=== PATIENT | female | born 1950 | race Caucasian/White ===

== ENCOUNTER → 2016-08-18 | Outpatient (CLI) | payer MEDICARE, OTHER ==
--- NOTE | 2016-08-19 15:26 | PE ---
EXAMINATION TYPE: PET CT fusion skull to thigh DATE OF EXAM: 08/18/2016 12:53 PM COMPARISON: CT chest 05/19/2015 Prior PET/CT: 05/19/2016 HISTORY: Lung mass TECHNIQUE: Following the intravenous administration of 11.49 mCi of F-18 FDG, whole body images are performed from the skull base to the midthigh. Images are reviewed on the computer in the coronal, a xial, and sagittal planes. Reconstructed rotating images are created on independent workstation and reviewed on the computer. A localization and attenuation correction CT is performed in conjunction with the PET scan. DLP: 458.9 cm mGycm SCAN: Subsequent Scan Blood glucose: 110 mg/dL Average Mediastinum SUV: 2.3 Average Liver SUV: 2.7 FINDINGS: NECK: No abnormal uptake THORAX: There is increased uptake within the pleural thickening along the posterior left upper lung f ield and within the left lung. This has an SUV value of 2.0-2.5. There is some increase uptake within the subscapularis muscle external to the rib in the range 2.8. This could be some neoplastic involve ment or related to motion. ABDOMEN: No abnormal uptake PELVIS: No abnormal uptake within the pelvis. Within the subcutaneous tissues lateral to the inferior hip joint level is a focal radiotracer accumulation measuring 3.5. A soft tissue metastatic lesion c ould be considered. Image 25 OSSEOUS STRUCTURES: There is some scattered areas of increased uptake within the spine is somewhat in termediate range. This however could be related to the degenerative disc changes and endplate changes through the spine. Metastatic lesions are not excluded. Example; inferior endplate L3, image 155. LOCALIZATION CT: Diverticulosis is noted within the sigmoid colon. The ascending thoracic aorta: Main pulmonary artery is 3.3 cm. The main pulmonary artery bifurcation is slightly prominent at 3.5 cm. C onsider pulmonary hypertension. Soft tissue density along the posterior lateral pleural margin extend ing into the left lung is evident is likely series 3 image 71. Note is made of coronary artery calcif ication. COMPARISON: Uptake within the left lung and pleural margin has increased. The thickening of pleural m argin appears increased. Uptake within the subscapularis region appears similar. Previous SUV value w ithin the lung measures 2. Current corresponding location has an SUV value 2.5. The soft tissue upta ke lateral to the right is a new finding. Mild uptake within the spine appears to be a development. IMPRESSION: 1. Increasing SUV in uptake within the posterior lateral left upper lung field density suspicious for recurrent neoplasm. 2. New soft tissue metastatic lesion suspected within the right subcutaneous hip. 3. Mild uptake within scattered lumbar cervical levels. Early metastatic lesion should be considered and is a change from prior. 4. Correlate for pulmonary hypertension.
== END | disposition home or self-care (01) ==
LOC: RADPETMAIN 09:27
PROVIDERS: ATTEND Radiology Radiation Oncology
DX: C34.92 Malignant neoplasm of unspecified part of left bronchus or lung (principal)
CPT/HCPCS: 78815; A9552

== ENCOUNTER → 2016-11-02 | Outpatient (CLI) | payer MEDICARE, OTHER ==
--- NOTE | 2016-11-03 14:23 | US ---
EXAMINATION TYPE: US extremity nonvasc mass RT DATE OF EXAM: 11/02/2016 6:14 PM COMPARISON: Previous PET CT dated 08/18/2016. CLINICAL HISTORY: R Hip Lesion M53.3. Scanned right lateral hip ,there is a 0.7 x 0.8 x 0.9 hypoechoic area with somewhat spiculated chaitanya ns. No vascularity detected. This corresponds to the abnormal finding on PET/CT. IMPRESSION: SMALL, 9 MM SOFT TISSUE NODULE IN THE AREA OF CONCERN ON THE PET/CT SCAN, SUSPICIOUS FOR METASTATIC D ISEASE.
== END | disposition home or self-care (01) ==
LOC: RADUSMAIN 17:48
PROVIDERS: ATTEND Family Medicine
DX: M53.3 Sacrococcygeal disorders, not elsewhere classified (principal)

== ENCOUNTER → 2016-12-08 | Outpatient (CLI) | payer MEDICARE, OTHER ==
--- NOTE | 2016-12-10 11:14 | PE ---
Nuclear medicine PET/CT HISTORY: Lung cancer, C 34.12 Patient received 14.3 mCi F-18 FDG intravenously. Delayed scanning performed from the skull base to t he mid thighs. Localization and attenuation correction CT was performed. Exam correlated to prior nuc lear medicine PET/CT 08/18/2016 Neck and chest: No significant adenopathy in the neck. Abnormal soft tissue in the left paratracheal location shows a similar appearance to prior exam, no associated hypermetabolic uptake. Parenchymal d ensity within the left lung is noted, pneumonitis type changes in the left upper lobe centrally, ciara pherally abnormal increased attenuation in the left upper lobe shows a similar appearance compatible with posttreatment change. SUV is 2.6 and there is likely inflammatory or post radiation change to ch est wall. There is no pleural or pericardial effusion. Cavitary appearance of the right lower lobe is stable. Emphysematous changes are present bilaterally. Heart is enlarged. Coronary artery calcificat ions are present. Pulmonary artery is dilated. Abdomen pelvis: No retroperitoneal adenopathy. No adrenal mass. Liver shows low attenuation and is en larged compatible with fatty aeration. No suspicious hypermetabolic uptake. No free fluid. Extensive diverticular change seen in the sigmoid colon. Hypermetabolic focus present within the subcutaneous fat at the level of the right hip may represent a small skin lesion. This is not well localized due to patient body habitus but may represent an inje ction granuloma. SUV is 10. Osseous structures: Multiple vertebral bodies within the spine show hypermetabolic uptake ranging to approximately 3-4 SUV. Degenerative changes present within the acromioclavicular joints. Uptake in sa croiliac joints may be inflammatory or stress related. IMPRESSION: Hypermetabolic uptake again noted in multiple vertebral bodies as on previous exam. Findi ngs could possibly represent reactive marrow changes, MRI with and without contrast of the cervical, lumbar spine or bone scan could be performed for additional evaluation. Coronary artery disease, card iomegaly, consider pulmonary artery hypertension. Probable skin lesion as described. Posttreatment ch anges left upper lobe.
== END | disposition home or self-care (01) ==
LOC: RADPETMAIN 08:27
PROVIDERS: ATTEND Radiology Radiation Oncology
DX: C34.12 Malignant neoplasm of upper lobe, left bronchus or lung (principal); R94.8 Abnormal results of function studies of other organs and systems; I25.10 Atherosclerotic heart disease of native coronary artery without angina pectoris; I51.7 Cardiomegaly; I27.2 Other secondary pulmonary hypertension; Z98.890 Other specified postprocedural states
CPT/HCPCS: 78815; A9552

== ENCOUNTER → 2017-01-21 | Outpatient (CLI) | payer MEDICARE, OTHER | END | disposition home or self-care (01) | LOC: LABWHC1 08:59 | PROVIDERS: ATTEND Family Medicine | DX: R53.83 Other fatigue (principal); R60.1 Generalized edema | CPT/HCPCS: 36415; 84439; 84443; 85613; 85730 ==

== ENCOUNTER → 2017-02-04 | Outpatient (CLI) | payer MEDICARE, OTHER ==
--- NOTE | 2017-02-04 12:22 | US ---
EXAMINATION TYPE: US extremity nonvasc complt RT DATE OF EXAM: 02/04/2017 COMPARISON: US 10/[address] 12/01 CLINICAL HISTORY: M53.3 SOFT TISSUE NODULE. Patient states spider veins on her right hip can feel bru ised and bleed, otherwise no other lump felt by patient or tech Soft tissue scan appears negative for pathology, superficial vessels seen at area of complaint under prominent spider veins. Area seen previously by ultrasound by technologist could not recreate today. No suspicious cystic or solid areas are identified. Normal vascular structures are evident within the [id number]. Previous hypoechoic area within the right hip region is not identified currently. IMPRESSION: 1. Negative right hip ultrasound soft tissues. 2. Abnormality of October 2016 is not appreciated on the current exam.
== END | disposition home or self-care (01) ==
LOC: RADUSWWP 08:58
PROVIDERS: ATTEND Internal Medicine Hematology & Oncology
DX: Z03.89 Encounter for observation for other suspected diseases and conditions ruled out (principal); C34.12 Malignant neoplasm of upper lobe, left bronchus or lung

== ENCOUNTER → 2017-02-23 | Outpatient (CLI) | payer MEDICARE, OTHER ==
[2017-02-23 09:45] LABS: Non-African American GFR(MDRD) >60 (>60 ml/min/1.73 sqM)
== END | disposition home or self-care (01) ==
LOC: RADMRIMAIN 09:23
PROVIDERS: ATTEND Radiology Radiation Oncology
DX: C34.12 Malignant neoplasm of upper lobe, left bronchus or lung (principal)
CPT/HCPCS: 82565

== ENCOUNTER → 2017-03-16 | Outpatient (CLI) | payer MEDICARE, OTHER ==
--- NOTE | 2017-03-17 15:01 | PE ---
EXAMINATION TYPE: PET CT fusion whole body DATE OF EXAM: 03/16/2017 COMPARISON: 05/19/2015 Prior PET/CT: 12/08/2016 HISTORY: Lung cancer left lung TECHNIQUE: Following the intravenous administration of 14.4 mCi of F-18 FDG, whole body images are p erformed from the skull base to the midthigh. Images are reviewed on the computer in the coronal, ax ial, and sagittal planes. Reconstructed rotating images are created on independent workstation and r eviewed on the computer. A localization and attenuation correction CT is performed in conjunction w ith the PET scan. DLP: 467.04 mGycm SCAN: Subsequent follow-up Blood glucose: 166 mg/dL Average Mediastinum SUV: 1.47 Average Liver SUV: 2.17 FINDINGS: NECK: No abnormal uptake THORAX: There is vague diffuse uptake within the posterior lateral pneumonitis change. This has an PRINCE V value of 2.4 general which can be postinflammatory treatment changes. Underlying neoplasm is not ex cluded. This was present previously. This has maximum uptake on the previous examination within the r albert of 2.6. This maximum obtained on current examination is 2.8. ABDOMEN: No abnormal uptake PELVIS: No abnormal uptake within the pelvis. Note is made of a area of marked increased uptake withi n the subcutaneous tissues in the right lateral subcutaneous tissues with an SUV value of 7.95 compat ible with a soft tissue metastatic lesion. OSSEOUS STRUCTURES: Uptake within the vertebral bodies is diminished from comparison. Suspicious foca l uptake is not identified. LOCALIZATION CT: Pneumonitis changes in the left apex. The ascending thoracic aorta at the level of t he main pulmonary artery is 3.3 cm. The main pulmonary artery the bifurcation is 3.7 cm. Clinical con sideration for pulmonary hypertension is recommended. Coronary artery calcification is noted. COMPARISON: This is larger and more extensive than the recent comparison of 12/08/[address] from the PET scan. The nodularity however from the 05/19/[address] examination is diminished . SUV values of increased slightly over the interval. Recurrent neoplasm cannot be excluded. IMPRESSION: 1. Increasing consolidation or infiltrative process in the left upper lobe. There is slight increase in the SUV value an increase in size from the recent PET/CT. Recurrent neoplasm is not excluded. 2. Soft tissue metastatic lesion suspected lateral to the right hip in superficial subcutaneous tissu es. 3. Consideration for pulmonary hypertension is recommended.
== END | disposition home or self-care (01) ==
LOC: RADPETMAIN 10:35
PROVIDERS: ATTEND Radiology Radiation Oncology
DX: C34.12 Malignant neoplasm of upper lobe, left bronchus or lung (principal); R94.2 Abnormal results of pulmonary function studies
CPT/HCPCS: 78816; A9552

== ENCOUNTER → 2017-07-26 | Outpatient (CLI) | payer MEDICARE, OTHER ==
--- NOTE | 2017-07-26 09:52 | US ---
EXAMINATION TYPE: US extremity nonvasc mass RT DATE OF EXAM: 07/26/2017 COMPARISON: Multiple PET scans and US's CLINICAL HISTORY: M25.859 Right hip mass. scanned lateral right thigh/hip area, there is a 4.3 x 4.2 x 3.9 cm complex mass with vascularity. This area is hypoechoic with some vascular flow within the inferior echogenic portion. This was prese nt on the PET scan of 03/16/2017. IMPRESSION: 1. Hypoechoic lesion with some peripheral vascularity deep to the palpable lesion. Findings can be co mpatible metastasis proper clinical setting.
== END | disposition home or self-care (01) ==
LOC: RADUSWWP 08:56
PROVIDERS: ATTEND Surgery Plastic and Reconstructive Surgery
DX: M25.851 Other specified joint disorders, right hip (principal); I73.89 Other specified peripheral vascular diseases

== ENCOUNTER → 2017-07-27 | Outpatient (CLI) | payer MEDICARE, OTHER ==
--- NOTE | 2017-07-29 10:31 | PE ---
EXAMINATION TYPE: PET CT fusion skull to thigh DATE OF EXAM: 07/27/2017 COMPARISON: No recent CT examinations. Prior PET/CT: Most recent comparison of 03/16/2017. HISTORY: Lung cancer TECHNIQUE: Following the intravenous administration of 12.4 mCi of F-18 FDG, whole body images are p erformed from the skull base to the midthigh. Images are reviewed on the computer in the coronal, ax ial, and sagittal planes. Reconstructed rotating images are created on independent workstation and r eviewed on the computer. A localization and attenuation correction CT is performed in conjunction w ith the PET scan. DLP: 4656 mGycm SCAN: Subsequent Blood glucose: 132 mg/dL Average Mediastinum SUV: 1.75 Average Liver SUV: 2.51 FINDINGS: NECK: No abnormal uptake THORAX: There is mild increased radiotracer within the consolidation posterior lateral left upper lob e. This has an SUV value of 2.6 compatible with patient's reported lung cancer. ABDOMEN: No abnormal uptake PELVIS: No abnormal uptake within the pelvis. Lateral to the right hip within the subcutaneous tissue s is marked increased radiotracer accumulation within SUV value 7.7 compatible with prostatic. OSSEOUS STRUCTURES: No abnormal uptake LOCALIZATION CT: The ascending thoracic aorta at the level the main pulmonary artery is 3.4 cm patent main pulmonary artery the bifurcation is 4.1 cm. Consider pulmonary hypertension. Coronary artery ca lcification is present. The triangular density in the left upper lobe has a similar appearance to the recent comparison of . No obvious interval increase in size is evident. Current measurements are estimated at 6.2 x 4.5 cm compared to the 6.3 x 4.2 cm previous. COMPARISON: Findings appear stable over the interval. IMPRESSION: 1. Stable appearance of the left upper lobe mass. 2. Subcutaneous metastatic lesion right hip region was present previously. 3. Clinical consideration for pulmonary hypertension is recommended.
== END | disposition home or self-care (01) ==
LOC: RADPETMAIN 07:49
PROVIDERS: ATTEND Radiology Radiation Oncology
DX: C34.12 Malignant neoplasm of upper lobe, left bronchus or lung (principal)
CPT/HCPCS: 78815; A9552

== ENCOUNTER → 2017-08-05 | Outpatient (CLI) | payer MEDICARE, OTHER ==
--- NOTE | 2017-08-05 11:31 | XR ---
EXAMINATION TYPE: XR wrist complete LT DATE OF EXAM: 08/05/2017 COMPARISON: NONE HISTORY: 66 year-old female left wrist pain and swelling, additional technologist history reports fra cture diagnosed 05/27/2018. TECHNIQUE: 4 views FINDINGS: There is an impacted and comminuted Colles' fracture of the distal radius and impacted fracture of th e distal ulna as well. Osteopenia. Healing is incomplete with some consolidation along the fracture m argin and periosteal callus. Degenerative changes at the base of the thumb and diffuse osteopenia. An ossicle adjacent to the ulnar styloid process. IMPRESSION: 1. Incompletely healed, impacted Colles' fracture with mild dorsal angulation. Additional technologis t history reports fracture diagnosed 05/27/2018. 2. Healing distal ulnar fracture.
== END | disposition home or self-care (01) ==
LOC: RADXRMAIN 09:02
PROVIDERS: ATTEND Family Medicine
DX: S52.602D Unspecified fracture of lower end of left ulna, subsequent encounter for closed fracture with routine healing (principal); S52.532D Colles' fracture of left radius, subsequent encounter for closed fracture with routine healing; M21.832 Other specified acquired deformities of left forearm

== ENCOUNTER 2017-08-14 08:54 | Day surgery (SDC) | payer MEDICARE, OTHER ==
[2017-08-14 09:25] VITALS: RESP 18; TEMP 97.6
[2017-08-14 11:15] VITALS: BP 110/70; PULSE 89
--- NOTE | 2017-08-14 11:16 | US ---
EXAMINATION TYPE: US biopsy soft tissue/muscle, US fine needle aspiration DATE OF EXAM: 08/14/2017 HISTORY: Right hip mass. Correlation to PET\CT 07/27/2017 FINDINGS: Maximal barrier technique was utilized. The skin overlying a suitable path to the patient' s mass was localized with ultrasound and the overlying skin prepped and draped. Ultrasound was utili zed with sterile technique. Lidocaine was used for local anesthesia. A skin blade was made with a sc alpel. 23-gauge needle was advanced into the center of the mixed solid cystic lesion and approximate ly 20 cc of brown fluid were aspirated and submitted to cytology. An 18-gauge needle was advanced und er direct ultrasound guidance and core specimen obtained of the mass. Specimen submitted in formalin to Pathology. Following the procedure, hemostasis achieved and the patient is discharged in stable condition without complication. IMPRESSION:STATUS POST ULTRASOUND GUIDED CORE BIOPSY and fine-needle aspiration OF right hip MASS, PA THOLOGY IS PENDING. THIS PROCEDURE IS PERFORMED BY THE UNDERSIGNED.
== END 2017-08-14 10:45 | disposition home or self-care (01) ==
LOC: RADPROMAIN 08:54
PROVIDERS: ATTEND Radiology Radiation Oncology
DX: C79.89 Secondary malignant neoplasm of other specified sites (principal); C34.12 Malignant neoplasm of upper lobe, left bronchus or lung
CPT/HCPCS: 10022; 20206; 76942; 87070; 87075; 87205; 88305; 88341; 88342

== ENCOUNTER → 2017-10-26 | Outpatient (CLI) | payer MEDICARE, OTHER ==
--- NOTE | 2017-10-29 16:26 | PE ---
EXAMINATION TYPE: PET CT fusion skull to thigh DATE OF EXAM: 10/26/2017 COMPARISON: PET/CT dated 07/27/2017 as well as 12/08/2016 and ultrasound guided biopsy of a right hip m ass dated 08/14/2017. HISTORY: Left lung carcinoma treated with surgery and radiation therapy. Subsequent treatment surgery . TECHNIQUE: Following the intravenous administration of 10.35 mCi of F-18 FDG, whole body images are performed from the skull base to the midthigh. Images are reviewed on the computer in the coronal, a xial, and sagittal planes. Reconstructed rotating images are created on independent workstation and reviewed on the computer. A localization and attenuation correction CT is performed in conjunction with the PET scan. SCAN: Subsequent. Multiple priors. FINDINGS: THORACIC BACKGROUND UPTAKE: 2.86 ABDOMINAL BACKGROUND UPTAKE: 3.32 SKULL BASE AND NECK: No suspicious hypermetabolic uptake. CHEST, MEDIASTINUM, AND HILAR REGION: There is a masslike consolidative area measuring 2.5 x 1.8 cm o n series 3 image 169 with peripheral pleural thickening measuring up to 1.4 cm on series 3 image 70 w ith a maximum SUV of 3.65 (prior SUV of 2.6). When measured in a similar fashion to the prior exam th is measures approximately 6.2 x 4.5 cm, unchanged on series 3 image 71. Deep to this there is activit y within the subscapularis measuring 2.8 maximum SUV. Additionally there is a left basilar pulmonary nodule measuring 8 mm on series 3 image 113 with a max imum SUV of 2.0. This retrospectively demonstrated slight interval growth in comparison to the prior exam but is much more conspicuous on today's examination. A cavitary thin walled lesion within the right lower lobe along the pleural surface has a nodular com ponent measuring 7 mm in thickness on series 3 image 105. The internal cavitary lesion measures 2.2 x 1.2 cm. A nodular component has grown in the interim. This has a maximum SUV of 2.3 Findings are superimposed upon mild centrilobular background emphysematous change. Lingular atelectas is is again noted. There is a left paratracheal lymph node measuring 1.1 cm in short axis on series 3 image 77 with a ma ximum SUV of 2.72. ABDOMEN AND PELVIS: There is a new abnormal right superficial inguinal lymph node measuring 1.7 cm in short axis on series 3 image 210 with substantial hypermetabolic activity in a maximum SUV of 12.12. Additional nonenlarged superficial inguinal lymph nodes, which are nonhypermetabolic, are seen adjac ent to this. The previously seen right thigh mass is much less conspicuous and has a marked decrease in SUV in comparison to the prior. This previously measured up to 7.95 maximum SUV and now measures 1 .3 but is on the edge of the [id number]. OSSEOUS STRUCTURES: There is some increased activity within the L2-L4 vertebral bodies with a maximum SUV of 2.92 as well as at T10 measuring 2.85 with the remainder the spine ranging between 2.1-2.3. OTHER CT: The paranasal sinuses are well aerated. Atherosclerosis is seen in the intracranial vascula ture. Moderate three-vessel coronary calcifications are noted. Heart is not enlarged. No pericardial effusion. No axillary adenopathy. There is diffuse hypoattenuation of the hepatic parenchyma, most co mmonly related to hepatic steatosis. This limits evaluation for hepatic masses as does the lack of in travenous contrast. Liver also appears enlarged. Small splenule seen adjacent to the [place] spleen. U nenhanced pancreas and kidneys are grossly unremarkable. Moderate calcific atheromatous changes are s een of the abdominal aorta and its branches. Adrenal glands are normal morphology. Bowel is nondilate d. There is diastases recti and a very small fat filled umbilical hernia. Numerous colonic diverticul a are present without pericolonic fat stranding. IMPRESSION: 1. Highly metabolic, new, morphologically abnormal right superficial inguinal adenopathy level to the recently biopsied right hip soft tissue mass that should be considered metastatic adenopathy until p roven otherwise. 2. Although there is overall unchanged size of the left upper lobe consolidation in the area of postt reatment change there is increase in radiotracer uptake concerning for recurrence. There is adjacent myositis of the subscapularis in reactive pleural thickening. 3. Interval growth of a nodular component of the right basilar cavitary lesion and interval growth of the left basilar pulmonary nodule both demonstrating low radiotracer activity, however interval grow th remains of concern for metastasis. 4. Minimal radiotracer increased avidity within L2-4 and T10 slightly above remainder the osseous str uctures, however not above abdominal background. Findings could be degenerative although correlation with radiograph could be performed.
== END | disposition home or self-care (01) ==
LOC: RADPETMAIN 09:56
PROVIDERS: ATTEND Radiology Radiation Oncology
DX: C34.12 Malignant neoplasm of upper lobe, left bronchus or lung (principal); R59.0 Localized enlarged lymph nodes; R91.1 Solitary pulmonary nodule; J98.4 Other disorders of lung
CPT/HCPCS: 78815; A9552

== ENCOUNTER → 2017-12-12 | Outpatient (CLI) | payer MEDICARE, OTHER ==
--- NOTE | 2017-12-12 10:04 | MR ---
EXAMINATION TYPE: MR brain wo/w con DATE OF EXAM: 12/12/2017 COMPARISON: NONE HISTORY: Lung ca mets TECHNIQUE: Multiplanar, multisequence images of the brain and brainstem is performed without and with IV contras t, utilizing 10 mL intravenous Gadavist . FINDINGS: Diffusion weighted images show no evidence of a recent infarct or other diffusion abnormality. There is no worrisome extra-axial fluid collection. The ventricular system and cisternal spaces are normal in size and appearance. The brain volume is age appropriate. There are some scattered foci of T2 hy perintensity seen throughout the white matter bilaterally. Approximately 10-20 scattered small lesion s are present. Lesions are nonspecific in appearance and distribution but most likely on basis of pro duct of chronic small vessel ischemic change in patient of this age. Midline structures demonstrate normal morphology. The craniocervical junction appears within normal limits. Post contrast images demonstrate some artifact degradation but there is no convincing eviden ce for suspicious foci of intraparenchymal enhancement suggest metastatic disease to the brain. Mild fluid signal left mastoid air cells is present. The dural venous sinuses appear patent. The visualize d sinuses are clear and the globes are intact. IMPRESSION: No suspicious enhancing intraparenchymal lesions are seen to suggest metastatic disease t o the brain.
== END | disposition home or self-care (01) ==
LOC: RADMRIMAIN 07:31
PROVIDERS: ATTEND Radiology Radiation Oncology
DX: C34.12 Malignant neoplasm of upper lobe, left bronchus or lung (principal)
CPT/HCPCS: 70553; A9581

== ENCOUNTER → 2018-01-06 | Outpatient (CLI) | payer MEDICARE, OTHER ==
[2018-01-06 11:25] LABS: Blood Urea Nitrogen 9 mg/dL (7-17)
--- NOTE | 2018-01-06 15:36 | CT ---
EXAMINATION TYPE: CT ChestAbdPelvis wo/w con DATE OF EXAM: 01/06/2018 INDICATION: Follow up lung cancer COMPARISON: 04/04/2015 CT chest, PET CT 10/26/2017 CT DLP: 3382.1 mGycm CONTRAST: Performed with Oral Contrast and without and with IV Contrast, patient injected with 100 mL of Isovue 300. TECHNIQUE: Axial images at 5 mm thick sections. Reconstructed images in the coronal plane. Delayed images through the kidneys. FINDINGS: CT CHEST: Portion of the thyroid visualized is normal. There is a mass extending to the periphery in the left apex measuring 4.9 x 4.6 cm on previous could be recurrence of the mass in the left apex. There is an enlarged mediastinal lymph node in the right peribronchial region measuring 2.1 cm. Right hilar adenopathy measuring 2.2 cm is present. A smaller 1.2 cm lymph node is at the aortopulmonic window level and is enlarged by CT criteria. Small nodules are at the lung bases measuring 0.6 cm at the posterior lateral peripheral right lung b ase, series 7 image 37. In measuring 1.1 cm of the left diaphragm. Series 7 image 37. The ascending aorta diameter at the level of the main pulmonary artery is 3.0 cm. The main pulmonary artery diameter at the bifurcation is 3.6 cm. Clinical consideration for pulmonary hypertension is r ecommended. Coronary artery calcification is noted. CT ABDOMEN: Liver: There appears to be fatty infiltration liver. No discrete masses or cysts are evident. Spleen: Normal Pancreas: Normal Adrenal glands: The adrenal glands are normal. Gallbladder: Not identified. Kidneys: No masses are evident. No hydronephrosis is present. No cysts are present. Delayed images were obtained through the kidneys, which remain unremarkable. Aorta: Vascular calcification is within the aorta. Inferior vena cava: Normal. CT PELVIS: Multiple diverticuli are within the sigmoid colon region. No acute diverticulitis is evident. Oral co ntrast extends to the colon. No obstruction is evident. There are loops of bowel which are incomplete ly distended or lack oral contrast limiting their evaluation. Right inguinal adenopathy is present. Appendix: Not visualized. Urinary bladder: Normal. Genitourinary structures: Uterus and ovaries are not identified. Osseous structures: No suspicious lytic or sclerotic lesions. IMPRESSIONS: 1. Recurrent mass left upper lobe with ill-defined margins extending to the periphery suspicious for recurrent lung cancer. 2. Scattered small nodules at the lung bases discussed above. Metastatic disease should be considered . 3. Enlarged right hilar isn't mediastinal adenopathy suspicious for metastasis. 4. Moderate fatty infiltration liver. 5. Diverticulosis sigmoid colon.
== END | disposition home or self-care (01) ==
LOC: RADCTMAIN 10:31
PROVIDERS: ATTEND Radiology Radiation Oncology
DX: C34.12 Malignant neoplasm of upper lobe, left bronchus or lung (principal); K57.30 Diverticulosis of large intestine without perforation or abscess without bleeding; K76.0 Fatty (change of) liver, not elsewhere classified
CPT/HCPCS: 82565; 84520; 71270; 74178; 36415; Q9967

== ENCOUNTER → 2018-02-22 | Outpatient (CLI) | payer MEDICARE, OTHER ==
--- NOTE | 2018-02-23 15:12 | PE ---
EXAMINATION TYPE: PET CT fusion skull to thigh DATE OF EXAM: 02/22/2018 COMPARISON: CT chest abdomen pelvis 01/06/2018 Prior PET/CT: 10/26/2017 HISTORY: Lung cancer TECHNIQUE: Following the intravenous administration of 10.88 mCi of F-18 FDG, whole body images are performed from the skull base to the midthigh. Images are reviewed on the computer in the coronal, a xial, and sagittal planes. Reconstructed rotating images are created on independent workstation and reviewed on the computer. A localization and attenuation correction CT is performed in conjunction with the PET scan. DLP: 588.02 mGycm SCAN: Subsequent Blood glucose: 128 mg/dL Average Mediastinum SUV: 2.18 Average Liver SUV: 2.89 FINDINGS: NECK: No abnormal uptake THORAX: There is a punctate area of increased uptake within the superior mediastinum which may be a s mall lymph node with metastatic disease. This has an SUV value of 3.3. Image 61. There is an abnormal lymph node with uptake measuring SUV 7.02. PET image 71. There is a right peribronchial lymph node w ith an SUV value of 8.05. PET image 77. An adjacent hilar lymph node measuring 4.8 SUV value is prese nt, PET image 76. Subcarinal lymph node has abnormal uptake with an SUV value of 10.04. A right infra hilar lymph node or mass has an SUV value of 14.46. This is directly adjacent to the right atrium. A left infrahilar lymph node has an SUV value of 6.17. PET image 79. There is vague increased uptake within the triangular consolidation in the periphery of the posterior lateral left upper lobe. SUV values approximately 3.5. There is abnormal uptake within a mass within the left upper lobe. PET image 70, SUV value 5.8. Small posterior density within the left apex has a n SUV value of 2.23. PET Image 56. Focus of radiotracer accumulation is in the periphery of the righ t lower lobe. PET image 105, SUV 2.65. Abnormal radiotracer accumulation is at the left diaphragm po steriorly, PET image 110, SUV 12.24. ABDOMEN: No abnormal uptake PELVIS: Abnormal radiotracer accumulation is within the iliac chain region on the right. PET image 21 0. This has an SUV value of 7.08. There is a markedly enlarged area of radiotracer accumulation withi n the right inguinal region with an SUV value of 11.71. OSSEOUS STRUCTURES: No abnormal uptake LOCALIZATION CT: Ascending thoracic aorta at the level of main pulmonary artery is 3.3 cm. Remaining pulmonary artery location is 3.3 cm. Moderate coronary artery calcifications present. The adrenal gla nds as visualized appear unremarkable. Diverticular changes are present without acute diverticulitis. The abnormal lymphadenopathy identified by PET CT is also evident on the localization CT. COMPARISON: 1 masses such as at the left diaphragm is enlarged prior study currently measuring 1.7 cm compared to 0.8 cm. Additional nodule likewise has enlarged over the interval. IMPRESSION: 1. Enlarging size of pulmonary nodules with increasing SUV values suspicious for recurrence. 2. Mediastinal uptake likewise appears increasing. 3. The right inguinal mass has increased as well.
== END | disposition home or self-care (01) ==
LOC: RADPETMAIN 11:22
PROVIDERS: ATTEND Radiology Radiation Oncology
DX: C34.12 Malignant neoplasm of upper lobe, left bronchus or lung (principal); F17.210 Nicotine dependence, cigarettes, uncomplicated; C79.89 Secondary malignant neoplasm of other specified sites; C49.21 Malignant neoplasm of connective and soft tissue of right lower limb, including hip
CPT/HCPCS: 78815; A9552

== ENCOUNTER → 2018-04-04 | Outpatient (CLI) | payer MEDICARE, OTHER ==
--- NOTE | 2018-04-04 20:47 | MR ---
EXAMINATION TYPE: MR brain wo/w con DATE OF EXAM: 04/04/2018 COMPARISON: Prior brain MR 12/12/2017 HISTORY: Headaches, Lung ca 2015 TECHNIQUE: Multiplanar, multisequence images of the brain and brainstem is performed without and with IV contras t, utilizing 10 mL intravenous Gadavist . FINDINGS: Diffusion weighted images demonstrate no evidence of a recent infarct or other diffusion ab normality. There is no extra-axial fluid collection or significant interval change in white matter s ignal abnormality. There are approximately 2 new hyperintensities suspected in the frontal lobes in t he subcortical white matter, axial image 15 on the left lesion measures 6 mm not seen on prior, axial image 15 left frontal white matter 4.4 mm also not seen on prior exam which both enhance following c ontrast administration. The ventricular system and cisternal spaces are normal in size and appearance . The brain volume is age appropriate. Midline structures demonstrate normal morphology. The dural enhancement is similar to prior. The cran iocervical junction appears within normal limits. The dural venous sinuses appear patent. The visual ized sinuses are clear and the globes are intact. IMPRESSION: 2 new left frontal lesions as described which show enhancement suggestive of metastasis.
== END | disposition home or self-care (01) ==
LOC: RADMRIMAIN 19:03
PROVIDERS: ATTEND Internal Medicine Hematology & Oncology
DX: C34.12 Malignant neoplasm of upper lobe, left bronchus or lung (principal); G93.9 Disorder of brain, unspecified; R51 Headache
CPT/HCPCS: 70553; A9585

== ENCOUNTER → 2018-05-24 | Outpatient (CLI) | payer MEDICARE, OTHER ==
--- NOTE | 2018-05-27 16:21 | PE ---
Nuclear medicine PET/CT HISTORY: Neoplasm of brain, lung carcinoma, subsequent Patient received 11.9 mCi F-18 FDG intravenously in delayed scanning was performed from the skull bas e to the mid thighs. Localization and attenuation correction CT scan was performed. Correlation to prior nuclear medicine PET/CT 02/22/2018 Neck and chest: There is no evident cervical or axillary adenopathy. There is uptake associated with the pleural-based mass in the left upper lobe which shows a similar configuration, SUV is 3.5. The pr eviously identified hilar and mediastinal uptake seen on prior exam has improved in the interval, SUV 4 right hilum. Left upper lobe lung nodule on axial image 79 measures 1 cm and decreased radio pharm aceutical uptake as compared to prior, lesion along the left hemidiaphragm measures approximately 2.1 cm in greatest transverse dimension although likely less volume, there is decreased hypermetabolic u ptake. Subpleural nodule in the right lower lobe has developed in the interval and measures approxima tely 11 mm, an interval finding, only mild hypermetabolic uptake with SUV 1.8, smaller nodule may be immediately adjacent in the right lower lobe but subcentimeter in size. Abdomen pelvis: There is no retroperitoneal adenopathy. Aorta shows normal caliber. No evident liver mass. In the right inguinal region there are lymph nodes present, the largest measures approximately 17 mm in short axis, there is associated hypermetabolic uptake, SUV is 3.5 which is improved. Extensi ve diverticular change noted in the sigmoid colon. Osseous structures: No significant interval change. No suspicious hypermetabolic uptake IMPRESSION: There has been some marked interval improvement in previous hyper metabolic uptake identi fied, although new lesions, new mild hypermetabolic uptake is present suggesting possible mixed respo nse.
== END | disposition home or self-care (01) ==
LOC: RADPETMAIN 12:13
PROVIDERS: ATTEND Radiology Radiation Oncology
DX: C79.31 Secondary malignant neoplasm of brain (principal); C77.4 Secondary and unspecified malignant neoplasm of inguinal and lower limb lymph nodes; C79.89 Secondary malignant neoplasm of other specified sites; C49.21 Malignant neoplasm of connective and soft tissue of right lower limb, including hip; C34.12 Malignant neoplasm of upper lobe, left bronchus or lung; F17.210 Nicotine dependence, cigarettes, uncomplicated
CPT/HCPCS: 78815; A9552

== ENCOUNTER 2018-07-17 17:36 | Inpatient (IN) | payer MEDICARE, OTHER ==
[2018-07-17] MEDS ORDERED: HYDROmorphone 0.5 MG/0.5 ML SYRINGE IVP STA (18:49)
[2018-07-17] MEDS ORDERED: SODIUM CHLORIDE 0.9% 1,000 ML IV STA (18:49)
[2018-07-17] MEDS ORDERED: ONDANSETRON 4 MG/2 ML VIAL IVP STA (18:49)
--- NOTE | 2018-07-17 19:03 | ED ---
General Adult HPI - General Chief complaint: Nausea/Vomiting/Diarrhea Stated complaint: weakness/nausea Time Seen by Provider: 07/17/18 18:42 Source: patient, RN notes reviewed, old records reviewed Mode of arrival: wheelchair Limitations: no limitations - History of Present Illness Initial comments: 67-year-old female history of metastatic lung cancer presenting for evaluation of nausea and vomiting. Patient's symptoms have been ongoing for several weeks. She has missed 2 sessions of chemotherapy secondary to her symptoms. She has been tolerating small amounts of oral liquids but has not had any substantial food. Denies fever or chills. Denies chest pain. She's passing gas and having normal bowel movements. No abdominal pain. Denies cough or dyspnea. Denies chest pain. - Related Data Home Medications Medication Instructions Recorded Confirmed ALPRAZolam [Xanax] 2 mg PO TID PRN 05/03/15 07/17/18 Albuterol Nebulized [Ventolin 2.5 mg INHALATION RT-QID PRN 05/03/15 07/17/18 Nebulized] Citalopram Hydrobromide [CeleXA] 40 mg PO QAM 05/03/15 07/17/18 HYDROcodone/APAP 10-325MG [Russell 1 tab PO Q4H PRN 05/03/15 07/17/18 10-325] Umeclidinium Brm/Vilanterol Tr 1 puff INHALATION RT-DAILY 05/03/15 07/17/18 [Anoro Ellipta 62.5-25 Mcg INH] Allergies Allergy/AdvReac Type Severity Reaction Status Date / Time cephalexin monohydrate Allergy Severe Anaphylaxis Verified 07/17/18 18:59 [From Keflex] adhesive Allergy Rash/Hives Verified 07/17/18 18:59 silicone Allergy Rash/Hives Verified 07/17/18 18:59 Review of Systems ROS Statement: Those systems with pertinent positive or pertinent negative responses have been documented in the HPI. ROS Other: All systems not noted in ROS Statement are negative. Past Medical History Past Medical History: COPD Additional Past Medical History / Comment(s): URINARY INCONTINENCE, WEARS DEPENDS DAILY, lung CA, post radiation. Fracture left wrist. History of Any Multi-Drug Resistant Organisms: None Reported Past Surgical History: Cholecystectomy, Hysterectomy, Orthopedic Surgery Additional Past Surgical History / Comment(s): KARSON KNEE CAP REPLACEMENT, bronchoscopy Past Anesthesia/Blood Transfusion Reactions: No Reported Reaction Past Psychological History: Anxiety Past Alcohol Use History: Occasional - Past Family History Mother Family Medical History: Unable to Obtain Additional Family Medical History / Comment(s): adopted General Exam Limitations: no limitations General appearance: alert, in no apparent distress Head exam: Present: atraumatic, normocephalic Eye exam: Present: normal appearance, PERRL ENT exam: Present: mucous membranes dry Neck exam: Present: normal inspection. Absent: tenderness, meningismus Respiratory exam: Present: normal lung sounds bilaterally. Absent: respiratory distress, wheezes Cardiovascular Exam: Present: regular rate, normal rhythm GI/Abdominal exam: Present: soft. Absent: distended, tenderness, guarding Extremities exam: Present: normal inspection, normal capillary refill Neurological exam: Present: alert, oriented X3 Psychiatric exam: Present: normal affect, normal mood Skin exam: Present: warm, dry, intact. Absent: cyanosis, diaphoretic Course Vital Signs 07/17/18 07/17/18 07/17/18 17:54 19:00 19:10 Temperature 97.7 F Pulse Rate 72 80 82 Respiratory 16 18 18 Rate Blood Pressure 141/115 104/90 84/57 O2 Sat by Pulse 100 96 95 Oximetry 07/17/18 07/17/18 07/17/18 19:20 19:40 19:50 Temperature Pulse Rate 88 73 Respiratory 18 19 Rate Blood Pressure 95/27 88/41 74/32 O2 Sat by Pulse 100 97 Oximetry 07/17/18 07/17/18 07/17/18 20:00 20:10 20:20 Temperature Pulse Rate 92 79 Respiratory 18 18 Rate Blood Pressure 74/32 91/33 82/66 O2 Sat by Pulse 85 L 99 Oximetry Medical Decision Making - Medical Decision Making 67-year-old female history of metastatic lung cancer presenting with nausea vomiting, dehydration. Patient is significantly dehydrated on exam, she is hypotensive. Workup in the emergency department reveals normal CBC, no leukocytosis, she has a left foot antibiotics including hyponatremia with sodium 130, potassium 2.9 this is replaced. Creatinine is 1.3 which is significantly elevated from baseline of 0.5. Patient is lactic acid 2.9. Chest x-ray shows worsening of left upper lobe mass, abdominal x-ray negative for obstruction or intraperitoneal free air. Urinalysis pending. Patient given 2 L of IV hydration emergency department, continued on maintenance. Will be admitted for elective replacement, symptom control, and IV hydration. - Lab Data Result diagrams: 07/17/18 18:50 07/17/18 18:50 Lab Results 07/17/18 07/17/18 07/17/18 Range/Units 18:50 18:50 19:34 WBC 9.1 (3.8-10.6) k/uL RBC 4.19 (3.80-5.40) m/uL Hgb 13.4 (11.4-16.0) gm/dL Hct 40.4 (34.0-46.0) % MCV 96.4 (80.0-100.0) fL MCH 31.8 (25.0-35.0) pg MCHC 33.0 (31.0-37.0) g/dL RDW 13.8 (11.5-15.5) % Plt Count 271 (150-450) k/uL Neutrophils % 59 % Lymphocytes % 19 % Monocytes % 12 % Eosinophils % 5 % Basophils % 1 % Neutrophils # 5.4 (1.3-7.7) k/uL Lymphocytes # 1.8 (1.0-4.8) k/uL Monocytes # 1.1 H (0-1.0) k/uL Eosinophils # 0.5 (0-0.7) k/uL Basophils # 0.1 (0-0.2) k/uL Sodium 130 L (137-145) mmol/L Potassium 2.9 L (3.5-5.1) mmol/L Chloride 93 L (98-107) mmol/L Carbon Dioxide 27 (22-30) mmol/L Anion Gap 10 mmol/L BUN 23 H (7-17) mg/dL Creatinine 1.31 H (0.52-1.04) mg/dL Est GFR (CKD-EPI)AfAm 48 (>60 ml/min/1.73 sqM) Est GFR (CKD-EPI)NonAf 42 (>60 ml/min/1.73 sqM) Glucose 176 H (74-99) mg/dL Plasma Lactic Acid Dave 2.9 H* (0.7-2.0) mmol/L Calcium 8.7 (8.4-10.2) mg/dL Total Bilirubin 2.0 H (0.2-1.3) mg/dL AST 52 H (14-36) U/L ALT 32 (9-52) U/L Alkaline Phosphatase 131 H (38-126) U/L Total Protein 6.2 L (6.3-8.2) g/dL Albumin 2.7 L (3.5-5.0) g/dL Lipase 123 (23-300) U/L Disposition Clinical Impression: Acute kidney injury, Lung cancer, Dehydration Disposition: ADMITTED IP TO THIS [facility] Condition: Stable Is patient prescribed a controlled substance at d/c from ED?: No Referrals: Demetris Garcia DO [Primary Care Provider] - 1-2 days Decision to Admit Reason: Admit from EC Decision Date: 07/17/18 Decision Time: 21:17
[2018-07-17 19:28] LABS: Basophils # (A) 0.1 k/uL (0-0.2); Basophils % (A) 1 %; Eosinophils # (A) 0.5 k/uL (0-0.7); Eosinophils % (A) 5 %; HCT 40.4 % (34.0-46.0); HGB 13.4 gm/dL (11.4-16.0); Lymphocytes # (A) 1.8 k/uL (1.0-4.8); Lymphocytes % (A) 19 %; MCH 31.8 pg (25.0-35.0); MCV 96.4 fL (80.0-100.0); Mean Platelet Volume 8.2; Monocytes # (A) 1.1 k/uL (0-1.0); Monocytes % (A) 12 %; Neutrophils # (A) 5.4 k/uL (1.3-7.7); Neutrophils % (A) 59 %; Platelet Count 271 k/uL (150-450); RBC 4.19 m/uL (3.80-5.40); RDW 13.8 % (11.5-15.5); WBC 9.1 k/uL (3.8-10.6)
[2018-07-17 19:32] LABS: Albumin 2.7 g/dL (3.5-5.0); Calcium 8.7 mg/dL (8.4-10.2); Potassium 2.9 mmol/L (3.5-5.1); Total Protein 6.2 g/dL (6.3-8.2)
--- NOTE | 2018-07-17 20:30 | XR ---
EXAMINATION TYPE: XR chest 2V DATE OF EXAM: 07/17/2018 COMPARISON: 05/27/2015 HISTORY: Nausea and vomiting TECHNIQUE: Frontal and lateral views of the chest are obtained. FINDINGS: There is a 6.5 cm masslike infiltrate in the posterior left upper lobe. This appears incre ased in size and density compared to old chest x-ray. There is no heart failure. There is no pleural effusion. Thoracic aorta is atheromatous. There is no pneumothorax. IMPRESSION: Left upper lobe mass increased. No heart failure.
--- NOTE | 2018-07-17 20:31 | XR ---
EXAMINATION TYPE: XR KUB DATE OF EXAM: 07/17/2018 COMPARISON: NONE HISTORY: Nausea and vomiting TECHNIQUE: 2 views supine and upright FINDINGS: There is no sign of intestinal obstruction or pneumoperitoneum. Fecal pattern is normal. Th ere is gas down to the rectum. Lung bases are clear of consolidation. There is no evidence of pleural effusion. There are no pathologic calcifications over the kidneys. IMPRESSION: Nonacute abdomen.
[2018-07-17] MEDS ORDERED: POTASSIUM CHLORIDE ER 20 MEQ TAB.ER PO STA (20:40)
[2018-07-17] MEDS ORDERED: SODIUM CHLORIDE 0.9% 1,000 ML IV ONE (20:43)
[2018-07-17] MEDS ORDERED: HYDROmorphone 0.5 MG/0.5 ML SYRINGE IVP PRN (21:12)
[2018-07-17] MEDS ORDERED: ACETAMINOPHEN TAB 325 MG TAB PO PRN (21:12)
[2018-07-17] MEDS ORDERED: NALOXONE 0.4 MG/ML 1 ML VIAL IV PRN (21:12)
[2018-07-17] MEDS ORDERED: ONDANSETRON 4 MG/2 ML VIAL IVP PRN (21:12)
[2018-07-17 21:50] LABS: Appearance,Urine Turbid (Clear); Bilirubin,Urine 1+ (Negative); Blood,Urine Large (Negative); Color,Urine Dark Brown; Glucose,Urine (UA) Trace (Negative); Ketones,Urine Negative (Negative); Leukocyte Esterase,Urine Large (Negative); Mucus,Urine Many /hpf; Nitrite,Urine Negative (Negative); PH, Urine 5.5 (5.0-8.0); Protein,Urine 2+ (Negative); RBC,Urine 83 /hpf (0-5); Specific Gravity,Urine 1.019 (1.001-1.035); Squamous Epithelial Cell,Urine 3 /hpf (0-4); WBC,Urine >182 /hpf (0-5)
[2018-07-17] MEDS: SODIUM CHLORIDE 0.9% 1,000 ML IV SCH (22:00)
[2018-07-17] MEDS: POTASSIUM CHLORIDE 20 MEQ in WATER FOR INJECTION 1 100ML.BAG IVPB SCH (22:20)
[2018-07-17 22:50] LABS: Glucose,Whole Blood 131 mg/dL (75-99)
[2018-07-18] MEDS: POTASSIUM CHLORIDE 20 MEQ in WATER FOR INJECTION 1 100ML.BAG IVPB SCH (02:06)
[2018-07-18] MEDS ORDERED: SODIUM CHLORIDE 0.9% 1,000 ML IV ONE (02:29)
[2018-07-18 06:33] LABS: Calcium 7.4 mg/dL (8.4-10.2); Magnesium 1.8 mg/dL (1.6-2.3); Potassium 3.7 mmol/L (3.5-5.1)
[2018-07-18 06:47] LABS: HCT 34.7 % (34.0-46.0); HGB 11.1 gm/dL (11.4-16.0); MCH 31.7 pg (25.0-35.0); MCHC 31.9 g/dL (31.0-37.0); MCV 99.4 fL (80.0-100.0); Mean Platelet Volume 7.8; Platelet Count 232 k/uL (150-450); RBC 3.49 m/uL (3.80-5.40); RDW 13.9 % (11.5-15.5); WBC 8.3 k/uL (3.8-10.6)
[2018-07-18 08:42] LABS: Band Neutrophils % 1 %; Eosinophils # (M) 0.75 k/uL (0-0.7); Lymphocytes # (M) 1.33 k/uL (1.0-4.8); Myelocytes # (M) 0.08 k/uL (0); Myelocytes % 1 %; Neutrophils % (M) 63 %; Nucleated Red Blood Cells 0 /100 WBC (0-0); Total Cells Counted 200
[2018-07-18] MEDS ORDERED: VANCOMYCIN 1,000 MG in SODIUM CHLORIDE 0.9% 250 ML IVPB STA (10:42)
[2018-07-18] MEDS ORDERED: VANCOMYCIN IV PER PHARMACY 1 EACH MISC MISCELLANE PRN (10:48)
[2018-07-18] MEDS: LEVOFLOXACIN 500MG-D5W PMX 500 MG in DEXTROSE/WATER 1 100ML.BAG IVPB SCH (11:58)
[2018-07-18] MEDS: HEPARIN SODIUM,PORCINE 5,000 UNIT/ML 1 ML VIAL SQ SCH ×2 (11:58→20:53)
[2018-07-18] MEDS: VANCOMYCIN 1,750 MG in SODIUM CHLORIDE 0.9% 500 ML 500 ML IVPB SCH (11:58)
[2018-07-18] MEDS: SODIUM CHLORIDE 0.9% 1,000 ML IV SCH ×2 (11:59→20:55)
--- NOTE | 2018-07-18 13:09 | P.HPIM ---
History of Present Illness H&P Date: 07/18/18 Chief Complaint: Sepsis, dehydration, nausea vomiting, lactic acidosis, urinary tract infect 67-year-old female one of Dr. 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 another other area who been treated with oncology and town with chemotherapy regular basis she had the last one over 3 weeks ago developed to become sick with lack of appetite weakness generalized fatigue and lately in the last 48 hours had intractable nausea vomiting severe dehydration lightheadedness and dizziness not been able to ambulate and walk not been able to keep any food or fluid down symptom becomes slightly red worse also had increased swelling redness and warmness of the lower extremity along with mild burning in urination along with discomfort frequency urgency and worsening hesitancy. Patient ended up coming to the emergency department at [facility] where was seen and evaluated was quite bit dehydrated with hypotension blood pressure running 70/40 patient was started on IV hydration antiemesis medication 1 dose of IV antibiotics was giving the patient lactic acid was elevated was treated as sepsis ended up being admitted to intensive care unit afterward to the [facility] problem. Apparently her oncologist was notify and agree with the current plan for now. Review of Systems CONSTITUTIONAL: Mildly overweight, in not in any respiratory distress but more drowsy and to sleepy. EYES: No icterus sclerae, no conjunctivitis. EARS, NOSE, MOUTH, THROAT, and FACE: No sore throat, lymphadenopathy, carotid bruits or deformity. RESPIRATORY: Mild shortness of breath no cough wheezes CARDIOVASCULAR: No CP, Palpitation, PND, Orthopnea, or angina. GASTROINTESTINAL: No Abd pain, Nausea or vomiting, no Diarrhea or constipation, No GI Bleed, no distention or masses. GENITOURINARY: Positive burning urination no hematuria but positive irritation discomfort frequency and urgency. INTEGUMENT/BREAST: Negative for any muscular injury with mild osteoarthritis.. HEMATOLOGIC/LYMPHATIC: History of lung cancer with brain metastasis and breast metastasis as well chronic anemia MUSCULOSKELTAL: Edema of the lower extremity with worsening cellulitis worse in the right than the left side. NEURLOGICAL: No LOC, Sz or syncope, blurred vision dizziness or abnormality.. BEHAVIORAL/PSYCH: Negative. ENDOCRINE: Negative. Past Medical History Past Medical History: COPD Additional Past Medical History / Comment(s): URINARY INCONTINENCE, WEARS DEPENDS DAILY, lung CA, post radiation. Fracture left wrist. History of Any Multi-Drug Resistant Organisms: None Reported Past Surgical History: Cholecystectomy, Hysterectomy, Orthopedic Surgery Additional Past Surgical History / Comment(s): KARSON KNEE CAP REPLACEMENT, bronchoscopy Past Anesthesia/Blood Transfusion Reactions: No Reported Reaction Past Psychological History: Anxiety Smoking Status: Former smoker Past Alcohol Use History: Occasional Past Drug Use History: None Reported - Past Family History Mother Family Medical History: Unable to Obtain Additional Family Medical History / Comment(s): . Medications and Allergies Home Medications Medication Instructions Recorded Confirmed Type ALPRAZolam [Xanax] 2 mg PO TID PRN 05/03/15 07/17/18 History Albuterol Nebulized [Ventolin 2.5 mg INHALATION RT-QID PRN 05/03/15 07/17/18 History Nebulized] Citalopram Hydrobromide [CeleXA] 40 mg PO QAM 05/03/15 07/17/18 History HYDROcodone/APAP 10-325MG [[place] 1 tab PO Q4H PRN 05/03/15 07/17/18 History 10-325] Umeclidinium Brm/Vilanterol Tr 1 puff INHALATION RT-DAILY 05/03/15 07/17/18 History [Anoro Ellipta 62.5-25 Mcg INH] Cyclobenzaprine HCl 10 mg PO HS 07/17/18 07/17/18 History Levothyroxine Sodium [Synthroid] 50 mcg PO DAILY 07/17/18 07/17/18 History Allergies Allergy/AdvReac Type Severity Reaction Status Date / Time cephalexin monohydrate Allergy Severe Anaphylaxis Verified 07/17/18 18:59 [From Keflex] adhesive Allergy Rash/Hives Verified 07/17/18 18:59 silicone Allergy Rash/Hives Verified 07/17/18 18:59 Physical Exam Vitals: Vital Signs Temp Pulse Pulse Resp BP BP Pulse Ox 07/18/18 12:00 97.5 F L 113 H 19 109/51 07/18/18 11:00 120 H 22 115/52 07/18/18 10:00 121 H 26 H 107/55 07/18/18 09:00 123 H 28 H 74/39 07/18/18 08:40 98.2 F 123 H 31 H 74/39 07/18/18 08:00 123 H 26 H 94/41 95 07/18/18 07:30 125 H 22 94/41 07/18/18 07:00 126 H 23 94/50 07/18/18 06:30 125 H 26 H 94/50 07/18/18 06:00 125 H 26 H 84/52 07/18/18 05:30 126 H 29 H 84/52 07/18/18 05:00 128 H 25 H 88/48 92 L 07/18/18 04:30 126 H 26 H 88/48 07/18/18 04:00 126 H 125 H 22 88/49 07/18/18 03:30 100.0 F H 123 H 18 88/49 93 L 07/18/18 03:00 125 H 17 07/18/18 02:30 125 H 24 101/51 07/18/18 02:00 124 H 23 85/66 07/18/18 01:30 123 H 25 H 85/66 07/18/18 01:00 122 H 23 90/46 07/18/18 00:30 120 H 17 90/46 07/18/18 00:00 97.9 F 116 H 120 H 15 84/50 97 07/17/18 23:30 97.4 F L 118 H 10 L 84/50 74 L 07/17/18 23:00 118 H 18 101/49 95 07/17/18 22:30 98.7 F 92 16 90/39 97 07/17/18 22:27 97.4 F L 118 H 13 101/49 07/17/18 22:10 92 16 97/57 96 07/17/18 22:00 95/47 95 07/17/18 21:50 78/58 96 07/17/18 21:40 151/137 97 07/17/18 21:30 86/54 91 L 07/17/18 21:10 64 18 95/45 95 07/17/18 21:00 70 18 103/40 99 07/17/18 20:50 70 18 101/48 95 07/17/18 20:40 64 18 100/63 95 07/17/18 20:30 69 18 94/43 95 07/17/18 20:20 79 18 82/66 99 07/17/18 20:10 92 18 91/33 85 L 07/17/18 20:00 74/32 07/17/18 19:50 74/32 07/17/18 19:40 73 19 88/41 97 07/17/18 19:20 88 18 95/27 100 07/17/18 19:10 82 18 84/57 95 07/17/18 19:00 80 18 104/90 96 07/17/18 17:54 97.7 F 72 16 141/115 100 Intake and Output 07/17/18 07/18/18 07/18/18 22:59 06:59 14:59 Intake Total 1700 1200 Output Total 0 100 Balance 1700 1100 Intake: IV 1700 600 Sodium Chloride 0.9% 1, 700 600 000 ml @ 100 mls/hr IV . Q10H [facility] Rx#:[id number] Sodium Chloride 0.9% 1, 1000 000 ml @ 999 mls/hr IV . Q1H1M [facility] Rx#:[id number] Intake, IV Titration 600 Amount Levofloxacin 500Mg-D5w 100 Pmx 500 mg In Dextrose/ Water 1 100ml.bag @ 100 mls/hr IVPB Q24H [facility] Rx#: [id number] Vancomycin 1,750 mg In 500 Sodium Chloride 0.9% 500 ml 500 ml @ 167 mls/hr IVPB Q24HR [facility] Rx#: [id number] Output: Urine 0 100 Other: Voiding Method Incontinent Incontinent # Voids 1 Weight 99.79 kg 101 kg General Appearance: Alert, cooperative, no distress appearing much older than her age mildly overweight falling asleep in the midleft for interview. Neck HEENT: Supple, no lymphadenopathy, no thyroid enlargement, no carotid bruits. Lungs: Clear to auscultation without crackles or wheezes no rhonchi, no deformity. Chest Wall: Chest wall normal expansion with deep inspiration no tenderness and no deformity was found on exam, no costochondral pain or discomfort. Heart: Mild tachycardia regular rhythm and rate positive systolic murmur. Back: Symmetric, no curvature, ROM normal, no CVA tenderness. Abdomen: Soft positive bowel sounds slight discomfort to lower abdominal region area no rebound or rigidity not been able to feel any mass mild skin irritation lower part of the abdomen area. Extremities: 1+ edema with severe cellulitis below the knee worse in the right than the left side with mild folliculitis of the left side as well. Pulses: 2+ and symmetric. Skin: Skin color, texture, tugor normal, no rashes or lesions. Neurologic: Alert oriented x3 cranial nerves II through XII intact, no motor deficit, no abnormal balance or gait. Results CBC & Chem 7: 07/18/18 05:56 07/18/18 05:56 Labs: Abnormal Lab Results - Last 24 Hours (Table) 07/17/18 07/17/18 07/17/18 Range/Units 18:50 18:50 19:34 RBC (3.80-5.40) m/uL Hgb (11.4-16.0) gm/dL Monocytes # 1.1 H (0-1.0) k/uL Eosinophils # (Manual) (0-0.7) k/uL Myelocytes # (Manual) (0) k/uL Sodium 130 L (137-145) mmol/L Potassium 2.9 L (3.5-5.1) mmol/L Chloride 93 L (98-107) mmol/L BUN 23 H (7-17) mg/dL Creatinine 1.31 H (0.52-1.04) mg/dL Glucose 176 H (74-99) mg/dL POC Glucose (mg/dL) (75-99) mg/dL Plasma Lactic Acid Dave 2.9 H* (0.7-2.0) mmol/L Calcium (8.4-10.2) mg/dL Total Bilirubin 2.0 H (0.2-1.3) mg/dL AST 52 H (14-36) U/L Alkaline Phosphatase 131 H (38-126) U/L Total Protein 6.2 L (6.3-8.2) g/dL Albumin 2.7 L (3.5-5.0) g/dL Urine Appearance (Clear) Urine Protein (Negative) Urine Glucose (UA) (Negative) Urine Blood (Negative) Urine Bilirubin (Negative) Ur Leukocyte Esterase (Negative) Urine RBC (0-5) /hpf Urine WBC (0-5) /hpf Urine WBC Clumps (None) /hpf Urine Mucus (None) /hpf 07/17/18 07/17/18 07/18/18 Range/Units 21:13 22:48 05:56 RBC (3.80-5.40) m/uL Hgb (11.4-16.0) gm/dL Monocytes # (0-1.0) k/uL Eosinophils # (Manual) (0-0.7) k/uL Myelocytes # (Manual) (0) k/uL Sodium 134 L (137-145) mmol/L Potassium (3.5-5.1) mmol/L Chloride (98-107) mmol/L BUN 22 H (7-17) mg/dL Creatinine (0.52-1.04) mg/dL Glucose 127 H (74-99) mg/dL POC Glucose (mg/dL) 131 H (75-99) mg/dL Plasma Lactic Acid Dave (0.7-2.0) mmol/L Calcium 7.4 L (8.4-10.2) mg/dL Total Bilirubin (0.2-1.3) mg/dL AST (14-36) U/L Alkaline Phosphatase (38-126) U/L Total Protein (6.3-8.2) g/dL Albumin (3.5-5.0) g/dL Urine Appearance Turbid H (Clear) Urine Protein 2+ H (Negative) Urine Glucose (UA) Trace H (Negative) Urine Blood Large H (Negative) Urine Bilirubin 1+ H (Negative) Ur Leukocyte Esterase Large H (Negative) Urine RBC 83 H (0-5) /hpf Urine WBC >182 H (0-5) /hpf Urine WBC Clumps Many H (None) /hpf Urine Mucus Many H (None) /hpf 07/18/18 Range/Units 05:56 RBC 3.49 L (3.80-5.40) m/uL Hgb 11.1 L (11.4-16.0) gm/dL Monocytes # (0-1.0) k/uL Eosinophils # (Manual) 0.75 H (0-0.7) k/uL Myelocytes # (Manual) 0.08 H (0) k/uL Sodium (137-145) mmol/L Potassium (3.5-5.1) mmol/L Chloride (98-107) mmol/L BUN (7-17) mg/dL Creatinine (0.52-1.04) mg/dL Glucose (74-99) mg/dL POC Glucose (mg/dL) (75-99) mg/dL Plasma Lactic Acid Dave (0.7-2.0) mmol/L Calcium (8.4-10.2) mg/dL Total Bilirubin (0.2-1.3) mg/dL AST (14-36) U/L Alkaline Phosphatase (38-126) U/L Total Protein (6.3-8.2) g/dL Albumin (3.5-5.0) g/dL Urine Appearance (Clear) Urine Protein (Negative) Urine Glucose (UA) (Negative) Urine Blood (Negative) Urine Bilirubin (Negative) Ur Leukocyte Esterase (Negative) Urine RBC (0-5) /hpf Urine WBC (0-5) /hpf Urine WBC Clumps (None) /hpf Urine Mucus (None) /hpf Thrombosis Risk Factor Assmnt - DVT/VTE Prophylaxis DVT/VTE Prophylaxis: Pharmacologic Prophylaxis ordered, Mechanical Prophylaxis ordered - Choose All That Apply Any of the Below Risk Factors Present?: No Other Risk Factors: No Other congenital or acquired thrombophilia - If yes, enter type in comment: No Thrombosis Risk Factor Assessment Level: Very Low Risk Assessment and Plan Plan: 1 sepsis: Most likely combination of urinary tract infection and cellulitis blood culture was requested, awaiting for urine culture continue patient on IV antibiotics we'll consult infectious disease repeat lactic acid continue fluid resuscitation for now. 2 Alter mental status: Most likely combination of sepsis along with rain metastasis from originally lung cancer, after she seen oncology if that felt the need for another CT of the brain. 3 intractable nausea vomiting with severe dehydration: Continue IV hydration continue supportive care. 4 advance lung cancer: Has been on chemotherapy we'll consult oncology for now or chemotherapy will be held until she is more stable. 5 severe UTI/sepsis: Awaiting for the final urine culture the meanwhile empiric antibiotic with vancomycin and Levaquin. 6 severe COPD: Patient can be on bronchodilator and the Pulmicort as well. 7 hypothyroidism: Continue patient on levothyroxine 50 g daily. 8 chronic depression: Patient be continue on site citalopram and alprazolam. 9 chronic pain syndrome: Has been on hydrocodone as needed. 10 GI prophylaxis: Patient be on Pepcid 20 mg daily. 11 DVT prophylaxis: Heparin subcutaneous will be giving. With status: Full code. Admit patient to inpatient status for more than 2 nights.
[2018-07-18] MEDS: IPRATROPIUM 0.5 MG/2.5 ML NEBU INHALATION SCH ×3 (13:40→20:30)
--- NOTE | 2018-07-18 19:07 | P.CONS ---
History of Present Illness - Reason for Consult Consult date: 07/18/18 Metastatic Lung Cancer, Dehydration Requesting physician: Abebe Sanchez - Chief Complaint Weakness and Fatigue - History of Present Illness Ms. crystal is a patient well known to primary oncologist Dr. Fuentes for treatment of her Metastatic Non-small Cell Lung Cancer, most recently on treatment with immune therapy Opdivo. Last on 06/26/18. Over the past few weeks she states her appetite had been worse, and increased weakness and fatigue. The past three days she has developed intractable nausea and vomiting, inability to ambulate, and unable to keep food or liquids down. She presented to [facility] for further evaluation. On presentation she was hypotensive, IV Hydration, Symptom control, septic work-up with rausch cultures, and admission to ICU. She did recently start synthroid, likely related to immune reaction, a cortisol level was completed on 07/04 and was 0.7. I have ordered a baseline Cortisol, ACTH, TSH level now and will give bolus dose of hydrocortisone and continue every 8 hours until endocrinology sees patient. Review of Systems A 14 point review of systems assessed and completed and all negative except HPI Past Medical History Past Medical History: COPD Additional Past Medical History / Comment(s): URINARY INCONTINENCE, WEARS DEPENDS DAILY, lung CA, post radiation. Fracture left wrist. History of Any Multi-Drug Resistant Organisms: None Reported Past Surgical History: Cholecystectomy, Hysterectomy, Orthopedic Surgery Additional Past Surgical History / Comment(s): KARSON KNEE CAP REPLACEMENT, bronchoscopy Past Anesthesia/Blood Transfusion Reactions: No Reported Reaction Past Psychological History: Anxiety Smoking Status: Former smoker Past Alcohol Use History: Occasional Past Drug Use History: None Reported - Past Family History Mother Family Medical History: Unable to Obtain Additional Family Medical History / Comment(s): . Medications and Allergies Home Medications Medication Instructions Recorded Confirmed Type ALPRAZolam [Xanax] 2 mg PO TID PRN 05/03/15 07/17/18 History Albuterol Nebulized [Ventolin 2.5 mg INHALATION RT-QID PRN 05/03/15 07/17/18 History Nebulized] Citalopram Hydrobromide [CeleXA] 40 mg PO QAM 05/03/15 07/17/18 History HYDROcodone/APAP 10-325MG [[place] 1 tab PO Q4H PRN 05/03/15 07/17/18 History 10-325] Umeclidinium Brm/Vilanterol Tr 1 puff INHALATION RT-DAILY 05/03/15 07/17/18 History [Anoro Ellipta 62.5-25 Mcg INH] Cyclobenzaprine HCl 10 mg PO HS 07/17/18 07/17/18 History Levothyroxine Sodium [Synthroid] 50 mcg PO DAILY 07/17/18 07/17/18 History Allergies Allergy/AdvReac Type Severity Reaction Status Date / Time cephalexin monohydrate Allergy Severe Anaphylaxis Verified 07/17/18 18:59 [From Keflex] adhesive Allergy Rash/Hives Verified 07/17/18 18:59 silicone Allergy Rash/Hives Verified 07/17/18 18:59 Physical Exam Vitals: Vital Signs Temp Pulse Pulse Resp BP BP Pulse Ox 07/18/18 18:00 25 H 98/43 07/18/18 17:00 115 H 25 H 98/43 07/18/18 16:00 97.8 F 112 H 12 103/43 94 L 07/18/18 15:54 112 H 07/18/18 15:00 112 H 20 94/42 07/18/18 14:00 113 H 17 80/65 07/18/18 13:00 115 H 24 100/50 07/18/18 12:00 97.5 F L 113 H 25 H 109/51 07/18/18 11:00 120 H 22 115/52 07/18/18 10:00 121 H 26 H 107/55 07/18/18 09:00 123 H 28 H 74/39 07/18/18 08:40 98.2 F 123 H 31 H 74/39 07/18/18 08:00 123 H 26 H 94/41 95 07/18/18 07:30 125 H 22 94/41 07/18/18 07:00 126 H 23 94/50 07/18/18 06:30 125 H 26 H 94/50 07/18/18 06:00 125 H 26 H 84/52 07/18/18 05:30 126 H 29 H 84/52 07/18/18 05:00 128 H 25 H 88/48 92 L 07/18/18 04:30 126 H 26 H 88/48 07/18/18 04:00 126 H 125 H 22 88/49 07/18/18 03:30 100.0 F H 123 H 18 88/49 93 L 07/18/18 03:00 125 H 17 07/18/18 02:30 125 H 24 101/51 07/18/18 02:00 124 H 23 85/66 07/18/18 01:30 123 H 25 H 85/66 07/18/18 01:00 122 H 23 90/46 07/18/18 00:30 120 H 17 90/46 07/18/18 00:00 97.9 F 116 H 120 H 15 84/50 97 07/17/18 23:30 97.4 F L 118 H 10 L 84/50 74 L 07/17/18 23:00 118 H 18 101/49 95 07/17/18 22:30 98.7 F 92 16 90/39 97 07/17/18 22:27 97.4 F L 118 H 13 101/49 07/17/18 22:10 92 16 97/57 96 07/17/18 22:00 95/47 95 07/17/18 21:50 78/58 96 07/17/18 21:40 151/137 97 07/17/18 21:30 86/54 91 L 07/17/18 21:10 64 18 95/45 95 07/17/18 21:00 70 18 103/40 99 07/17/18 20:50 70 18 101/48 95 07/17/18 20:40 64 18 100/63 95 07/17/18 20:30 69 18 94/43 95 07/17/18 20:20 79 18 82/66 99 07/17/18 20:10 92 18 91/33 85 L 07/17/18 20:00 74/32 07/17/18 19:50 74/32 07/17/18 19:40 73 19 88/41 97 07/17/18 19:20 88 18 95/27 100 07/17/18 19:10 82 18 84/57 95 07/17/18 19:00 80 18 104/90 96 Intake and Output 07/18/18 07/18/18 07/18/18 06:59 14:59 22:59 Intake Total 1700 1400 400 Output Total 0 100 Balance 1700 1300 400 Intake: IV 1700 800 400 Sodium Chloride 0.9% 1, 700 800 400 000 ml @ 100 mls/hr IV . Q10H [facility] Rx#:[id number] Sodium Chloride 0.9% 1, 1000 000 ml @ 999 mls/hr IV . Q1H1M [facility] Rx#:[id number] Intake, IV Titration 600 Amount Levofloxacin 500Mg-D5w 100 Pmx 500 mg In Dextrose/ Water 1 100ml.bag @ 100 mls/hr IVPB Q24H [facility] Rx#: [id number] Vancomycin 1,750 mg In 500 Sodium Chloride 0.9% 500 ml 500 ml @ 167 mls/hr IVPB Q24HR [facility] Rx#: [id number] Output: Urine 0 100 Other: Voiding Method Incontinent Incontinent # Voids 1 1 # Bowel Movements 1 Weight 101 kg Gen: NAD, ALert and oriented Mouth: Dry, Raw and cracking tongue Head NC. NT Neck supple, no lymphadenopathy Lungs CTA Bila, lower diminished bilateral Heart Tachy Abdomen s/nd extremitiy no edema Results CBC & Chem 7: 07/18/18 05:56 07/18/18 05:56 Labs: Abnormal Lab Results - Last 24 Hours (Table) 07/17/18 07/17/18 07/17/18 Range/Units 18:50 18:50 19:34 RBC (3.80-5.40) m/uL Hgb (11.4-16.0) gm/dL Monocytes # 1.1 H (0-1.0) k/uL Eosinophils # (Manual) (0-0.7) k/uL Myelocytes # (Manual) (0) k/uL Sodium 130 L (137-145) mmol/L Potassium 2.9 L (3.5-5.1) mmol/L Chloride 93 L (98-107) mmol/L BUN 23 H (7-17) mg/dL Creatinine 1.31 H (0.52-1.04) mg/dL Glucose 176 H (74-99) mg/dL POC Glucose (mg/dL) (75-99) mg/dL Plasma Lactic Acid Dave 2.9 H* (0.7-2.0) mmol/L Calcium (8.4-10.2) mg/dL Total Bilirubin 2.0 H (0.2-1.3) mg/dL AST 52 H (14-36) U/L Alkaline Phosphatase 131 H (38-126) U/L Total Protein 6.2 L (6.3-8.2) g/dL Albumin 2.7 L (3.5-5.0) g/dL Urine Appearance (Clear) Urine Protein (Negative) Urine Glucose (UA) (Negative) Urine Blood (Negative) Urine Bilirubin (Negative) Ur Leukocyte Esterase (Negative) Urine RBC (0-5) /hpf Urine WBC (0-5) /hpf Urine WBC Clumps (None) /hpf Urine Mucus (None) /hpf 07/17/18 07/17/18 07/18/18 Range/Units 21:13 22:48 05:56 RBC (3.80-5.40) m/uL Hgb (11.4-16.0) gm/dL Monocytes # (0-1.0) k/uL Eosinophils # (Manual) (0-0.7) k/uL Myelocytes # (Manual) (0) k/uL Sodium 134 L (137-145) mmol/L Potassium (3.5-5.1) mmol/L Chloride (98-107) mmol/L BUN 22 H (7-17) mg/dL Creatinine (0.52-1.04) mg/dL Glucose 127 H (74-99) mg/dL POC Glucose (mg/dL) 131 H (75-99) mg/dL Plasma Lactic Acid Dave (0.7-2.0) mmol/L Calcium 7.4 L (8.4-10.2) mg/dL Total Bilirubin (0.2-1.3) mg/dL AST (14-36) U/L Alkaline Phosphatase (38-126) U/L Total Protein (6.3-8.2) g/dL Albumin (3.5-5.0) g/dL Urine Appearance Turbid H (Clear) Urine Protein 2+ H (Negative) Urine Glucose (UA) Trace H (Negative) Urine Blood Large H (Negative) Urine Bilirubin 1+ H (Negative) Ur Leukocyte Esterase Large H (Negative) Urine RBC 83 H (0-5) /hpf Urine WBC >182 H (0-5) /hpf Urine WBC Clumps Many H (None) /hpf Urine Mucus Many H (None) /hpf 07/18/18 Range/Units 05:56 RBC 3.49 L (3.80-5.40) m/uL Hgb 11.1 L (11.4-16.0) gm/dL Monocytes # (0-1.0) k/uL Eosinophils # (Manual) 0.75 H (0-0.7) k/uL Myelocytes # (Manual) 0.08 H (0) k/uL Sodium (137-145) mmol/L Potassium (3.5-5.1) mmol/L Chloride (98-107) mmol/L BUN (7-17) mg/dL Creatinine (0.52-1.04) mg/dL Glucose (74-99) mg/dL POC Glucose (mg/dL) (75-99) mg/dL Plasma Lactic Acid Dave (0.7-2.0) mmol/L Calcium (8.4-10.2) mg/dL Total Bilirubin (0.2-1.3) mg/dL AST (14-36) U/L Alkaline Phosphatase (38-126) U/L Total Protein (6.3-8.2) g/dL Albumin (3.5-5.0) g/dL Urine Appearance (Clear) Urine Protein (Negative) Urine Glucose (UA) (Negative) Urine Blood (Negative) Urine Bilirubin (Negative) Ur Leukocyte Esterase (Negative) Urine RBC (0-5) /hpf Urine WBC (0-5) /hpf Urine WBC Clumps (None) /hpf Urine Mucus (None) /hpf Microbiology - Last 24 Hours (Table) 07/18/18 12:05 Urine Culture - Preliminary Urine,Catheterized Abdominal x-ray: report reviewed Assessment and Plan Plan: Assessment and recommendations: 1. Metastatic Lung Cancer: On Treatment with immune therapy - Hold Opdivo at this time and until re-evaluation in office with Dr. Fuentes - Hx: of Mets to brain, follows with Dr. Rea - Repeat MRI Brain was scheduled as outpatient, family concerned with increased shakeyness and weakness. Will repeat while inpatient 2. Adrenal Insufficiency Likely due to Immune therapy - Draw ACTH, COrtisol level, and TSH now - Consult placed for Endocrinology - Hydrocortisone 100mg IV x1 now then 50mg IV q8 hours 3. Xerostoma - Grade 3/4 - Kools solution 4. Hypotension: - Adrenal insufficiency and component of Dehydration Thank you for allowing us to participate in the care of this patient, we will follow along Physician attestation: I have completed the full history and physicial of this patient and agree with above dictation by Abi Conklin NP. Dictated as a scribe.
[2018-07-18] MEDS ORDERED: HYDROCORTISONE SUCCINATE 100 MG/2 ML VIAL IV STA (19:35)
[2018-07-18] MEDS ORDERED: LORazepam 2 MG/ML INJ IV STA (20:18)
[2018-07-18] MEDS: FORMOTEROL FUMARATE 20 MCG/2 ML NEBU INHALATION SCH (20:30)
[2018-07-18] MEDS: HYDROcodone/APAP 10-325MG 1 EACH TAB PO PRN (20:40)
[2018-07-18] MEDS: CYCLOBENZAPRINE 10 MG TAB PO SCH (20:54)
[2018-07-18] MEDS: PANTOPRAZOLE 40 MG/10 ML VIAL IVP SCH (20:54)
[2018-07-18 21:43] LABS: T4, Free (Free Thyroxine) 4.08 ng/dL (0.78-2.19)
--- NOTE | 2018-07-18 22:00 | XR ---
EXAMINATION TYPE: XR ankle complete bilateral DATE OF EXAM: 07/18/2018 COMPARISON: NONE HISTORY: Pain TECHNIQUE: 3 views each ankle FINDINGS: I see no fracture nor dislocation. Left and right ankle mortise is intact. The joint spaces are fairly normal. IMPRESSION: Negative bilateral ankle exam. No fracture seen.
[2018-07-19] MEDS ORDERED: HYDROCORTISONE SUCCINATE 100 MG/2 ML VIAL IV SCH
[2018-07-19] MEDS: methylPREDNISolone SOD SUCCI 125 MG/2 ML VIAL IV SCH ×2 (01:02→06:52)
[2018-07-19] MEDS: SODIUM CHLORIDE 0.9% 1,000 ML IV SCH ×3 (01:30→21:14)
[2018-07-19 05:22] LABS: Basophils % (A) 0 %; Eosinophils # (A) 0.1 k/uL (0-0.7); Eosinophils % (A) 1 %; HGB 11.7 gm/dL (11.4-16.0); Hypochromasia Moderate; Lymphocytes # (A) 0.5 k/uL (1.0-4.8); Lymphocytes % (A) 7 %; MCH 32.3 pg (25.0-35.0); MCHC 31.7 g/dL (31.0-37.0); MCV 101.7 fL (80.0-100.0); Macrocytosis Slight; Mean Platelet Volume 7.4; Monocytes # (A) 0.1 k/uL (0-1.0); Monocytes % (A) 2 %; Neutrophils # (A) 5.7 k/uL (1.3-7.7); Neutrophils % (A) 89 %; Platelet Count 196 k/uL (150-450); RBC 3.64 m/uL (3.80-5.40); RDW 14.1 % (11.5-15.5); WBC 6.4 k/uL (3.8-10.6)
[2018-07-19 05:33] LABS: ALT 27 U/L (9-52); AST 39 U/L (14-36); Alkaline Phosphatase 101 U/L (38-126); Anion Gap 5 mmol/L; Blood Urea Nitrogen 18 mg/dL (7-17); Calcium 7.7 mg/dL (8.4-10.2); Carbon Dioxide 22 mmol/L (22-30); Chloride 109 mmol/L (98-107); Glucose 192 mg/dL (74-99); Magnesium 1.9 mg/dL (1.6-2.3); Phosphorus 3.6 mg/dL (2.5-4.5); Potassium 3.5 mmol/L (3.5-5.1); Sodium 136 mmol/L (137-145); Total Bilirubin 1.3 mg/dL (0.2-1.3); Total Protein 5.1 g/dL (6.3-8.2)
[2018-07-19] MEDS ORDERED: LEVOTHYROXINE 50 MCG TAB PO SCH (06:30)
[2018-07-19] MEDS: FORMOTEROL FUMARATE 20 MCG/2 ML NEBU INHALATION SCH ×2 (07:55→20:14)
[2018-07-19] MEDS: IPRATROPIUM 0.5 MG/2.5 ML NEBU INHALATION SCH ×4 (07:55→20:14)
--- NOTE | 2018-07-19 08:31 | CONS ---
CONSULTATION DATE OF SERVICE: 07/18/2018. REASON FOR CONSULTATION: 1. UTI. 2. Lower extremity cellulitis. HISTORY OF PRESENT ILLNESS: The patient is a 67-year-old female with past medical history significant for metastatic lung cancer with the patient has been on immunotherapy. The patient presenting to the [facility] ER yesterday with the chief complaint of generalized weakness, no energy, feeling weak and tired, vomiting, unable to keep anything down, but no significant abdominal pain. The patient has been complaining of some burning of urine but no significant frequency, or flank pain. The patient denies having any chest pain. No shortness of breath. Very minimal cough, not bringing up any sputum. She also noticed to have more swelling in her lower extremities. Some redness. With these symptoms, the patient was evaluated by the ER physician. On arrival to the ER, the patient has been afebrile. Her white count was normal. However, the patient did have a positive UA. Because of her multiple antibiotic allergies, she was started on the Levaquin and vancomycin. Infectious Disease was consulted for further recommendations regarding antibiotic therapy. REVIEW OF SYSTEMS: Constitutional: Positive for weakness. No fever. Eyes: No complaint. ENT no complaint. Respiratory as per HPI. CARDIOVASCULAR: No complaint. GENITOURINARY: As per HPI. GASTROINTESTINAL: As per HPI. MUSCULOSKELETAL: No complaint. INTEGUMENTARY: No complaint. PSYCHIATRIC: No complaint. ENDOCRINE no complaint. NEUROLOGIC no complaint. PAST MEDICAL HISTORY: COPD, metastatic lung cancer, left wrist fracture. PAST SURGICAL HISTORY: Cholecystectomy, hysterectomy, placement, bronchoscopy. SOCIAL HISTORY: Remote history of smoking. Occasionally drinks. No drug use. FAMILY HISTORY: No pertinent findings noticed. ALLERGIES: TO CEPHALEXIN. The patient burning in the legs, subsequently told the RN it was a rash. MEDICATIONS: The patient is currently on Tylenol, [place], Ventolin, Xanax, Celexa, Flexeril, Pepcid, heparin, Dilaudid, Levaquin 500 daily, Synthroid, Solu-Medrol, Narcan Zofran, Protonix, and vancomycin 1750 q24 hours. EXAMINATION: Blood pressure is 103/43 with a pulse of 112, temperature of 97.8. She is 94% on 4 L nasal cannula. General description is an elderly female lying in bed in no distress. No tachypnea or accessory muscles of respiration use. HEENT: Shows slight pallor. No scleral icterus. Oral mucosal membranes are dry. No pharyngeal erythema or thrush. Neck trachea is central. No thyromegaly. Lungs unlabored breathing. Decreased breath sounds in the base, with no wheeze or crackles. Heart S1, S2. Regular rate and rhythm. ABDOMEN: Soft, no tenderness. Extremities are 2+ edema of the feet, did have bilateral swelling and redness which is slightly warm to touch. No skin breakdown. No drainage. Neurological: The patient is awake, alert, oriented times three. Mood and affect normal. LABS: Hemoglobin is 11.1, white count 8.2, BUN of 22, creatinine 0.9. UA was positive with large leukocyte esterase with more than 1-2 WBC with many bacteria. Cultures are currently pending. Chest x-ray report with increasing left upper lobe mass. No evidence of any consolidation. DIAGNOSTIC IMPRESSION AND PLAN: 1. Patient presented to the hospital with generalized weakness, no energy in this patient who did have history of metastatic lung cancer left upper lobe. The patient also had a significantly positive UA with urinary symptoms likely component of urinary tract infection likely from enteric gram-negative pathogen. However, the patient also has evidence of left lower extremity swelling with evidence of cellulitis likely from a gram-positive skin chris. 2. The patient with which was kind of questionable as the patient mentioned to me was mostly burning in the legs, which is not a true allergy. PLAN: 1. Vancomycin pharmacy to dose. Target of 15 while watching kidney function closely, in addition to the marking the area of redness on the leg and Gerard wrap to keep the swelling down. 2. Levaquin 500 for UTI while waiting for the urine culture to finalize. 3. We will follow up on the clinical condition and culture to further adjust medication if needed. Thank you for this consultation. We will follow the patient along with you. MMODL / IJN: [id number] /
[2018-07-19] MEDS: PANTOPRAZOLE 40 MG/10 ML VIAL IVP SCH (08:37)
[2018-07-19] MEDS: HEPARIN SODIUM,PORCINE 5,000 UNIT/ML 1 ML VIAL SQ SCH ×2 (08:38→21:08)
[2018-07-19] MEDS: VANCOMYCIN 1,750 MG in SODIUM CHLORIDE 0.9% 500 ML 500 ML IVPB SCH ×2 (08:47→21:08)
--- NOTE | 2018-07-19 10:25 | MR ---
EXAMINATION TYPE: MR brain wo/w con DATE OF EXAM: 07/19/2018 COMPARISON: MRI brain April 04, 2018 HISTORY: history brain met from lung cancer, increased neurological defects TECHNIQUE: Multiplanar, multisequence images of the brain and brainstem is performed without and with IV contras t, utilizing 11 mL intravenous Gadavist . FINDINGS: Exam noted suboptimal as there is motion artifact degradation present. Fast protocol had to be utilized instead of dedicated metastatic disease protocol Diffusion weighted images demonstrate n o evidence of a recent infarct or other diffusion abnormality. There is no worrisome extra-axial flu id collection. The ventricular system and cisternal spaces are normal in size and appearance. The b rain volume is age appropriate. Small scattered foci of T2 hyperintensities seen throughout the white matter best on prior study flair sequence are less well seen on current study due to protocol and ar tifact degradation but likely stable Midline structures demonstrate normal morphology. The craniocervical junction appears within normal limits. Tiny enhancing foci seen on prior study 1 mm axial images are less well seen on current study due to technique. No new large enhancing lesions are present. The dural venous sinuses appear patent . The visualized sinuses are clear and the globes are intact. IMPRESSION: Suboptimal study, tiny metastatic foci on prior study are less well seen on current study . No new large enhancing metastatic lesions are present. Mild white matter changes on prior study are also less well-seen on current study due to motion artifact degradation and alteration of technique to account for patient's symptoms. Consider repeat MRI with sedation.
--- NOTE | 2018-07-19 10:48 | P.PN ---
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 another other area who been treated with oncology and town with chemotherapy regular basis she had the last one over 3 weeks ago developed to become sick with lack of appetite weakness generalized fatigue and lately in the last 48 hours had intractable nausea vomiting severe dehydration lightheadedness and dizziness not been able to ambulate and walk not been able to keep any food or fluid down symptom becomes slightly red worse also had increased swelling redness and warmness of the lower extremity along with mild burning in urination along with discomfort frequency urgency and worsening hesitancy. Patient ended up coming to the emergency department at [facility] where was seen and evaluated was quite bit dehydrated with hypotension blood pressure running 70/40 patient was started on IV hydration antiemesis medication 1 dose of IV antibiotics was giving the patient lactic acid was elevated was treated as sepsis ended up being admitted to intensive care unit afterward with the above problem. Apparently her oncologist was notify and agree with the current plan for now. 2: Patient evaluated noted to be sitting up in bed, she is very drowsy, but does awaken easily and follows commands. MRI of the brain is pending, plans to be done this morning for increased drowsiness and new tremor. Labs today reveal a TSH < 0.015, free T4 4 0.08, cortisol 1, ACTH 6.04, sodium 136 BUN 18, creatinine 0.69, WBC 6.4, hemoglobin 11.7, hematocrit 37.0, repeat lactic acid 1.1. Patient's Synthroid was discontinued, new tremor be due to hyperthyroidism secondary to the synthroid. Urine and blood cultures remain in process. Infectious disease on consult continue vancomycin and Levaquin for the cellulitis and urinary tract infection Objective - Vital Signs Vital signs: Vital Signs Temp 97.4 F L 07/19/18 08:01 Pulse 114 H 07/19/18 08:06 Resp 18 07/19/18 08:01 BP 111/50 07/19/18 08:01 Pulse Ox 96 07/19/18 04:00 Intake & Output 07/18/18 07/19/18 07/19/18 18:59 06:59 18:59 Intake Total 1800 1000 400 Output Total 100 690 80 Balance 1700 310 320 Weight 109 kg Intake: IV 1200 1000 400 Sodium Chloride 0.9% 1, 1200 1000 400 000 ml @ 100 mls/hr IV . Q10H [facility] Rx#:[id number] Intake, IV Titration 600 Amount Levofloxacin 500Mg-D5w 100 Pmx 500 mg In Dextrose/ Water 1 100ml.bag @ 100 mls/hr IVPB Q24H [facility] Rx#: [id number] Vancomycin 1,750 mg In 500 Sodium Chloride 0.9% 500 ml 500 ml @ 167 mls/hr IVPB Q24HR [facility] Rx#: [id number] Output: Urine 100 690 80 Other: Voiding Method Incontinent Indwelling Catheter Indwelling Catheter # Voids 1 # Bowel Movements 1 - Constitutional General appearance: Present: cooperative, no acute distress - EENT Eyes: Present: EOMI, PERRLA ENT: Present: normal oropharynx. Absent: pharyngeal erythema - Neck Neck: Present: normal ROM. Absent: lymphadenopathy, rigidity, stridor, thyromegaly Thyroid: bilateral: normal size, negative: enlarged, nodule - Respiratory Respiratory: bilateral: CTA, negative: diminished, dullness, rales, rhonchi, wheezing - Cardiovascular Heart rate: 114 Rhythm: regular Heart sounds: normal: S1, S2 - Gastrointestinal General gastrointestinal: Present: normal bowel sounds, soft. Absent: distended , hepatomegaly, organomegaly, tenderness - Integumentary Integumentary Comment(s): +1 edema, cellulitis bilateral lower extremities worse on the right as compared to the left Integumentary: Present: cellulitis - Musculoskeletal Musculoskeletal: Present: generalized weakness, strength equal bilaterally. Absent: right sided weakness, left sided weakness - Psychiatric Psychiatric Comment(s): Patient drowsy but does follow commands and answers questions appropriately Psychiatric: Present: A&O x's 3 - Labs CBC & Chem 7: 07/19/18 05:05 07/19/18 05:05 Labs: Abnormal Lab Results - Last 24 Hours (Table) 07/18/18 07/19/18 07/19/18 Range/Units 19:08 05:05 05:05 RBC 3.64 L (3.80-5.40) m/uL MCV 101.7 H (80.0-100.0) fL Lymphocytes # 0.5 L (1.0-4.8) k/uL Sodium 136 L (137-145) mmol/L Chloride 109 H (98-107) mmol/L BUN 18 H (7-17) mg/dL Glucose 192 H (74-99) mg/dL Calcium 7.7 L (8.4-10.2) mg/dL AST 39 H (14-36) U/L Total Protein 5.1 L (6.3-8.2) g/dL Albumin 2.0 L (3.5-5.0) g/dL TSH <0.015 L (0.465-4.680) mIU/L Free T4 4.08 H (0.78-2.19) ng/dL Microbiology - Last 24 Hours (Table) 07/18/18 12:05 Urine Culture - Preliminary Urine,Catheterized Assessment and Plan Plan: 1 sepsis: Most likely combination of urinary tract infection and cellulitis blood culture and urine cultures are pending, infectious disease on consult, will continue with vancomycin and Levaquin. 2 Alter mental status: Most likely combination of sepsis along with hugh metastasis from originally lung cancer, MRI of the brain was completed this morning and results are pending 3 intractable nausea vomiting with severe dehydration: Much better, tolerating clear liquid will advance as tolerated, continue with IV hydration 4 advance lung cancer: Has been on chemotherapy we'll consult oncology for now or chemotherapy will be held until she is more stable. 5 severe UTI/sepsis: Awaiting for the final urine culture the meanwhile empiric antibiotic with vancomycin and Levaquin. 6 severe COPD: Patient can be on bronchodilator and the Pulmicort as well. 7 hypothyroidism: Levothyroxine held, TSH<0.015, free T4 4 0.08 8 chronic depression: Patient be continue on site citalopram and alprazolam. 9 chronic pain syndrome: Has been on hydrocodone as needed. 10 GI prophylaxis: Patient be on Pepcid 20 mg daily. 11 DVT prophylaxis: Heparin subcutaneous will be giving. With status: Full code. The above impression and plan of care have been discussed and directed by signing physician. Shannan Mcadams nurse practitioner acting as scribe for signing physician.
[2018-07-19] MEDS: CITALOPRAM HYDROBROMIDE 20 MG TAB PO SCH (10:49)
[2018-07-19] MEDS: FAMOTIDINE 20 MG TAB PO SCH (10:50)
[2018-07-19] MEDS: HYDROCORTISONE SUCCINATE 100 MG/2 ML VIAL IV SCH ×2 (11:37→16:58)
[2018-07-19] MEDS: LEVOFLOXACIN 500MG-D5W PMX 500 MG in DEXTROSE/WATER 1 100ML.BAG IVPB SCH (11:38)
[2018-07-19] MEDS: CYCLOBENZAPRINE 10 MG TAB PO SCH (21:08)
[2018-07-19] MEDS: PANTOPRAZOLE 40 MG TABLET PO SCH (21:08)
--- NOTE | 2018-07-19 21:20 | P.PN ---
Subjective Progress Note Date: 07/19/18 The pt feesl mildly better. Shakiness has improved. No f/c/n/v/LAD/BAILEY. No obvious bleeding noted Objective - Vital Signs Vital signs: Vital Signs Temp 98.0 F 07/19/18 20:00 Pulse 88 07/19/18 20:25 Resp 16 07/19/18 20:00 BP 101/64 07/19/18 20:00 Pulse Ox 92 L 07/19/18 20:00 Intake & Output 07/19/18 07/19/18 07/20/18 06:59 18:59 06:59 Intake Total 1000 1000 200 Output Total 690 230 Balance 310 770 200 Weight 109 kg Intake: IV 1000 1000 200 Sodium Chloride 0.9% 1, 1000 800 000 ml @ 100 mls/hr IV . Q10H [facility] Rx#:[id number] Sodium Chloride 0.9% 1, 200 200 000 ml @ 50 mls/hr IV . Q20H [facility] Rx#:[id number] Output: Urine 690 230 Other: Voiding Method Indwelling Catheter Bedpan Bedpan - Constitutional General appearance: Present: no acute distress - EENT Eyes: Present: EOMI ENT: Present: hearing grossly normal, normal oropharynx - Respiratory Respiratory: bilateral: CTA - Cardiovascular Rhythm: regular Heart sounds: normal: S1, S2 - Gastrointestinal General gastrointestinal: Present: normal bowel sounds, soft - Integumentary Integumentary: Present: normal - Neurologic Neurologic: Present: CNII-XII intact - Musculoskeletal Musculoskeletal: Present: generalized weakness, strength equal bilaterally - Psychiatric Psychiatric: Present: A&O x's 3, appropriate affect - Labs CBC & Chem 7: 07/19/18 05:05 07/19/18 05:05 Labs: Abnormal Lab Results - Last 24 Hours (Table) 07/18/18 07/19/18 07/19/18 Range/Units 19:08 05:05 05:05 RBC 3.64 L (3.80-5.40) m/uL MCV 101.7 H (80.0-100.0) fL Lymphocytes # 0.5 L (1.0-4.8) k/uL Sodium 136 L (137-145) mmol/L Chloride 109 H (98-107) mmol/L BUN 18 H (7-17) mg/dL Glucose 192 H (74-99) mg/dL Calcium 7.7 L (8.4-10.2) mg/dL AST 39 H (14-36) U/L Total Protein 5.1 L (6.3-8.2) g/dL Albumin 2.0 L (3.5-5.0) g/dL Free T4 4.08 H (0.78-2.19) ng/dL Microbiology - Last 24 Hours (Table) 07/18/18 10:55 Blood Culture - Preliminary Blood No Growth after 24 hours 07/18/18 12:05 Urine Culture - Final Urine,Catheterized Assessment and Plan (1) Impaired endocrine function Narrative/Plan: At this time 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 She appears to have adrenal insufficiency currently. Endocrinology has been consulted, and pt started on stress dose hydrocortisone per their recommendations. BP is more stable. Prior to this admission, she was also diagnosed with thyroid insufficiency, and started on thyroid supplementation. [place] presentation , with weakness ad hypotension, is thus, at least in part, felt to be due to adrenal insufficiency Continue hydrocortisone. Await formal endo consult Current Visit: Yes Status: Acute Code(s): E34.9 - ENDOCRINE DISORDER, UNSPECIFIED SNOMED Code(s): 176801454 (2) Acute kidney injury Narrative/Plan: Due to dehydration and hypotension. Follow with IV hydration and steroids Current Visit: Yes Status: Acute Code(s): N17.9 - ACUTE KIDNEY FAILURE, UNSPECIFIED SNOMED Code(s): 74335252 (3) Weakness Narrative/Plan: [place] to be due to UTI and endocrine imbalance. Pt was recently started on thyroid supplementation. Labs this admission show hyperthyroidism. Thyroid supplementation has been held. Pt is on steroid supplementation as noted. On antibiotics for UTI Current Visit: Yes Status: Acute Code(s): R53.1 - WEAKNESS SNOMED Code(s) : 44944452 (4) Shakiness Narrative/Plan: Pt was having shking movements of both UE yesterday. Clinically a seizure was felt to be unlikely. She is improved significantly overnight. MRI brain did not show any progression of brain mets. This was likely due to local fasciculations from weakness, and dehydration Current Visit: Yes Status: Acute Code(s): R25.1 - TREMOR, UNSPECIFIED SNOMED Code(s): 60408676
[2018-07-20] MEDS: HYDROcodone/APAP 10-325MG 1 EACH TAB PO PRN ×2 (00:39→20:54)
[2018-07-20] MEDS: HYDROCORTISONE SUCCINATE 100 MG/2 ML VIAL IV SCH ×2 (00:42→15:20)
[2018-07-20] MEDS: ALPRAZolam 0.5 MG TAB PO PRN (00:42)
--- NOTE | 2018-07-20 01:34 | PN ---
PROGRESS NOTE DATE OF SERVICE: 07/19/2018. REASON FOR FOLLOWUP: UTI and lower extremity cellulitis. INTERVAL HISTORY: The patient is currently afebrile. She is breathing comfortably. Denies having any chest pain. Occasional cough. Not bringing up any sputum. No abdominal pain, no diarrhea. PHYSICAL EXAMINATION: Blood pressure is 101/64 with a pulse of 109, temperature 98, she is 92% on 4 L nasal cannula. GENERAL DESCRIPTION: An elderly female lying in bed in no distress. RESPIRATORY SYSTEM: Unlabored breathing. Clear to auscultation anteriorly. HEART: S1, S2. Regular rate and rhythm. ABDOMEN: Soft. EXTREMITIES: Leg swelling persists, though redness has improved. LABS: Hemoglobin 11.2, white count 6.4 with a BUN of 18, creatinine 065. Urine culture has been negative so far. DIAGNOSTIC IMPRESSION AND PLAN: Patient with generalized weakness with lower extremity cellulitis and concern for UTI. Patient is currently on Levaquin and vancomycin per culture report. Antibiotic will be continued for now while watching the clinical course. Close current supportive care. MMODL / IJN: [id number] /
[2018-07-20 06:21] LABS: ALT 31 U/L (9-52); AST 27 U/L (14-36); Alkaline Phosphatase 89 U/L (38-126); Anion Gap 1 mmol/L; Blood Urea Nitrogen 23 mg/dL (7-17); Carbon Dioxide 25 mmol/L (22-30); Chloride 110 mmol/L (98-107); Glucose 222 mg/dL (74-99); Magnesium 2.2 mg/dL (1.6-2.3); Potassium 3.6 mmol/L (3.5-5.1); Sodium 136 mmol/L (137-145); Total Bilirubin 0.7 mg/dL (0.2-1.3); Total Protein 4.9 g/dL (6.3-8.2)
[2018-07-20 06:29] LABS: Basophils % (A) 0 %; Eosinophils % (A) 1 %; HCT 33.7 % (34.0-46.0); HGB 10.5 gm/dL (11.4-16.0); Hypochromasia Slight; Lymphocytes # (A) 0.5 k/uL (1.0-4.8); Lymphocytes % (A) 5 %; MCH 31.1 pg (25.0-35.0); MCHC 31.1 g/dL (31.0-37.0); MCV 99.9 fL (80.0-100.0); Macrocytosis Slight; Mean Platelet Volume 7.9; Monocytes # (A) 0.4 k/uL (0-1.0); Monocytes % (A) 5 %; Neutrophils # (A) 8.6 k/uL (1.3-7.7); Neutrophils % (A) 89 %; Platelet Count 202 k/uL (150-450); RBC 3.38 m/uL (3.80-5.40); RDW 14.2 % (11.5-15.5); WBC 9.6 k/uL (3.8-10.6)
[2018-07-20] MEDS: FORMOTEROL FUMARATE 20 MCG/2 ML NEBU INHALATION SCH ×2 (07:21→19:48)
[2018-07-20] MEDS: IPRATROPIUM 0.5 MG/2.5 ML NEBU INHALATION SCH ×4 (07:21→19:48)
[2018-07-20] MEDS ORDERED: FUROSEMIDE 10 MG/ML 2 ML VIAL IV ONE (09:04)
[2018-07-20] MEDS: VANCOMYCIN 1,750 MG in SODIUM CHLORIDE 0.9% 500 ML 500 ML IVPB SCH ×2 (09:52→20:13)
[2018-07-20] MEDS: CITALOPRAM HYDROBROMIDE 20 MG TAB PO SCH (09:52)
[2018-07-20] MEDS: PANTOPRAZOLE 40 MG TABLET PO SCH ×2 (09:52→20:13)
[2018-07-20] MEDS: FAMOTIDINE 20 MG TAB PO SCH (09:52)
[2018-07-20] MEDS: HEPARIN SODIUM,PORCINE 5,000 UNIT/ML 1 ML VIAL SQ SCH ×2 (09:56→20:13)
--- NOTE | 2018-07-20 10:27 | P.PN ---
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 another other area who been treated with oncology and town with chemotherapy regular basis she had the last one over 3 weeks ago developed to become sick with lack of appetite weakness generalized fatigue and lately in the last 48 hours had intractable nausea vomiting severe dehydration lightheadedness and dizziness not been able to ambulate and walk not been able to keep any food or fluid down symptom becomes slightly red worse also had increased swelling redness and warmness of the lower extremity along with mild burning in urination along with discomfort frequency urgency and worsening hesitancy. Patient ended up coming to the emergency department at [facility] where was seen and evaluated was quite bit dehydrated with hypotension blood pressure running 70/40 patient was started on IV hydration antiemesis medication 1 dose of IV antibiotics was giving the patient lactic acid was elevated was treated as sepsis ended up being admitted to intensive care unit afterward with the above problem. Apparently her oncologist was notify and agree with the current plan for now. 2/2: Patient evaluated noted to be sitting up in bed, she is very drowsy, but does awaken easily and follows commands. MRI of the brain is pending, plans to be done this morning for increased drowsiness and new tremor. Labs today reveal a TSH < 0.015, free T4 4 0.08, cortisol 1, ACTH 6.04, sodium 136 BUN 18, creatinine 0.69, WBC 6.4, hemoglobin 11.7, hematocrit 37.0, repeat lactic acid 1.1. Patient's Synthroid was discontinued, new tremor be due to hyperthyroidism secondary to the synthroid. Urine and blood cultures remain in process. Infectious disease on consult continue vancomycin and Levaquin for the cellulitis and urinary tract infection 2/3: Patient remains in the ICU, resting comfortably in bed. She remains afebrile, vital signs are stable. She continues on Levaquin and vancomycin for her lower extremity cellulitis and UTI. Culture report still pending, infectious disease is on consult. Patient was started on hydrocortisone yesterday for adrenal insufficiency endocrinology has been consulted. Levothyroxine continues to be on hold. MRI completed yesterday, showed there were no new large enhancing metastasis lesions, suboptimal study due to motion artifact. No to have mild wheeze and crackles on today's exam, 1 dose of Lasix 20 mg IV push ordered Objective - Vital Signs Vital signs: Vital Signs Temp 98.0 F 07/20/18 08:00 Pulse 109 H 07/20/18 08:00 Resp 20 07/20/18 08:00 BP 138/64 07/20/18 08:00 Pulse Ox 95 07/20/18 08:00 Intake & Output 07/19/18 07/20/18 07/20/18 18:59 06:59 18:59 Intake Total 1000 1100 200 Output Total 230 50 Balance 770 1100 150 Weight 106.3 kg Intake: IV 1000 1100 200 Sodium Chloride 0.9% 1, 800 000 ml @ 100 mls/hr IV . Q10H [facility] Rx#:[id number] Sodium Chloride 0.9% 1, 200 600 200 000 ml @ 50 mls/hr IV . Q20H [facility] Rx#:[id number] Vancomycin 1,750 mg In 500 Sodium Chloride 0.9% 500 ml 500 ml @ 167 mls/hr IVPB Q12HR [facility] Rx#: [id number] Output: Urine 230 50 Other: Voiding Method Bedpan Incontinent # Voids 1 1 - Exam - Constitutional General appearance: Present: cooperative, no acute distress - EENT Eyes: Present: EOMI, PERRLA ENT: Present: normal oropharynx. Absent: pharyngeal erythema - Neck Neck: Present: normal ROM. Absent: lymphadenopathy, rigidity, stridor, thyromegaly Thyroid: bilateral: normal size, negative: enlarged, nodule - Respiratory Respiratory: bilateral: Mild wheezing and crackles negative: diminished, dullness, rhonchi - Cardiovascular Heart rate: 114 Rhythm: regular Heart sounds: normal: S1, S2 - Gastrointestinal General gastrointestinal: Present: normal bowel sounds, soft. Absent: distended , hepatomegaly, organomegaly, tenderness - Integumentary Integumentary Comment(s): +1 edema, cellulitis bilateral lower extremities worse on the right as compared to the left Integumentary: Present: cellulitis - Musculoskeletal Musculoskeletal: Present: generalized weakness, strength equal bilaterally. Absent: right sided weakness, left sided weakness - Psychiatric Psychiatric Comment(s): Patient drowsy but does follow commands and answers questions appropriately Psychiatric: Present: A&O x's 3 - Labs CBC & Chem 7: 07/20/18 05:48 07/20/18 05:48 Labs: Abnormal Lab Results - Last 24 Hours (Table) 07/20/18 07/20/18 Range/Units 05:48 05:48 RBC 3.38 L (3.80-5.40) m/uL Hgb 10.5 L (11.4-16.0) gm/dL Hct 33.7 L (34.0-46.0) % Neutrophils # 8.6 H (1.3-7.7) k/uL Lymphocytes # 0.5 L (1.0-4.8) k/uL Sodium 136 L (137-145) mmol/L Chloride 110 H (98-107) mmol/L BUN 23 H (7-17) mg/dL Glucose 222 H (74-99) mg/dL Calcium 8.0 L (8.4-10.2) mg/dL Total Protein 4.9 L (6.3-8.2) g/dL Albumin 2.0 L (3.5-5.0) g/dL Microbiology - Last 24 Hours (Table) 07/18/18 10:55 Blood Culture - Preliminary Blood No Growth after 24 hours 07/18/18 12:05 Urine Culture - Final Urine,Catheterized Assessment and Plan Plan: 1 sepsis: Most likely combination of urinary tract infection and cellulitis blood culture and urine cultures are pending, infectious disease on consult, will continue with vancomycin and Levaquin. 2 Alter mental status: Most likely combination of sepsis along with brain metastasis from originally lung cancer, MRI of the brain was completed yesterday , no new brain metastasis noted 3 intractable nausea vomiting with severe dehydration: Much better, tolerating clear liquid will advance as tolerated, continue with IV hydration 4 advance lung cancer: Has been on chemotherapy we'll consult oncology for now or chemotherapy will be held until she is more stable. 5 severe UTI/sepsis: Awaiting for the final urine culture the meanwhile empiric antibiotic with vancomycin and Levaquin. 6 severe COPD: Patient can be on bronchodilator and the Pulmicort as well. 7 hypothyroidism: Levothyroxine held, TSH<0.015, free T4 4 0.08 8 chronic depression: Patient be continue on site citalopram and alprazolam. 9 chronic pain syndrome: Has been on hydrocodone as needed. 10 adrenal insufficiency: Hydrocortisone 50 mg IV every 8 hours, endocrinology consulted 10 GI prophylaxis: Patient be on Pepcid 20 mg daily. 11 DVT prophylaxis: Heparin subcutaneous will be giving. With status: Full code. The above impression and plan of care have been discussed and directed by signing physician. Shannan Mcadams nurse practitioner acting as scribe for signing physician.
[2018-07-20] MEDS: LEVOFLOXACIN 500 MG TAB PO SCH (11:22)
[2018-07-20] MEDS: CYCLOBENZAPRINE 10 MG TAB PO SCH (20:13)
--- NOTE | 2018-07-20 23:35 | PN ---
PROGRESS NOTE DATE OF SERVICE: 07/20/2018. REASON FOR FOLLOW UP: UTI and bilateral lower extremity cellulitis. INTERVAL HISTORY: The patient is currently afebrile. She is breathing comfortably. She was slightly lethargic. The patient mentioned to nursing last about . No headache or chest pain. Occasional cough. No abdominal pain. No diarrhea. PHYSICAL EXAMINATION: Blood pressure 122/52 with a pulse of 80, temperature 97.4. He is 94% on 2 L nasal cannula. GENERAL DESCRIPTION: An elderly female lying in bed in no distress. RESPIRATORY SYSTEM: Unlabored breathing. Decreased breath sounds in the bases. HEART: S1, S2. Regular rate and rhythm. ABDOMEN: Soft, no tenderness. LABS: White count 9.6, BUN of 23, creatinine 0.78. Urine culture negative. Blood culture so far negative. DIAGNOSTIC IMPRESSION AND PLAN: Patient with bilateral lower extremity cellulitis, possible component of possible urinary tract infection. The patient is currently maintained on Levaquin and vancomycin to continue while waiting for condition to stabilize and cultures to finalize. Continue supportive care. MMODL / IJN: [id number] /
[2018-07-21] MEDS: HYDROCORTISONE SUCCINATE 100 MG/2 ML VIAL IV SCH ×3 (00:12→16:09)
[2018-07-21] MEDS: SODIUM CHLORIDE 0.9% 1,000 ML IV SCH (05:03)
[2018-07-21 05:18] LABS: Basophils % (A) 0 %; Eosinophils # (A) 0.1 k/uL (0-0.7); Eosinophils % (A) 1 %; HCT 33.3 % (34.0-46.0); HGB 10.3 gm/dL (11.4-16.0); Hypochromasia Moderate; Lymphocytes # (A) 0.5 k/uL (1.0-4.8); Lymphocytes % (A) 7 %; MCH 31.2 pg (25.0-35.0); MCV 100.6 fL (80.0-100.0); Macrocytosis Slight; Mean Platelet Volume 7.7; Monocytes # (A) 0.5 k/uL (0-1.0); Monocytes % (A) 7 %; Neutrophils # (A) 5.9 k/uL (1.3-7.7); Neutrophils % (A) 84 %; Platelet Count 186 k/uL (150-450); RBC 3.31 m/uL (3.80-5.40); RDW 14.1 % (11.5-15.5)
[2018-07-21 05:46] LABS: Albumin 2.1 g/dL (3.5-5.0); Calcium 8.2 mg/dL (8.4-10.2); Magnesium 2.2 mg/dL (1.6-2.3); Potassium 3.6 mmol/L (3.5-5.1); Total Bilirubin 0.6 mg/dL (0.2-1.3); Total Protein 4.9 g/dL (6.3-8.2)
[2018-07-21] MEDS ORDERED: VANCOMYCIN TROUGH DUE 1 EACH MISC MISCELLANE ONE (08:00)
[2018-07-21] MEDS: FORMOTEROL FUMARATE 20 MCG/2 ML NEBU INHALATION SCH ×2 (08:36→21:03)
[2018-07-21] MEDS: IPRATROPIUM 0.5 MG/2.5 ML NEBU INHALATION SCH ×4 (08:36→21:03)
[2018-07-21] MEDS: CITALOPRAM HYDROBROMIDE 20 MG TAB PO SCH (08:51)
[2018-07-21] MEDS: PANTOPRAZOLE 40 MG TABLET PO SCH ×2 (08:51→22:30)
[2018-07-21] MEDS: FAMOTIDINE 20 MG TAB PO SCH (08:51)
[2018-07-21] MEDS: VANCOMYCIN 1,750 MG in SODIUM CHLORIDE 0.9% 500 ML 500 ML IVPB SCH (08:52)
[2018-07-21] MEDS: HEPARIN SODIUM,PORCINE 5,000 UNIT/ML 1 ML VIAL SQ SCH ×2 (08:54→22:29)
[2018-07-21] MEDS: LEVOFLOXACIN 500 MG TAB PO SCH (11:23)
[2018-07-21] MEDS: HYDROcodone/APAP 10-325MG 1 EACH TAB PO PRN ×2 (11:27→16:10)
--- NOTE | 2018-07-21 13:35 | P.PN ---
Subjective Progress Note Date: 07/21/18 67-year-old female one of Dr. 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 another other area who been treated with oncology and town with chemotherapy regular basis she had the last one over 3 weeks ago developed to become sick with lack of appetite weakness generalized fatigue and lately in the last 48 hours had intractable nausea vomiting severe dehydration lightheadedness and dizziness not been able to ambulate and walk not been able to keep any food or fluid down symptom becomes slightly red worse also had increased swelling redness and warmness of the lower extremity along with mild burning in urination along with discomfort frequency urgency and worsening hesitancy. Patient ended up coming to the emergency department at [facility] where was seen and evaluated was quite bit dehydrated with hypotension blood pressure running 70/40 patient was started on IV hydration antiemesis medication 1 dose of IV antibiotics was giving the patient lactic acid was elevated was treated as sepsis ended up being admitted to intensive care unit afterward with the above problem. Apparently her oncologist was notify and agree with the current plan for now. 2/2: Patient evaluated noted to be sitting up in bed, she is very drowsy, but does awaken easily and follows commands. MRI of the brain is pending, plans to be done this morning for increased drowsiness and new tremor. Labs today reveal a TSH < 0.015, free T4 4 0.08, cortisol 1, ACTH 6.04, sodium 136 BUN 18, creatinine 0.69, WBC 6.4, hemoglobin 11.7, hematocrit 37.0, repeat lactic acid 1.1. Patient's Synthroid was discontinued, new tremor be due to hyperthyroidism secondary to the synthroid. Urine and blood cultures remain in process. Infectious disease on consult continue vancomycin and Levaquin for the cellulitis and urinary tract infection 2/3: Patient remains in the ICU, resting comfortably in bed. She remains afebrile, vital signs are stable. She continues on Levaquin and vancomycin for her lower extremity cellulitis and UTI. Culture report still pending, infectious disease is on consult. Patient was started on hydrocortisone yesterday for adrenal insufficiency endocrinology has been consulted. Levothyroxine continues to be on hold. MRI completed yesterday, showed there were no new large enhancing metastasis lesions, suboptimal study due to motion artifact. No to have mild wheeze and crackles on today's exam, 1 dose of Lasix 20 mg IV push ordered 07/21: Endocrinology is not available at this hospital. Patient is followed by multiple consultants including infectious disease, oncology. Urine cultures and finalized with no growth. Blood culture showing no growth after 48 hours. She has been afebrile, heart rate ran between 84 and 109, blood pressure 115/85 , pulse ox 93-95% on 2 L nasal cannula. Patient was given a dose of IV Lasix yesterday and has had good output with 250 ML's every 4 hours. She is tolerating full liquid diet well and this will be advanced. Patient states she does not have much appetite and things do not taste good. She denies any soreness to her lower extremities. She does state she is low better from yesterday. Review Of Systems: Constitutional: No fever, no chills, no night sweats. No weight change. Reports weakness, fatigue or lethargy. Reports daytime sleepiness. EENT: No headache. No blurred vision or double vision, no loss of vision. No loss of Hearing, no ringing in the ears, no dizziness. No nasal drainage or congestion. No epistaxis. No sore throat. Lungs: No shortness of breath, cough, no sputum production. No wheezing. Cardiovascular: No chest pain, reports lower extremity edema. No palpitations. No paroxysmal nocturnal dyspnea. No orthopnea. No lightheadedness or dizziness. No syncopal episodes. Abdominal: No abdominal pain. No nausea, vomiting. No diarrhea. No constipation. No bloody or tarry stools. reports loss of appetite. Genitourinary: No dysuria, increased frequency, urgency. No urinary retention. Musculoskeletal: No myalgias. Reports muscle weakness, reports gait dysfunction , no frequent falls. No back pain. No neck pain. Integumentary: Lower extremity wounds, no lesions. No rash or pruritus. No unusual bruising. No change in hair or nails. Neurologic: No aphasia. No facial droop. Reports change in mentation. No head injury. No headache. No paralysis. No paresthesia. Psychiatric: No depression. No anxiety. No mood swings. Endocrine: Reports abnormal blood sugars. No weight change. No excessive sweating or thirst. No cold intolerance. No weight change. Objective - Vital Signs Vital signs: Vital Signs Temp 98.3 F 07/21/18 04:00 Pulse 82 07/21/18 08:40 Resp 14 07/21/18 04:00 BP 127/76 07/21/18 04:00 Pulse Ox 93 L 07/21/18 04:00 Intake & Output 07/20/18 07/21/18 07/21/18 18:59 06:59 18:59 Intake Total 600 1100 Output Total 200 350 Balance 400 750 Weight 103 kg Intake: IV 600 1100 Sodium Chloride 0.9% 1, 600 600 000 ml @ 50 mls/hr IV . Q20H TAL Rx#:[id number] Vancomycin 1,750 mg In 500 Sodium Chloride 0.9% 500 ml 500 ml @ 167 mls/hr IVPB Q12HR TAL Rx#: [id number] Output: Urine 200 350 Other: Voiding Method Incontinent Incontinent # Voids 1 1 - Exam General appearance: Present: cooperative, no acute distress, patient is in ICU bed - EENT Eyes: Present: EOMI, PERRLA ENT: Present: normal oropharynx. Absent: pharyngeal erythema - Neck Neck: Present: normal ROM. Absent: lymphadenopathy, rigidity, stridor, thyromegaly Thyroid: bilateral: normal size, negative: enlarged, nodule - Respiratory Respiratory: bilateral: Mild wheezing and crackles negative: diminished, dullness, rhonchi - Cardiovascular Heart rate: 114 Rhythm: regular Heart sounds: normal: S1, S2 - Gastrointestinal General gastrointestinal: Present: normal bowel sounds, soft. Absent: distended , hepatomegaly, organomegaly, tenderness - Integumentary Integumentary Comment(s): +1 edema, cellulitis bilateral lower extremities worse on the right as compared to the left Integumentary: Present: cellulitis - Musculoskeletal Musculoskeletal: Present: generalized weakness, strength equal bilaterally. Absent: right sided weakness, left sided weakness - Psychiatric Psychiatric Comment(s): Patient drowsy but does follow commands and answers questions appropriately Psychiatric: Present: A&O x's 3 - Labs CBC & Chem 7: 07/21/18 04:31 07/21/18 04:31 Labs: Abnormal Lab Results - Last 24 Hours (Table) 07/21/18 07/21/18 Range/Units 04:31 04:31 RBC 3.31 L (3.80-5.40) m/uL Hgb 10.3 L (11.4-16.0) gm/dL Hct 33.3 L (34.0-46.0) % MCV 100.6 H (80.0-100.0) fL Lymphocytes # 0.5 L (1.0-4.8) k/uL Chloride 113 H (98-107) mmol/L BUN 33 H (7-17) mg/dL Glucose 184 H (74-99) mg/dL Calcium 8.2 L (8.4-10.2) mg/dL Total Protein 4.9 L (6.3-8.2) g/dL Albumin 2.1 L (3.5-5.0) g/dL Microbiology - Last 24 Hours (Table) 07/18/18 10:55 Blood Culture - Preliminary Blood No Growth after 48 hours Assessment and Plan Plan: 1 sepsis: Most likely combination of urinary tract infection and cellulitis. Dr. Arroyo is following, continue with vancomycin and Levaquin. 2 metabolic encephalopathy secondary to sepsis along with brain metastasis from originally lung cancer and adrenal insufficiency. MRI of the brain revealed no new brain metastasis noted 3 intractable nausea vomiting with acute kidney injury: Much better, tolerating full liquid diet and will advance as tolerated, continue with IV hydration 4 advance lung cancer: Has been on chemotherapy we'll consult oncology for now or chemotherapy will be held until she is more stable. 5 severe UTI/sepsis: Awaiting for the final urine culture the meanwhile empiric antibiotic with vancomycin and Levaquin. 6 severe COPD: Patient can be on bronchodilator and the Pulmicort as well. 7 hypothyroidism: Levothyroxine held, TSH<0.015, free T4 4 0.08 8 recurrent depression: Patient be continue on site citalopram and alprazolam. 9 chronic pain syndrome: Has been on hydrocodone as needed. 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 Oncology consult appreciated. Continue hydrocortisone: Hydrocortisone 50 mg IV every 8 hours, endocrinology is not available. 10 GI prophylaxis: Patient be on Pepcid 20 mg daily. 11 DVT prophylaxis: Heparin subcutaneous will be giving. Code status: Full code. Discharge plan: subacute rehab at [facility] in the next 24-48 hours The above impression and plan of care have been discussed and directed by signing physician. Dianelys Barrios nurse practitioner acting as scribe for signing physician.
--- NOTE | 2018-07-21 17:01 | P.PN ---
Subjective Progress Note Date: 07/21/18 Principal diagnosis: Metastatic NSCLC Today in f/u, she thinks she may feel a little stronger, no fever, nausea, breathing is stable, swelling in the legs, no pain. Objective - Vital Signs Vital signs: Vital Signs Temp 98.4 F 07/21/18 12:00 Pulse 108 H 07/21/18 13:29 Resp 15 07/21/18 12:00 BP 118/84 07/21/18 12:00 Pulse Ox 97 07/21/18 12:00 Intake & Output 07/20/18 07/21/18 07/21/18 18:59 06:59 18:59 Intake Total 600 1100 1150 Output Total 200 350 300 Balance 400 750 850 Weight 103 kg Intake: IV 600 1100 900 Sodium Chloride 0.9% 1, 600 600 400 000 ml @ 50 mls/hr IV . Q20H TAL Rx#:[id number] Vancomycin 1,750 mg In 500 500 Sodium Chloride 0.9% 500 ml 500 ml @ 167 mls/hr IVPB Q12HR TAL Rx#: [id number] Oral 250 Output: Urine 200 350 300 Other: Voiding Method Incontinent Incontinent Incontinent # Voids 1 1 - Constitutional General appearance: Present: cooperative, no acute distress, obese - EENT Eyes: Present: anicteric sclerae, EOMI - Respiratory Respiratory: bilateral: diminished - Cardiovascular Heart sounds: normal: S1, S2 - Peripheral edema leg Peripheral Edema: bilateral: 1+ - Gastrointestinal General gastrointestinal: Present: normal bowel sounds, soft - Integumentary Integumentary: Present: pale - Neurologic Neurologic Comment(s): mild, generalized tremor Neurologic: Present: CNII-XII intact - Musculoskeletal Musculoskeletal: Present: generalized weakness - Psychiatric Psychiatric: Present: A&O x's 3, appropriate affect, intact judgment & insight - Labs CBC & Chem 7: 07/21/18 04:31 07/21/18 04:31 Labs: Abnormal Lab Results - Last 24 Hours (Table) 07/21/18 07/21/18 Range/Units 04:31 04:31 RBC 3.31 L (3.80-5.40) m/uL Hgb 10.3 L (11.4-16.0) gm/dL Hct 33.3 L (34.0-46.0) % MCV 100.6 H (80.0-100.0) fL Lymphocytes # 0.5 L (1.0-4.8) k/uL Chloride 113 H (98-107) mmol/L BUN 33 H (7-17) mg/dL Glucose 184 H (74-99) mg/dL Calcium 8.2 L (8.4-10.2) mg/dL Total Protein 4.9 L (6.3-8.2) g/dL Albumin 2.1 L (3.5-5.0) g/dL Microbiology - Last 24 Hours (Table) 07/18/18 10:55 Blood Culture - Preliminary Blood No Growth after 72 hours - Imaging and Cardiology MRI - head: report reviewed Assessment and Plan (1) Impaired endocrine function Narrative/Plan: Possibly secondary to immunotherapy. Corrected thyroid function with underlying impaired corticosteroidal function causing hypotension, UTI contributing to worse symptoms. Pt BP better with corticosteroid administration , pending resumption of thyroid replacement. Endocrinology consulted, pending their evaluation and mgmgt. Cont abx for UTI Current Visit: Yes Status: Acute Priority: High Code(s): E34.9 - ENDOCRINE DISORDER, UNSPECIFIED SNOMED Code(s): 366809189 (2) Non-small cell lung cancer (NSCLC) Narrative/Plan: Pt has scans in May that showed a decent response to immunotherapy. Pt will cont on treatment once her current condition is treated and managed. Current Visit: Yes Status: Chronic Priority: High Code(s): C34.90 - MALIGNANT NEOPLASM OF UNSP PART OF UNSP BRONCHUS OR LUNG SNOMED Code(s): 662586864 Plan: Dehydration, nausea and vomiting are improved since admit with hydration and supportive medications Attests: I have performed H&P and developed impression and plan of care of patient, discussed with dictator. I agree with dictated note, documented as a scribe.
[2018-07-21] MEDS: ALBUTEROL NEBULIZED 2.5 MG/3 ML INHALATION PRN (21:03)
[2018-07-21] MEDS: CYCLOBENZAPRINE 10 MG TAB PO SCH (22:30)
--- NOTE | 2018-07-21 23:54 | PN ---
PROGRESS NOTE DATE OF SERVICE: 07/21/2018. REASON FOR FOLLOWUP: Lower extremity cellulitis and UTI. INTERVAL HISTORY: The patient is afebrile. She is more awake and alert. She is breathing comfortably. Denies significant chest pain. Occasional cough. No abdominal pain or any burning or frequency. PHYSICAL EXAMINATION: Blood pressure 140/90, pulse 92, temperature 97.8, she is 93% on 2 L nasal cannula. GENERAL DESCRIPTION: An elderly female lying in bed in no distress. RESPIRATORY SYSTEM: Unlabored breathing. LUNGS: Clear to auscultation anteriorly. HEART: S1, S2. Regular rate and rhythm. ABDOMEN: Soft. EXTREMITIES: The legs are currently wrapped with no drainage on the dressing. LABS: Hemoglobin 10.8, white count 7.2, BUN of 33, creatinine 0.81. Blood and urine cultures have been negative. DIAGNOSTIC IMPRESSION AND PLAN: Patient with bilateral lower extremity cellulitis. The patient does have multiple antibiotic allergies including cephalexin. Patient is currently on vancomycin, to continue while watching kidney function and clinical course closely. Continue supportive care. MMODL / IJN: [id number] /
[2018-07-22] MEDS: VANCOMYCIN 1,750 MG in SODIUM CHLORIDE 0.9% 500 ML 500 ML IVPB SCH ×2 (01:08→17:06)
[2018-07-22] MEDS: SODIUM CHLORIDE 0.9% 1,000 ML IV SCH ×2 (01:09→10:53)
[2018-07-22] MEDS: HYDROCORTISONE SUCCINATE 100 MG/2 ML VIAL IV SCH ×2 (01:09→08:26)
[2018-07-22 05:37] LABS: Basophils % (A) 0 %; Eosinophils # (A) 0.1 k/uL (0-0.7); Eosinophils % (A) 1 %; HCT 32.4 % (34.0-46.0); HGB 10.2 gm/dL (11.4-16.0); Hypochromasia Moderate; Lymphocytes # (A) 1.1 k/uL (1.0-4.8); Lymphocytes % (A) 19 %; MCH 31.9 pg (25.0-35.0); MCHC 31.4 g/dL (31.0-37.0); MCV 101.6 fL (80.0-100.0); Macrocytosis Slight; Mean Platelet Volume 7.4; Monocytes # (A) 0.6 k/uL (0-1.0); Monocytes % (A) 10 %; Neutrophils % (A) 67 %; Platelet Count 193 k/uL (150-450); RBC 3.19 m/uL (3.80-5.40); RDW 14.1 % (11.5-15.5)
[2018-07-22 05:45] LABS: ALT 21 U/L (9-52); AST 20 U/L (14-36); Albumin 2.1 g/dL (3.5-5.0); Alkaline Phosphatase 74 U/L (38-126); Anion Gap 1 mmol/L; Blood Urea Nitrogen 31 mg/dL (7-17); Calcium 7.8 mg/dL (8.4-10.2); Carbon Dioxide 27 mmol/L (22-30); Chloride 112 mmol/L (98-107); Glucose 125 mg/dL (74-99); Magnesium 2.3 mg/dL (1.6-2.3); Potassium 3.3 mmol/L (3.5-5.1); Sodium 140 mmol/L (137-145); Total Bilirubin 0.6 mg/dL (0.2-1.3); Total Protein 4.8 g/dL (6.3-8.2)
[2018-07-22] MEDS: IPRATROPIUM 0.5 MG/2.5 ML NEBU INHALATION SCH ×4 (07:42→20:41)
[2018-07-22] MEDS: FORMOTEROL FUMARATE 20 MCG/2 ML NEBU INHALATION SCH ×2 (07:42→20:41)
[2018-07-22] MEDS: CITALOPRAM HYDROBROMIDE 20 MG TAB PO SCH (08:25)
[2018-07-22] MEDS: PANTOPRAZOLE 40 MG TABLET PO SCH ×2 (08:25→21:31)
[2018-07-22] MEDS: HYDROcodone/APAP 10-325MG 1 EACH TAB PO PRN ×2 (08:25→21:30)
[2018-07-22] MEDS: HEPARIN SODIUM,PORCINE 5,000 UNIT/ML 1 ML VIAL SQ SCH ×2 (08:25→21:32)
[2018-07-22] MEDS ORDERED: METHIMAZOLE 5 MG TAB PO SCH (10:30)
[2018-07-22] MEDS: LEVOFLOXACIN 500 MG TAB PO SCH (11:21)
[2018-07-22 12:54] LABS: T4, Free (Free Thyroxine) 3.43 ng/dL (0.78-2.19)
--- NOTE | 2018-07-22 14:28 | P.PN ---
Subjective Progress Note Date: 07/22/18 67-year-old female one of Dr. 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 another other area who been treated with oncology and town with chemotherapy regular basis she had the last one over 3 weeks ago developed to become sick with lack of appetite weakness generalized fatigue and lately in the last 48 hours had intractable nausea vomiting severe dehydration lightheadedness and dizziness not been able to ambulate and walk not been able to keep any food or fluid down symptom becomes slightly red worse also had increased swelling redness and warmness of the lower extremity along with mild burning in urination along with discomfort frequency urgency and worsening hesitancy. Patient ended up coming to the emergency department at [facility] where was seen and evaluated was quite bit dehydrated with hypotension blood pressure running 70/40 patient was started on IV hydration antiemesis medication 1 dose of IV antibiotics was giving the patient lactic acid was elevated was treated as sepsis ended up being admitted to intensive care unit afterward with the above problem. Apparently her oncologist was notify and agree with the current plan for now. 2/2: Patient evaluated noted to be sitting up in bed, she is very drowsy, but does awaken easily and follows commands. MRI of the brain is pending, plans to be done this morning for increased drowsiness and new tremor. Labs today reveal a TSH < 0.015, free T4 4 0.08, cortisol 1, ACTH 6.04, sodium 136 BUN 18, creatinine 0.69, WBC 6.4, hemoglobin 11.7, hematocrit 37.0, repeat lactic acid 1.1. Patient's Synthroid was discontinued, new tremor be due to hyperthyroidism secondary to the synthroid. Urine and blood cultures remain in process. Infectious disease on consult continue vancomycin and Levaquin for the cellulitis and urinary tract infection 2/3: Patient remains in the ICU, resting comfortably in bed. She remains afebrile, vital signs are stable. She continues on Levaquin and vancomycin for her lower extremity cellulitis and UTI. Culture report still pending, infectious disease is on consult. Patient was started on hydrocortisone yesterday for adrenal insufficiency endocrinology has been consulted. Levothyroxine continues to be on hold. MRI completed yesterday, showed there were no new large enhancing metastasis lesions, suboptimal study due to motion artifact. No to have mild wheeze and crackles on today's exam, 1 dose of Lasix 20 mg IV push ordered 07/21: Endocrinology is not available at this hospital. Patient is followed by multiple consultants including infectious disease, oncology. Urine cultures and finalized with no growth. Blood culture showing no growth after 48 hours. She has been afebrile, heart rate ran between 84 and 109, blood pressure 115/85 , pulse ox 93-95% on 2 L nasal cannula. Patient was given a dose of IV Lasix yesterday and has had good output with 250 ML's every 4 hours. She is tolerating full liquid diet well and this will be advanced. Patient states she does not have much appetite and things do not taste good. She denies any soreness to her lower extremities. She does state she is low better from yesterday. 07/22: Patient has been afebrile, heart rate running in the 90s to 100. Blood pressure 141/73, pulse ox 94% on 2 L nasal cannula. White count is normal, hemoglobin 10.2, potassium 3.3 will be replaced, creatinine 0.66. Patient is continued on Levaquin and vancomycin. Patient will be transitioned from IV to oral Cortef 50 mg in the morning and 10 mg in the evening. Tapazole will not be started as the hyper thyroidism may be related to her chemotherapy medication. Plan will be to recheck lab work and follow-up tomorrow. She is currently on a regular diet. PT and OT are following. Social work is following for subacute rehab placement which [facility] or [facility]. Patient will be ready for discharge tomorrow to [facility]. Review Of Systems: Constitutional: No fever, no chills, no night sweats. No weight change. Reports weakness, fatigue or lethargy. Reports daytime sleepiness. EENT: No headache. No blurred vision or double vision, no loss of vision. No loss of Hearing, no ringing in the ears, no dizziness. No nasal drainage or congestion. No epistaxis. No sore throat. Lungs: No shortness of breath, cough, no sputum production. No wheezing. Cardiovascular: No chest pain, reports lower extremity edema. No palpitations. No paroxysmal nocturnal dyspnea. No orthopnea. No lightheadedness or dizziness. No syncopal episodes. Abdominal: No abdominal pain. No nausea, vomiting. No diarrhea. No constipation. No bloody or tarry stools. reports loss of appetite. Genitourinary: No dysuria, increased frequency, urgency. No urinary retention. Musculoskeletal: No myalgias. Reports muscle weakness, reports gait dysfunction , no frequent falls. No back pain. No neck pain. Integumentary: Lower extremity wounds, no lesions. No rash or pruritus. No unusual bruising. No change in hair or nails. Neurologic: No aphasia. No facial droop. Reports change in mentation. No head injury. No headache. No paralysis. No paresthesia. Psychiatric: No depression. No anxiety. No mood swings. Endocrine: Reports abnormal blood sugars. No weight change. No excessive sweating or thirst. No cold intolerance. Objective - Vital Signs Vital signs: Vital Signs Temp 97.9 F 07/22/18 04:00 Pulse 96 07/22/18 08:02 Resp 22 07/22/18 04:00 BP 141/73 07/22/18 04:00 Pulse Ox 94 L 07/22/18 04:00 Intake & Output 07/21/18 07/22/18 07/22/18 18:59 06:59 18:59 Intake Total 1350 1100 Output Total 450 525 Balance 900 575 Weight 105.4 kg Intake: IV 1100 1100 Sodium Chloride 0.9% 1, 600 600 000 ml @ 50 mls/hr IV . Q20H TAL Rx#:[id number] Vancomycin 1,750 mg In 500 500 Sodium Chloride 0.9% 500 ml 500 ml @ 167 mls/hr IVPB Q12HR TAL Rx#: [id number] Oral 250 Output: Urine 450 525 Other: Voiding Method Incontinent Incontinent # Voids 1 - Exam General appearance: Present: cooperative, no acute distress, patient is recliner and appears comfortable - EENT Eyes: Present: EOMI, PERRLA ENT: Present: normal oropharynx. Absent: pharyngeal erythema - Neck Neck: Present: normal ROM. Absent: lymphadenopathy, rigidity, stridor, thyromegaly Thyroid: bilateral: normal size, negative: enlarged, nodule - Respiratory Respiratory: bilateral: Mild wheezing and crackles negative: diminished, dullness, rhonchi - Cardiovascular Heart rate: 114 Rhythm: regular Heart sounds: normal: S1, S2 - Gastrointestinal General gastrointestinal: Present: normal bowel sounds, soft. Absent: distended , hepatomegaly, organomegaly, tenderness - Integumentary Integumentary Comment(s): +1 edema, cellulitis bilateral lower extremities worse on the right as compared to the left Integumentary: Present: cellulitis - Musculoskeletal Musculoskeletal: Present: generalized weakness, strength equal bilaterally. Absent: right sided weakness, left sided weakness - Psychiatric Psychiatric Comment(s): Patient drowsy but does follow commands and answers questions appropriately Psychiatric: Present: A&O x's 3 - Labs CBC & Chem 7: 07/22/18 04:30 07/22/18 04:30 Labs: Abnormal Lab Results - Last 24 Hours (Table) 07/22/18 07/22/18 Range/Units 04:30 04:30 RBC 3.19 L (3.80-5.40) m/uL Hgb 10.2 L (11.4-16.0) gm/dL Hct 32.4 L (34.0-46.0) % MCV 101.6 H (80.0-100.0) fL Potassium 3.3 L (3.5-5.1) mmol/L Chloride 112 H (98-107) mmol/L BUN 31 H (7-17) mg/dL Glucose 125 H (74-99) mg/dL Calcium 7.8 L (8.4-10.2) mg/dL Total Protein 4.8 L (6.3-8.2) g/dL Albumin 2.1 L (3.5-5.0) g/dL Microbiology - Last 24 Hours (Table) 07/18/18 10:55 Blood Culture - Preliminary Blood No Growth after 72 hours Assessment and Plan Plan: 1 sepsis: Most likely combination of urinary tract infection and cellulitis. Dr. Arroyo is following, continue with vancomycin and Levaquin. 2 metabolic encephalopathy secondary to sepsis along with brain metastasis from originally lung cancer and adrenal insufficiency. MRI of the brain revealed no new brain metastasis noted 3 intractable nausea vomiting with acute kidney injury: Much better, tolerating full liquid diet and will advance as tolerated, continue with IV hydration 4 advance lung cancer: Has been on chemotherapy we'll consult oncology for now or chemotherapy will be held until she is more stable. 5 severe UTI/sepsis: Awaiting for the final urine culture the meanwhile empiric antibiotic with vancomycin and Levaquin. 6 severe COPD: Patient can be on bronchodilator and the Pulmicort as well. 7 hypothyroidism: Levothyroxine held, TSH<0.015, free T4 4 0.08 8 recurrent depression: Patient be continue on site citalopram and alprazolam. 9 chronic pain syndrome: Has been on hydrocodone as needed. 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 Oncology consult appreciated. Continue hydrocortisone: Hydrocortisone 50 mg IV every 8 hours, endocrinology is not available. Repeat TSH, free T4, T3 total and 3TC reverse ordered. 10 GI prophylaxis: Patient be on Pepcid 20 mg daily. 11 DVT prophylaxis: Heparin subcutaneous will be giving. Code status: Full code. Discharge plan: subacute rehab at [facility] or [facility] tomorrow The above impression and plan of care have been discussed and directed by signing physician. Dianelys Barrios nurse practitioner acting as scribe for signing physician.
[2018-07-22] MEDS ORDERED: HYDROCORTISONE 10 MG TAB PO SCH (16:00)
--- NOTE | 2018-07-22 18:27 | P.PN ---
Subjective Progress Note Date: 07/22/18 Principal diagnosis: Metastatic NSCLC Today in f/u, pt in chair, still shaky, no fever, nausea, SOB, she took 2 steps to chair today, no pain. Objective - Vital Signs Vital signs: Vital Signs Temp 97.8 F 07/22/18 12:00 Pulse 100 07/22/18 17:42 Resp 15 07/22/18 12:00 BP 120/75 07/22/18 12:00 Pulse Ox 97 07/22/18 12:00 Intake & Output 07/21/18 07/22/18 07/22/18 18:59 06:59 18:59 Intake Total 1350 1100 200 Output Total 450 525 350 Balance 900 575 -150 Weight 105.4 kg Intake: IV 1100 1100 200 Sodium Chloride 0.9% 1, 600 600 200 000 ml @ 50 mls/hr IV . Q20H [facility] Rx#:[id number] Vancomycin 1,750 mg In 500 500 Sodium Chloride 0.9% 500 ml 500 ml @ 167 mls/hr IVPB Q12HR [facility] Rx#: [id number] Oral 250 Output: Urine 450 525 350 Other: Voiding Method Incontinent Incontinent Incontinent # Voids 1 - Constitutional General appearance: Present: cooperative, no acute distress, obese - EENT Eyes: Present: anicteric sclerae, EOMI - Respiratory Respiratory: bilateral: CTA, diminished - Cardiovascular Heart sounds: normal: S1, S2 Abnormal Heart Sounds: Present: systolic murmur - Peripheral edema leg Peripheral Edema: bilateral: None - Gastrointestinal General gastrointestinal: Present: normal bowel sounds, soft - Neurologic Neurologic: Present: CNII-XII intact - Musculoskeletal Musculoskeletal: Present: generalized weakness - Psychiatric Psychiatric: Present: A&O x's 3, appropriate affect, intact judgment & insight - Labs CBC & Chem 7: 07/22/18 04:30 07/22/18 04:30 Labs: Abnormal Lab Results - Last 24 Hours (Table) 07/22/18 07/22/18 07/22/18 Range/Units 04:30 04:30 04:30 RBC 3.19 L (3.80-5.40) m/uL Hgb 10.2 L (11.4-16.0) gm/dL Hct 32.4 L (34.0-46.0) % MCV 101.6 H (80.0-100.0) fL Potassium 3.3 L (3.5-5.1) mmol/L Chloride 112 H (98-107) mmol/L BUN 31 H (7-17) mg/dL Glucose 125 H (74-99) mg/dL Calcium 7.8 L (8.4-10.2) mg/dL Total Protein 4.8 L (6.3-8.2) g/dL Albumin 2.1 L (3.5-5.0) g/dL TSH <0.015 L (0.465-4.680) mIU/L Free T4 3.43 H (0.78-2.19) ng/dL Microbiology - Last 24 Hours (Table) 07/18/18 10:55 Blood Culture - Preliminary Blood No Growth after 96 hours Assessment and Plan (1) Impaired endocrine function Narrative/Plan: Possibly secondary to immunotherapy. Corrected thyroid function with underlying impaired corticosteroidal function causing hypotension, UTI contributing to worse symptoms. Pt BP better with corticosteroid administration , pending resumption of thyroid replacement. Endocrinology consulted, pending their evaluation and mgmgt. Cont abx for UTI Current Visit: Yes Status: Acute Priority: High Code(s): E34.9 - ENDOCRINE DISORDER, UNSPECIFIED SNOMED Code(s): 885086610 (2) Non-small cell lung cancer (NSCLC) Narrative/Plan: Pt has scans in May that showed a decent response to immunotherapy. Pt will cont on treatment once her current condition is treated and managed. Current Visit: Yes Status: Chronic Priority: High Code(s): C34.90 - MALIGNANT NEOPLASM OF UNSP PART OF UNSP BRONCHUS OR LUNG SNOMED Code(s): 316786265 Plan: Case discussed with IM.
[2018-07-22] MEDS: ALPRAZolam 0.5 MG TAB PO PRN (20:37)
[2018-07-22] MEDS: CYCLOBENZAPRINE 10 MG TAB PO SCH (22:55)
--- NOTE | 2018-07-22 23:40 | PN ---
PROGRESS NOTE DATE OF SERVICE: 07/22/2018. REASON FOR FOLLOWUP: Lower extremity cellulitis and UTI. INTERVAL HISTORY: The patient is currently afebrile. She is breathing comfortably. Denies any chest pain. Occasional cough. No abdominal pain. No pain to the leg area. No diarrhea. PHYSICAL EXAMINATION: VITAL SIGNS: Blood pressure 120/75 with a pulse of 101, temperature 97.8. She is 97% on 2 L nasal cannula. General description is an elderly female lying in bed in no distress. Respiratory system: Unlabored breathing. Clear to auscultation anteriorly. Heart S1, S2. Regular rate and rhythm. Abdomen is soft, no tenderness. Legs did have some swelling that has improved. No blister formation or any drainage. LABS: Hemoglobin is 10.2, white count 6.0, BUN of 21, creatinine 0.66. Blood cultures have been negative. Urine is negative. DIAGNOSTIC IMPRESSION AND PLAN: Patient with bilateral lower extremity cellulitis, to continue local care to keep the swelling down. Continue on vancomycin antibiotic allergy watching clinical course closely. Continue supportive care. MMODL / IJN: [id number] /
[2018-07-23 05:06] LABS: ALT 23 U/L (9-52); AST 22 U/L (14-36); Albumin 2.1 g/dL (3.5-5.0); Alkaline Phosphatase 72 U/L (38-126); Anion Gap 2 mmol/L; Blood Urea Nitrogen 23 mg/dL (7-17); Calcium 7.8 mg/dL (8.4-10.2); Carbon Dioxide 27 mmol/L (22-30); Chloride 111 mmol/L (98-107); Glucose 97 mg/dL (74-99); Magnesium 2.2 mg/dL (1.6-2.3); Potassium 3.4 mmol/L (3.5-5.1); Sodium 140 mmol/L (137-145); Total Bilirubin 0.7 mg/dL (0.2-1.3); Total Protein 4.8 g/dL (6.3-8.2)
[2018-07-23 05:48] LABS: HGB 10.8 gm/dL (11.4-16.0); Hypochromasia Slight; MCH 32.2 pg (25.0-35.0); MCHC 31.9 g/dL (31.0-37.0); Macrocytosis Slight; Mean Platelet Volume 7.5; Platelet Count 196 k/uL (150-450); RBC 3.37 m/uL (3.80-5.40); RDW 14.1 % (11.5-15.5); WBC 6.8 k/uL (3.8-10.6)
[2018-07-23] MEDS: IPRATROPIUM 0.5 MG/2.5 ML NEBU INHALATION SCH ×4 (07:53→20:53)
[2018-07-23] MEDS: FORMOTEROL FUMARATE 20 MCG/2 ML NEBU INHALATION SCH ×2 (07:53→20:53)
[2018-07-23] MEDS: HEPARIN SODIUM,PORCINE 5,000 UNIT/ML 1 ML VIAL SQ SCH ×2 (08:45→20:49)
[2018-07-23] MEDS: PANTOPRAZOLE 40 MG TABLET PO SCH ×2 (08:45→20:49)
[2018-07-23] MEDS: CITALOPRAM HYDROBROMIDE 20 MG TAB PO SCH (08:45)
[2018-07-23] MEDS: VANCOMYCIN 1,750 MG in SODIUM CHLORIDE 0.9% 500 ML 500 ML IVPB SCH (08:46)
[2018-07-23] MEDS ORDERED: HYDROCORTISONE 10 MG TAB PO SCH (09:00)
[2018-07-23] MEDS: LEVOFLOXACIN 500 MG TAB PO SCH (11:13)
[2018-07-23] MEDS: HYDROcodone/APAP 10-325MG 1 EACH TAB PO PRN ×2 (11:13→16:29)
--- NOTE | 2018-07-23 11:30 | US ---
EXAMINATION TYPE: US venous doppler duplex LE BI DATE OF EXAM: 07/23/2018 11:17 AM COMPARISON: NONE CLINICAL HISTORY: tightness in legs. ICU patient with wrapped, tight, swollen legs, no h/o dvt, chest pain SIDE PERFORMED: Bilateral TECHNIQUE: The lower extremity deep venous system is examined utilizing real time linear array sonog corie with graded compression, doppler sonography and color-flow sonography. VESSELS IMAGED: External Iliac Vein (EIV) Common Femoral Vein Deep Femoral Vein Greater Saphenous Vein * Femoral Vein Popliteal Vein Small Saphenous Vein * Proximal Calf Veins (* superficial vessels) limited assessment, was not able to perform all compression imaging due to hard edematous tissue th at obscured vessels with color turned off. Right Leg: Appears negative for DVT Left Leg: Appears negative for DVT IMPRESSION: No evidence of DVT
[2018-07-23] MEDS ORDERED: POTASSIUM CHLORIDE ER 20 MEQ TAB.ER PO STA (11:45)
--- NOTE | 2018-07-23 11:49 | P.DS ---
Providers Date of admission: 07/17/18 21:18 Expected date of discharge: 07/28/18 Attending physician: Christian Carrasco Consults: 07/17/18 21:12 Consult Physician Routine Consulting Provider: Toy Meredith Consult Reason/Comments: Metastatic lung cancer, dehydration, acute kidney injury Do you want consulting provider notified?: Yes 07/18/18 13:07 Consult Physician Routine Consulting Provider: Taran Arroyo Consult Reason/Comments: antibiotics Do you want consulting provider notified?: Yes 07/18/18 18:59 Consult Physician Routine Consulting Provider: Christine Winchester Consult Reason/Comments: Immune related adrenal insufficiency Do you want consulting provider notified?: Yes, Notify in am Primary care physician: [facility] Course: 67-year-old female one of Dr. 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 another other area who been treated with oncology and town with chemotherapy regular basis she had the last one over 3 weeks ago developed to become sick with lack of appetite weakness generalized fatigue and lately in the last 48 hours had intractable nausea vomiting severe dehydration lightheadedness and dizziness not been able to ambulate and walk not been able to keep any food or fluid down symptom becomes slightly red worse also had increased swelling redness and warmness of the lower extremity along with mild burning in urination along with discomfort frequency urgency and worsening hesitancy. Patient ended up coming to the emergency department at [facility] where was seen and evaluated was quite bit dehydrated with hypotension blood pressure running 70/40 patient was started on IV hydration antiemesis medication 1 dose of IV antibiotics was giving the patient lactic acid was elevated was treated as sepsis ended up being admitted to intensive care unit afterward with the above problem. Apparently her oncologist was notify and agree with the current plan for now. 2/2: Patient evaluated noted to be sitting up in bed, she is very drowsy, but does awaken easily and follows commands. MRI of the brain is pending, plans to be done this morning for increased drowsiness and new tremor. Labs today reveal a TSH < 0.015, free T4 4 0.08, cortisol 1, ACTH 6.04, sodium 136 BUN 18, creatinine 0.69, WBC 6.4, hemoglobin 11.7, hematocrit 37.0, repeat lactic acid 1.1. Patient's Synthroid was discontinued, new tremor be due to hyperthyroidism secondary to the synthroid. Urine and blood cultures remain in process. Infectious disease on consult continue vancomycin and Levaquin for the cellulitis and urinary tract infection 07/20: Patient remains in the ICU, resting comfortably in bed. She remains afebrile, vital signs are stable. She continues on Levaquin and vancomycin for her lower extremity cellulitis and UTI. Culture report still pending, infectious disease is on consult. Patient was started on hydrocortisone yesterday for adrenal insufficiency endocrinology has been consulted. Levothyroxine continues to be on hold. MRI completed yesterday, showed there were no new large enhancing metastasis lesions, suboptimal study due to motion artifact. No to have mild wheeze and crackles on today's exam, 1 dose of Lasix 20 mg IV push ordered 07/21: Endocrinology is not available at this hospital. Patient is followed by multiple consultants including infectious disease, oncology. Urine cultures and finalized with no growth. Blood culture showing no growth after 48 hours. She has been afebrile, heart rate ran between 84 and 109, blood pressure 115/85 , pulse ox 93-95% on 2 L nasal cannula. Patient was given a dose of IV Lasix yesterday and has had good output with 250 ML's every 4 hours. She is tolerating full liquid diet well and this will be advanced. Patient states she does not have much appetite and things do not taste good. She denies any soreness to her lower extremities. She does state she is low better from yesterday. 07/22: Patient has been afebrile, heart rate running in the 90s to 100. Blood pressure 141/73, pulse ox 94% on 2 L nasal cannula. White count is normal, hemoglobin 10.2, potassium 3.3 will be replaced, creatinine 0.66. Patient is continued on Levaquin and vancomycin. Patient will be transitioned from IV to oral Cortef 50 mg in the morning and 10 mg in the evening. Tapazole will not be started as the hyper thyroidism may be related to her chemotherapy medication. Plan will be to recheck lab work and follow-up tomorrow. She is currently on a regular diet. PT and OT are following. Social work is following for subacute rehab placement which will be [facility] [place] or [facility]. Patient will be ready for discharge tomorrow to [facility]. 07/23: Patient remains in the intensive care unit waiting for [facility]. Patient states she is not feeling well this morning and is complaining of her tongue which is dry. Clotrimazole amadou added. Noted patient's heart rate is running 110 today. She is known to have some wheezing. She complains of dizziness. 1 dose of IV Lasix and potassium will be replaced. She is continued on vancomycin and Levaquin. Ultrasound of lower extremity negative for DVT. CT in general has been ordered by oncology. Troponin has been negative on 2 draws. Repeat TSH is less than 0.015, free T4 3 0.43, total T3 106. 07/24: Chest x-ray shows findings compatible with progressive heart failure. Infiltrates of other etiologies are not excluded. CTA of the chest shows no acute pulmonary embolism. Pulmonary hypertension. Interval development of moderate bilateral pleural effusions. Increasing size of left lower lobe mass. Repeat lab work shows a hemoglobin of 12, white count 8.7, platelet count 198. Sodium 141, potassium 3.3 will be replaced. Chloride 109, CO2 29, BUN [address] Winchester from endocrinology has increased Cortef to 30 mg daily and 20 mg at 1400. Patient states that she had chest pain earlier today. Her breathing is better from yesterday. She states her arms are heavy and difficult to lift. Patient stating that she is planning to go home at the time of discharge, but noted that therapies are seen. She is minimal to total assist for self-care activities. Plan is for [facility] [place] or [facility]. 07/25: Patient is complaining of her legs feeling tight and burning in the lower extremities. Her breathing is better from yesterday. Dr. Arroyo recommends discontinuing Levaquin which will be done. Reverse T3 came back at 79.8. Patient has been afebrile, blood pressure 130/71, heart rate running in the 90s , pulse ox 96% on 2 L. Plan is to monitor patient over the weekend plan for discharge to subacute rehab on Saturday.. 07/26: She has been afebrile, heart rate running in the 80s and 90s, blood pressure 133/64 pulse ox 90% on 2 L nasal cannula. Patient states that she slept well last night. She denies having any shortness of breath. She does have some shortness of breath with ambulating. Patient has noted wheezes for which Pulmicort added. Cellulitis to the lower extremities is much improved. Orthostatic vital signs will be ordered daily. 07/27: Dr. Anderson recommends discontinuing vancomycin which will be done today. Patient now has no IV access and this will be left out. Tapazole was started by Dr. Winchester but we will plan to discontinue this and repeat TSH in 4 weeks and decide at that point if she needs Tapazole. She has been afebrile, heart rate running in the 80s, pulse ox 97% on 2 L, blood pressure 134/75. White count 7.7 , hemoglobin 12.2, potassium 3.2 and will be replaced. She is currently on Lasix 40 mg orally every day. We'll plan to check orthostatic vital signs today. Patient is doing well with no concerns today. Plan for discharge to [facility] on Saturday. 07/28: Patient remains afebrile, blood pressure 121/73, pulse ox 93% on 2 L nasal cannula, heart rate running and then 80s. Orthostatics from supine to standing showed only a drop of 5 points. No new medication changes. Patient denies any new complaints. Patient will be discharged to [facility] today once all arrangements are completed. Discharge diagnoses: 1 sepsis: Most likely combination of urinary tract infection and cellulitis. 2 metabolic encephalopathy secondary to sepsis along with brain metastasis from originally lung cancer and adrenal insufficiency. MRI of the brain revealed no new brain metastasis noted 3 intractable nausea vomiting with acute kidney injury 4 advance lung cancer: Has been on chemotherapy 5 severe COPD 7 hypothyroidism presenting with hyperthyroidism secondary to euthyroid sick syndrome: Levothyroxine held. 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 Discharge plan: [facility] The above impression and plan of care have been discussed and directed by signing physician. Dianelys Barrios nurse practitioner acting as scribe for signing physician. Patient Condition at Discharge: Good Plan - Discharge Summary New Discharge Prescriptions: New ALPRAZolam [Xanax] 0.5 mg PO TID PRN #9 tab PRN Reason: Anxiety Budesonide [Pulmicort] 1 mg INHALATION RT-BID nebu Clotrimazole Amadou [Mycelex Amadou] 10 mg MUCOUS MEM 5XD 5 Days amadou Furosemide [Lasix] 40 mg PO DAILY tab Furosemide [Lasix] 20 mg PO 1600 tab Hydrocortisone [Cortef] 30 mg PO DAILY tab Hydrocortisone [Cortef] 20 mg PO 1600 tab Ipratropium Nebulized [Atrovent Nebulized 0.2 MG/ML] 0.5 mg INHALATION RT- QID nebu Pantoprazole [Protonix] 40 mg PO BID tablet. Potassium Chloride ER [K-Dur 20] 20 meq PO TID tab.er.prt Continue Umeclidinium Brm/Vilanterol Tr [Anoro Ellipta 62.5-25 Mcg INH] 1 puff INHALATION RT-DAILY Citalopram Hydrobromide [CeleXA] 40 mg PO QAM Albuterol Nebulized [Ventolin Nebulized] 2.5 mg INHALATION RT-QID PRN PRN Reason: Shortness Of Breath Cyclobenzaprine HCl 10 mg PO HS HYDROcodone/APAP 10-325MG [Niota 10-325] 1 tab PO Q4H PRN #18 tab PRN Reason: Pain Discontinued ALPRAZolam [Xanax] 2 mg PO TID PRN PRN Reason: Anxiety Levothyroxine Sodium [Synthroid] 50 mcg PO DAILY Discharge Medication List Albuterol Nebulized [Ventolin Nebulized] 2.5 mg INHALATION RT-QID PRN 05/03/15 [ History] Citalopram Hydrobromide [CeleXA] 40 mg PO QAM 05/03/15 [History] Umeclidinium Brm/Vilanterol Tr [Anoro Ellipta 62.5-25 Mcg INH] 1 puff INHALATION RT-DAILY 05/03/15 [History] Cyclobenzaprine HCl 10 mg PO HS 07/17/18 [History] ALPRAZolam [Xanax] 0.5 mg PO TID PRN #9 tab 07/28/18 [Rx] Budesonide [Pulmicort] 1 mg INHALATION RT-BID nebu 07/28/18 [Rx] Clotrimazole Amadou [Mycelex Amadou] 10 mg MUCOUS MEM 5XD 5 Days amadou [Rx] Furosemide [Lasix] 20 mg PO 1600 tab 07/28/18 [Rx] Furosemide [Lasix] 40 mg PO DAILY tab 07/28/18 [Rx] HYDROcodone/APAP 10-325MG [Niota 10-325] 1 tab PO Q4H PRN #18 tab 07/28/18 [Rx] Hydrocortisone [Cortef] 20 mg PO 1600 tab 07/28/18 [Rx] Hydrocortisone [Cortef] 30 mg PO DAILY tab 07/28/18 [Rx] Ipratropium Nebulized [Atrovent Nebulized 0.2 MG/ML] 0.5 mg INHALATION RT-QID nebu 07/28/18 [Rx] Pantoprazole [Protonix] 40 mg PO BID tablet. 07/28/18 [Rx] Potassium Chloride ER [K-Dur 20] 20 meq PO TID tab.er.prt 07/28/18 [Rx] Follow up Appointment(s)/Referral(s): Demetris Garcia DO [Primary Care Provider] - 1 Week (afater discharge from [facility]) Christine Winchester MD [STAFF PHYSICIAN] - 1 Week Toy Meredith MD [STAFF PHYSICIAN] - 08/06/18 8:45 am Activity/Diet/Wound Care/Special Instructions: Recheck TSH and free T4 in 4 weeks. Discharge Disposition: TRANSFER TO SNF/ECF
[2018-07-23 12:24] LABS: Glucose,Whole Blood 110 mg/dL (75-99)
[2018-07-23] MEDS ORDERED: FUROSEMIDE 10 MG/ML 4 ML VIAL IV STA (12:59)
[2018-07-23 13:06] VITALS: BMI 40.2
[2018-07-23 13:06] LABS: T4, Free (Free Thyroxine) 2.54 ng/dL (0.78-2.19)
--- NOTE | 2018-07-23 13:26 | XR ---
EXAMINATION TYPE: XR chest 1V portable DATE OF EXAM: 07/23/2018 COMPARISON: 07/17/2018 HISTORY: Shortness of breath FINDINGS: Noted is pulmonary venous congestion with scattered infiltrates. There is also cardiomegaly and small effusions. IMPRESSION: Findings compatible with progressive congestive failure. Infiltrates of other etiology are not exclu ded. Clinical correlation and progress studies are recommended.
--- NOTE | 2018-07-23 13:45 | P.PN ---
Subjective Progress Note Date: 07/23/18 67-year-old female one of Dr. 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 another other area who been treated with oncology and town with chemotherapy regular basis she had the last one over 3 weeks ago developed to become sick with lack of appetite weakness generalized fatigue and lately in the last 48 hours had intractable nausea vomiting severe dehydration lightheadedness and dizziness not been able to ambulate and walk not been able to keep any food or fluid down symptom becomes slightly red worse also had increased swelling redness and warmness of the lower extremity along with mild burning in urination along with discomfort frequency urgency and worsening hesitancy. Patient ended up coming to the emergency department at [facility] where was seen and evaluated was quite bit dehydrated with hypotension blood pressure running 70/40 patient was started on IV hydration antiemesis medication 1 dose of IV antibiotics was giving the patient lactic acid was elevated was treated as sepsis ended up being admitted to intensive care unit afterward with the above problem. Apparently her oncologist was notify and agree with the current plan for now. 2/2: Patient evaluated noted to be sitting up in bed, she is very drowsy, but does awaken easily and follows commands. MRI of the brain is pending, plans to be done this morning for increased drowsiness and new tremor. Labs today reveal a TSH < 0.015, free T4 4 0.08, cortisol 1, ACTH 6.04, sodium 136 BUN 18, creatinine 0.69, WBC 6.4, hemoglobin 11.7, hematocrit 37.0, repeat lactic acid 1.1. Patient's Synthroid was discontinued, new tremor be due to hyperthyroidism secondary to the synthroid. Urine and blood cultures remain in process. Infectious disease on consult continue vancomycin and Levaquin for the cellulitis and urinary tract infection 2/3: Patient remains in the ICU, resting comfortably in bed. She remains afebrile, vital signs are stable. She continues on Levaquin and vancomycin for her lower extremity cellulitis and UTI. Culture report still pending, infectious disease is on consult. Patient was started on hydrocortisone yesterday for adrenal insufficiency endocrinology has been consulted. Levothyroxine continues to be on hold. MRI completed yesterday, showed there were no new large enhancing metastasis lesions, suboptimal study due to motion artifact. No to have mild wheeze and crackles on today's exam, 1 dose of Lasix 20 mg IV push ordered 07/21: Endocrinology is not available at this hospital. Patient is followed by multiple consultants including infectious disease, oncology. Urine cultures and finalized with no growth. Blood culture showing no growth after 48 hours. She has been afebrile, heart rate ran between 84 and 109, blood pressure 115/85 , pulse ox 93-95% on 2 L nasal cannula. Patient was given a dose of IV Lasix yesterday and has had good output with 250 ML's every 4 hours. She is tolerating full liquid diet well and this will be advanced. Patient states she does not have much appetite and things do not taste good. She denies any soreness to her lower extremities. She does state she is low better from yesterday. 07/22: Patient has been afebrile, heart rate running in the 90s to 100. Blood pressure 141/73, pulse ox 94% on 2 L nasal cannula. White count is normal, hemoglobin 10.2, potassium 3.3 will be replaced, creatinine 0.66. Patient is continued on Levaquin and vancomycin. Patient will be transitioned from IV to oral Cortef 50 mg in the morning and 10 mg in the evening. Tapazole will not be started as the hyper thyroidism may be related to her chemotherapy medication. Plan will be to recheck lab work and follow-up tomorrow. She is currently on a regular diet. PT and OT are following. Social work is following for subacute rehab placement which [facility] be [facility] or [facility]. Patient will be ready for discharge tomorrow to residential. 07/23: Patient remains in the intensive care unit waiting for [facility] floor. Patient states she is not feeling well this morning and is complaining of her tongue which is dry. Clotrimazole amadou added. Noted patient's heart rate is running 110 today. She is known to have some wheezing. She complains of dizziness. 1 dose of IV Lasix and potassium will be replaced. She is continued on vancomycin and Levaquin. Ultrasound of lower extremity negative for DVT. CT in general has been ordered by oncology. Troponin has been negative on 2 draws. Repeat TSH is less than 0.015, free T4 3 0.43, total T3 106. Review Of Systems: Constitutional: No fever, no chills, no night sweats. No weight change. Reports weakness, fatigue or lethargy. Reports daytime sleepiness. EENT: No headache. No blurred vision or double vision, no loss of vision. No loss of Hearing, no ringing in the ears, no dizziness. No nasal drainage or congestion. No epistaxis. No sore throat. Reports tritone. Lungs: No shortness of breath, cough, no sputum production. No wheezing. Cardiovascular: No chest pain, reports lower extremity edema. No palpitations. No paroxysmal nocturnal dyspnea. No orthopnea. No lightheadedness reports dizziness. No syncopal episodes. Abdominal: No abdominal pain. No nausea, vomiting. No diarrhea. No constipation. No bloody or tarry stools. reports loss of appetite. Genitourinary: No dysuria, increased frequency, urgency. No urinary retention. Musculoskeletal: No myalgias. Reports muscle weakness, reports gait dysfunction , no frequent falls. No back pain. No neck pain. Integumentary: Lower extremity wounds, no lesions. No rash or pruritus. No unusual bruising. No change in hair or nails. Neurologic: No aphasia. No facial droop. Reports change in mentation. No head injury. No headache. No paralysis. No paresthesia. Psychiatric: No depression. No anxiety. No mood swings. Endocrine: Reports abnormal blood sugars. No weight change. No excessive sweating or thirst. No cold intolerance. Objective - Vital Signs Vital signs: Vital Signs Temp 98.1 F 07/23/18 12:00 Pulse 102 H 07/23/18 12:06 Resp 22 07/23/18 12:00 BP 134/85 07/23/18 12:00 Pulse Ox 99 07/23/18 12:00 Intake & Output 07/22/18 07/23/18 07/23/18 18:59 06:59 18:59 Intake Total 450 500 500 Output Total 550 625 350 Balance -100 -125 150 Weight 106.4 kg 106.4 kg Intake: IV 200 Sodium Chloride 0.9% 1, 200 000 ml @ 50 mls/hr IV . Q20H TAL Rx#:[id number] Intake, IV Titration 500 500 Amount Vancomycin 1,750 mg In 500 500 Sodium Chloride 0.9% 500 ml 500 ml @ 167 mls/hr IVPB Q16H TAL Rx#: [id number] Oral 250 Output: Urine 550 625 350 Other: Voiding Method Incontinent Incontinent Incontinent # Voids 1 - Exam General appearance: Present: cooperative, no acute distress, patient is recliner and appears comfortable - EENT Eyes: Present: EOMI, PERRLA ENT: Present: dry oropharynx. Absent: pharyngeal erythema - Neck Neck: Present: normal ROM. Absent: lymphadenopathy, rigidity, stridor, thyromegaly Thyroid: bilateral: normal size, negative: enlarged, nodule - Respiratory Respiratory: bilateral: Mild wheezing negative: diminished, dullness, rhonchi - Cardiovascular Heart rate: 114 Rhythm: regular Heart sounds: normal: S1, S2 - Gastrointestinal General gastrointestinal: Present: normal bowel sounds, soft. Absent: distended , hepatomegaly, organomegaly, tenderness - Integumentary Integumentary Comment(s): +1 edema, cellulitis bilateral lower extremities worse on the right as compared to the left Integumentary: Present: cellulitis - Musculoskeletal Musculoskeletal: Present: generalized weakness, strength equal bilaterally. Absent: right sided weakness, left sided weakness - Psychiatric Psychiatric Comment(s): Patient drowsy but does follow commands and answers questions appropriately Psychiatric: Present: A&O x's 3 - Labs CBC & Chem 7: 07/23/18 04:06 07/23/18 04:06 Labs: Abnormal Lab Results - Last 24 Hours (Table) 07/23/18 07/23/18 07/23/18 Range/Units 04:06 04:06 04:06 RBC 3.37 L (3.80-5.40) m/uL Hgb 10.8 L (11.4-16.0) gm/dL MCV 101.0 H (80.0-100.0) fL Potassium 3.4 L (3.5-5.1) mmol/L Chloride 111 H (98-107) mmol/L BUN 23 H (7-17) mg/dL POC Glucose (mg/dL) (75-99) mg/dL Calcium 7.8 L (8.4-10.2) mg/dL Total Protein 4.8 L (6.3-8.2) g/dL Albumin 2.1 L (3.5-5.0) g/dL TSH <0.015 L (0.465-4.680) mIU/L Free T4 2.54 H (0.78-2.19) ng/dL 07/23/18 Range/Units 12:13 RBC (3.80-5.40) m/uL Hgb (11.4-16.0) gm/dL MCV (80.0-100.0) fL Potassium (3.5-5.1) mmol/L Chloride (98-107) mmol/L BUN (7-17) mg/dL POC Glucose (mg/dL) 110 H (75-99) mg/dL Calcium (8.4-10.2) mg/dL Total Protein (6.3-8.2) g/dL Albumin (3.5-5.0) g/dL TSH (0.465-4.680) mIU/L Free T4 (0.78-2.19) ng/dL Microbiology - Last 24 Hours (Table) 07/18/18 10:55 Blood Culture - Preliminary Blood No Growth after 120 hours Assessment and Plan Plan: 1 sepsis: Most likely combination of urinary tract infection and cellulitis. Dr. Arroyo is following, continue with vancomycin and Levaquin. 2 metabolic encephalopathy secondary to sepsis along with brain metastasis from originally lung cancer and adrenal insufficiency. MRI of the brain revealed no new brain metastasis noted 3 intractable nausea vomiting with acute kidney injury: Much better, tolerating full liquid diet and will advance as tolerated, continue with IV hydration 4 advance lung cancer: Has been on chemotherapy we'll consult oncology for now or chemotherapy will be held until she is more stable. One dose of IV Lasix. CT angioma of the chest ordered by oncology. 5 severe UTI/sepsis: Awaiting for the final urine culture the meanwhile empiric antibiotic with vancomycin and Levaquin. 6 severe COPD: Patient can be on bronchodilator and the Pulmicort as well. 7 hypothyroidism but be resending with hyperthyroidism: Levothyroxine held. 8 recurrent depression: Patient be continue on site citalopram and alprazolam. 9 chronic pain syndrome: Has been on hydrocodone as needed. 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 Oncology consult appreciated. Continue hydrocortisone: Hydrocortisone 50 mg IV every 8 hours, endocrinology is not available. Repeat TSH, free T4, T3 total and 3TC reverse ordered. 10 GI prophylaxis: Patient be on Pepcid 20 mg daily. 11 DVT prophylaxis: Heparin subcutaneous will be giving. Code status: Full code. Discharge plan: subacute rehab at [facility] or [facility] tomorrow The above impression and plan of care have been discussed and directed by signing physician. Dianelys Barrios nurse practitioner acting as scribe for signing physician.
--- NOTE | 2018-07-23 14:35 | CT ---
CT CHEST FOR PULMONARY EMBOLISM. EXAMINATION TYPE: CT angio chest DATE OF EXAM: 07/23/2018 INDICATION: SOB, PE CT DLP: 457.1 mGycm, Automated exposure control for dose reduction was used. CONTRAST: Patient injected with 50 mL of Isovue 370. COMPARISON: None TECHNIQUE: CT of the chest is performed on a spiral scan at 2 mm thick sections. Study is performed with intravenous contrast timed for evaluation for pulmonary embolism. This will limit additional po rtions of the evaluation. 3-D MIP images reconstructed by the technologist are reviewed on the compu ter in the coronal and sagittal planes. FINDINGS: No persistent filling defects are evident to suggest an acute pulmonary embolism. No mediastinal or hilar adenopathy enlarged by CT criteria is evident. The ascending aorta diameter at the level of the main pulmonary artery is 3.1 cm. The main pulmonary artery diameter at the bifur cation is 3.7 cm. Correlate for pulmonary hypertension. No right heart strain is identified. No reflu x into the superior portion inferior vena cava or septal deviation is evident. There is a moderate left pleural effusion. Large masslike area is at the posterior left apex. Moderat e right pleural effusion is present. Bibasilar compressive atelectasis is evident. Limited CT section through the upper abdomen are unremarkable. IMPRESSIONS: 1. Pulmonary hypertension, present previously. 2. No acute pulmonary embolism. 3. Interval development of a moderate bilateral pleural effusion. 4. Increasing size of left upper lobe mass.
--- NOTE | 2018-07-23 15:25 | P.PN ---
Subjective Progress Note Date: 07/23/18 Principal diagnosis: Metastatic NSCLC In f/u today pt c/o BENJI and BLE tightness, no chest pain, fever, vomiting. Objective - Vital Signs Vital signs: Vital Signs Temp 98.1 F 07/23/18 12:00 Pulse 102 H 07/23/18 12:06 Resp 22 07/23/18 12:00 BP 134/85 07/23/18 12:00 Pulse Ox 99 07/23/18 12:00 Intake & Output 07/22/18 07/23/18 07/23/18 18:59 06:59 18:59 Intake Total 450 500 500 Output Total 550 625 350 Balance -100 -125 150 Weight 106.4 kg 106.4 kg Intake: IV 200 Sodium Chloride 0.9% 1, 200 000 ml @ 50 mls/hr IV . Q20H TAL Rx#:[id number] Intake, IV Titration 500 500 Amount Vancomycin 1,750 mg In 500 500 Sodium Chloride 0.9% 500 ml 500 ml @ 167 mls/hr IVPB Q16H TAL Rx#: [id number] Oral 250 Output: Urine 550 625 350 Other: Voiding Method Incontinent Incontinent Incontinent # Voids 1 - Constitutional General appearance: Present: cooperative, morbidly obese, severe distress - EENT Eyes: Present: anicteric sclerae, EOMI - Respiratory Respiratory: bilateral: wheezing (expiratory, all lung dawkins) - Cardiovascular Details: tachycardia, regular rhythm Heart sounds: normal: S1, S2 - Peripheral edema leg Peripheral Edema: bilateral: 1+ - Gastrointestinal General gastrointestinal: Present: normal bowel sounds, soft - Integumentary Integumentary: Present: pale - Neurologic Neurologic: Present: CNII-XII intact - Musculoskeletal Musculoskeletal: Present: generalized weakness - Psychiatric Psychiatric: Present: A&O x's 3, appropriate affect, intact judgment & insight - Labs CBC & Chem 7: 07/23/18 04:06 07/23/18 04:06 Labs: Abnormal Lab Results - Last 24 Hours (Table) 07/23/18 07/23/18 07/23/18 Range/Units 04:06 04:06 04:06 RBC 3.37 L (3.80-5.40) m/uL Hgb 10.8 L (11.4-16.0) gm/dL MCV 101.0 H (80.0-100.0) fL Potassium 3.4 L (3.5-5.1) mmol/L Chloride 111 H (98-107) mmol/L BUN 23 H (7-17) mg/dL POC Glucose (mg/dL) (75-99) mg/dL Calcium 7.8 L (8.4-10.2) mg/dL Total Protein 4.8 L (6.3-8.2) g/dL Albumin 2.1 L (3.5-5.0) g/dL TSH <0.015 L (0.465-4.680) mIU/L Free T4 2.54 H (0.78-2.19) ng/dL 07/23/18 Range/Units 12:13 RBC (3.80-5.40) m/uL Hgb (11.4-16.0) gm/dL MCV (80.0-100.0) fL Potassium (3.5-5.1) mmol/L Chloride (98-107) mmol/L BUN (7-17) mg/dL POC Glucose (mg/dL) 110 H (75-99) mg/dL Calcium (8.4-10.2) mg/dL Total Protein (6.3-8.2) g/dL Albumin (3.5-5.0) g/dL TSH (0.465-4.680) mIU/L Free T4 (0.78-2.19) ng/dL Microbiology - Last 24 Hours (Table) 07/18/18 10:55 Blood Culture - Preliminary Blood No Growth after 120 hours - Imaging and Cardiology CT scan - chest: report reviewed BLE doppler report reviewed Assessment and Plan (1) SOB (shortness of breath) Narrative/Plan: New, sudden onset. CTA chest ordered. Doppler of lower extremities ordered due to pt c/o tightness. Current Visit: Yes Status: Acute Priority: High Code(s): R06.02 - SHORTNESS OF BREATH SNOMED Code(s): 353916828 (2) Impaired endocrine function Narrative/Plan: Pt BP better with corticosteroid administration, pending resumption of thyroid replacement. Endocrinology consulted, pending their recommendations. Current Visit: Yes Status: Acute Priority: High Code(s): E34.9 - ENDOCRINE DISORDER, UNSPECIFIED SNOMED Code(s): 825732501 (3) Non-small cell lung cancer (NSCLC) Narrative/Plan: Pt has scans in May that showed a decent response to immunotherapy. Pt has had 5 cycles. Current Visit: Yes Status: Chronic Priority: High Code(s): C34.90 - MALIGNANT NEOPLASM OF UNSP PART OF UNSP BRONCHUS OR LUNG SNOMED Code(s): 614383030 Plan: Attests: I have performed H&P and developed impression and plan of care of patient, discussed with dictator. I agree with dictated note, documented as a scribe.
[2018-07-23] MEDS: CLOTRIMAZOLE TROCHE 10 MG TROCHE MUCOUS MEM SCH ×2 (16:30→20:49)
[2018-07-23] MEDS: HYDROCORTISONE 20 MG TAB PO SCH (16:30)
[2018-07-23] MEDS: CYCLOBENZAPRINE 10 MG TAB PO SCH (20:49)
--- NOTE | 2018-07-23 22:05 | PN ---
PROGRESS NOTE DATE OF SERVICE: 07/23/2018. REASON FOR FOLLOW UP: Lower extremity cellulitis. INTERVAL HISTORY: The patient is currently afebrile. She is breathing comfortably. Denies having any chest pain or cough. No shortness of breath. No nausea, no vomiting. No abdominal pain. No diarrhea. PHYSICAL EXAMINATION: Blood pressure 115/93 with a pulse of 118, temperature 98.1. She is 93% on 5 L nasal cannula. General description is an elderly female, lying in bed in no distress. Respiratory system: Unlabored breathing with decreased breath sounds in the bases. No wheeze. Heart S1, S2. Regular rate and rhythm. Abdomen soft. Bilateral lower extremity with an jerardo wrap. No drainage. LABS: Hemoglobin 10.8, white count 6.8 with a BUN of 23, creatinine 0.59. Blood cultures have been negative. Urine is negative. CT angio was negative for PE. DIAGNOSTIC IMPRESSION AND PLAN: Patient with bilateral lower extremity cellulitis. The patient did have a cephalosporin with the patient currently on vancomycin. Will continue to monitor clinical course closely and continue supportive care condition. MMODL / IJN: [id number] /
[2018-07-24] MEDS ORDERED: VANCOMYCIN TROUGH DUE 1 EACH MISC MISCELLANE ONE
[2018-07-24] MEDS: VANCOMYCIN 1,750 MG in SODIUM CHLORIDE 0.9% 500 ML 500 ML IVPB SCH (00:24)
[2018-07-24] MEDS: CLOTRIMAZOLE TROCHE 10 MG TROCHE MUCOUS MEM SCH ×5 (00:24→20:38)
[2018-07-24] MEDS: HYDROcodone/APAP 10-325MG 1 EACH TAB PO PRN ×4 (00:35→21:00)
[2018-07-24 06:15] LABS: HCT 37.2 % (34.0-46.0); Hypochromasia Slight; MCH 32.4 pg (25.0-35.0); MCHC 32.2 g/dL (31.0-37.0); MCV 100.7 fL (80.0-100.0); Macrocytosis Slight; Mean Platelet Volume 7.1; Platelet Count 198 k/uL (150-450); RBC 3.69 m/uL (3.80-5.40); WBC 8.7 k/uL (3.8-10.6)
[2018-07-24 06:33] LABS: ALT 24 U/L (9-52); AST 23 U/L (14-36); Albumin 2.2 g/dL (3.5-5.0); Alkaline Phosphatase 78 U/L (38-126); Anion Gap 3 mmol/L; Blood Urea Nitrogen 19 mg/dL (7-17); Calcium 7.8 mg/dL (8.4-10.2); Carbon Dioxide 29 mmol/L (22-30); Chloride 109 mmol/L (98-107); Glucose 93 mg/dL (74-99); Magnesium 1.8 mg/dL (1.6-2.3); Potassium 3.3 mmol/L (3.5-5.1); Sodium 141 mmol/L (137-145); Total Bilirubin 0.7 mg/dL (0.2-1.3); Total Protein 4.9 g/dL (6.3-8.2)
[2018-07-24] MEDS: ALPRAZolam 0.5 MG TAB PO PRN ×2 (06:36→16:51)
[2018-07-24 06:49] LABS: T4, Free (Free Thyroxine) 2.63 ng/dL (0.78-2.19)
[2018-07-24] MEDS ORDERED: Potassium Replacement Protocol 1 EACH MISC MISCELLANE PRN (08:11)
[2018-07-24] MEDS: HYDROCORTISONE 10 MG TAB PO SCH (08:20)
[2018-07-24] MEDS: FORMOTEROL FUMARATE 20 MCG/2 ML NEBU INHALATION SCH ×2 (08:20→19:10)
[2018-07-24] MEDS: PANTOPRAZOLE 40 MG TABLET PO SCH ×2 (08:20→20:38)
[2018-07-24] MEDS: IPRATROPIUM 0.5 MG/2.5 ML NEBU INHALATION SCH ×4 (08:20→19:11)
[2018-07-24] MEDS: HEPARIN SODIUM,PORCINE 5,000 UNIT/ML 1 ML VIAL SQ SCH ×2 (08:21→20:38)
[2018-07-24] MEDS: CITALOPRAM HYDROBROMIDE 20 MG TAB PO SCH (08:21)
[2018-07-24] MEDS: POTASSIUM CHLORIDE ER 20 MEQ TAB.ER PO SCH ×2 (08:23→12:27)
[2018-07-24] MEDS ORDERED: FUROSEMIDE 10 MG/ML 4 ML VIAL IV STA (10:40)
[2018-07-24] MEDS: LEVOFLOXACIN 500 MG TAB PO SCH (12:27)
--- NOTE | 2018-07-24 12:37 | P.PN ---
Subjective Progress Note Date: 07/24/18 67-year-old female one of Dr. 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 another other area who been treated with oncology and town with chemotherapy regular basis she had the last one over 3 weeks ago developed to become sick with lack of appetite weakness generalized fatigue and lately in the last 48 hours had intractable nausea vomiting severe dehydration lightheadedness and dizziness not been able to ambulate and walk not been able to keep any food or fluid down symptom becomes slightly red worse also had increased swelling redness and warmness of the lower extremity along with mild burning in urination along with discomfort frequency urgency and worsening hesitancy. Patient ended up coming to the emergency department at [facility] where was seen and evaluated was quite bit dehydrated with hypotension blood pressure running 70/40 patient was started on IV hydration antiemesis medication 1 dose of IV antibiotics was giving the patient lactic acid was elevated was treated as sepsis ended up being admitted to intensive care unit afterward with the above problem. Apparently her oncologist was notify and agree with the current plan for now. 2/2: Patient evaluated noted to be sitting up in bed, she is very drowsy, but does awaken easily and follows commands. MRI of the brain is pending, plans to be done this morning for increased drowsiness and new tremor. Labs today reveal a TSH < 0.015, free T4 4 0.08, cortisol 1, ACTH 6.04, sodium 136 BUN 18, creatinine 0.69, WBC 6.4, hemoglobin 11.7, hematocrit 37.0, repeat lactic acid 1.1. Patient's Synthroid was discontinued, new tremor be due to hyperthyroidism secondary to the synthroid. Urine and blood cultures remain in process. Infectious disease on consult continue vancomycin and Levaquin for the cellulitis and urinary tract infection 2/3: Patient remains in the ICU, resting comfortably in bed. She remains afebrile, vital signs are stable. She continues on Levaquin and vancomycin for her lower extremity cellulitis and UTI. Culture report still pending, infectious disease is on consult. Patient was started on hydrocortisone yesterday for adrenal insufficiency endocrinology has been consulted. Levothyroxine continues to be on hold. MRI completed yesterday, showed there were no new large enhancing metastasis lesions, suboptimal study due to motion artifact. No to have mild wheeze and crackles on today's exam, 1 dose of Lasix 20 mg IV push ordered 07/21: Endocrinology is not available at this hospital. Patient is followed by multiple consultants including infectious disease, oncology. Urine cultures and finalized with no growth. Blood culture showing no growth after 48 hours. She has been afebrile, heart rate ran between 84 and 109, blood pressure 115/85 , pulse ox 93-95% on 2 L nasal cannula. Patient was given a dose of IV Lasix yesterday and has had good output with 250 ML's every 4 hours. She is tolerating full liquid diet well and this will be advanced. Patient states she does not have much appetite and things do not taste good. She denies any soreness to her lower extremities. She does state she is low better from yesterday. 07/22: Patient has been afebrile, heart rate running in the 90s to 100. Blood pressure 141/73, pulse ox 94% on 2 L nasal cannula. White count is normal, hemoglobin 10.2, potassium 3.3 will be replaced, creatinine 0.66. Patient is continued on Levaquin and vancomycin. Patient will be transitioned from IV to oral Cortef 50 mg in the morning and 10 mg in the evening. Tapazole will not be started as the hyper thyroidism may be related to her chemotherapy medication. Plan will be to recheck lab work and follow-up tomorrow. She is currently on a regular diet. PT and OT are following. Social work is following for subacute rehab [facility] or [facility]. Patient will be ready for discharge tomorrow to [facility]. 07/23: Patient remains in the intensive care unit waiting for [facility] floor. Patient states she is not feeling well this morning and is complaining of her tongue which is dry. Clotrimazole amadou added. Noted patient's heart rate is running 110 today. She is known to have some wheezing. She complains of dizziness. 1 dose of IV Lasix and potassium will be replaced. She is continued on vancomycin and Levaquin. Ultrasound of lower extremity negative for DVT. CT in general has been ordered by oncology. Troponin has been negative on 2 draws. Repeat TSH is less than 0.015, free T4 3 0.43, total T3 106. 07/24: Chest x-ray shows findings compatible with progressive heart failure. Infiltrates of other etiologies are not excluded. CTA of the chest shows no acute pulmonary embolism. Pulmonary hypertension. Interval development of moderate bilateral pleural effusions. Increasing size of left lower lobe mass. Repeat lab work shows a hemoglobin of 12, white count 8.7, platelet count 198. Sodium 141, potassium 3.3 will be replaced. Chloride 109, CO2 29, BUN [address] Winchester from endocrinology has increased Cortef to 30 mg daily and 20 mg at 1400. Patient states that she had chest pain earlier today. Her breathing is better from yesterday. She states her arms are heavy and difficult to lift. Patient stating that she is planning to go home at the time of discharge, but noted that therapies are seen. She is minimal to total assist for self-care activities. Plan is for [facility] or [facility]. Review Of Systems: Constitutional: No fever, no chills, no night sweats. No weight change. Reports weakness, reports fatigue or lethargy. Reports daytime sleepiness. EENT: No headache. No blurred vision or double vision, no loss of vision. No loss of Hearing, no ringing in the ears, no dizziness. No nasal drainage or congestion. No epistaxis. No sore throat. Reports tritone. Lungs: Reports shortness of breath, cough, no sputum production. Reports wheezing. Cardiovascular: No chest pain, reports lower extremity edema. No palpitations. No paroxysmal nocturnal dyspnea. No orthopnea. No lightheadedness reports dizziness. No syncopal episodes. Abdominal: No abdominal pain. No nausea, vomiting. No diarrhea. No constipation. No bloody or tarry stools. reports loss of appetite. Genitourinary: No dysuria, increased frequency, urgency. No urinary retention. Musculoskeletal: No myalgias. Reports muscle weakness, reports gait dysfunction , no frequent falls. No back pain. No neck pain. Integumentary: Lower extremity wounds, no lesions. No rash or pruritus. No unusual bruising. No change in hair or nails. Neurologic: No aphasia. No facial droop. Reports change in mentation. No head injury. No headache. No paralysis. No paresthesia. Psychiatric: No depression. No anxiety. No mood swings. Endocrine: Reports abnormal blood sugars. No weight change. No excessive sweating or thirst. No cold intolerance. Objective - Vital Signs Vital signs: Vital Signs Temp 96.8 F L 07/24/18 04:00 Pulse 107 H 07/24/18 04:00 Resp 18 07/24/18 04:00 BP 129/60 07/24/18 04:00 Pulse Ox 96 07/24/18 04:00 Intake & Output 07/23/18 07/24/18 07/24/18 18:59 06:59 18:59 Intake Total 500 500 Output Total 1451 2500 Balance -951 -2000 Weight 106.4 kg 105.4 kg Intake: Intake, IV Titration 500 500 Amount Vancomycin 1,750 mg In 500 500 Sodium Chloride 0.9% 500 ml 500 ml @ 167 mls/hr IVPB Q16H [facility] Rx#: [id number] Output: Urine 1450 2500 Stool 1 Other: Voiding Method Incontinent Incontinent - Exam General appearance: Present: cooperative, no acute distress, patient is in ICU bed and appears comfortable, generalized weakness noted - EENT Eyes: Present: EOMI, PERRLA ENT: Present: dry oropharynx. Absent: pharyngeal erythema - Neck Neck: Present: normal ROM. Absent: lymphadenopathy, rigidity, stridor, thyromegaly Thyroid: bilateral: normal size, negative: enlarged, nodule - Respiratory Respiratory: bilateral: Mild wheezing negative: diminished, dullness, rhonchi - Cardiovascular Heart rate: 114 Rhythm: regular Heart sounds: normal: S1, S2 - Gastrointestinal General gastrointestinal: Present: normal bowel sounds, soft. Absent: distended , hepatomegaly, organomegaly, tenderness - Integumentary Integumentary Comment(s): +1 edema, cellulitis bilateral lower extremities worse on the right as compared to the left Integumentary: Present: cellulitis - Musculoskeletal Musculoskeletal: Present: generalized weakness, strength equal bilaterally. Absent: right sided weakness, left sided weakness - Psychiatric Psychiatric Comment(s): Patient drowsy but does follow commands and answers questions appropriately Psychiatric: Present: A&O x's 3 - Labs CBC & Chem 7: 07/24/18 05:37 07/24/18 05:37 Labs: Abnormal Lab Results - Last 24 Hours (Table) 07/23/18 07/23/18 07/24/18 Range/Units 04:06 12:13 05:37 RBC (3.80-5.40) m/uL MCV (80.0-100.0) fL Potassium 3.3 L (3.5-5.1) mmol/L Chloride 109 H (98-107) mmol/L BUN 19 H (7-17) mg/dL POC Glucose (mg/dL) 110 H (75-99) mg/dL Calcium 7.8 L (8.4-10.2) mg/dL Total Protein 4.9 L (6.3-8.2) g/dL Albumin 2.2 L (3.5-5.0) g/dL TSH <0.015 L (0.465-4.680) mIU/L Free T4 2.54 H 2.63 H (0.78-2.19) ng/dL 07/24/18 Range/Units 05:37 RBC 3.69 L (3.80-5.40) m/uL MCV 100.7 H (80.0-100.0) fL Potassium (3.5-5.1) mmol/L Chloride (98-107) mmol/L BUN (7-17) mg/dL POC Glucose (mg/dL) (75-99) mg/dL Calcium (8.4-10.2) mg/dL Total Protein (6.3-8.2) g/dL Albumin (3.5-5.0) g/dL TSH (0.465-4.680) mIU/L Free T4 (0.78-2.19) ng/dL Microbiology - Last 24 Hours (Table) 07/18/18 10:55 Blood Culture - Preliminary Blood No Growth after 120 hours Assessment and Plan Plan: 1 sepsis: Most likely combination of urinary tract infection and cellulitis. Dr. Arroyo is following, continue with vancomycin and Levaquin. 2 metabolic encephalopathy secondary to sepsis along with brain metastasis from originally lung cancer and adrenal insufficiency. MRI of the brain revealed no new brain metastasis noted 3 intractable nausea vomiting with acute kidney injury: Much better, tolerating diet. 4 advance lung cancer: Has been on chemotherapy. Oncology consult appreciated for now or chemotherapy will be held until she is more stable. One dose of IV Lasix. CT angioma of the chest negative for PE. 5 severe UTI/sepsis: Awaiting for the final urine culture the meanwhile empiric antibiotic with vancomycin and Levaquin. 6 severe COPD: Patient can be on bronchodilator and the Pulmicort as well. 7 hypothyroidism presenting with hyperthyroidism: Levothyroxine held. 8 recurrent depression: Patient be continue on site citalopram and alprazolam. 9 chronic pain syndrome: Has been on hydrocodone as needed. 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 Oncology consult appreciated. Dr. Winchester has increased Cortef to 30 mg daily and 20 mg at 1600. 10 GI prophylaxis: Patient be on Pepcid 20 mg daily. 11 DVT prophylaxis: Heparin subcutaneous will be giving. Code status: Full code. Discharge plan: subacute rehab at [facility] or [facility] tomorrow The above impression and plan of care have been discussed and directed by signing physician. Dianelys Barrios nurse practitioner acting as scribe for signing physician.
[2018-07-24] MEDS ORDERED: FUROSEMIDE 20 MG TAB PO SCH (16:00)
--- NOTE | 2018-07-24 16:25 | P.PN ---
Subjective Progress Note Date: 07/24/18 Principal diagnosis: Metastatic NSCLC In f/u today pt c/o not feeling any better, she is getting weaker, has no energy , she is SOB on exertion, cough is congested, unable to expectorate, her leg swelling is better today, no c/o of bowel or bladder. Objective - Vital Signs Vital signs: Vital Signs Temp 98.2 F 07/24/18 12:00 Pulse 99 07/24/18 15:52 Resp 22 07/24/18 12:00 BP 133/79 07/24/18 12:00 Pulse Ox 95 07/24/18 12:00 Intake & Output 07/23/18 07/24/18 07/24/18 18:59 06:59 18:59 Intake Total 684 396 3342 Output Total 1451 2500 1150 Balance -951 -2000 650 Weight 106.4 kg 105.4 kg Intake: Intake, IV Titration 500 500 Amount Vancomycin 1,750 mg In 500 500 Sodium Chloride 0.9% 500 ml 500 ml @ 167 mls/hr IVPB Q16H [facility] Rx#: [id number] Oral 1800 Output: Urine 1450 2500 1150 Stool 1 Other: Voiding Method Incontinent Incontinent Incontinent - Constitutional General appearance: Present: cooperative, morbidly obese, no acute distress - EENT Eyes: Present: anicteric sclerae, EOMI ENT: Present: hearing grossly normal - Neck Neck: Present: normal ROM. Absent: lymphadenopathy, other, rigidity, stridor, thyromegaly - Respiratory Respiratory: right: rhonchi (harsh), left: diminished - Cardiovascular Rhythm: regular Heart sounds: normal: S1, S2 - Peripheral edema leg Peripheral Edema: bilateral: Trace - Gastrointestinal General gastrointestinal: Present: normal bowel sounds, soft. Absent: absent bowel sounds, decreased bowel sounds, distended, hepatomegaly, hyperactive bowel sounds, organomegaly, rigid, scaphoid, splenomegaly, tenderness, umbilical hernia, ventral hernia - Integumentary Integumentary: Present: pale - Neurologic Neurologic: Present: CNII-XII intact - Musculoskeletal Musculoskeletal: Present: generalized weakness - Psychiatric Psychiatric Comment(s): pt states frustration about her situation Psychiatric: Present: A&O x's 3, intact judgment & insight - Labs CBC & Chem 7: 07/24/18 05:37 07/24/18 05:37 Labs: Abnormal Lab Results - Last 24 Hours (Table) 07/22/18 07/24/18 07/24/18 Range/Units 04:30 05:37 05:37 RBC 3.69 L (3.80-5.40) m/uL MCV 100.7 H (80.0-100.0) fL Potassium 3.3 L (3.5-5.1) mmol/L Chloride 109 H (98-107) mmol/L BUN 19 H (7-17) mg/dL Calcium 7.8 L (8.4-10.2) mg/dL Total Protein 4.9 L (6.3-8.2) g/dL Albumin 2.2 L (3.5-5.0) g/dL Free T4 2.63 H (0.78-2.19) ng/dL Reverse T3 79.8 H (9.0-27.0) ng/dL Microbiology - Last 24 Hours (Table) 07/18/18 10:55 Blood Culture - Final Blood No Growth after 144 hours Assessment and Plan (1) SOB (shortness of breath) Narrative/Plan: Reviewed testing results-CTA chest-negative for PE, BLE doppler negative for DVT. Pt respiratory status better today, less swelling in the legs. 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 Endocrinology seen pt, medications ordered. Pt will need labs checked in the next week. Current Visit: Yes Status: Acute Priority: High Code(s): E34.9 - ENDOCRINE DISORDER, UNSPECIFIED SNOMED Code(s): 149278661 (3) Non-small cell lung cancer (NSCLC) Narrative/Plan: Pt has scans in May that showed a decent response to immunotherapy. Pt has had 5 cycles. Her current condition is related to treatment of side effect of immunotherapy. Case will be discussed with primary Oncologist. Pt will be contacted for appt Current Visit: Yes Status: Chronic Priority: High Code(s): C34.90 - MALIGNANT NEOPLASM OF UNSP PART OF UNSP BRONCHUS OR LUNG SNOMED Code(s): 961166386 Plan: Agree with rehabilitation of patient. Ok from Hem/Onc to be discharged once cleared by IM. No cancer treatment will be administered until pt is discharged from rehabilitation.
[2018-07-24] MEDS: METHIMAZOLE 5 MG TAB PO SCH (16:44)
[2018-07-24] MEDS: HYDROCORTISONE 20 MG TAB PO SCH (16:44)
[2018-07-24] MEDS: CYCLOBENZAPRINE 10 MG TAB PO SCH (20:38)
[2018-07-24] MEDS: VANCOMYCIN 1,500 MG in SODIUM CHLORIDE 0.9% 250 ML IVPB SCH (21:10)
[2018-07-25] MEDS: HYDROCORTISONE SUCCINATE 100 MG/2 ML VIAL IV SCH (00:28)
[2018-07-25] MEDS: CLOTRIMAZOLE TROCHE 10 MG TROCHE MUCOUS MEM SCH ×6 (01:18→21:59)
--- NOTE | 2018-07-25 07:28 | PN ---
PROGRESS NOTE DATE OF SERVICE: 07/24/2018 REASON FOR FOLLOWUP: Lower extremity cellulitis. INTERVAL HISTORY: The patient is afebrile. She is more awake and alert. She is breathing comfortably. Denies significant chest pain. Occasional cough. No abdominal pain and denies any pain in the leg area. PHYSICAL EXAMINATION: On examination, blood pressure 103/52 with a pulse of 109, temperature 99.2. She is 97% on 2 L nasal cannula. General description is an elderly female up in the chair in no distress. RESPIRATORY SYSTEM: Unlabored breathing with decreased breath sounds in the bases. No wheeze. HEART: S1, S2. Regular rate and rhythm. ABDOMEN: Soft, no tenderness. Legs are current wrapped up, no obvious drainage on the dressing. LABS: Hemoglobin is 12, white count 8.7, BUN of 19, creatinine 0.64. Blood cultures have been negative. DIAGNOSTIC IMPRESSION AND PLAN: Patient with bilateral lower extremity cellulitis in this patient who did have CEPHALOSPORIN allergy. The patient is currently covered with vancomycin which will be continued for now while watching her kidney function closely. Discontinue Levaquin. Continue with supportive care. MMODL / IJN: [id number] /
[2018-07-25] MEDS: IPRATROPIUM 0.5 MG/2.5 ML NEBU INHALATION SCH ×5 (08:40→20:59)
[2018-07-25] MEDS: FORMOTEROL FUMARATE 20 MCG/2 ML NEBU INHALATION SCH ×2 (08:40→21:00)
--- NOTE | 2018-07-25 08:55 | PN ---
PROGRESS NOTE DATE OF SERVICE: 07/24/2018. REASON FOR FOLLOWUP: Lower extremity cellulitis. INTERVAL HISTORY: The patient is afebrile. She is more awake, alert. She is breathing comfortably. Denies significant chest pain. Occasional cough. No abdominal pain and denies any pain in the leg area. PHYSICAL EXAMINATION: On examination, blood pressure 103/52 with a pulse of 109, temperature 99.2. She is 97% on 2 L nasal cannula. General description is an elderly female up in the chair in no distress. RESPIRATORY SYSTEM: Unlabored breathing with decreased breath sounds in the bases, no wheeze. HEART: S1, S2. Regular rate and rhythm. ABDOMEN: Soft, no tenderness. Legs are currently wrapped up, no obvious drainage on the dressing. LABS: Hemoglobin is 12, white count 8.7, BUN of 19, creatinine 0.64. Blood cultures have been negative. DIAGNOSTIC IMPRESSION AND PLAN: Patient with bilateral lower extremity cellulitis in this patient who did have CEPHALOSPORIN allergy. The patient is currently covered with vancomycin which will to continue for now while watching her kidney function closely. Discontinue Levaquin. Continue with supportive care. MMODL / IJN: [id number] /
[2018-07-25] MEDS: CITALOPRAM HYDROBROMIDE 20 MG TAB PO SCH (09:04)
[2018-07-25] MEDS: FUROSEMIDE 40 MG TAB PO SCH (09:04)
[2018-07-25] MEDS: METHIMAZOLE 5 MG TAB PO SCH (09:05)
[2018-07-25] MEDS: HEPARIN SODIUM,PORCINE 5,000 UNIT/ML 1 ML VIAL SQ SCH ×2 (09:05→21:57)
[2018-07-25] MEDS: PANTOPRAZOLE 40 MG TABLET PO SCH ×2 (09:05→21:57)
[2018-07-25] MEDS: HYDROCORTISONE 10 MG TAB PO SCH (09:05)
--- NOTE | 2018-07-25 14:03 | P.PN ---
Subjective Progress Note Date: 07/25/18 67-year-old female one of Dr. 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 another other area who been treated with oncology and town with chemotherapy regular basis she had the last one over 3 weeks ago developed to become sick with lack of appetite weakness generalized fatigue and lately in the last 48 hours had intractable nausea vomiting severe dehydration lightheadedness and dizziness not been able to ambulate and walk not been able to keep any food or fluid down symptom becomes slightly red worse also had increased swelling redness and warmness of the lower extremity along with mild burning in urination along with discomfort frequency urgency and worsening hesitancy. Patient ended up coming to the emergency department at [facility] where was seen and evaluated was quite bit dehydrated with hypotension blood pressure running 70/40 patient was started on IV hydration antiemesis medication 1 dose of IV antibiotics was giving the patient lactic acid was elevated was treated as sepsis ended up being admitted to intensive care unit afterward with the above problem. Apparently her oncologist was notify and agree with the current plan for now. 2/2: Patient evaluated noted to be sitting up in bed, she is very drowsy, but does awaken easily and follows commands. MRI of the brain is pending, plans to be done this morning for increased drowsiness and new tremor. Labs today reveal a TSH < 0.015, free T4 4 0.08, cortisol 1, ACTH 6.04, sodium 136 BUN 18, creatinine 0.69, WBC 6.4, hemoglobin 11.7, hematocrit 37.0, repeat lactic acid 1.1. Patient's Synthroid was discontinued, new tremor be due to hyperthyroidism secondary to the synthroid. Urine and blood cultures remain in process. Infectious disease on consult continue vancomycin and Levaquin for the cellulitis and urinary tract infection 2/3: Patient remains in the ICU, resting comfortably in bed. She remains afebrile, vital signs are stable. She continues on Levaquin and vancomycin for her lower extremity cellulitis and UTI. Culture report still pending, infectious disease is on consult. Patient was started on hydrocortisone yesterday for adrenal insufficiency endocrinology has been consulted. Levothyroxine continues to be on hold. MRI completed yesterday, showed there were no new large enhancing metastasis lesions, suboptimal study due to motion artifact. No to have mild wheeze and crackles on today's exam, 1 dose of Lasix 20 mg IV push ordered 07/21: Endocrinology is not available at this hospital. Patient is followed by multiple consultants including infectious disease, oncology. Urine cultures and finalized with no growth. Blood culture showing no growth after 48 hours. She has been afebrile, heart rate ran between 84 and 109, blood pressure 115/85 , pulse ox 93-95% on 2 L nasal cannula. Patient was given a dose of IV Lasix yesterday and has had good output with 250 ML's every 4 hours. She is tolerating full liquid diet well and this will be advanced. Patient states she does not have much appetite and things do not taste good. She denies any soreness to her lower extremities. She does state she is low better from yesterday. 07/22: Patient has been afebrile, heart rate running in the 90s to 100. Blood pressure 141/73, pulse ox 94% on 2 L nasal cannula. White count is normal, hemoglobin 10.2, potassium 3.3 will be replaced, creatinine 0.66. Patient is continued on Levaquin and vancomycin. Patient will be transitioned from IV to oral Cortef 50 mg in the morning and 10 mg in the evening. Tapazole will not be started as the hyper thyroidism may be related to her chemotherapy medication. Plan will be to recheck lab work and follow-up tomorrow. She is currently on a regular diet. PT and OT are following. Social work is following for subacute rehab placement which [facility] be [facility] or [facility]. Patient will be ready for discharge tomorrow to halfway. 07/23: Patient remains in the intensive care unit waiting for [facility] floor. Patient states she is not feeling well this morning and is complaining of her tongue which is dry. Clotrimazole amadou added. Noted patient's heart rate is running 110 today. She is known to have some wheezing. She complains of dizziness. 1 dose of IV Lasix and potassium will be replaced. She is continued on vancomycin and Levaquin. Ultrasound of lower extremity negative for DVT. CT in general has been ordered by oncology. Troponin has been negative on 2 draws. Repeat TSH is less than 0.015, free T4 3 0.43, total T3 106. 07/24: Chest x-ray shows findings compatible with progressive heart failure. Infiltrates of other etiologies are not excluded. CTA of the chest shows no acute pulmonary embolism. Pulmonary hypertension. Interval development of moderate bilateral pleural effusions. Increasing size of left lower lobe mass. Repeat lab work shows a hemoglobin of 12, white count 8.7, platelet count 198. Sodium 141, potassium 3.3 will be replaced. Chloride 109, CO2 29, BUN [address] Winchester from endocrinology has increased Cortef to 30 mg daily and 20 mg at 1400. Patient states that she had chest pain earlier today. Her breathing is better from yesterday. She states her arms are heavy and difficult to lift. Patient stating that she is planning to go home at the time of discharge, but noted that therapies are seen. She is minimal to total assist for self-care activities. Plan is for [facility] or [facility]. 07/25: Patient is complaining of her legs feeling tight and burning in the lower extremities. Her breathing is better from yesterday. Dr. Arroyo recommends discontinuing Levaquin which will be done. Reverse T3 came back at 79.8. Patient has been afebrile, blood pressure 130/71, heart rate running in the 90s , pulse ox 96% on 2 L. Plan is to monitor patient over the weekend plan for discharge to subacute rehab on Saturday.. Review Of Systems: Constitutional: No fever, no chills, no night sweats. No weight change. Reports weakness, reports fatigue or lethargy. Reports daytime sleepiness. EENT: No headache. No blurred vision or double vision, no loss of vision. No loss of Hearing, no ringing in the ears, no dizziness. No nasal drainage or congestion. No epistaxis. No sore throat. Reports tritone. Lungs: Reports shortness of breath, cough, no sputum production. Reports wheezing. Cardiovascular: No chest pain, reports lower extremity edema. No palpitations. No paroxysmal nocturnal dyspnea. No orthopnea. No lightheadedness reports dizziness. No syncopal episodes. Abdominal: No abdominal pain. No nausea, vomiting. No diarrhea. No constipation. No bloody or tarry stools. reports loss of appetite. Genitourinary: No dysuria, increased frequency, urgency. No urinary retention. Musculoskeletal: No myalgias. Reports muscle weakness, reports gait dysfunction , no frequent falls. No back pain. No neck pain. Integumentary: Lower extremity wounds, reports lower extremity pain. No rash or pruritus. No unusual bruising. No change in hair or nails. Neurologic: No aphasia. No facial droop. Reports change in mentation. No head injury. No headache. No paralysis. No paresthesia. Psychiatric: No depression. No anxiety. No mood swings. Endocrine: Reports abnormal blood sugars. No weight change. No excessive sweating or thirst. No cold intolerance. Objective - Vital Signs Vital signs: Vital Signs Temp 97.2 F L 07/25/18 08:00 Pulse 84 07/25/18 09:00 Resp 18 07/25/18 09:00 BP 124/61 07/25/18 08:00 Pulse Ox 97 07/25/18 08:00 Intake & Output 07/24/18 07/25/18 07/25/18 18:59 06:59 18:59 Intake Total 1800 200 Output Total 2950 200 Balance -1150 -200 200 Weight 100 kg Intake: Oral 1800 200 Output: Urine 2950 200 Other: Voiding Method Incontinent Incontinent Bedpan Diaper Incontinent # Voids 1 - Exam General appearance: Present: cooperative, no acute distress, patient is in bed and appears comfortable, generalized weakness noted - EENT Eyes: Present: EOMI, PERRLA ENT: Present: dry oropharynx. Absent: pharyngeal erythema - Neck Neck: Present: normal ROM. Absent: lymphadenopathy, rigidity, stridor, thyromegaly Thyroid: bilateral: normal size, negative: enlarged, nodule - Respiratory Respiratory: bilateral: Mild wheezing negative: diminished, dullness, rhonchi - Cardiovascular Heart rate: 114 Rhythm: regular Heart sounds: normal: S1, S2 - Gastrointestinal General gastrointestinal: Present: normal bowel sounds, soft. Absent: distended , hepatomegaly, organomegaly, tenderness - Integumentary Integumentary Comment(s): +1 edema, cellulitis bilateral lower extremities worse on the right as compared to the left Integumentary: Present: cellulitis, wraps in place - Musculoskeletal Musculoskeletal: Present: generalized weakness, strength equal bilaterally. Absent: right sided weakness, left sided weakness - Psychiatric Psychiatric Comment(s): Patient drowsy but does follow commands and answers questions appropriately Psychiatric: Present: A&O x's 3 - Labs CBC & Chem 7: 07/24/18 05:37 07/24/18 05:37 Labs: Abnormal Lab Results - Last 24 Hours (Table) 07/22/18 Range/Units 04:30 Reverse T3 79.8 H (9.0-27.0) ng/dL Microbiology - Last 24 Hours (Table) 07/18/18 10:55 Blood Culture - Final Blood No Growth after 144 hours Assessment and Plan Plan: 1 sepsis: Most likely combination of urinary tract infection and cellulitis. Dr. Arroyo is following, continue with vancomycin. 2 metabolic encephalopathy secondary to sepsis along with brain metastasis from originally lung cancer and adrenal insufficiency. MRI of the brain revealed no new brain metastasis noted 3 intractable nausea vomiting with acute kidney injury: Much better, tolerating diet. 4 advance lung cancer: Has been on chemotherapy. Oncology consult appreciated for now or chemotherapy will be held until she is more stable. Oral Lasix. CT angioma of the chest negative for PE. 5 severe UTI/sepsis: Awaiting for the final urine culture the meanwhile empiric antibiotic with vancomycin and Levaquin. 6 severe COPD: Patient can be on bronchodilator and the Pulmicort as well. 7 hypothyroidism presenting with hyperthyroidism secondary to euthyroid sick syndrome: Levothyroxine held. 8 recurrent depression: Patient be continue on site citalopram and alprazolam. 9 chronic pain syndrome: Has been on hydrocodone as needed. 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 Oncology consult appreciated. Dr. Winchester has increased Cortef to 30 mg daily and 20 mg at 1600. 10 GI prophylaxis: Patient be on Pepcid 20 mg daily. 11 DVT prophylaxis: Heparin subcutaneous will be giving. Code status: Full code. Discharge plan: subacute rehab at [facility] on Saturday The above impression and plan of care have been discussed and directed by signing physician. Dianelys Barrios nurse practitioner acting as scribe for signing physician.
[2018-07-25] MEDS: VANCOMYCIN 1,500 MG in SODIUM CHLORIDE 0.9% 250 ML IVPB SCH (18:13)
[2018-07-25] MEDS: HYDROCORTISONE 20 MG TAB PO SCH (18:17)
[2018-07-25] MEDS: ALPRAZolam 0.5 MG TAB PO PRN (18:31)
[2018-07-25] MEDS: HYDROcodone/APAP 10-325MG 1 EACH TAB PO PRN ×2 (18:31→22:45)
[2018-07-25] MEDS: CYCLOBENZAPRINE 10 MG TAB PO SCH (21:57)
[2018-07-26] MEDS: CLOTRIMAZOLE TROCHE 10 MG TROCHE MUCOUS MEM SCH ×6 (00:10→23:32)
--- NOTE | 2018-07-26 04:31 | PN ---
PROGRESS NOTE DATE OF SERVICE: 07/25/2018 REASON FOR FOLLOW UP: Lower extremity cellulitis. INTERVAL HISTORY: The patient is currently afebrile. She is breathing comfortably. Denies any chest pain, cough. No abdominal pain or pain to the leg area. PHYSICAL EXAMINATION: Blood pressure is 115/55 with a pulse of 89, temperature 97.4, she is 97% on 2 L nasal cannula. GENERAL DESCRIPTION: An elderly female up in the chair in no distress. RESPIRATORY SYSTEM: Unlabored breathing. Clear to auscultation anteriorly. HEART: S1, S2. Regular rate and rhythm. ABDOMEN: Soft, no tenderness. LEGS: Currently some swelling. Redness is improved. No open wound or any drainage. LABS: Hemoglobin is 12, white count 8.7, BUN of 19, creatinine 0.64. DIAGNOSTIC IMPRESSION AND PLAN: Patient with bilateral lower extremity cellulitis in this patient who has CEPHALOSPORIN allergy. Currently on vancomycin as the patient is allergic to ( ). The patient is to continue with vancomycin for now. Use Gerard wrap to keep the swelling down. Continue supportive care. MMODL / IJN: [id number] /
[2018-07-26] MEDS: IPRATROPIUM 0.5 MG/2.5 ML NEBU INHALATION SCH ×4 (07:15→20:05)
[2018-07-26] MEDS: FORMOTEROL FUMARATE 20 MCG/2 ML NEBU INHALATION SCH ×2 (07:15→20:05)
[2018-07-26 07:24] LABS: Anion Gap -2 mmol/L; Blood Urea Nitrogen 12 mg/dL (7-17); Calcium 7.4 mg/dL (8.4-10.2); Carbon Dioxide 40 mmol/L (22-30); Chloride 101 mmol/L (98-107); Glucose 89 mg/dL (74-99); Sodium 139 mmol/L (137-145)
[2018-07-26 07:32] LABS: Potassium 2.5 mmol/L (3.5-5.1)
[2018-07-26] MEDS ORDERED: Potassium Replacement Protocol 1 EACH MISC MISCELLANE PRN (07:33)
[2018-07-26] MEDS ORDERED: POTASSIUM CHLORIDE 20 MEQ in WATER FOR INJECTION 1 100ML.BAG IVPB SCH (07:45)
[2018-07-26] MEDS: HEPARIN SODIUM,PORCINE 5,000 UNIT/ML 1 ML VIAL SQ SCH ×2 (08:09→20:39)
[2018-07-26] MEDS: CITALOPRAM HYDROBROMIDE 20 MG TAB PO SCH (08:10)
[2018-07-26] MEDS: PANTOPRAZOLE 40 MG TABLET PO SCH ×2 (08:10→20:40)
[2018-07-26] MEDS: FUROSEMIDE 40 MG TAB PO SCH (08:10)
[2018-07-26] MEDS: POTASSIUM CHLORIDE ER 20 MEQ TAB.ER PO SCH ×6 (08:10→22:45)
[2018-07-26] MEDS: ALPRAZolam 0.5 MG TAB PO PRN ×2 (08:10→15:13)
[2018-07-26] MEDS: HYDROCORTISONE 10 MG TAB PO SCH (08:11)
[2018-07-26] MEDS: METHIMAZOLE 5 MG TAB PO SCH (08:11)
[2018-07-26] MEDS: VANCOMYCIN 1,500 MG in SODIUM CHLORIDE 0.9% 250 ML IVPB SCH ×2 (09:35→22:46)
--- NOTE | 2018-07-26 10:43 | P.PN ---
Subjective Progress Note Date: 07/26/18 The patient is still overall weak and somewhat lethargic, but there is definite improvement in her strength. She is able to get out of bed, and ambulate to the bathroom. No fever/chills/nausea/vomiting. She denied any dizziness or syncopal sensation on standing up. Objective - Vital Signs Vital signs: Vital Signs Temp 97.6 F 07/26/18 05:32 Pulse 90 07/26/18 07:31 Resp 16 07/26/18 07:31 BP 125/80 07/26/18 05:32 Pulse Ox 98 07/26/18 07:15 Intake & Output 07/25/18 07/26/18 07/26/18 18:59 06:59 18:59 Intake Total 680 Balance 680 Intake: Oral 680 Other: Voiding Method Bedpan Bedpan Bedpan Diaper Diaper Incontinent Incontinent # Voids 1 2 - Constitutional General appearance: Present: no acute distress - EENT Eyes: Present: EOMI ENT: Present: hearing grossly normal, normal oropharynx - Respiratory Respiratory: bilateral: CTA - Cardiovascular Rhythm: regular Heart sounds: normal: S1, S2 - Gastrointestinal General gastrointestinal: Present: normal bowel sounds, soft - Integumentary Integumentary: Present: normal - Neurologic Neurologic: Present: CNII-XII intact - Musculoskeletal Musculoskeletal: Present: generalized weakness, strength equal bilaterally - Psychiatric Psychiatric: Present: A&O x's 3, appropriate affect - Labs CBC & Chem 7: 07/24/18 05:37 07/26/18 06:33 Labs: Abnormal Lab Results - Last 24 Hours (Table) 07/26/18 Range/Units 06:33 Potassium 2.5 L* (3.5-5.1) mmol/L Carbon Dioxide 40 H (22-30) mmol/L Calcium 7.4 L (8.4-10.2) mg/dL Assessment and Plan (1) Impaired endocrine function Narrative/Plan: The patient has been evaluated by endocrinology, and is on follow-up. Dose of hydrocortisone has been adjusted. Thyroid supplementation is currently on hold. The patient will need continued follow up with endocrinology in the outpatient setting. Current Visit: Yes Status: Acute Priority: High Code(s): E34.9 - ENDOCRINE DISORDER, UNSPECIFIED SNOMED Code(s): 441088989 (2) Acute kidney injury Narrative/Plan: This has resolved with hydration, and hormone supplementation. Current Visit: Yes Status: Acute Code(s): N17.9 - ACUTE KIDNEY FAILURE, UNSPECIFIED SNOMED Code(s): 33205122 (3) Weakness Narrative/Plan: Multifactorial, due to endocrine insufficiency, as well as UTI with sepsis. This is slowly improving. Patient may need subacute rehab on discharge. Current Visit: Yes Status: Acute Code(s): R53.1 - WEAKNESS SNOMED Code(s) : 75159502 (4) Shakiness Current Visit: Yes Status: Acute Code(s): R25.1 - TREMOR, UNSPECIFIED SNOMED Code(s): 56630662 (5) Lung cancer Narrative/Plan: At this time, it is felt that autoimmune effects of for immunotherapy are at least partially responsible for her presentation. Therefore current treatment is on hold. She will follow-up with Dr. Meredith after discharge, for further treatment decisions Current Visit: Yes Status: Acute Code(s): C34.90 - MALIGNANT NEOPLASM OF UNSP PART OF UNSP BRONCHUS OR LUNG SNOMED Code(s): 456630323
[2018-07-26] MEDS: BUDESONIDE 1 MG/2 ML NEBU INHALATION SCH ×2 (12:09→20:05)
[2018-07-26] MEDS: HYDROcodone/APAP 10-325MG 1 EACH TAB PO PRN ×3 (12:40→20:40)
--- NOTE | 2018-07-26 13:19 | P.PN ---
Subjective Progress Note Date: 07/26/18 67-year-old female one of Dr. 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 another other area who been treated with oncology and town with chemotherapy regular basis she had the last one over 3 weeks ago developed to become sick with lack of appetite weakness generalized fatigue and lately in the last 48 hours had intractable nausea vomiting severe dehydration lightheadedness and dizziness not been able to ambulate and walk not been able to keep any food or fluid down symptom becomes slightly red worse also had increased swelling redness and warmness of the lower extremity along with mild burning in urination along with discomfort frequency urgency and worsening hesitancy. Patient ended up coming to the emergency department at [facility] where was seen and evaluated was quite bit dehydrated with hypotension blood pressure running 70/40 patient was started on IV hydration antiemesis medication 1 dose of IV antibiotics was giving the patient lactic acid was elevated was treated as sepsis ended up being admitted to intensive care unit afterward with the above problem. Apparently her oncologist was notify and agree with the current plan for now. 2/2: Patient evaluated noted to be sitting up in bed, she is very drowsy, but does awaken easily and follows commands. MRI of the brain is pending, plans to be done this morning for increased drowsiness and new tremor. Labs today reveal a TSH < 0.015, free T4 4 0.08, cortisol 1, ACTH 6.04, sodium 136 BUN 18, creatinine 0.69, WBC 6.4, hemoglobin 11.7, hematocrit 37.0, repeat lactic acid 1.1. Patient's Synthroid was discontinued, new tremor be due to hyperthyroidism secondary to the synthroid. Urine and blood cultures remain in process. Infectious disease on consult continue vancomycin and Levaquin for the cellulitis and urinary tract infection 2/3: Patient remains in the ICU, resting comfortably in bed. She remains afebrile, vital signs are stable. She continues on Levaquin and vancomycin for her lower extremity cellulitis and UTI. Culture report still pending, infectious disease is on consult. Patient was started on hydrocortisone yesterday for adrenal insufficiency endocrinology has been consulted. Levothyroxine continues to be on hold. MRI completed yesterday, showed there were no new large enhancing metastasis lesions, suboptimal study due to motion artifact. No to have mild wheeze and crackles on today's exam, 1 dose of Lasix 20 mg IV push ordered 07/21: Endocrinology is not available at this hospital. Patient is followed by multiple consultants including infectious disease, oncology. Urine cultures and finalized with no growth. Blood culture showing no growth after 48 hours. She has been afebrile, heart rate ran between 84 and 109, blood pressure 115/85 , pulse ox 93-95% on 2 L nasal cannula. Patient was given a dose of IV Lasix yesterday and has had good output with 250 ML's every 4 hours. She is tolerating full liquid diet well and this will be advanced. Patient states she does not have much appetite and things do not taste good. She denies any soreness to her lower extremities. She does state she is low better from yesterday. 07/22: Patient has been afebrile, heart rate running in the 90s to 100. Blood pressure 141/73, pulse ox 94% on 2 L nasal cannula. White count is normal, hemoglobin 10.2, potassium 3.3 will be replaced, creatinine 0.66. Patient is continued on Levaquin and vancomycin. Patient will be transitioned from IV to oral Cortef 50 mg in the morning and 10 mg in the evening. Tapazole will not be started as the hyper thyroidism may be related to her chemotherapy medication. Plan will be to recheck lab work and follow-up tomorrow. She is currently on a regular diet. PT and OT are following. Social work is following for subacute rehab placement which [facility] or [facility]. Patient will be ready for discharge tomorrow to care home. 07/23: Patient remains in the intensive care unit waiting for [facility] floor. Patient states she is not feeling well this morning and is complaining of her tongue which is dry. Clotrimazole amadou added. Noted patient's heart rate is running 110 today. She is known to have some wheezing. She complains of dizziness. 1 dose of IV Lasix and potassium will be replaced. She is continued on vancomycin and Levaquin. Ultrasound of lower extremity negative for DVT. CT in general has been ordered by oncology. Troponin has been negative on 2 draws. Repeat TSH is less than 0.015, free T4 3 0.43, total T3 106. 07/24: Chest x-ray shows findings compatible with progressive heart failure. Infiltrates of other etiologies are not excluded. CTA of the chest shows no acute pulmonary embolism. Pulmonary hypertension. Interval development of moderate bilateral pleural effusions. Increasing size of left lower lobe mass. Repeat lab work shows a hemoglobin of 12, white count 8.7, platelet count 198. Sodium 141, potassium 3.3 will be replaced. Chloride 109, CO2 29, BUN [address] Winchester from endocrinology has increased Cortef to 30 mg daily and 20 mg at 1400. Patient states that she had chest pain earlier today. Her breathing is better from yesterday. She states her arms are heavy and difficult to lift. Patient stating that she is planning to go home at the time of discharge, but noted that therapies are seen. She is minimal to total assist for self-care activities. Plan is for [facility] or [facility]. 07/25: Patient is complaining of her legs feeling tight and burning in the lower extremities. Her breathing is better from yesterday. Dr. Arroyo recommends discontinuing Levaquin which will be done. Reverse T3 came back at 79.8. Patient has been afebrile, blood pressure 130/71, heart rate running in the 90s , pulse ox 96% on 2 L. Plan is to monitor patient over the weekend plan for discharge to subacute rehab on Saturday.. 07/26: She has been afebrile, heart rate running in the 80s and 90s, blood pressure 133/64 pulse ox 90% on 2 L nasal cannula. Patient states that she slept well last night. She denies having any shortness of breath. She does have some shortness of breath with ambulating. Patient has noted wheezes for which Pulmicort added. Cellulitis to the lower extremities is much improved. Orthostatic vital signs will be ordered daily. Review Of Systems: Constitutional: No fever, no chills, no night sweats. No weight change. Reports weakness, reports fatigue or lethargy. Denies daytime sleepiness. EENT: No headache. No blurred vision or double vision, no loss of vision. No loss of Hearing, no ringing in the ears, no dizziness. No nasal drainage or congestion. No epistaxis. No sore throat. Reports tritone. Lungs: Denies shortness of breath, cough, no sputum production. Reports wheezing. Cardiovascular: No chest pain, reports lower extremity edema. No palpitations. No paroxysmal nocturnal dyspnea. No orthopnea. No lightheadedness reports dizziness. No syncopal episodes. Abdominal: No abdominal pain. No nausea, vomiting. No diarrhea. No constipation. No bloody or tarry stools. reports loss of appetite. Genitourinary: No dysuria, increased frequency, urgency. No urinary retention. Musculoskeletal: No myalgias. Reports muscle weakness, reports gait dysfunction , no frequent falls. No back pain. No neck pain. Integumentary: Lower extremity wounds, reports lower extremity pain. No rash or pruritus. No unusual bruising. No change in hair or nails. Neurologic: No aphasia. No facial droop. Reports change in mentation. No head injury. No headache. No paralysis. No paresthesia. Psychiatric: No depression. No anxiety. No mood swings. Endocrine: Reports abnormal blood sugars. No weight change. No excessive sweating or thirst. No cold intolerance. Objective - Vital Signs Vital signs: Vital Signs Temp 97.6 F 07/26/18 05:32 Pulse 90 07/26/18 07:31 Resp 16 07/26/18 07:31 BP 125/80 07/26/18 05:32 Pulse Ox 98 07/26/18 07:15 Intake & Output 07/25/18 07/26/18 07/26/18 18:59 06:59 18:59 Intake Total 680 Balance 680 Intake: Oral 680 Other: Voiding Method Bedpan Bedpan Diaper Diaper Incontinent Incontinent # Voids 1 2 - Exam General appearance: Present: cooperative, no acute distress, patient is in bed and appears comfortable, generalized weakness noted - EENT Eyes: Present: EOMI, PERRLA ENT: Present: dry oropharynx. Absent: pharyngeal erythema - Neck Neck: Present: normal ROM. Absent: lymphadenopathy, rigidity, stridor, thyromegaly Thyroid: bilateral: normal size, negative: enlarged, nodule - Respiratory Respiratory: bilateral: Mild wheezing negative: diminished, dullness, rhonchi - Cardiovascular Heart rate: 114 Rhythm: regular Heart sounds: normal: S1, S2 - Gastrointestinal General gastrointestinal: Present: normal bowel sounds, soft. Absent: distended , hepatomegaly, organomegaly, tenderness - Integumentary Integumentary Comment(s): +1 edema, cellulitis bilateral lower extremities worse on the right as compared to the left Integumentary: Present: cellulitis, improved. Only mild erythema medial distal tibia - Musculoskeletal Musculoskeletal: Present: generalized weakness, strength equal bilaterally. Absent: right sided weakness, left sided weakness - Psychiatric Psychiatric Comment(s): Patient drowsy but does follow commands and answers questions appropriately Psychiatric: Present: A&O x's 3 - Labs CBC & Chem 7: 07/24/18 05:37 07/26/18 06:33 Labs: Abnormal Lab Results - Last 24 Hours (Table) 07/26/18 Range/Units 06:33 Potassium 2.5 L* (3.5-5.1) mmol/L Carbon Dioxide 40 H (22-30) mmol/L Calcium 7.4 L (8.4-10.2) mg/dL Assessment and Plan Plan: 1 sepsis: Most likely combination of urinary tract infection and cellulitis. Dr. Arroyo is following, continue with vancomycin. 2 metabolic encephalopathy secondary to sepsis along with brain metastasis from originally lung cancer and adrenal insufficiency. MRI of the brain revealed no new brain metastasis noted 3 intractable nausea vomiting with acute kidney injury: Much better, tolerating diet. 4 advance lung cancer: Has been on chemotherapy. Oncology consult appreciated for now or chemotherapy will be held until she is more stable. Oral Lasix. CT angioma of the chest negative for PE. Pulmicort 1 mg twice daily added. 5 severe UTI/sepsis: Awaiting for the final urine culture the meanwhile empiric antibiotic with vancomycin and Levaquin. 6 severe COPD: Patient can be on bronchodilator and the Pulmicort as well. 7 hypothyroidism presenting with hyperthyroidism secondary to euthyroid sick syndrome: Levothyroxine held. 8 recurrent depression: Patient be continue citalopram and alprazolam. 9 chronic pain syndrome: Has been on hydrocodone as needed. 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 Oncology consult appreciated. Dr. Winchester has increased Cortef to 30 mg daily and 20 mg at 1600. 10 GI prophylaxis: Patient be on Pepcid 20 mg daily. 11 DVT prophylaxis: Heparin subcutaneous will be giving. Code status: Full code. Discharge plan: subacute rehab at [facility] on Saturday The above impression and plan of care have been discussed and directed by signing physician. Dianelys Barrios nurse practitioner acting as scribe for signing physician.
[2018-07-26] MEDS: HYDROCORTISONE 20 MG TAB PO SCH (16:25)
[2018-07-26] MEDS: ALBUTEROL NEBULIZED 2.5 MG/3 ML INHALATION PRN (20:05)
[2018-07-26] MEDS: CYCLOBENZAPRINE 10 MG TAB PO SCH (20:39)
--- NOTE | 2018-07-26 23:08 | PN ---
PROGRESS NOTE DATE OF SERVICE: 07/26/2018. REASON FOR FOLLOWUP: Left breast cellulitis. INTERVAL HISTORY: The patient is afebrile, has been breathing comfortably. Denies having any chest pain or cough, no abdominal pain, or any diarrhea. PHYSICAL EXAMINATION: Blood pressure is 112/67 with a pulse of 80, temperature 98.1, she is 97% on 2 L nasal cannula. GENERAL DESCRIPTION: An elderly female lying in bed in no distress. RESPIRATORY SYSTEM: Unlabored breathing. Clear to auscultation anteriorly. HEART: S1, S2. Regular rate and rhythm. ABDOMEN: Soft, no tenderness. EXTREMITIES: Legs currently swelling but no redness. LABS: Hemoglobin is 12, white count 8.7, BUN of 12, creatinine 0.60. Vanco trough has been high at 23.5. DIAGNOSTIC IMPRESSION AND PLAN: Patient with bilateral lower extremity cellulitis. Patient is currently on vancomycin because of her cephalexin allergy. Will be recommending a 10 day course and discontinue the vancomycin. There was no need for antibiotic on discharge. slightly high. Will monitor kidney function closely. Continue supportive care. MMODL / IJN: [id number] /
[2018-07-27] MEDS: CLOTRIMAZOLE TROCHE 10 MG TROCHE MUCOUS MEM SCH ×4 (05:42→23:24)
[2018-07-27 07:26] LABS: HCT 35.3 % (34.0-46.0); HGB 11.2 gm/dL (11.4-16.0); Hypochromasia Slight; MCH 31.7 pg (25.0-35.0); MCHC 31.7 g/dL (31.0-37.0); Macrocytosis Slight; Mean Platelet Volume 7.4; Platelet Count 194 k/uL (150-450); RBC 3.53 m/uL (3.80-5.40); RDW 14.2 % (11.5-15.5); WBC 7.7 k/uL (3.8-10.6)
[2018-07-27] MEDS: BUDESONIDE 1 MG/2 ML NEBU INHALATION SCH ×2 (07:29→21:05)
[2018-07-27] MEDS: FORMOTEROL FUMARATE 20 MCG/2 ML NEBU INHALATION SCH ×2 (07:29→21:05)
[2018-07-27] MEDS: IPRATROPIUM 0.5 MG/2.5 ML NEBU INHALATION SCH ×4 (07:29→21:04)
[2018-07-27] MEDS: ALPRAZolam 0.5 MG TAB PO PRN (07:42)
[2018-07-27] MEDS: POTASSIUM CHLORIDE ER 20 MEQ TAB.ER PO SCH ×3 (07:42→21:40)
[2018-07-27] MEDS: FUROSEMIDE 40 MG TAB PO SCH (07:42)
[2018-07-27] MEDS: HYDROCORTISONE 10 MG TAB PO SCH (07:42)
[2018-07-27 07:43] LABS: Anion Gap 0 mmol/L; Blood Urea Nitrogen 12 mg/dL (7-17); Calcium 7.3 mg/dL (8.4-10.2); Carbon Dioxide 37 mmol/L (22-30); Chloride 104 mmol/L (98-107); Glucose 93 mg/dL (74-99); Potassium 3.2 mmol/L (3.5-5.1); Sodium 141 mmol/L (137-145)
[2018-07-27] MEDS: PANTOPRAZOLE 40 MG TABLET PO SCH ×2 (07:43→21:39)
[2018-07-27] MEDS: CITALOPRAM HYDROBROMIDE 20 MG TAB PO SCH (07:43)
[2018-07-27] MEDS: HEPARIN SODIUM,PORCINE 5,000 UNIT/ML 1 ML VIAL SQ SCH ×2 (07:43→21:40)
[2018-07-27] MEDS: METHIMAZOLE 5 MG TAB PO SCH (07:43)
[2018-07-27] MEDS ORDERED: Potassium Replacement Protocol 1 EACH MISC MISCELLANE PRN (07:57)
[2018-07-27] MEDS ORDERED: POTASSIUM CHLORIDE ER 20 MEQ TAB.ER PO SCH ×3 (08:00→21:00)
[2018-07-27] MEDS: HYDROcodone/APAP 10-325MG 1 EACH TAB PO PRN ×2 (11:24→16:12)
--- NOTE | 2018-07-27 12:05 | P.PN ---
Subjective Progress Note Date: 07/27/18 67-year-old female one of Dr. 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 another other area who been treated with oncology and town with chemotherapy regular basis she had the last one over 3 weeks ago developed to become sick with lack of appetite weakness generalized fatigue and lately in the last 48 hours had intractable nausea vomiting severe dehydration lightheadedness and dizziness not been able to ambulate and walk not been able to keep any food or fluid down symptom becomes slightly red worse also had increased swelling redness and warmness of the lower extremity along with mild burning in urination along with discomfort frequency urgency and worsening hesitancy. Patient ended up coming to the emergency department at [facility] where was seen and evaluated was quite bit dehydrated with hypotension blood pressure running 70/40 patient was started on IV hydration antiemesis medication 1 dose of IV antibiotics was giving the patient lactic acid was elevated was treated as sepsis ended up being admitted to intensive care unit afterward with the above problem. Apparently her oncologist was notify and agree with the current plan for now. 2/2: Patient evaluated noted to be sitting up in bed, she is very drowsy, but does awaken easily and follows commands. MRI of the brain is pending, plans to be done this morning for increased drowsiness and new tremor. Labs today reveal a TSH < 0.015, free T4 4 0.08, cortisol 1, ACTH 6.04, sodium 136 BUN 18, creatinine 0.69, WBC 6.4, hemoglobin 11.7, hematocrit 37.0, repeat lactic acid 1.1. Patient's Synthroid was discontinued, new tremor be due to hyperthyroidism secondary to the synthroid. Urine and blood cultures remain in process. Infectious disease on consult continue vancomycin and Levaquin for the cellulitis and urinary tract infection 2/3: Patient remains in the ICU, resting comfortably in bed. She remains afebrile, vital signs are stable. She continues on Levaquin and vancomycin for her lower extremity cellulitis and UTI. Culture report still pending, infectious disease is on consult. Patient was started on hydrocortisone yesterday for adrenal insufficiency endocrinology has been consulted. Levothyroxine continues to be on hold. MRI completed yesterday, showed there were no new large enhancing metastasis lesions, suboptimal study due to motion artifact. No to have mild wheeze and crackles on today's exam, 1 dose of Lasix 20 mg IV push ordered 07/21: Endocrinology is not available at this hospital. Patient is followed by multiple consultants including infectious disease, oncology. Urine cultures and finalized with no growth. Blood culture showing no growth after 48 hours. She has been afebrile, heart rate ran between 84 and 109, blood pressure 115/85 , pulse ox 93-95% on 2 L nasal cannula. Patient was given a dose of IV Lasix yesterday and has had good output with 250 ML's every 4 hours. She is tolerating full liquid diet well and this will be advanced. Patient states she does not have much appetite and things do not taste good. She denies any soreness to her lower extremities. She does state she is low better from yesterday. 07/22: Patient has been afebrile, heart rate running in the 90s to 100. Blood pressure 141/73, pulse ox 94% on 2 L nasal cannula. White count is normal, hemoglobin 10.2, potassium 3.3 will be replaced, creatinine 0.66. Patient is continued on Levaquin and vancomycin. Patient will be transitioned from IV to oral Cortef 50 mg in the morning and 10 mg in the evening. Tapazole will not be started as the hyper thyroidism may be related to her chemotherapy medication. Plan will be to recheck lab work and follow-up tomorrow. She is currently on a regular diet. PT and OT are following. Social work is following for subacute rehab placement which will be [facility] or [facility]. Patient will be ready for discharge tomorrow to custodial. 07/23: Patient remains in the intensive care unit waiting for [facility] floor. Patient states she is not feeling well this morning and is complaining of her tongue which is dry. Clotrimazole amadou added. Noted patient's heart rate is running 110 today. She is known to have some wheezing. She complains of dizziness. 1 dose of IV Lasix and potassium will be replaced. She is continued on vancomycin and Levaquin. Ultrasound of lower extremity negative for DVT. CT in general has been ordered by oncology. Troponin has been negative on 2 draws. Repeat TSH is less than 0.015, free T4 3 0.43, total T3 106. 07/24: Chest x-ray shows findings compatible with progressive heart failure. Infiltrates of other etiologies are not excluded. CTA of the chest shows no acute pulmonary embolism. Pulmonary hypertension. Interval development of moderate bilateral pleural effusions. Increasing size of left lower lobe mass. Repeat lab work shows a hemoglobin of 12, white count 8.7, platelet count 198. Sodium 141, potassium 3.3 will be replaced. Chloride 109, CO2 29, BUN [address] Winchester from endocrinology has increased Cortef to 30 mg daily and 20 mg at 1400. Patient states that she had chest pain earlier today. Her breathing is better from yesterday. She states her arms are heavy and difficult to lift. Patient stating that she is planning to go home at the time of discharge, but noted that therapies are seen. She is minimal to total assist for self-care activities. Plan is for [facility] or [facility]. 07/25: Patient is complaining of her legs feeling tight and burning in the lower extremities. Her breathing is better from yesterday. Dr. Arroyo recommends discontinuing Levaquin which will be done. Reverse T3 came back at 79.8. Patient has been afebrile, blood pressure 130/71, heart rate running in the 90s , pulse ox 96% on 2 L. Plan is to monitor patient over the weekend plan for discharge to subacute rehab on Saturday.. 07/26: She has been afebrile, heart rate running in the 80s and 90s, blood pressure 133/64 pulse ox 90% on 2 L nasal cannula. Patient states that she slept well last night. She denies having any shortness of breath. She does have some shortness of breath with ambulating. Patient has noted wheezes for which Pulmicort added. Cellulitis to the lower extremities is much improved. Orthostatic vital signs will be ordered daily. 07/27: Dr. Anderson recommends discontinuing vancomycin which will be done today. Patient now has no IV access and this will be left out. Tapazole was started by Dr. Winchester but we will plan to discontinue this and repeat TSH in 4 weeks and decide at that point if she needs Tapazole. She has been afebrile, heart rate running in the 80s, pulse ox 97% on 2 L, blood pressure 134/75. White count 7.7 , hemoglobin 12.2, potassium 3.2 and will be replaced. She is currently on Lasix 40 mg orally every day. We'll plan to check orthostatic vital signs today. Patient is doing well with no concerns today. Plan for discharge to [facility] on Saturday. Review Of Systems: Constitutional: No fever, no chills, no night sweats. No weight change. Reports weakness, reports fatigue or lethargy. Denies daytime sleepiness. EENT: No headache. No blurred vision or double vision, no loss of vision. No loss of Hearing, no ringing in the ears, no dizziness. No nasal drainage or congestion. No epistaxis. No sore throat. Lungs: Denies shortness of breath, cough, no sputum production. Reports wheezing. Cardiovascular: No chest pain, reports lower extremity edema. No palpitations. No paroxysmal nocturnal dyspnea. No orthopnea. No lightheadedness reports dizziness. No syncopal episodes. Abdominal: No abdominal pain. No nausea, vomiting. No diarrhea. No constipation. No bloody or tarry stools. reports loss of appetite. Genitourinary: No dysuria, increased frequency, urgency. No urinary retention. Musculoskeletal: No myalgias. Reports muscle weakness, reports gait dysfunction , no frequent falls. No back pain. No neck pain. Integumentary: Lower extremity wounds, reports lower extremity pain. No rash or pruritus. No unusual bruising. No change in hair or nails. Neurologic: No aphasia. No facial droop. Reports change in mentation. No head injury. No headache. No paralysis. No paresthesia. Psychiatric: No depression. No anxiety. No mood swings. Endocrine: Reports abnormal blood sugars. No weight change. No excessive sweating or thirst. No cold intolerance. Objective - Vital Signs Vital signs: Vital Signs Temp 97.6 F 07/27/18 06:06 Pulse 87 07/27/18 07:53 Resp 16 07/27/18 06:06 BP 134/75 07/27/18 06:06 Pulse Ox 97 07/27/18 07:32 Intake & Output 07/26/18 07/27/18 07/27/18 18:59 06:59 18:59 Intake Total 1430 1580 Output Total 200 Balance 1230 1580 Intake: Intake, IV Titration 250 500 Amount Vancomycin 1,500 mg In 250 500 Sodium Chloride 0.9% 250 ml @ 125 mls/hr IVPB Q16H [facility] Rx#:[id number] Oral 1180 1080 Output: Urine 200 Other: Voiding Method Bedpan Bedside Commode # Voids 3 1 - Exam General appearance: Present: cooperative, no acute distress, patient is in bed and appears comfortable, generalized weakness noted - EENT Eyes: Present: EOMI, PERRLA ENT: Present: dry oropharynx. Absent: pharyngeal erythema - Neck Neck: Present: normal ROM. Absent: lymphadenopathy, rigidity, stridor, thyromegaly Thyroid: bilateral: normal size, negative: enlarged, nodule - Respiratory Respiratory: bilateral: Mild wheezing negative: diminished, dullness, rhonchi - Cardiovascular Heart rate: 114 Rhythm: regular Heart sounds: normal: S1, S2 - Gastrointestinal General gastrointestinal: Present: normal bowel sounds, soft. Absent: distended , hepatomegaly, organomegaly, tenderness - Integumentary Integumentary Comment(s): +1 edema, cellulitis bilateral lower extremities worse on the right as compared to the left Integumentary: Present: cellulitis, improved. Only mild erythema medial distal tibia - Musculoskeletal Musculoskeletal: Present: generalized weakness, strength equal bilaterally. Absent: right sided weakness, left sided weakness - Psychiatric Psychiatric Comment(s): Patient drowsy but does follow commands and answers questions appropriately Psychiatric: Present: A&O x's 3, affect normal - Labs CBC & Chem 7: 07/27/18 06:38 07/27/18 06:38 Labs: Abnormal Lab Results - Last 24 Hours (Table) 07/26/18 07/27/18 07/27/18 Range/Units 18:42 06:38 06:38 RBC 3.53 L (3.80-5.40) m/uL Hgb 11.2 L (11.4-16.0) gm/dL Potassium 3.4 L 3.2 L (3.5-5.1) mmol/L Carbon Dioxide 37 H (22-30) mmol/L Calcium 7.3 L (8.4-10.2) mg/dL Assessment and Plan Plan: 1 sepsis: Most likely combination of urinary tract infection and cellulitis. Dr. Arroyo is following, vancomycin discontinued 2 metabolic encephalopathy secondary to sepsis along with brain metastasis from originally lung cancer and adrenal insufficiency. MRI of the brain revealed no new brain metastasis noted 3 intractable nausea vomiting with acute kidney injury: Much better, tolerating diet. 4 advance lung cancer: Has been on chemotherapy. Oncology consult appreciated for now or chemotherapy will be held until she is more stable. Oral Lasix. CT angioma of the chest negative for PE. Pulmicort 1 mg twice daily added. 5 severe UTI/sepsis: Awaiting for the final urine culture the meanwhile empiric antibiotic with vancomycin and Levaquin. 6 severe COPD: Patient can be on bronchodilator and the Pulmicort as well. 7 hypothyroidism presenting with hyperthyroidism secondary to euthyroid sick syndrome: Levothyroxine held. 8 recurrent depression: Patient be continue citalopram and alprazolam. 9 chronic pain syndrome: Has been on hydrocodone as needed. 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 Oncology consult appreciated. Dr. Winchester has increased Cortef to 30 mg daily and 20 mg at 1600. 10 GI prophylaxis: Patient be on Pepcid 20 mg daily. 11 DVT prophylaxis: Heparin subcutaneous will be giving. Code status: Full code. Discharge plan: subacute rehab at [facility] on Saturday The above impression and plan of care have been discussed and directed by signing physician. Dianelys Barrios nurse practitioner acting as scribe for signing physician.
[2018-07-27] MEDS ORDERED: VANCOMYCIN TROUGH DUE 1 EACH MISC MISCELLANE ONE (13:00)
[2018-07-27] MEDS ORDERED: FUROSEMIDE 20 MG TAB PO SCH (16:00)
[2018-07-27] MEDS: HYDROCORTISONE 20 MG TAB PO SCH (16:12)
[2018-07-27] MEDS: CYCLOBENZAPRINE 10 MG TAB PO SCH (21:39)
--- NOTE | 2018-07-28 00:15 | PN ---
PROGRESS NOTE DATE OF SERVICE: 07/27/2018. REASON FOR FOLLOW UP: Lower extremity cellulitis. INTERVAL HISTORY: The patient is currently afebrile. She is breathing comfortably. Denies having any chest pain or any cough. No abdominal pain or any diarrhea. PHYSICAL EXAMINATION: Blood pressure is 123/72 with a pulse of 83, temperature 98.4. She is 98% on room air. General description is an elderly female, lying in bed in no distress. Respiratory system: Unlabored breathing. Clear to auscultation anteriorly. Heart S1, S2. Regular rate and rhythm. ABDOMEN: Soft. No tenderness. Legs with some swelling but no redness. LABS: White count of 7.7, creatinine 0.55. DIAGNOSTIC IMPRESSION AND PLAN: Patient with lower extremity cellulitis in this patient who does have allergy. cellulitis has been adequately treated. Vancomycin discontinued. Gerard wrap to keep the swelling down. Continue supportive care. MMODL / IJN: [id number] /
[2018-07-28 00:17] VITALS: RESP 16
[2018-07-28] MEDS: CLOTRIMAZOLE TROCHE 10 MG TROCHE MUCOUS MEM SCH ×3 (01:21→13:22)
[2018-07-28 06:00] VITALS: TEMP 97.5
[2018-07-28] MEDS: BUDESONIDE 1 MG/2 ML NEBU INHALATION SCH (08:45)
[2018-07-28] MEDS: IPRATROPIUM 0.5 MG/2.5 ML NEBU INHALATION SCH ×2 (08:45→12:25)
[2018-07-28] MEDS: FORMOTEROL FUMARATE 20 MCG/2 ML NEBU INHALATION SCH (08:45)
[2018-07-28] MEDS: HYDROCORTISONE 10 MG TAB PO SCH (09:32)
[2018-07-28] MEDS: HEPARIN SODIUM,PORCINE 5,000 UNIT/ML 1 ML VIAL SQ SCH (09:32)
[2018-07-28] MEDS: CITALOPRAM HYDROBROMIDE 20 MG TAB PO SCH (09:32)
[2018-07-28] MEDS: POTASSIUM CHLORIDE ER 20 MEQ TAB.ER PO SCH (09:32)
[2018-07-28] MEDS: FUROSEMIDE 40 MG TAB PO SCH (09:32)
[2018-07-28] MEDS: PANTOPRAZOLE 40 MG TABLET PO SCH (09:32)
[2018-07-28] MEDS: HYDROcodone/APAP 10-325MG 1 EACH TAB PO PRN ×2 (09:51→13:22)
[2018-07-28] MEDS: ALPRAZolam 0.5 MG TAB PO PRN (09:52)
[2018-07-28 10:08] VITALS: BP 121/63; PULSE 77
--- NOTE | 2018-07-28 17:07 | PN ---
PROGRESS NOTE DATE OF SERVICE: 07/28/2018 REASON FOR FOLLOWUP: Lower extremity cellulitis. INTERVAL HISTORY: The patient was seen on rounds early this afternoon. The patient has been afebrile. She is breathing comfortably. Denies having any chest pain, cough, abdominal pain or any pain in the leg area. PHYSICAL EXAMINATION: Blood pressure is 130/72 with a pulse of 84, temperature 98. She is 98% on 2 L nasal cannula. General description is an elderly female up in the chair in no distress. RESPIRATORY SYSTEM: Unlabored breathing with decreased breath sounds at the bases. HEART: S1, S2. Regular rate and rhythm. ABDOMEN: LEGS: Some swelling but no redness. LABS: Hemoglobin 11.2, white count 7.7, creatinine 0.55. DIAGNOSTIC IMPRESSION AND PLAN: Patient with bilateral lower extremity cellulitis that has been adequately treated. Patient has completed her antibiotic therapy. No need for antibiotic on discharge. Continue with supportive care. MMODL / IJN: [id number] /
== END 2018-07-28 13:45 | DRG 871 ==
LOC: EC 17:36 → 2SICU 21:18 → 3SCARD 07-25 00:07 → 3NMEDONC 07-25 23:22
PROVIDERS: ADMIT Internal Medicine Geriatric Medicine; ATTEND Internal Medicine Geriatric Medicine
DX: A41.9 Sepsis, unspecified organism (principal); G93.41 Metabolic encephalopathy; C34.90 Malignant neoplasm of unspecified part of unspecified bronchus or lung; C79.31 Secondary malignant neoplasm of brain; E87.1 Hypo-osmolality and hyponatremia; E87.2 Acidosis; F33.9 Major depressive disorder, recurrent, unspecified; L03.115 Cellulitis of right lower limb; L03.116 Cellulitis of left lower limb; N17.9 Acute kidney failure, unspecified; N39.0 Urinary tract infection, site not specified; E27.3 Drug-induced adrenocortical insufficiency; E03.9 Hypothyroidism, unspecified; E05.90 Thyrotoxicosis, unspecified without thyrotoxic crisis or storm; E05.80 Other thyrotoxicosis without thyrotoxic crisis or storm; T38.1X5A Adverse effect of thyroid hormones and substitutes, initial encounter; E07.81 Sick-euthyroid syndrome; E86.0 Dehydration; F41.9 Anxiety disorder, unspecified; G89.4 Chronic pain syndrome; I27.20 Pulmonary hypertension, unspecified; I50.9 Heart failure, unspecified; J44.9 Chronic obstructive pulmonary disease, unspecified; N61.0 Mastitis without abscess; R65.20 Severe sepsis without septic shock; Z79.890 Hormone replacement therapy; Z79.899 Other long term (current) drug therapy; Z87.891 Personal history of nicotine dependence; Z88.1 Allergy status to other antibiotic agents; Z90.710 Acquired absence of both cervix and uterus; Z90.49 Acquired absence of other specified parts of digestive tract; Z92.3 Personal history of irradiation; Z96.653 Presence of artificial knee joint, bilateral; T45.1X5A Adverse effect of antineoplastic and immunosuppressive drugs, initial encounter; K11.7 Disturbances of salivary secretion; E66.3 Overweight; Z68.37 Body mass index [BMI] 37.0-37.9, adult; R11.2 Nausea with vomiting, unspecified; R32 Unspecified urinary incontinence
CPT/HCPCS: 36415; 70553; 71045; 71046; 71275; 74018; 80048; 80053; 80202; 81001; 82024; 82533; 83605; 83690; 83735; 84100; 84132; 84439; 84443; 84480; 84482; 85025; 85027; 87040; 87086; 93970; 94640; 94760; 96361; 96365; 96375; 99285

== ENCOUNTER → 2018-08-04 | Outpatient (CLI) | payer MEDICARE, OTHER ==
[2018-08-05 00:18] LABS: T4, Free (Free Thyroxine) 0.8 ng/dL (0.80-1.80)
== END ==
LOC: LABWHC1 13:11
PROVIDERS: ATTEND Internal Medicine Endocrinology, Diabetes & Metabolism
DX: E27.40 Unspecified adrenocortical insufficiency (principal); E05.90 Thyrotoxicosis, unspecified without thyrotoxic crisis or storm
CPT/HCPCS: 36415; 84439; 84443; 84481

== ENCOUNTER → 2018-08-26 | Outpatient (CLI) | payer MEDICARE, OTHER ==
[2018-08-27 01:15] LABS: T4, Free (Free Thyroxine) 0.7 ng/dL (0.80-1.80)
== END ==
LOC: LABWHC1 15:17
PROVIDERS: ATTEND Internal Medicine Endocrinology, Diabetes & Metabolism
DX: E05.90 Thyrotoxicosis, unspecified without thyrotoxic crisis or storm (principal)
CPT/HCPCS: 36415; 84439; 84443; 84481

== ENCOUNTER 2018-09-29 15:48 | Inpatient (IN) | payer MEDICARE, OTHER ==
[2018-09-29] MEDS ORDERED: SODIUM CHLORIDE 0.9% 500 ML 500 ML IV STA ×2 (16:21→18:23)
[2018-09-29] MEDS ORDERED: SODIUM CHLORIDE 0.9% 1,000 ML IV STA ×3 (16:21→17:37)
--- NOTE | 2018-09-29 16:35 | ED ---
Weakness HPI - General Chief complaint: Weakness Stated complaint: Hypotension, weakness-ca pt Time Seen by Provider: 09/29/18 16:17 Source: patient, RN notes reviewed, old records reviewed Mode of arrival: ambulatory Limitations: physical limitation - History of Present Illness Initial comments: This is a 65-year-old female the ER for evaluation. Patient resents today for evaluation regards to low blood pressure and weakness. Patient's brought in by , she was sent in by oncology. Patient's of has no specific complaints no headache chest pain shortness of breath or abdominal pain MD Complaint: generalized weakness, lack of energy (Low blood pressure) -: unknown Location: generalized Severity: moderate Severity scale (1-10): 6 Quality: constant Consistency: constant Improves with: rest Worsens with: movement Context: history of similar Associated Symptoms: denies other symptoms - Related Data Home Medications Medication Instructions Recorded Confirmed Albuterol Nebulized [Ventolin 2.5 mg INHALATION RT-QID PRN 05/03/15 09/29/18 Nebulized] Citalopram Hydrobromide [CeleXA] 40 mg PO QAM 05/03/15 09/29/18 Umeclidinium Brm/Vilanterol Tr 1 puff INHALATION RT-DAILY 05/03/15 09/29/18 [Anoro Ellipta 62.5-25 Mcg INH] Cyclobenzaprine HCl 10 mg PO HS 07/17/18 09/29/18 ALPRAZolam [Xanax] 2 mg PO TID 09/29/18 09/29/18 Fludrocortisone [Florinef] 0.1 mg PO BID 09/29/18 09/29/18 Levothyroxine Sodium [Synthroid] 25 mcg PO DAILY 09/29/18 09/29/18 Sulfamethox-Tmp 800-160Mg [Bactrim 1 tab PO BID 09/29/18 09/29/18 DS 800-160 mg] Previous Rx's Medication Instructions Recorded Budesonide [Pulmicort] 1 mg INHALATION RT-BID nebu 07/28/18 Furosemide [Lasix] 20 mg PO 1600 tab 07/28/18 Furosemide [Lasix] 40 mg PO DAILY tab 07/28/18 HYDROcodone/APAP 10-325MG [Tiona 1 tab PO Q4H PRN #18 tab 07/28/18 10-325] Hydrocortisone [Cortef] 20 mg PO 1600 tab 07/28/18 Hydrocortisone [Cortef] 30 mg PO DAILY tab 07/28/18 Ipratropium Nebulized [Atrovent 0.5 mg INHALATION RT-QID nebu 07/28/18 Nebulized 0.2 MG/ML] Pantoprazole [Protonix] 40 mg PO BID tablet. 07/28/18 Potassium Chloride ER [K-Dur 20] 20 meq PO TID tab.er.prt 07/28/18 Allergies Allergy/AdvReac Type Severity Reaction Status Date / Time cephalexin monohydrate Allergy Severe Anaphylaxis Verified 09/29/18 17:23 [From Keflex] adhesive Allergy Rash/Hives Verified 09/29/18 17:23 silicone Allergy Rash/Hives Verified 09/29/18 17:23 Review of Systems ROS Statement: Those systems with pertinent positive or pertinent negative responses have been documented in the HPI. ROS Other: All systems not noted in ROS Statement are negative. Past Medical History Past Medical History: COPD Additional Past Medical History / Comment(s): URINARY INCONTINENCE, WEARS DEPENDS DAILY, lung CA, post radiation. Fracture left wrist. brain nodules- radiation bed sores History of Any Multi-Drug Resistant Organisms: None Reported Past Surgical History: Cholecystectomy, Hysterectomy, Orthopedic Surgery Additional Past Surgical History / Comment(s): KARSON KNEE CAP REPLACEMENT, bronchoscopy Past Anesthesia/Blood Transfusion Reactions: No Reported Reaction Past Psychological History: Anxiety Smoking Status: Former smoker Past Alcohol Use History: Occasional Past Drug Use History: None Reported - Past Family History Mother Family Medical History: Unable to Obtain Additional Family Medical History / Comment(s): . General Exam - General Exam Comments Initial Comments: Patient does have sacral decubitus ulcer significant present on admission Limitations: physical limitation General appearance: alert, in no apparent distress Head exam: Present: atraumatic, normocephalic, normal inspection Eye exam: Present: normal appearance, PERRL, EOMI. Absent: scleral icterus, conjunctival injection, periorbital swelling ENT exam: Present: normal exam, mucous membranes moist Neck exam: Present: normal inspection. Absent: tenderness, meningismus, lymphadenopathy Respiratory exam: Present: normal lung sounds bilaterally. Absent: respiratory distress, wheezes, rales, rhonchi, stridor Cardiovascular Exam: Present: regular rate, normal rhythm, normal heart sounds. Absent: systolic murmur, diastolic murmur, rubs, gallop, clicks GI/Abdominal exam: Present: soft, normal bowel sounds. Absent: distended, tenderness, guarding, rebound, rigid Extremities exam: Present: normal inspection, full ROM, normal capillary refill. Absent: tenderness, pedal edema, joint swelling, calf tenderness Back exam: Present: normal inspection Neurological exam: Present: alert, oriented X3, CN II-XII intact Psychiatric exam: Present: normal affect, normal mood Skin exam: Present: warm, dry, intact, normal color. Absent: rash Course Vital Signs 09/29/18 09/29/18 09/29/18 16:00 16:22 17:04 Temperature 97.5 F L Pulse Rate 100 99 98 Respiratory 18 18 18 Rate Blood Pressure 95/41 90/37 88/60 O2 Sat by Pulse 96 98 100 Oximetry 09/29/18 09/29/18 17:58 18:15 Temperature Pulse Rate 101 H 105 H Respiratory 20 18 Rate Blood Pressure 83/40 93/40 O2 Sat by Pulse 100 100 Oximetry - Reevaluation(s) Reevaluation #1: 09/29/18 18:22 Medical record reviewed Reevaluation #2: 09/29/18 18:22 Patient improving, feeling better with hydration EKG Findings - EKG Comments: EKG Findings:: EKG shows sinus rhythm rate of 89, MS 180, QRS 90, QTc 721 Medical Decision Making - Medical Decision Making 67 female the ER for evaluation of weakness and low blood pressure. Patient's be admitted for broad-spectrum secondary to underlying possible infection, blood pressures improved with hydration here in the ER. Patient to be admitted for continued monitoring of vital signs and symptoms - Lab Data Result diagrams: 09/29/18 16:22 09/29/18 16:22 Lab Results 09/29/18 09/29/18 09/29/18 Range/Units 16:22 16:22 16:22 WBC 7.7 (3.8-10.6) k/uL RBC 3.67 L (3.80-5.40) m/uL Hgb 11.8 (11.4-16.0) gm/dL Hct 35.0 (34.0-46.0) % MCV 95.3 D (80.0-100.0) fL MCH 32.0 (25.0-35.0) pg MCHC 33.6 (31.0-37.0) g/dL RDW 16.0 H (11.5-15.5) % Plt Count 239 (150-450) k/uL Neutrophils % (Manual) 76 % Band Neutrophils % 2 % Lymphocytes % (Manual) 12 % Monocytes % (Manual) 7 % Eosinophils % (Manual) 3 % Neutrophils # (Manual) 6.00 (1.3-7.7) k/uL Lymphocytes # (Manual) 0.92 L (1.0-4.8) k/uL Monocytes # (Manual) 0.54 (0-1.0) k/uL Eosinophils # (Manual) 0.23 (0-0.7) k/uL Nucleated RBCs 0 (0-0) /100 WBC Manual Slide Review Performed Toxic Granulation Present Poikilocytosis (manual Present Anisocytosis Slight PT (9.0-12.0) sec INR (<1.2) APTT (22.0-30.0) sec Sodium 127 L (137-145) mmol/L Potassium 3.0 L (3.5-5.1) mmol/L Chloride 96 L (98-107) mmol/L Carbon Dioxide 18 L (22-30) mmol/L Anion Gap 13 mmol/L BUN 37 H (7-17) mg/dL Creatinine 1.81 H (0.52-1.04) mg/dL Est GFR (CKD-EPI)AfAm 33 (>60 ml/min/1.73 sqM) Est GFR (CKD-EPI)NonAf 28 (>60 ml/min/1.73 sqM) Glucose 106 H (74-99) mg/dL Plasma Lactic Acid Dave 6.6 H* (0.7-2.0) mmol/L Calcium 7.4 L (8.4-10.2) mg/dL Phosphorus 3.3 (2.5-4.5) mg/dL Magnesium 2.1 (1.6-2.3) mg/dL Total Bilirubin 0.8 (0.2-1.3) mg/dL AST 125 H (14-36) U/L ALT 62 H (9-52) U/L Alkaline Phosphatase 208 H (38-126) U/L Troponin I (0.000-0.034) ng/mL Total Protein 4.8 L (6.3-8.2) g/dL Albumin 2.1 L (3.5-5.0) g/dL TSH 6.020 H (0.465-4.680) mIU/L 09/29/18 09/29/18 Range/Units 16:22 16:22 WBC (3.8-10.6) k/uL RBC (3.80-5.40) m/uL Hgb (11.4-16.0) gm/dL Hct (34.0-46.0) % MCV (80.0-100.0) fL MCH (25.0-35.0) pg MCHC (31.0-37.0) g/dL RDW (11.5-15.5) % Plt Count (150-450) k/uL Neutrophils % (Manual) % Band Neutrophils % % Lymphocytes % (Manual) % Monocytes % (Manual) % Eosinophils % (Manual) % Neutrophils # (Manual) (1.3-7.7) k/uL Lymphocytes # (Manual) (1.0-4.8) k/uL Monocytes # (Manual) (0-1.0) k/uL Eosinophils # (Manual) (0-0.7) k/uL Nucleated RBCs (0-0) /100 WBC Manual Slide Review Toxic Granulation Poikilocytosis (manual Anisocytosis PT 20.4 H (9.0-12.0) sec INR 2.1 H (<1.2) APTT 36.3 H (22.0-30.0) sec Sodium (137-145) mmol/L Potassium (3.5-5.1) mmol/L Chloride (98-107) mmol/L Carbon Dioxide (22-30) mmol/L Anion Gap mmol/L BUN (7-17) mg/dL Creatinine (0.52-1.04) mg/dL Est GFR (CKD-EPI)AfAm (>60 ml/min/1.73 sqM) Est GFR (CKD-EPI)NonAf (>60 ml/min/1.73 sqM) Glucose (74-99) mg/dL Plasma Lactic Acid Dave (0.7-2.0) mmol/L Calcium (8.4-10.2) mg/dL Phosphorus (2.5-4.5) mg/dL Magnesium (1.6-2.3) mg/dL Total Bilirubin (0.2-1.3) mg/dL AST (14-36) U/L ALT (9-52) U/L Alkaline Phosphatase (38-126) U/L Troponin I <0.012 (0.000-0.034) ng/mL Total Protein (6.3-8.2) g/dL Albumin (3.5-5.0) g/dL TSH (0.465-4.680) mIU/L - EKG Data -: EKG Interpreted by Me (EKG shows sinus rhythm rate of 99, MS 182, QRS 98, QTc 721) - Radiology Data Radiology results: report reviewed (Chest x-rays negative for acute disease), image reviewed Disposition Clinical Impression: Acute renal failure, Acute kidney injury, Lung cancer, Dehydration, Weakness, Sacral decubitus ulcer, stage II, Hyponatremia, Hypokalemia Disposition: ADMITTED IP TO THIS HOSP Condition: Fair Is patient prescribed a controlled substance at d/c from ED?: No Referrals: Demetris Garcia DO [Primary Care Provider] - 1-2 days
[2018-09-29 16:48] LABS: INR 2.1 (<1.2); Partial Thromboplastin Time 36.3 sec (22.0-30.0); Prothrombin Time 20.4 sec (9.0-12.0)
[2018-09-29 16:52] LABS: Anisocytosis Slight; HGB 11.8 gm/dL (11.4-16.0); MCHC 33.6 g/dL (31.0-37.0); Mean Platelet Volume 8.5; Platelet Count 239 k/uL (150-450); RBC 3.67 m/uL (3.80-5.40); WBC 7.7 k/uL (3.8-10.6)
[2018-09-29 16:53] LABS: Albumin 2.1 g/dL (3.5-5.0); Calcium 7.4 mg/dL (8.4-10.2); Magnesium 2.1 mg/dL (1.6-2.3); Phosphorus 3.3 mg/dL (2.5-4.5); Total Bilirubin 0.8 mg/dL (0.2-1.3); Total Protein 4.8 g/dL (6.3-8.2)
[2018-09-29] MEDS: methylPREDNISolone SOD SUCCI 125 MG/2 ML VIAL IV STA ×2 (17:01→17:22)
[2018-09-29 17:04] LABS: MCV 95.3 fL (80.0-100.0)
[2018-09-29] MEDS ORDERED: POTASSIUM BICARBONATE/CIT AC 20 MEQ TABLET.EFF PO ONE (17:37)
[2018-09-29 17:46] LABS: Band Neutrophils % 2 %; Eosinophils # (M) 0.23 k/uL (0-0.7); Lymphocytes # (M) 0.92 k/uL (1.0-4.8); Monocytes # (M) 0.54 k/uL (0-1.0); Neutrophils % (M) 76 %; Nucleated Red Blood Cells 0 /100 WBC (0-0); Poikilocytosis (M) Present; Total Cells Counted 100; Toxic Granulation Present
[2018-09-29] MEDS: POTASSIUM CHLORIDE 10 MEQ in WATER FOR INJECTION 1 100ML.BAG IVPB SCH ×4 (18:18→23:51)
[2018-09-29] MEDS ORDERED: PIPERACILLIN-TAZOBACTAM 3.375 GM in SODIUM CHLORIDE 0.9% 100 ML IVPB STA (18:18)
[2018-09-29] MEDS ORDERED: VANCOMYCIN IV PER PHARMACY 1 EACH MISC MISCELLANE PRN (18:18)
[2018-09-29] MEDS ORDERED: IPRATROPIUM-ALBUTEROL 3 ML NEB INHALATION STA (18:23)
[2018-09-29] MEDS ORDERED: IPRATROPIUM-ALBUTEROL 3 ML NEB INHALATION PRN (18:23)
[2018-09-29 18:29] LABS: Amorphous Sediment,Urine Occasional /hpf; Appearance,Urine Cloudy (Clear); Bilirubin,Urine Negative (Negative); Blood,Urine Negative (Negative); Color,Urine Yellow; Glucose,Urine (UA) Negative (Negative); Hyaline Casts,Urine 185 /lpf (0-2); Ketones,Urine Negative (Negative); Leukocyte Esterase,Urine Negative (Negative); Mucus,Urine Many /hpf; Nitrite,Urine Negative (Negative); PH, Urine 5.5 (5.0-8.0); Protein,Urine 1+ (Negative); RBC,Urine 5 /hpf (0-5); Specific Gravity,Urine 1.019 (1.001-1.035); Squamous Epithelial Cell,Urine 1 /hpf (0-4)
--- NOTE | 2018-09-29 18:57 | XR ---
EXAMINATION TYPE: XR chest 1V DATE OF EXAM: 09/29/2018 COMPARISON: Chest x-ray and CT chest July 23, 2018. PET/CT May 24, 2018 HISTORY: History of lung cancer with hypotension, weakness, and chest pain. TECHNIQUE: Single frontal view of the chest is obtained. FINDINGS: Old posterior lateral right fourth and fifth rib fractures are redemonstrated. There is ca rdiomegaly with atherosclerotic thoracic aorta redemonstrated. There is persistent small left pleural effusion and associated left basilar atelectasis and/or infiltrate. Improvement in right-sided mid b asilar opacity is noted. There is persistent masslike consolidation probable neoplasm lateral left u pper lung. Background chronic emphysematous change is noted. IMPRESSION: Chronic emphysematous change and cardiomegaly with lateral left upper lung neoplasm all redemonstrated. Persistent small left pleural effusion and left basilar atelectasis and/or infiltrate improved from prior. Improved aeration right lung base noted. No new focal infiltrate is seen.
[2018-09-29] MEDS ORDERED: VANCOMYCIN 1,500 MG in SODIUM CHLORIDE 0.9% 250 ML IVPB ONE (19:00)
[2018-09-29] MEDS: SODIUM CHLORIDE 0.9% 1,000 ML IV SCH ×2 (19:45→23:38)
[2018-09-29] MEDS: SODIUM CHLORIDE 0.9% 500 ML 500 ML IV SCH (23:23)
[2018-09-30] MEDS: POTASSIUM CHLORIDE 10 MEQ in WATER FOR INJECTION 1 100ML.BAG IVPB SCH (01:30)
[2018-09-30] MEDS: PIPERACILLIN-TAZOBACTAM 3.375 GM in SODIUM CHLORIDE 0.9% 100 ML IVPB SCH ×3 (03:46→20:19)
[2018-09-30] MEDS: SODIUM CHLORIDE 0.9% 1,000 ML IV SCH ×3 (06:36→20:21)
[2018-09-30] MEDS ORDERED: PANTOPRAZOLE 40 MG/10 ML VIAL IV SCH (09:00)
[2018-09-30] MEDS ORDERED: ENOXAPARIN 40 MG/0.4 ML SYRINGE SQ SCH (09:00)
[2018-09-30] MEDS ORDERED: VANCOMYCIN 1,500 MG in SODIUM CHLORIDE 0.9% 250 ML IVPB ONE (12:00)
[2018-09-30] MEDS: ALPRAZolam 1 MG TAB PO SCH ×3 (12:11→20:20)
[2018-09-30] MEDS: HYDROCORTISONE 10 MG TAB PO SCH (12:11)
[2018-09-30] MEDS: FLUDROCORTISONE 0.1 MG TAB PO SCH ×2 (12:12→20:43)
[2018-09-30] MEDS: POTASSIUM CHLORIDE ER 20 MEQ TAB.ER PO SCH ×2 (16:43→20:20)
[2018-09-30] MEDS: HYDROCORTISONE 20 MG TAB PO SCH (16:43)
--- NOTE | 2018-09-30 18:10 | P.CONS ---
History of Present Illness - Reason for Consult Consult date: 09/30/18 Cancer on immune therapy Requesting physician: Sergio Suresh - Chief Complaint weakness, SOB - History of Present Illness Ms. crystal is a patient well known to primary oncologist Dr. Fuentes for treatment of her Metastatic Non-small Cell Lung Cancer, most recently on treatment with immune therapy Opdivo. Recently admitted for adrenal insufficiency in June 2018. During that admission she presented with decreased appetie, and increased weakness and fatigue. She also complained of intractable nausea and vomiting, inability to ambulate, and unable to keep food or liquids down. She presented to [facility] for further evaluation. On presentation she was hypotensive, IV Hydration, Symptom control, septic work-up with rausch cultures, and admission to ICU. She did recently start synthroid, likely related to immune reaction, a cortisol level was completed on 07/04 and was 0.7. I have ordered a baseline Cortisol, ACTH, TSH level. She was discharged under the surveillance of endocrinology and continued on hydrocortisone. She was doing well and she follow-up with Dr. Fuentes and treatment was restarted. Review of Systems A 14 point review of systems assessed and completed and all negative except HPI Past Medical History Past Medical History: COPD Additional Past Medical History / Comment(s): URINARY INCONTINENCE, WEARS DEPENDS DAILY, lung CA, post radiation. Fracture left wrist. brain nodules- radiation bed sores History of Any Multi-Drug Resistant Organisms: None Reported Past Surgical History: Cholecystectomy, Hysterectomy, Orthopedic Surgery Additional Past Surgical History / Comment(s): KARSON KNEE CAP REPLACEMENT, bronchoscopy Past Anesthesia/Blood Transfusion Reactions: No Reported Reaction Smoking Status: Former smoker - Past Family History Mother Family Medical History: Unable to Obtain Additional Family Medical History / Comment(s): . Medications and Allergies Home Medications Medication Instructions Recorded Confirmed Type Albuterol Nebulized [Ventolin 2.5 mg INHALATION RT-QID PRN 05/03/15 09/29/18 History Nebulized] Citalopram Hydrobromide [CeleXA] 40 mg PO QAM 05/03/15 09/29/18 History Umeclidinium Brm/Vilanterol Tr 1 puff INHALATION RT-DAILY 05/03/15 09/29/18 H istory [Anoro Ellipta 62.5-25 Mcg INH] Cyclobenzaprine HCl 10 mg PO HS 07/17/18 09/29/18 History Budesonide [Pulmicort] 1 mg INHALATION RT-BID nebu 07/28/18 09/29/18 Rx Furosemide [Lasix] 20 mg PO 1600 tab 07/28/18 09/29/18 Rx Furosemide [Lasix] 40 mg PO DAILY tab 07/28/18 09/29/18 Rx HYDROcodone/APAP 10-325MG [[place] 1 tab PO Q4H PRN #18 tab 07/28/18 09/29/18 Rx 10-325] Hydrocortisone [Cortef] 20 mg PO 1600 tab 07/28/18 09/29/18 Rx Hydrocortisone [Cortef] 30 mg PO DAILY tab 07/28/18 09/29/18 Rx Ipratropium Nebulized [Atrovent 0.5 mg INHALATION RT-QID nebu 07/28/18 09/29/18 Rx Nebulized 0.2 MG/ML] Pantoprazole [Protonix] 40 mg PO BID tablet. 07/28/18 09/29/18 Rx Potassium Chloride ER [K-Dur 20] 20 meq PO TID tab.er.prt 07/28/18 09/29/18 Rx ALPRAZolam [Xanax] 2 mg PO TID 09/29/18 09/29/18 History Fludrocortisone [Florinef] 0.1 mg PO BID 09/29/18 09/29/18 History Levothyroxine Sodium [Synthroid] 25 mcg PO DAILY 09/29/18 09/29/18 History Sulfamethox-Tmp 800-160Mg [Bactrim 1 tab PO BID 09/29/18 09/29/18 History DS 800-160 mg] Allergies Allergy/AdvReac Type Severity Reaction Status Date / Time cephalexin monohydrate Allergy Severe Anaphylaxis Verified 09/29/18 17:23 [From Keflex] adhesive Allergy Rash/Hives Verified 09/29/18 17:23 silicone Allergy Rash/Hives Verified 09/29/18 17:23 Physical Exam Vitals: Vital Signs Temp Pulse Pulse Resp BP BP Pulse Ox 09/30/18 16:00 98.3 F 99 18 105/40 98 09/30/18 12:00 98.1 F 103 H 20 84/40 97 09/30/18 08:00 98.2 F 94 18 101/52 100 09/30/18 03:55 98 F 100 18 106/53 96 09/30/18 01:37 93/44 09/30/18 00:00 92 20 89/45 97 09/29/18 22:13 97.7 F 99 18 104/49 98 09/29/18 21:31 101 H 18 103/42 97 09/29/18 20:43 100 18 93/42 100 09/29/18 19:39 101 H 18 91/34 100 09/29/18 18:57 103 H 18 81/37 100 09/29/18 18:15 105 H 18 93/40 100 Intake and Output 09/30/18 09/30/18 09/30/18 06:59 14:59 22:59 Intake Total 1550 940 Output Total 1000 Balance 1550 -60 Intake: Intake, IV Titration 1550 700 Amount Piperacillin-Tazobactam 3 100 100 .375 gm In Sodium Chloride 0.9% 100 ml @ 25 mls/hr IVPB Q8H [facility] Rx#: [id number] Sodium Chloride 0.9% 1, 1200 600 000 ml @ 150 mls/hr IV . Q6H40M [facility] Rx#:[id number] Vancomycin 1,500 mg In 250 Sodium Chloride 0.9% 250 ml @ 125 mls/hr IVPB ONCE ONE Rx#:[id number] Oral 240 Output: Urine 1000 Other: Voiding Method Indwelling Catheter Indwelling Catheter Weight 52 kg Head NC. NT Neck supple, no lymphadenopathy Lungs CTA Bila, lower diminished bilateral Heart Tachy Abdomen s/nd extremitiy no edema Results CBC & Chem 7: 09/29/18 16:22 10/01/18 06:17 Labs: Abnormal Lab Results - Last 24 Hours (Table) 09/29/18 09/29/18 09/29/18 Range/Units 18:00 19:40 21:09 Plasma Lactic Acid Dave 4.2 H* 4.1 H* (0.7-2.0) mmol/L Urine Appearance Cloudy H (Clear) Urine Protein 1+ H (Negative) Urine WBC 24 H (0-5) /hpf Amorphous Sediment Occasional H (None) /hpf Hyaline Casts 185 H (0-2) /lpf Urine Mucus Many H (None) /hpf 09/30/18 Range/Units 00:16 Plasma Lactic Acid Dave 2.6 H* (0.7-2.0) mmol/L Urine Appearance (Clear) Urine Protein (Negative) Urine WBC (0-5) /hpf Amorphous Sediment (None) /hpf Hyaline Casts (0-2) /lpf Urine Mucus (None) /hpf Microbiology - Last 24 Hours (Table) 09/29/18 18:00 Urine Culture - Preliminary Urine,Catheterized Assessment and Plan Plan: Metastatic Lung Cancer: On Treatment with immune therapy - Restarted and last treatment September 05 2018 - 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 Rea - Repeat MRI Brain was scheduled as outpatient, family concerned with increased shakeyness and weakness. Will repeat while inpatient Recent Admission for Adrenal Insufficiency Likely due to Immune therapy - Recheck ACTH, COrtisol level, and TSH now - Recommend Consult for Endocrinology - Continue on Hydrocortisone - If Cortisol level remains low will initiate IV Hydrocortisone 100mg q8 Thank you for allowing us to participate in the care of this patient, we will follow along Physician attestation: I have completed the full history and physicial of this patient and agree with above dictation by Abi Conklin NP. Dictated as a scribe.
[2018-09-30] MEDS: BUDESONIDE 1 MG/2 ML NEBU INHALATION SCH (19:47)
[2018-09-30] MEDS: PANTOPRAZOLE 40 MG TABLET PO SCH (20:20)
[2018-09-30] MEDS: CYCLOBENZAPRINE 10 MG TAB PO SCH (20:20)
[2018-09-30] MEDS: HYDROcodone/APAP 10-325MG 1 EACH TAB PO PRN (20:45)
[2018-10-01] MEDS: HYDROcodone/APAP 10-325MG 1 EACH TAB PO PRN (01:59)
[2018-10-01] MEDS: PIPERACILLIN-TAZOBACTAM 3.375 GM in SODIUM CHLORIDE 0.9% 100 ML IVPB SCH ×3 (03:03→20:43)
[2018-10-01] MEDS: SODIUM CHLORIDE 0.9% 1,000 ML IV SCH ×4 (03:03→22:55)
[2018-10-01] MEDS: LEVOTHYROXINE 25 MCG TAB PO SCH (05:56)
[2018-10-01 07:13] LABS: Calcium 6.8 mg/dL (8.4-10.2); Potassium 3.8 mmol/L (3.5-5.1)
[2018-10-01] MEDS: BUDESONIDE 1 MG/2 ML NEBU INHALATION SCH ×2 (08:32→20:38)
[2018-10-01] MEDS: ALPRAZolam 1 MG TAB PO SCH ×2 (08:44→09:45)
[2018-10-01] MEDS: POTASSIUM CHLORIDE ER 20 MEQ TAB.ER PO SCH ×4 (08:44→20:48)
[2018-10-01] MEDS: PANTOPRAZOLE 40 MG TABLET PO SCH ×3 (08:44→20:48)
[2018-10-01] MEDS: CITALOPRAM HYDROBROMIDE 20 MG TAB PO SCH ×2 (08:44→14:52)
[2018-10-01] MEDS: HYDROCORTISONE 10 MG TAB PO SCH ×2 (08:44→14:52)
[2018-10-01] MEDS: FLUDROCORTISONE 0.1 MG TAB PO SCH ×3 (08:49→20:48)
--- NOTE | 2018-10-01 08:53 | P.HPIM ---
History of Present Illness H&P Date: 09/30/18 Chief Complaint: Weakness This is a 67-year-old female patient of Dr. Garcia with past medical history of metastatic non-small cell lung cancer under the care of Dr. Meredith with most recent treatment with immunotherapy. 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 Patient was discharged at that time to subacute rehab. Patient was sent into the hospital by oncology for evaluation of low blood pressure and weakness. Patient came into [facility] emergency center. Patient was found to be afebrile, initial blood pressure 95/41, heart rate 100, pulse ox 96% on room air. EKG was a sinus rhythm with no acute ST changes. Electrolyte abnormalities included sodium 127, potassium 3.0, coronary 96, CO2 18. BUN was 37 and creatinine 1.81. Lactic acid was 6.6, AST 125, ALT 62, alkaline phosphatase 208. TSH 6.020. INR 2.1. Troponin negative. Influenza testing negative. Chest x-ray showed chronic emphysematous change and cardiomegaly with lateral left upper lobe neoplasm all redemonstrated. Persistent small left pleural effusion and left basilar atelectasis and/or infiltrate improved from prior. Improved aeration right lung base noted no new focal infiltrates. Patient was given IV Solu-Medrol, nebulizer treatments, started on IV Zosyn and vancomycin, consult requested with oncology and patient admitted to the cardiac stepdown unit. Lasix will currently be placed on hold as well as Bactrim. [place] catheter to be removed. Review of Systems All systems: negative Constitutional: Reports fatigue, Reports weakness, Denies chills, Denies fever, Denies poor appetite Eyes: denies blurred vision, denies pain Ears, nose, mouth and throat: Denies dysphagia, Denies headache, Denies sore throat Cardiovascular: Denies chest pain, Denies dyspnea on exertion, Denies shortness of breath, Denies syncope Respiratory: Denies cough, Denies cough with sputum, Denies dyspnea, Denies excessive sputum, Denies hemoptysis Gastrointestinal: Denies abdominal pain, Denies diarrhea, Denies loss of appetite, Denies nausea, Denies vomiting Genitourinary: Denies dysuria, Denies hematuria Musculoskeletal: Denies frequent falls, Denies myalgias Integumentary: Denies pruritus, Denies rash, Denies wounds Neurological: Denies aphasia, Denies change in mentation, Denies change in speech, Denies numbness, Denies weakness Psychiatric: Denies anxiety, Denies depression Endocrine: Denies fatigue, Denies weight change Past Medical History Past Medical History: COPD Additional Past Medical History / Comment(s): URINARY INCONTINENCE, WEARS DEPENDS DAILY, lung CA, post radiation. Fracture left wrist. brain nodules- radiation bed sores History of Any Multi-Drug Resistant Organisms: None Reported Past Surgical History: Cholecystectomy, Hysterectomy, Orthopedic Surgery Additional Past Surgical History / Comment(s): KARSON KNEE CAP REPLACEMENT, bronchoscopy Past Anesthesia/Blood Transfusion Reactions: No Reported Reaction Smoking Status: Former smoker - Past Family History Mother Family Medical History: Unable to Obtain Additional Family Medical History / Comment(s): . Medications and Allergies Home Medications Medication Instructions Recorded Confirmed Type Albuterol Nebulized [Ventolin 2.5 mg INHALATION RT-QID PRN 05/03/15 09/29/18 His tory Nebulized] Citalopram Hydrobromide [CeleXA] 40 mg PO QAM 05/03/15 09/29/18 History Umeclidinium Brm/Vilanterol Tr 1 puff INHALATION RT-DAILY 05/03/15 09/29/18 History [Anoro Ellipta 62.5-25 Mcg INH] Cyclobenzaprine HCl 10 mg PO HS 07/17/18 09/29/18 History Budesonide [Pulmicort] 1 mg INHALATION RT-BID nebu 07/28/18 09/29/18 Rx Furosemide [Lasix] 20 mg PO 1600 tab 07/28/18 09/29/18 Rx Furosemide [Lasix] 40 mg PO DAILY tab 07/28/18 09/29/18 Rx HYDROcodone/APAP 10-325MG [[place] 1 tab PO Q4H PRN #18 tab 07/28/18 09/29/18 Rx 10-325] Hydrocortisone [Cortef] 20 mg PO 1600 tab 07/28/18 09/29/18 Rx Hydrocortisone [Cortef] 30 mg PO DAILY tab 07/28/18 09/29/18 Rx Ipratropium Nebulized [Atrovent 0.5 mg INHALATION RT-QID nebu 07/28/18 09/29/18 Rx Nebulized 0.2 MG/ML] Pantoprazole [Protonix] 40 mg PO BID tablet. 07/28/18 09/29/18 Rx Potassium Chloride ER [K-Dur 20] 20 meq PO TID tab.er.prt 07/28/18 09/29/18 Rx ALPRAZolam [Xanax] 2 mg PO TID 09/29/18 09/29/18 History Fludrocortisone [Florinef] 0.1 mg PO BID 09/29/18 09/29/18 History Levothyroxine Sodium [Synthroid] 25 mcg PO DAILY 09/29/18 09/29/18 History Sulfamethox-Tmp 800-160Mg [Bactrim 1 tab PO BID 09/29/18 09/29/18 History DS 800-160 mg] Allergies Allergy/AdvReac Type Severity Reaction Status Date / Time cephalexin monohydrate Allergy Severe Anaphylaxis Verified 09/29/18 17:23 [From Keflex] adhesive Allergy Rash/Hives Verified 09/29/18 17:23 silicone Allergy Rash/Hives Verified 09/29/18 17:23 Physical Exam Vitals: Vital Signs Temp Pulse Pulse Resp BP BP Pulse Ox 09/30/18 08:00 98.2 F 94 18 101/52 100 09/30/18 03:55 98 F 100 18 106/53 96 09/30/18 01:37 93/44 09/30/18 00:00 92 20 89/45 97 09/29/18 22:13 97.7 F 99 18 104/49 98 09/29/18 21:31 101 H 18 103/42 97 09/29/18 20:43 100 18 93/42 100 09/29/18 19:39 101 H 18 91/34 100 09/29/18 18:57 103 H 18 81/37 100 09/29/18 18:15 105 H 18 93/40 100 09/29/18 17:58 101 H 20 83/40 100 09/29/18 17:04 98 18 88/60 100 09/29/18 16:22 99 18 90/37 98 09/29/18 16:00 97.5 F L 100 18 95/41 96 Intake and Output 09/29/18 09/30/1819 22:59 06:59 14:59 Intake Total 1550 Output Total 200 Balance -200 1550 Intake: Intake, IV Titration 1550 Amount Piperacillin-Tazobactam 3 100 .375 gm In Sodium Chloride 0.9% 100 ml @ 25 mls/hr IVPB Q8H [facility] Rx#: [id number] Sodium Chloride 0.9% 1, 1200 000 ml @ 150 mls/hr IV . Q6H40M [facility] Rx#:[id number] Vancomycin 1,500 mg In 250 Sodium Chloride 0.9% 250 ml @ 125 mls/hr IVPB ONCE ONE Rx#:[id number] Output: Urine 200 Uretheral ([place]) 200 Other: Voiding Method Indwelling Catheter Weight 94.801 kg 52 kg Gen: This is a 67-year-old female. She is resting in bed appears to be comfortable and in no acute distress. HEENT: Head is atraumatic, normocephalic. Pupils equal, round. Sclerae is anicteric. NECK: Supple. No JVD. No lymphadenopathy. No thyromegaly. LUNGS: Clear to auscultation. No wheezes or rhonchi. No intercostal retractions. HEART: Regular rate and rhythm. Systolic murmur. ABDOMEN: Soft. Bowel sounds are present. No masses. No tenderness. EXTREMITIES: No pedal edema. No calf tenderness. NEUROLOGICAL: Patient is awake, alert and oriented x3. Cranial nerves 2 through 12 are grossly intact. Results CBC & Chem 7: 09/29/18 16:22 10/01/18 06:17 Labs: Abnormal Lab Results - Last 24 Hours (Table) 09/29/18 09/29/18 09/29/18 Range/Units 16:22 16:22 16:22 RBC 3.67 L (3.80-5.40) m/uL RDW 16.0 H (11.5-15.5) % Lymphocytes # (Manual) 0.92 L (1.0-4.8) k/uL PT (9.0-12.0) sec INR (<1.2) APTT (22.0-30.0) sec Sodium 127 L (137-145) mmol/L Potassium 3.0 L (3.5-5.1) mmol/L Chloride 96 L (98-107) mmol/L Carbon Dioxide 18 L (22-30) mmol/L BUN 37 H (7-17) mg/dL Creatinine 1.81 H (0.52-1.04) mg/dL Glucose 106 H (74-99) mg/dL Plasma Lactic Acid Dave 6.6 H* (0.7-2.0) mmol/L Calcium 7.4 L (8.4-10.2) mg/dL AST 125 H (14-36) U/L ALT 62 H (9-52) U/L Alkaline Phosphatase 208 H (38-126) U/L Total Protein 4.8 L (6.3-8.2) g/dL Albumin 2.1 L (3.5-5.0) g/dL TSH 6.020 H (0.465-4.680) mIU/L Urine Appearance (Clear) Urine Protein (Negative) Urine WBC (0-5) /hpf Amorphous Sediment (None) /hpf Hyaline Casts (0-2) /lpf Urine Mucus (None) /hpf 09/29/18 09/29/18 09/29/18 Range/Units 16:22 18:00 19:40 RBC (3.80-5.40) m/uL RDW (11.5-15.5) % Lymphocytes # (Manual) (1.0-4.8) k/uL PT 20.4 H (9.0-12.0) sec INR 2.1 H (<1.2) APTT 36.3 H (22.0-30.0) sec Sodium (137-145) mmol/L Potassium (3.5-5.1) mmol/L Chloride (98-107) mmol/L Carbon Dioxide (22-30) mmol/L BUN (7-17) mg/dL Creatinine (0.52-1.04) mg/dL Glucose (74-99) mg/dL Plasma Lactic Acid Dave 4.2 H* (0.7-2.0) mmol/L Calcium (8.4-10.2) mg/dL AST (14-36) U/L ALT (9-52) U/L Alkaline Phosphatase (38-126) U/L Total Protein (6.3-8.2) g/dL Albumin (3.5-5.0) g/dL TSH (0.465-4.680) mIU/L Urine Appearance Cloudy H (Clear) Urine Protein 1+ H (Negative) Urine WBC 24 H (0-5) /hpf Amorphous Sediment Occasional H (None) /hpf Hyaline Casts 185 H (0-2) /lpf Urine Mucus Many H (None) /hpf 09/29/18 09/30/18 Range/Units 21:09 00:16 RBC (3.80-5.40) m/uL RDW (11.5-15.5) % Lymphocytes # (Manual) (1.0-4.8) k/uL PT (9.0-12.0) sec INR (<1.2) APTT (22.0-30.0) sec Sodium (137-145) mmol/L Potassium (3.5-5.1) mmol/L Chloride (98-107) mmol/L Carbon Dioxide (22-30) mmol/L BUN (7-17) mg/dL Creatinine (0.52-1.04) mg/dL Glucose (74-99) mg/dL Plasma Lactic Acid Dave 4.1 H* 2.6 H* (0.7-2.0) mmol/L Calcium (8.4-10.2) mg/dL AST (14-36) U/L ALT (9-52) U/L Alkaline Phosphatase (38-126) U/L Total Protein (6.3-8.2) g/dL Albumin (3.5-5.0) g/dL TSH (0.465-4.680) mIU/L Urine Appearance (Clear) Urine Protein (Negative) Urine WBC (0-5) /hpf Amorphous Sediment (None) /hpf Hyaline Casts (0-2) /lpf Urine Mucus (None) /hpf Microbiology - Last 24 Hours (Table) 09/29/18 18:00 Urine Culture - Preliminary Urine,Catheterized Thrombosis Risk Factor Assmnt - DVT/VTE Prophylaxis DVT/VTE Prophylaxis: Pharmacologic Prophylaxis ordered - Choose All That Apply Any of the Below Risk Factors Present?: Yes Each Factor Represents 1 point: Abnormal pulmonary function (COPD), Obesity (BMI >25) Other Risk Factors: Yes Each Risk Factor Represents 2 Points: Age 61-74 years Thrombosis Risk Factor Assessment Total Risk Factor Score: 4 Thrombosis Risk Factor Assessment Level: Moderate Risk Assessment and Plan Plan: 1. Generalized weakness and hypotension secondary to dehydration. Continue IV fluids at 100 mL per hour.. 2. Acute kidney injury secondary to dehydration. Continue IV fluids, recheck electrolytes and kidney function. 3. Metastatic non-small cell lung cancer under the care of Dr. Meredith. Oncology consult. 4. Chronic lower extremity cellulitis with scabbing. No signs of infection. Continue vancomycin. 5. Sacral decubitus ulcer stage II, present on admission. Continue local wound care. Continue vancomycin and Zosyn. 6. Coagulopathy. INR 2.1. Consult with oncology. 7. Electrolyte abnormalities including hyponatremia, hypokalemia, hypochloremia with metabolic acidosis. Continue IV fluids. 8. Lactic acidosis. Continue IV fluid resuscitation. Continue Zosyn and vancomycin. 9. Hypothyroidism. Continue levothyroxine. 10. COPD, stable. Continue DuoNeb treatments, Pulmicort. 11. Recurrent depression. Continue Celexa 40 mg in the morning. 12. Chronic pain syndrome. Continue [place], Flexeril. 13. 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 Oncology consult appreciated continue Cortef. 14. GI prophylaxis. Protonix. 15. DVT prophylaxis. Lovenox subcu. Patient will be admitted to the hospital for a minimum of 2 night stay. Discharge plan: To be determined. Impression and plan of care have been directed as dictated by the signing physician. Dianelys Barrios nurse practitioner acting as scribe for signing physician.
[2018-10-01] MEDS ORDERED: ENOXAPARIN 30 MG/0.3 ML SYRINGE SQ SCH (09:00)
[2018-10-01 09:15] LABS: Vancomycin,Random 13.3 ug/mL
[2018-10-01] MEDS ORDERED: NALOXONE 0.4 MG/ML 1 ML VIAL IV STA (10:45)
[2018-10-01] MEDS ORDERED: CALCIUM GLUCONATE 2 GM in SODIUM CHLORIDE 0.9% 100 ML IVPB ONE (11:00)
[2018-10-01] MEDS: VANCOMYCIN 1,500 MG in SODIUM CHLORIDE 0.9% 250 ML IVPB SCH (11:01)
--- NOTE | 2018-10-01 11:39 | P.PN ---
Subjective Progress Note Date: 10/01/18 This is a 67-year-old female patient of Dr. Garcia with past medical history of metastatic non-small cell lung cancer under the care of Dr. Meredith with most recent treatment with immunotherapy. 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 Patient was discharged at that time to subacute rehab. Patient was sent into the hospital by oncology for evaluation of low blood pressure and weakness. Patient came into [facility] emergency center. Patient was found to be afebrile, initial blood pressure 95/41, heart rate 100, pulse ox 96% on room air. EKG was a sinus rhythm with no acute ST changes. Electrolyte abnormalities included sodium 127, potassium 3.0, coronary 96, CO2 18. BUN was 37 and creatinine 1.81. Lactic acid was 6.6, AST 125, ALT 62, alkaline phosphatase 208. TSH 6.020. INR 2.1. Troponin negative. Influenza testing negative. Chest x-ray showed chronic emphysematous change and cardiomegaly with lateral left upper lobe neoplasm all redemonstrated. Persistent small left pleural effusion and left basilar atelectasis and/or infiltrate improved from prior. Improved aeration right lung base noted no new focal infiltrates. Patient was given IV Solu-Medrol, nebulizer treatments, started on IV Zosyn and vancomycin, consult requested with oncology and patient admitted to the cardiac stepdown unit. Lasix will currently be placed on hold as well as Bactrim. [place] catheter to be removed. 10/01: This morning, patient has minimal response to sternal rub. According to nursing staff, patient was up earlier for her bath and thought to be okay. She was thought to be sleepy since then the patient is much different from her baseline. She has been afebrile. Heart rate in the 90s, blood pressure 104/62, pulse ox 96% on 3 L. Patient did receive her home dose of [place] and Xanax last evening/caser up. Noted that her lab work was significantly improved from yesterday. Patient was provided Narcan 0.4 mg IV with improvement of her mental status and patient able to speak to us but remains groggy. Stat ABGs, lactic acid, ammonia level, troponin. Stat EKG was a sinus rhythm with no acute changes. Review of Systems - unable to obtain due to patient's mental status. Objective - Vital Signs Vital signs: Vital Signs Temp 97.4 F L 10/01/18 07:48 Pulse 90 10/01/18 07:48 Resp 22 10/01/18 07:48 BP 104/62 10/01/18 07:48 Pulse Ox 96 10/01/18 07:48 Intake & Output 09/30/18 10/01/18 10/01/18 18:59 06:59 18:59 Intake Total 940 1190 Output Total 1000 Balance -60 1190 Weight 53.8 kg Intake: Intake, IV Titration 700 950 Amount Piperacillin-Tazobactam 3 100 200 .375 gm In Sodium Chloride 0.9% 100 ml @ 25 mls/hr IVPB Q8H TAL Rx#: [id number] Sodium Chloride 0.9% 1, 600 750 000 ml @ 150 mls/hr IV . Q6H40M TAL Rx#:[id number] Oral 240 240 Output: Urine 1000 Other: Voiding Method Indwelling Catheter Diaper Diaper Incontinent Incontinent # Voids 1 - Exam Gen: This is a 67-year-old female. She is resting in bed and is responsive to sternal rub minimally. More responsive after Narcan but continues to be groggy.. HEENT: Head is atraumatic, normocephalic. Pupils equal, round. Sclerae is anicteric. NECK: Supple. No JVD. No lymphadenopathy. No thyromegaly. LUNGS: Clear to auscultation. No wheezes or rhonchi. No intercostal retractions. HEART: Regular rate and rhythm. Systolic murmur. ABDOMEN: Soft. Bowel sounds are present. No masses. No tenderness. EXTREMITIES: No pedal edema. No calf tenderness. Scabs noted on the right lower extremity. No significant erythema. NEUROLOGICAL: Patient is awake, alert and oriented x3. Cranial nerves 2 through 12 are grossly intact. - Labs CBC & Chem 7: 09/29/18 16:22 10/01/18 06:17 Labs: Abnormal Lab Results - Last 24 Hours (Table) 10/01/18 Range/Units 06:17 Sodium 132 L (137-145) mmol/L Chloride 109 H (98-107) mmol/L Carbon Dioxide 20 L (22-30) mmol/L BUN 27 H (7-17) mg/dL Creatinine 1.08 H (0.52-1.04) mg/dL Glucose 147 H (74-99) mg/dL Calcium 6.8 L (8.4-10.2) mg/dL Microbiology - Last 24 Hours (Table) 09/29/18 18:00 Urine Culture - Final Urine,Catheterized 09/29/18 Unknown Blood Culture - Preliminary Blood No Growth after 24 hours Assessment and Plan Plan: 1. Generalized weakness and hypotension secondary to dehydration. Continue IV fluids at 100 mL per hour.. 2. Acute kidney injury secondary to dehydration. Continue IV fluids, recheck electrolytes and kidney function. 3. Metastatic non-small cell lung cancer under the care of Dr. Meredith. Oncology consult. 4. Chronic lower extremity cellulitis with scabbing. No signs of infection. Continue vancomycin. 5. Sacral decubitus ulcer stage II, present on admission. Continue local wound care. Continue vancomycin and Zosyn. 6. Coagulopathy. INR 2.1. Consult with oncology. 7. Electrolyte abnormalities including hyponatremia, hypokalemia, hypochloremia with metabolic acidosis. Continue IV fluids. 8. Lactic acidosis. Continue IV fluid resuscitation. Continue Zosyn and vancomycin. 9. Possible gram-negative pneumonia, present on admission. Patient started on Zosyn and vancomycin. 10. Hypothyroidism. Continue levothyroxine. 11. COPD, stable. Continue DuoNeb treatments, Pulmicort. 12. Recurrent depression. Continue Celexa 40 mg in the morning. 13. Chronic pain syndrome. Continue Vance, Flexeril. 14. 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 Oncology consult appreciated continue Cortef. 15. GI prophylaxis. Protonix. 16. DVT prophylaxis. Lovenox subcu. 17. Acute toxic encephalopathy secondary to medication effect. Patient responded to Narcan. Xanax and Vance discontinued. Toradol started for pain control. Discharge plan: Most likely return home Impression and plan of care have been directed as dictated by the signing physician. Dianelys Barrios nurse practitioner acting as scribe for signing physician.
[2018-10-01 13:24] LABS: ABG Base Excess -4.8 mmol/L; ABG HCO3 22 mmol/L (21-25); ABG PCO2 47 mmHg (35-45); ABG PH 7.28 (7.35-7.45); ABG PO2 105 mmHg (83-108); ABG TCO2 23 mmol/L (19-24)
[2018-10-01] MEDS: IPRATROPIUM-ALBUTEROL 3 ML NEB INHALATION SCH ×2 (16:54→20:38)
[2018-10-01] MEDS: HYDROCORTISONE 20 MG TAB PO SCH (17:35)
[2018-10-01] MEDS: CYCLOBENZAPRINE 10 MG TAB PO SCH (20:48)
--- NOTE | 2018-10-02 00:37 | P.PN ---
Subjective Progress Note Date: 10/01/18 Principal diagnosis: Tachycardia weakness Cortisol levels 8 on PO Hydrocortisone, Will initiate Stress dose and continued IV Hydrocortisone. Objective - Vital Signs Vital signs: Vital Signs Temp 97.1 F L 10/01/18 23:14 Pulse 96 10/01/18 23:30 Resp 18 10/01/18 23:30 BP 97/53 10/01/18 23:14 Pulse Ox 100 10/01/18 23:14 Intake & Output 10/01/18 10/01/18 10/02/18 06:59 18:59 06:59 Intake Total 1190 Output Total 600 Balance 1190 -600 Weight 53.8 kg Intake: Intake, IV Titration 950 Amount Piperacillin-Tazobactam 3 200 .375 gm In Sodium Chloride 0.9% 100 ml @ 25 mls/hr IVPB Q8H TAL Rx#: [id number] Sodium Chloride 0.9% 1, 750 000 ml @ 150 mls/hr IV . Q6H40M TAL Rx#:[id number] Oral 240 Output: Urine 600 Other: Voiding Method Diaper Diaper Diaper Incontinent Incontinent Incontinent # Voids 1 2 # Bowel Movements 0 - Exam Gen: Alert still sleepy Head: NCNT NEck: Supple Lungs: DIminished bibasilar, no increased effort Heart: RRR S1s2 Abdomen: S, NT Ext: Edema mild bilat - Labs CBC & Chem 7: 09/29/18 16:22 10/02/18 07:38 Labs: Abnormal Lab Results - Last 24 Hours (Table) 10/01/18 10/01/18 Range/Units 06:17 13:20 ABG pH 7.28 L (7.35-7.45) ABG pCO2 47 H (35-45) mmHg ABG O2 Saturation 98.0 H (94-97) % Sodium 132 L (137-145) mmol/L Chloride 109 H (98-107) mmol/L Carbon Dioxide 20 L (22-30) mmol/L BUN 27 H (7-17) mg/dL Creatinine 1.08 H (0.52-1.04) mg/dL Glucose 147 H (74-99) mg/dL Calcium 6.8 L (8.4-10.2) mg/dL Microbiology - Last 24 Hours (Table) 09/29/18 Unknown Blood Culture - Preliminary Blood No Growth after 48 hours 09/29/18 18:00 Urine Culture - Final Urine,Catheterized Assessment and Plan Plan: Metastatic Lung Cancer: On Treatment with immune therapy - Restarted and last treatment September 05 2018 - 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 Rea - Repeat MRI Brain was scheduled as outpatient, family concerned with increased shakeyness and weakness. Will repeat while inpatient Recent Admission for Adrenal Insufficiency Likely due to Immune therapy - Recheck ACTH, COrtisol level, and TSH now - Recommend Consult for Endocrinology - Continue on Hydrocortisone - If Cortisol level remains low will initiate IV Hydrocortisone 100mg q8 Thank you for allowing us to participate in the care of this patient, we will follow along Physician attestation: I have completed the full history and physicial of this patient and agree with above dictation by Abi Conklin NP. Dictated as a scribe.
[2018-10-02] MEDS: PIPERACILLIN-TAZOBACTAM 3.375 GM in SODIUM CHLORIDE 0.9% 100 ML IVPB SCH ×3 (04:57→20:13)
[2018-10-02] MEDS: SODIUM CHLORIDE 0.9% 1,000 ML IV SCH ×2 (04:57→12:58)
[2018-10-02] MEDS: LEVOTHYROXINE 25 MCG TAB PO SCH (06:29)
[2018-10-02 08:24] LABS: Anion Gap 2 mmol/L; Blood Urea Nitrogen 20 mg/dL (7-17); Calcium 7.3 mg/dL (8.4-10.2); Carbon Dioxide 23 mmol/L (22-30); Chloride 113 mmol/L (98-107); Glucose 65 mg/dL (74-99); Potassium 3.2 mmol/L (3.5-5.1); Sodium 138 mmol/L (137-145)
[2018-10-02] MEDS: BUDESONIDE 1 MG/2 ML NEBU INHALATION SCH ×2 (08:24→20:43)
[2018-10-02] MEDS: IPRATROPIUM-ALBUTEROL 3 ML NEB INHALATION SCH ×3 (08:24→20:43)
[2018-10-02] MEDS: CITALOPRAM HYDROBROMIDE 20 MG TAB PO SCH (09:02)
[2018-10-02] MEDS: FLUDROCORTISONE 0.1 MG TAB PO SCH ×2 (09:02→21:21)
[2018-10-02] MEDS: POTASSIUM CHLORIDE ER 20 MEQ TAB.ER PO SCH ×3 (09:04→21:22)
[2018-10-02] MEDS: PANTOPRAZOLE 40 MG TABLET PO SCH ×2 (09:04→21:22)
[2018-10-02] MEDS: VANCOMYCIN 1,500 MG in SODIUM CHLORIDE 0.9% 250 ML IVPB SCH (09:05)
[2018-10-02] MEDS: ENOXAPARIN 40 MG/0.4 ML SYRINGE SQ SCH (09:05)
[2018-10-02] MEDS: HYDROCORTISONE 10 MG TAB PO SCH (09:06)
--- NOTE | 2018-10-02 11:10 | XR ---
EXAMINATION TYPE: XR chest 1V portable DATE OF EXAM: 10/02/2018 CLINICAL HISTORY: History of lung cancer with hypotension and weakness.. TECHNIQUE: Single AP portable upright view of the chest is obtained. COMPARISON: Chest x-ray from 3 days earlier and older studies. CTA chest July 23, 2018. FINDINGS: Old left lateral fourth and fifth rib fractures are less well seen. There is persistent ca rdiomegaly with atherosclerotic thoracic aorta. There is patchy right basilar opacity. There is backg round chronic emphysematous change. There is persistent lateral left apical masslike consolidation or neoplasm. There is persistent right basilar opacity IMPRESSION: Chronic emphysematous change and cardiomegaly with left greater than right bibasilar infi ltrate and/or atelectasis more prominent or worse from most recent x-ray. Persistent lateral left upp er lung masslike consolidation or neoplasm.
[2018-10-02] MEDS ORDERED: POTASSIUM CHLORIDE ER 20 MEQ TAB.ER PO STA (14:12)
--- NOTE | 2018-10-02 14:21 | P.PN ---
Subjective Progress Note Date: 10/02/18 This is a 67-year-old female patient of Dr. Garcia with past medical history of metastatic non-small cell lung cancer under the care of Dr. Meredith with most recent treatment with immunotherapy. 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 Patient was discharged at that time to subacute rehab. Patient was sent into the hospital by oncology for evaluation of low blood pressure and weakness. Patient came into [facility] emergency center. Patient was found to be afebrile, initial blood pressure 95/41, heart rate 100, pulse ox 96% on room air. EKG was a sinus rhythm with no acute ST changes. Electrolyte abnormalities included sodium 127, potassium 3.0, coronary 96, CO2 18. BUN was 37 and creatinine 1.81. Lactic acid was 6.6, AST 125, ALT 62, alkaline phosphatase 208. TSH 6.020. INR 2.1. Troponin negative. Influenza testing negative. Chest x-ray showed chronic emphysematous change and cardiomegaly with lateral left upper lobe neoplasm all redemonstrated. Persistent small left pleural effusion and left basilar atelectasis and/or infiltrate improved from prior. Improved aeration right lung base noted no new focal infiltrates. Patient was given IV Solu-Medrol, nebulizer treatments, started on IV Zosyn and vancomycin, consult requested with oncology and patient admitted to the cardiac stepdown unit. Lasix will currently be placed on hold as well as Bactrim. [place] catheter to be removed. 10/01: This morning, patient has minimal response to sternal rub. According to nursing staff, patient was up earlier for her bath and thought to be okay. She was thought to be sleepy since then the patient is much different from her baseline. She has been afebrile. Heart rate in the 90s, blood pressure 104/62, pulse ox 96% on 3 L. Patient did receive her home dose of [place] and Xanax last evening/yarn spooler. Noted that her lab work was significantly improved from yesterday. Patient was provided Narcan 0.4 mg IV with improvement of her mental status and patient able to speak to us but remains groggy. Stat ABGs, lactic acid, ammonia level, troponin. Stat EKG was a sinus rhythm with no acute changes. 10/02: Patient is responsive today and lethargic but answers and follows commands as appropriate. Ammonia level, troponin and ABGs were essentially normal. Repeat lab work this morning shows a potassium was 3.2, creatinine 0.74, cortisol level 1. Patient missed several doses of potassium yesterday. Patient is currently on oral hydrocortisone which will be discontinued and patient started on IV Solu-Cortef 100 mg 3 times daily. Patient has been afebrile, heart rate 96-109, blood pressure 111/61, pulse ox 97% on 3 L nasal cannula. Patient's discharge plan has been to return home with her but she is currently a total assist. We will plan to reevaluate tomorrow and discuss with patient's . Patient has been at [facility] in the past. Review of Systems - unable to obtain due to patient's mental status. Objective - Vital Signs Vital signs: Vital Signs Temp 98.8 F 10/02/18 08:00 Pulse 100 10/02/18 08:26 Resp 18 10/02/18 08:00 BP 110/53 10/02/18 08:00 Pulse Ox 100 10/02/18 08:00 Intake & Output 10/01/18 10/02/18 10/02/18 18:59 06:59 18:59 Output Total 1000 Balance -1000 Weight 53.7 kg Output: Urine 1000 Other: Voiding Method Diaper Diaper Diaper Incontinent Incontinent Incontinent # Voids 2 # Bowel Movements 0 - Exam Gen: This is a 67-year-old female. She is resting in bed and is responsive to verbal stimuli. HEENT: Head is atraumatic, normocephalic. Pupils equal, round. Sclerae is anicteric. NECK: Supple. No JVD. No lymphadenopathy. No thyromegaly. LUNGS: Clear to auscultation. No wheezes or rhonchi. No intercostal retractions. HEART: Regular rate and rhythm. Systolic murmur. ABDOMEN: Soft. Bowel sounds are present. No masses. No tenderness. EXTREMITIES: No pedal edema. No calf tenderness. Scabs noted on the right lower extremity. No significant erythema. NEUROLOGICAL: Patient is awake, alert and oriented x3. Patient is able to nod to answer questions, follow directions. Answers are appropriate. - Labs CBC & Chem 7: 09/29/18 16:22 10/02/18 07:38 Labs: Abnormal Lab Results - Last 24 Hours (Table) 10/01/18 10/02/18 Range/Units 13:20 07:38 ABG pH 7.28 L (7.35-7.45) ABG pCO2 47 H (35-45) mmHg ABG O2 Saturation 98.0 H (94-97) % Potassium 3.2 L (3.5-5.1) mmol/L Chloride 113 H (98-107) mmol/L BUN 20 H (7-17) mg/dL Glucose 65 L (74-99) mg/dL Calcium 7.3 L (8.4-10.2) mg/dL Microbiology - Last 24 Hours (Table) 09/29/18 Unknown Blood Culture - Preliminary Blood No Growth after 48 hours Assessment and Plan Plan: 1. Generalized weakness and hypotension secondary to dehydration. Continue IV fluids decreased to 60 mL per hour.. 2. Acute kidney injury secondary to dehydration. Continue IV fluids, recheck e lectrolytes and kidney function. 3. Metastatic non-small cell lung cancer under the care of Dr. Meredith. Oncology consult. 4. Chronic lower extremity cellulitis with scabbing. No signs of infection. Continue vancomycin. 5. Sacral decubitus ulcer stage II, present on admission. Continue local wound care. Continue vancomycin and Zosyn. 6. Coagulopathy. INR 2.1. Consult with oncology. 7. Electrolyte abnormalities including hyponatremia, hypokalemia, hypochloremia with metabolic acidosis. Continue IV fluids. 8. Lactic acidosis. Continue IV fluid resuscitation. Continue Zosyn and vancomycin. 9. Possible gram-negative pneumonia, present on admission. Patient started on Zosyn and vancomycin. 10. Hypothyroidism. Continue levothyroxine. 11. COPD, stable. Continue DuoNeb treatments, Pulmicort. 12. Recurrent depression. Continue Celexa 40 mg in the morning. 13. Chronic pain syndrome. Continue [place], Flexeril. 14. 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 Oncology consult appreciated. Cortef changed to IV Solu-Cortef 100 mg 3 times daily. 15. GI prophylaxis. Protonix. 16. DVT prophylaxis. Lovenox subcu. 17. Acute toxic encephalopathy secondary to possible medication effect. Patient responded to Narcan. Xanax and [place] discontinued. Toradol started for pain control. Discharge plan: Most likely return home but patient may require subacute rehab if mental status does not improve. Impression and plan of care have been directed as dictated by the signing physician. Dianelys Barrios nurse practitioner acting as scribe for signing physician.
[2018-10-02] MEDS: HYDROCORTISONE SUCCINATE 100 MG/2 ML VIAL IV SCH ×2 (14:59→23:36)
[2018-10-02] MEDS: CYCLOBENZAPRINE 10 MG TAB PO SCH (21:21)
--- NOTE | 2018-10-02 22:32 | P.PN ---
Subjective Progress Note Date: 10/02/18 Principal diagnosis: Tachycardia weakness Cortisol levels 1 today, blood pressure lower 90s/70s and HR Elevated. Initiation of IV Steroids for adrenal insufficiency. She is still quit lethargic during todays interview. no acute complaints overnight. Objective - Vital Signs Vital signs: Vital Signs Temp 98.5 F 10/02/18 20:00 Pulse 99 10/02/18 21:02 Resp 18 10/02/18 20:00 BP 96/60 10/02/18 20:00 Pulse Ox 96 10/02/18 20:44 Intake & Output 10/02/18 10/02/18 10/03/18 06:59 18:59 06:59 Output Total 1000 400 Balance -1000 -400 Weight 53.7 kg Output: Urine 1000 400 Other: Voiding Method Diaper Indwelling Catheter Indwelling Catheter Incontinent - Exam Gen: Alert still sleepy Head: NCNT NEck: Supple Lungs: DIminished bibasilar, no increased effort Heart: RRR S1s2 Abdomen: S, NT Ext: Edema mild bilat - Labs CBC & Chem 7: 09/29/18 16:22 10/02/18 07:38 Labs: Abnormal Lab Results - Last 24 Hours (Table) 10/02/18 Range/Units 07:38 Potassium 3.2 L (3.5-5.1) mmol/L Chloride 113 H (98-107) mmol/L BUN 20 H (7-17) mg/dL Glucose 65 L (74-99) mg/dL Calcium 7.3 L (8.4-10.2) mg/dL Microbiology - Last 24 Hours (Table) 09/29/18 Unknown Blood Culture - Preliminary Blood No Growth after 72 hours Assessment and Plan Plan: Metastatic Lung Cancer: On Treatment with immune therapy - Restarted and last treatment September 05 2018 - 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 Rea - Repeat MRI Brain was scheduled as outpatient, family concerned with increased shakeyness and weak ness. Will repeat while inpatient Recent Admission for Adrenal Insufficiency Likely due to Immune therapy - Reviewed cortisol levels and vistals, initiation of IV Hydrocortisone 100mg q8 - Consult for Endocrinology Thank you for allowing us to participate in the care of this patient, we will garrett espinoza along Physician attestation: I have completed the full history and physicial of this patient and agree with above dictation by Abi Conklin NP. Dictated as a scribe.
[2018-10-03] MEDS: PIPERACILLIN-TAZOBACTAM 3.375 GM in SODIUM CHLORIDE 0.9% 100 ML IVPB SCH ×3 (04:33→21:37)
[2018-10-03] MEDS: LEVOTHYROXINE 25 MCG TAB PO SCH (06:09)
[2018-10-03] MEDS: SODIUM CHLORIDE 0.9% 1,000 ML IV SCH ×2 (06:09→21:38)
[2018-10-03] MEDS: FLUDROCORTISONE 0.1 MG TAB PO SCH ×2 (07:35→21:37)
[2018-10-03] MEDS: VANCOMYCIN 1,500 MG in SODIUM CHLORIDE 0.9% 250 ML IVPB SCH ×2 (07:35→21:38)
[2018-10-03] MEDS: ENOXAPARIN 40 MG/0.4 ML SYRINGE SQ SCH (07:35)
[2018-10-03] MEDS: CITALOPRAM HYDROBROMIDE 20 MG TAB PO SCH (07:35)
[2018-10-03] MEDS: HYDROCORTISONE SUCCINATE 100 MG/2 ML VIAL IV SCH ×3 (07:36→23:54)
[2018-10-03] MEDS: POTASSIUM CHLORIDE ER 20 MEQ TAB.ER PO SCH ×3 (07:36→21:38)
[2018-10-03] MEDS: PANTOPRAZOLE 40 MG TABLET PO SCH ×2 (07:36→21:38)
[2018-10-03 08:05] LABS: Anion Gap 1 mmol/L; Blood Urea Nitrogen 19 mg/dL (7-17); Calcium 7.8 mg/dL (8.4-10.2); Carbon Dioxide 22 mmol/L (22-30); Chloride 117 mmol/L (98-107); Glucose 129 mg/dL (74-99); Potassium 3.9 mmol/L (3.5-5.1); Sodium 140 mmol/L (137-145)
[2018-10-03] MEDS: IPRATROPIUM-ALBUTEROL 3 ML NEB INHALATION SCH ×3 (09:24→20:14)
[2018-10-03] MEDS: BUDESONIDE 1 MG/2 ML NEBU INHALATION SCH ×2 (10:06→20:14)
[2018-10-03 11:42] LABS: Glucose,Whole Blood 169 mg/dL (75-99)
[2018-10-03] MEDS: KETOROLAC 30 MG/ML 1 ML VIAL IVP PRN (12:17)
--- NOTE | 2018-10-03 13:01 | P.PN ---
Subjective Progress Note Date: 10/03/18 This is a 67-year-old female patient of Dr. Garcia with past medical history of metastatic non-small cell lung cancer under the care of Dr. Meredith with most recent treatment with immunotherapy. 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 Patient was discharged at that time to subacute rehab. Patient was sent into the hospital by oncology for evaluation of low blood pressure and weakness. Patient came into [facility] emergency center. Patient was found to be afebrile, initial blood pressure 95/41, heart rate 100, pulse ox 96% on room air. EKG was a sinus rhythm with no acute ST changes. Electrolyte abnormalities included sodium 127, potassium 3.0, coronary 96, CO2 18. BUN was 37 and creatinine 1.81. Lactic acid was 6.6, AST 125, ALT 62, alkaline phosphatase 208. TSH 6.020. INR 2.1. Troponin negative. Influenza testing negative. Chest x-ray showed chronic emphysematous change and cardiomegaly with lateral left upper lobe neoplasm all redemonstrated. Persistent small left pleural effusion and left basilar atelectasis and/or infiltrate improved from prior. Improved aeration right lung base noted no new focal infiltrates. Patient was given IV Solu-Medrol, nebulizer treatments, started on IV Zosyn and vancomycin, consult requested with oncology and patient admitted to the cardiac stepdown unit. Lasix will currently be placed on hold as well as Bactrim. [place] catheter to be removed. 10/01: This morning, patient has minimal response to sternal rub. According to nursing staff, patient was up earlier for her bath and thought to be okay. She was thought to be sleepy since then the patient is much different from her baseline. She has been afebrile. Heart rate in the 90s, blood pressure 104/62, pulse ox 96% on 3 L. 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 Noted that her lab work was significantly improved from yesterday. Patient was provided Narcan 0.4 mg IV with improvement of her mental status and patient able to speak to us but remains groggy. Stat ABGs, lactic acid, ammonia level, troponin. Stat EKG was a sinus rhythm with no acute changes. 10/02: Patient is responsive today and lethargic but answers and follows commands as appropriate. Ammonia level, troponin and ABGs were essentially normal. Repeat lab work this morning shows a potassium was 3.2, creatinine 0.74, cortisol level 1. Patient missed several doses of potassium yesterday. Patient is currently on oral hydrocortisone which will be discontinued and patient started on IV Solu-Cortef 100 mg 3 times daily. Patient has been afebrile, heart rate 96-109, blood pressure 111/61, pulse ox 97% on 3 L nasal cannula. Patient's discharge plan has been to return home with her but she is currently a total assist. We will plan to reevaluate tomorrow and discuss with patient's . Patient has been at [facility] in the past. 10/03: Last evening, patient's mental status deteriorated and MRI of the brain has been ordered which will be done today. This morning however, patient is much more alert and getting closer to her baseline. She is able to answer quest ions appropriately and follow directions. Patient is noted to have severe weakness bilaterally. No focal neuro deficits are noted. Patient did eat and drink well this morning for breakfast. We did start IV Solu-Cortef yesterday afternoon. She has been afebrile, heart rate 100, blood pressure 118/63, pulse ox 99% on 3 L nasal cannula. Anticipate patient will be here over the weekend. Patient's , Eduardo, has been contacted at his home number and updated on patient's current condition and plan of care. Review of Systems - unable to obtain due to patient's mental status. Objective - Vital Signs Vital signs: Vital Signs Temp 97.2 F L 10/03/18 07:32 Pulse 104 H 10/03/18 09:55 Resp 16 10/03/18 09:26 BP 136/71 10/03/18 07:32 Pulse Ox 99 10/03/18 09:26 Intake & Output 10/02/18 10/03/18 10/03/18 18:59 06:59 18:59 Intake Total 90 Output Total 400 365 Balance -400 -365 90 Weight 104.5 kg 104.5 kg Intake: Oral 90 Output: Urine 400 365 Other: Voiding Method Indwelling Catheter Indwelling Catheter Indwelling Catheter - Exam Gen: This is a 67-year-old female. She is resting in bed and is responsive to verbal stimuli and able to follow commands and answer simple questions. Her mental status is not back to her baseline. Generalized weakness noted. HEENT: Head is atraumatic, normocephalic. Pupils equal, round. Sclerae is anicteric. NECK: Supple. No JVD. No lymphadenopathy. No thyromegaly. LUNGS: Clear to auscultation. No wheezes or rhonchi. No intercostal retracti ons. HEART: Regular rate and rhythm. Systolic murmur. ABDOMEN: Soft. Bowel sounds are present. No masses. No tenderness. EXTREMITIES: No pedal edema. No calf tenderness. Scabs noted on the right lower extremity. No significant erythema. NEUROLOGICAL: Patient is awake, alert and oriented x2. Patient is able to follow directions. Answers are appropriate. - Labs CBC & Chem 7: 09/29/18 16:22 10/03/18 07:43 Labs: Abnormal Lab Results - Last 24 Hours (Table) 10/03/18 Range/Units 07:43 Chloride 117 H (98-107) mmol/L BUN 19 H (7-17) mg/dL Glucose 129 H (74-99) mg/dL Calcium 7.8 L (8.4-10.2) mg/dL Microbiology - Last 24 Hours (Table) 09/29/18 Unknown Blood Culture - Preliminary Blood No Growth after 72 hours Assessment and Plan Plan: 1. Generalized weakness and hypotension secondary to dehydration. Continue IV fluids decreased to 60 mL per hour. 2. Acute kidney injury secondary to dehydration. Continue IV fluids, recheck electrolytes and kidney function. 3. Metastatic non-small cell lung cancer under the care of Dr. Meredith. Oncology consult. 4. Chronic lower extremity cellulitis with scabbing. No signs of infection. Continue vancomycin. 5. Sacral decubitus ulcer stage II, present on admission. Continue local wound care. Continue vancomycin and Zosyn. 6. Coagulopathy. INR 2.1. Consult with oncology. 7. Electrolyte abnormalities including hyponatremia, hypokalemia, hypochloremia with metabolic acidosis. Continue IV fluids. 8. Lactic acidosis. Continue IV fluid resuscitation. Continue Zosyn and vancomycin. 9. Possible gram-negative pneumonia, present on admission. Patient started on Zosyn and vancomycin. 10. Hypothyroidism. Continue levothyroxine. 11. COPD, stable. Continue DuoNeb treatments, Pulmicort. 12. Recurrent depression. Continue Celexa 40 mg in the morning. 13. Chronic pain syndrome. Continue [employer], Flexeril. 14. 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 Oncology consult appreciated. Cortef changed to IV Solu-Cortef 100 mg 3 times daily. 15. GI prophylaxis. Protonix. 16. DVT prophylaxis. Lovenox subcu. 17. Acute toxic encephalopathy secondary to possible medication effect, possibl e adrenal insufficiency. Patient responded to Narcan. Xanax and [employer] discontinued. Toradol started for pain control. MRI of the brain ordered. Discharge plan: Most likely return home but patient may require subacute rehab if mental status does not improve. Impression and plan of care have been directed as dictated by the signing physician. Dianelys Barrios nurse practitioner acting as scribe for signing physician.
--- NOTE | 2018-10-03 15:02 | MR ---
EXAMINATION TYPE: MR brain wo con DATE OF EXAM: 10/03/2018 COMPARISON: CT brain 09/03/2011 HISTORY: Increased lethargy CONTRAST: Performed utilizing 0 mL intravenous Gadavist gadolinium contrast. TECHNIQUE: Multiplanar, multiecho imaging on a 3.0 Shruti magnet is performed through the brain. Stud y is performed within 24 hours of arrival to the hospital. The craniovertebral junction is normal. The pituitary is normal. Diffusion-weighted imaging is performed. No abnormal hyperintensity is present to suggest an acute i ntracranial infarct or acute ischemic change. Signal through the brain appears normal. No suspicious hyperintensity is evident. No mass lesions are evident. No suspicious signal change on inversion recovery sequences is evident. Temporal lobes appe ar symmetrical. Ventricles and sulci are appropriate for the patient age. IMPRESSIONS: 1. Normal MRI brain
[2018-10-03 16:22] LABS: Glucose,Whole Blood 148 mg/dL (75-99)
[2018-10-03 21:08] LABS: Glucose,Whole Blood 213 mg/dL (75-99)
[2018-10-03] MEDS: CYCLOBENZAPRINE 10 MG TAB PO SCH (21:37)
[2018-10-03] MEDS: INSULIN ASPART (NovoLOG) 100 UNIT/ML VIAL SQ SCH (22:24)
[2018-10-04] MEDS: PIPERACILLIN-TAZOBACTAM 3.375 GM in SODIUM CHLORIDE 0.9% 100 ML IVPB SCH ×3 (04:38→20:39)
[2018-10-04 05:44] LABS: Glucose,Whole Blood 173 mg/dL (75-99)
[2018-10-04] MEDS: LEVOTHYROXINE 25 MCG TAB PO SCH (06:46)
[2018-10-04] MEDS: INSULIN ASPART (NovoLOG) 100 UNIT/ML VIAL SQ SCH ×4 (06:46→22:30)
[2018-10-04] MEDS: KETOROLAC 30 MG/ML 1 ML VIAL IVP PRN ×2 (06:47→23:54)
[2018-10-04] MEDS ORDERED: INSULIN ASPART (NovoLOG) 100 UNIT/ML VIAL SQ SCH (07:30)
[2018-10-04 08:00] LABS: Albumin 2.3 g/dL (3.5-5.0); Calcium 8.1 mg/dL (8.4-10.2); Potassium 4.3 mmol/L (3.5-5.1); Total Bilirubin 0.6 mg/dL (0.2-1.3)
[2018-10-04 08:24] LABS: Anisocytosis Slight; HCT 32.7 % (34.0-46.0); HGB 10.1 gm/dL (11.4-16.0); Hypochromasia Marked; MCH 31.6 pg (25.0-35.0); MCHC 30.9 g/dL (31.0-37.0); Macrocytosis Slight; Mean Platelet Volume 8.2; Platelet Count 240 k/uL (150-450); RDW 16.5 % (11.5-15.5); WBC 6.9 k/uL (3.8-10.6)
[2018-10-04 08:38] LABS: MCV 102.3 fL (80.0-100.0)
[2018-10-04] MEDS: BUDESONIDE 1 MG/2 ML NEBU INHALATION SCH ×2 (08:46→19:05)
[2018-10-04] MEDS: IPRATROPIUM-ALBUTEROL 3 ML NEB INHALATION SCH ×3 (08:46→19:05)
[2018-10-04] MEDS: POTASSIUM CHLORIDE ER 20 MEQ TAB.ER PO SCH ×3 (10:49→20:40)
[2018-10-04] MEDS: FLUDROCORTISONE 0.1 MG TAB PO SCH ×2 (10:49→20:40)
[2018-10-04] MEDS: CITALOPRAM HYDROBROMIDE 20 MG TAB PO SCH (10:50)
[2018-10-04] MEDS: ENOXAPARIN 40 MG/0.4 ML SYRINGE SQ SCH (10:50)
[2018-10-04 11:17] LABS: Glucose,Whole Blood 129 mg/dL (75-99)
[2018-10-04] MEDS: methylPREDNISolone SOD SUCCI 125 MG/2 ML VIAL IV SCH ×3 (12:55→23:53)
[2018-10-04] MEDS: HYDROCORTISONE SUCCINATE 100 MG/2 ML VIAL IV SCH (13:13)
[2018-10-04] MEDS: PANTOPRAZOLE 40 MG TABLET PO SCH (13:14)
[2018-10-04] MEDS: VANCOMYCIN 1,500 MG in SODIUM CHLORIDE 0.9% 250 ML IVPB SCH (13:14)
--- NOTE | 2018-10-04 13:58 | P.PN ---
Subjective Progress Note Date: 10/04/18 This is a 67-year-old female patient of Dr. Garcia with past medical history of metastatic non-small cell lung cancer under the care of Dr. Meredith with most recent treatment with immunotherapy. 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 Patient was discharged at that time to subacute rehab. Patient was sent into the hospital by oncology for evaluation of low blood pressure and weakness. Patient came into [facility] emergency center. Patient was found to be afebrile, initial blood pressure 95/41, heart rate 100, pulse ox 96% on room air. EKG was a sinus rhythm with no acute ST changes. Electrolyte abnormalities included sodium 127, potassium 3.0, coronary 96, CO2 18. BUN was 37 and creatinine 1.81. Lactic acid was 6.6, AST 125, ALT 62, alkaline phosphatase 208. TSH 6.020. INR 2.1. Troponin negative. Influenza testing negative. Chest x-ray showed chronic emphysematous change and cardiomegaly with lateral left upper lobe neoplasm all redemonstrated. Persistent small left pleural effusion and left basilar atelectasis and/or infiltrate improved from prior. Improved aeration right lung base noted no new focal infiltrates. Patient was given IV Solu-Medrol, nebulizer treatments, started on IV Zosyn and vancomycin, consult requested with oncology and patient admitted to the cardiac stepdown unit. Lasix will currently be placed on hold as well as Bactrim. Corrales catheter to be removed. 10/01: This morning, patient has minimal response to sternal rub. According to nursing staff, patient was up earlier for her bath and thought to be okay. She was thought to be sleepy since then the patient is much different from her baseline. She has been afebrile. Heart rate in the 90s, blood pressure 104/62, pulse ox 96% on 3 L. 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 Noted that her lab work was significantly improved from yesterday. Patient was provided Narcan 0.4 mg IV with improvement of her mental status and patient able to speak to us but remains groggy. Stat ABGs, lactic acid, ammonia level, troponin. Stat EKG was a sinus rhythm with no acute changes. 10/02: Patient is responsive today and lethargic but answers and follows commands as appropriate. Ammonia level, troponin and ABGs were essentially normal. Repeat lab work this morning shows a potassium was 3.2, creatinine 0.74, cortisol level 1. Patient missed several doses of potassium yesterday. Patient is currently on oral hydrocortisone which will be discontinued and patient started on IV Solu-Cortef 100 mg 3 times daily. Patient has been afebrile, heart rate 96-109, blood pressure 111/61, pulse ox 97% on 3 L nasal cannula. Patient's discharge plan has been to return home with her but she is currently a total assist. We will plan to reevaluate tomorrow and discuss with patient's . Patient has been at [facility] in the past. 10/03: Last evening, patient's mental status deteriorated and MRI of the brain has been ordered which will be done today. This morning however, patient is much more alert and getting closer to her baseline. She is able to answer quest ions appropriately and follow directions. Patient is noted to have severe weakness bilaterally. No focal neuro deficits are noted. Patient did eat and drink well this morning for breakfast. We did start IV Solu-Cortef yesterday afternoon. She has been afebrile, heart rate 100, blood pressure 118/63, pulse ox 99% on 3 L nasal cannula. Anticipate patient will be here over the weekend. Patient's , Eduardo, has been contacted at his home number and updated on patient's current condition and plan of care. 10/04: Patient is resting comfortably in bed with acute distress. Patient is able to answer questions appropriately and follow commands. Patient continues to have bilateral weakness. There is no focal neural deficits noted. He is not complaining of shortness of breath or chest pain at this time. Patient remains afebrile, pulse in the 100s, blood pressure 138/94, pulse ox 96% on 2 L via nasal cannula. Patient has been tolerating her diet without any difficulties. WBC 6.9, Hemoccult and 10.8, platelets 240, potassium 4.3, BUN 25, creatinine 0.82, AST 44, ALT 54, alkaline phosphatase 165. Vanco trough 28.4 Review Of Systems: Constitutional: No fever, no chills, no night sweats. No weight change. Reports weakness and fatigue and no lethargy. No daytime sleepiness. EENT: No headache. No blurred vision or double vision, no loss of vision. No loss of Hearing, no ringing in the ears, no dizziness. No nasal drainage or congestion. No epistaxis. No sore throat. Lungs: No shortness of breath, cough, no sputum production. No wheezing. Cardiovascular: No chest pain, no lower extremity edema. No palpitations. No paroxysmal nocturnal dyspnea. No orthopnea. No lightheadedness or dizziness. No syncopal episodes. Abdominal: no abdominal discomfort. No nausea, vomiting. no diarrhea. No constipation. No bloody or tarry stools. improved loss of appetite. Genitourinary: No dysuria, increased frequency, urgency. No urinary retention. Musculoskeletal: No myalgias. Reports muscle weakness, reports gait dysfunction, no frequent falls. No back pain. No neck pain. Integumentary: Reports wounds, no lesions. No rash or pruritus. No unusual bruising. No change in hair or nails. Neurologic: No aphasia. No facial droop. No change in mentation. No head injury. No headache. No paralysis. No paresthesia. Psychiatric: No depression. No anxiety. No mood swings. Endocrine: No abnormal blood sugars. No weight change. No excessive sweating or thirst. Objective - Vital Signs Vital signs: Vital Signs Temp 97.9 F 10/04/18 12:00 Pulse 104 H 10/04/18 12:57 Resp 18 10/04/18 12:00 BP 138/94 10/04/18 12:00 Pulse Ox 96 10/04/18 12:00 Intake & Output 10/03/18 10/04/18 10/04/18 18:59 06:59 18:59 Intake Total 390 734 Output Total 50 Balance 390 684 Weight 104.5 kg 104.7 kg Intake: Oral 390 734 Output: Urine 50 Other: Voiding Method Indwelling Catheter Indwelling Catheter - Exam General Appearance: Alert, cooperative, no distress, appears stated age. Neck HEENT: Supple, no lymphadenopathy, no thyroid enlargement, no carotid bruits. Lungs: Bilateral wheezes and diminished, no crackles no rhonchi, no deformity. Chest Wall: Chest wall normal expansion with deep inspiration no tenderness and no deformity was found on exam, no costochondral pain or discomfort. Heart: Regular rate and rhythm, S1, S2 normal, no murmur, rub or gallop. Back: Symmetric, no curvature, ROM normal, no CVA tenderness. Abdomen: Soft, non-tender, no rebound or rigidity, no hepatosplenomegaly. Extremities: Extremities normal, atraumatic, no cyanosis or edema. Skin noted on right lower extremity. No significant erythema Pulses: 2+ and symmetric. Skin: Stage III pressure ulcer coccyx, Skin color, texture, tugor normal, no rashes or lesions. Neurologic: Alert oriented 2, able to follow directions, answers are appropriate - Labs CBC & Chem 7: 10/04/18 06:25 10/04/18 06:25 Labs: Abnormal Lab Results - Last 24 Hours (Table) 10/03/18 10/03/18 10/04/18 Range/Units 16:20 21:06 05:43 RBC (3.80-5.40) m/uL Hgb (11.4-16.0) gm/dL Hct (34.0-46.0) % MCV (80.0-100.0) fL MCHC (31.0-37.0) g/dL RDW (11.5-15.5) % Chloride (98-107) mmol/L Carbon Dioxide (22-30) mmol/L BUN (7-17) mg/dL Glucose (74-99) mg/dL POC Glucose (mg/dL) 148 H 213 H 173 H (75-99) mg/dL Calcium (8.4-10.2) mg/dL AST (14-36) U/L ALT (9-52) U/L Alkaline Phosphatase (38-126) U/L Total Protein (6.3-8.2) g/dL Albumin (3.5-5.0) g/dL 10/04/18 10/04/18 10/04/18 Range/Units 06:25 06:25 11:16 RBC 3.20 L (3.80-5.40) m/uL Hgb 10.1 L (11.4-16.0) gm/dL Hct 32.7 L (34.0-46.0) % MCV 102.3 H D (80.0-100.0) fL MCHC 30.9 L (31.0-37.0) g/dL RDW 16.5 H (11.5-15.5) % Chloride 118 H (98-107) mmol/L Carbon Dioxide 20 L (22-30) mmol/L BUN 25 H (7-17) mg/dL Glucose 136 H (74-99) mg/dL POC Glucose (mg/dL) 129 H (75-99) mg/dL Calcium 8.1 L (8.4-10.2) mg/dL AST 44 H (14-36) U/L ALT 54 H (9-52) U/L Alkaline Phosphatase 165 H (38-126) U/L Total Protein 5.0 L (6.3-8.2) g/dL Albumin 2.3 L (3.5-5.0) g/dL Microbiology - Last 24 Hours (Table) 09/29/18 Unknown Blood Culture - Preliminary Blood No Growth after 96 hours Assessment and Plan Plan: 1. Generalized weakness and hypotension secondary to dehydration. Continue IV fluids decreased to 60 mL per hour. 2. Acute kidney injury secondary to dehydration. Continue IV fluids, recheck electrolytes and kidney function. 3. Metastatic non-small cell lung cancer under the care of Dr. Meredith. Oncology consult reviewed recommendation to initiate IV hydrocortisone 100 mg every 8 hours. We'll change hydrocortisone to Solu-Medrol 60 mg IV every 6 hours. 4. Chronic lower extremity cellulitis with scabbing. No signs of infection. Discontinue vancomycin. 5. Sacral decubitus ulcer stage III, present on admission. Continue local wound care. Continue Zosyn. Discontinue vancomycin 6. Coagulopathy. INR 2.1. Oncology consult reviewed. 7. Electrolyte abnormalities including hyponatremia, hypokalemia, hypochloremia with metabolic acidosis. Continue IV fluids. 8. Lactic acidosis. Continue IV fluid resuscitation. Continue Zosyn. Discontinue vancomycin. Vancomycin trough 28.4 9. Possible gram-negative pneumonia, present on admission. Continue Zosyn. Discontinue vancomycin. Procalcitonin ordered. Repeat chest x-ray in the morning. 10. Hypothyroidism. Continue levothyroxine. 11. COPD, stable. Continue DuoNeb treatments, Pulmicort. 12. Recurrent depression. Continue Celexa 40 mg in the morning. 13. Chronic pain syndrome. Discontinue [place]. Toradol for pain control 14. Adrenal insufficiency secondary to autoimmune effects of her cancer immuno therapy. Oncology consult reviewed. See above 15. GI prophylaxis. Protonix. 16. DVT prophylaxis. Lovenox subcu. 17. Acute toxic encephalopathy secondary to possible medication effect, possib le adrenal insufficiency. Patient responded to Narcan. Xanax and [place] discontinued. Toradol started for pain control. MRI of the brain impression normal MRI brain Discharge plan: Most likely return home but patient may require subacute rehab if mental status does not improve. Impression and plan of care have been directed as dictated by the signing physician. Erlinda Oviedo nurse practitioner acting as scribe for signing physician
[2018-10-04] MEDS ORDERED: HYDROCORTISONE SUCCINATE 100 MG/2 ML VIAL IV SCH (16:00)
[2018-10-04 16:49] LABS: Glucose,Whole Blood 235 mg/dL (75-99)
[2018-10-04] MEDS ORDERED: VANCOMYCIN TROUGH DUE 1 EACH MISC MISCELLANE ONE (20:00)
[2018-10-04 20:02] LABS: Magnesium 2.2 mg/dL (1.6-2.3); Potassium 3.8 mmol/L (3.5-5.1)
[2018-10-04] MEDS: CYCLOBENZAPRINE 10 MG TAB PO SCH (20:39)
[2018-10-04 20:59] LABS: Glucose,Whole Blood 214 mg/dL (75-99)
[2018-10-05] MEDS: PIPERACILLIN-TAZOBACTAM 3.375 GM in SODIUM CHLORIDE 0.9% 100 ML IVPB SCH ×3 (04:13→20:37)
[2018-10-05] MEDS: KETOROLAC 30 MG/ML 1 ML VIAL IVP PRN (05:59)
[2018-10-05 06:11] LABS: Glucose,Whole Blood 148 mg/dL (75-99)
[2018-10-05] MEDS: LEVOTHYROXINE 25 MCG TAB PO SCH (07:04)
[2018-10-05] MEDS: methylPREDNISolone SOD SUCCI 125 MG/2 ML VIAL IV SCH ×3 (07:04→17:12)
[2018-10-05] MEDS: INSULIN ASPART (NovoLOG) 100 UNIT/ML VIAL SQ SCH ×4 (07:05→20:44)
[2018-10-05 07:08] LABS: Anisocytosis Slight; Basophils % (A) 0 %; Eosinophils % (A) 0 %; HGB 10.6 gm/dL (11.4-16.0); Hypochromasia Marked; Lymphocytes # (A) 1.1 k/uL (1.0-4.8); Lymphocytes % (A) 12 %; MCH 31.4 pg (25.0-35.0); MCHC 30.3 g/dL (31.0-37.0); MCV 103.7 fL (80.0-100.0); Macrocytosis Moderate; Mean Platelet Volume 7.5; Monocytes # (A) 0.3 k/uL (0-1.0); Monocytes % (A) 4 %; Neutrophils # (A) 7.8 k/uL (1.3-7.7); Neutrophils % (A) 83 %; Platelet Count 280 k/uL (150-450); RBC 3.37 m/uL (3.80-5.40); RDW 16.5 % (11.5-15.5); WBC 9.4 k/uL (3.8-10.6)
[2018-10-05 07:19] LABS: Calcium 8.4 mg/dL (8.4-10.2); Potassium 4.6 mmol/L (3.5-5.1)
[2018-10-05] MEDS: IPRATROPIUM-ALBUTEROL 3 ML NEB INHALATION SCH ×3 (08:27→19:33)
[2018-10-05] MEDS: BUDESONIDE 1 MG/2 ML NEBU INHALATION SCH ×2 (08:27→19:33)
--- NOTE | 2018-10-05 08:34 | XR ---
EXAMINATION TYPE: XR chest 2V DATE OF EXAM: 10/05/2018 COMPARISON: 10/02/2018 HISTORY: Shortness of breath TECHNIQUE: Frontal and lateral views of the chest are obtained. FINDINGS: Scattered senescent parenchymal changes noted. Hyperinflation compatible with COPD. Stable pleural-based infiltrate the left upper lobe. Progressive Scattered alveolar and interstitial infiltrates throughout both lung dawkins as well as underlying pleural effusions. Heart size is stable. Mediastinal structures are stable and grossly unremarkable. No evidence for hilar prominence. Degenerative changes dorsal spine. IMPRESSION: 1. Stable pleural-based infiltrate the left upper lobe. Progressive Scattered alveolar and interstiti al infiltrates throughout both lung dawkins as well as underlying pleural effusions.
[2018-10-05] MEDS: CITALOPRAM HYDROBROMIDE 20 MG TAB PO SCH (10:11)
[2018-10-05] MEDS: FLUDROCORTISONE 0.1 MG TAB PO SCH ×2 (10:11→20:41)
[2018-10-05] MEDS: METOPROLOL TARTRATE 25 MG TAB PO SCH (10:11)
[2018-10-05] MEDS: PANTOPRAZOLE 40 MG TABLET PO SCH (10:12)
[2018-10-05] MEDS: ENOXAPARIN 40 MG/0.4 ML SYRINGE SQ SCH (10:12)
[2018-10-05] MEDS: POTASSIUM CHLORIDE ER 20 MEQ TAB.ER PO SCH ×3 (10:12→20:42)
[2018-10-05 11:39] LABS: Glucose,Whole Blood 124 mg/dL (75-99)
--- NOTE | 2018-10-05 13:02 | CONS ---
CONSULTATION CHIEF COMPLAINT: Atrial nonsustained VT. Tia is a 67-year-old lady with history of metastatic non-small cell lung cancer who is on chemotherapy; also has COPD, hypothyroidism, depression, chronic pain syndrome, adrenal insufficiency, who is admitted to hospital with low blood pressures, weakness, fatigue and tiredness. She has been in the hospital for the same and had a run of nonsustained VT for which Cardiology had been consulted. At the time of my evaluation this morning she appears comfortable at rest. She is in sinus rhythm. She had 1 short self-limited run of nonsustained VT. She has coagulopathy. Troponins were negative on this admission but she has sinus tachycardia. I am going to obtain a 2D echo on her to evaluate her LV function. Potassium and magnesium are normal and I am going to start her on beta blockers. PAST MEDICAL HISTORY: Significant for non-small cell lung cancer. CURRENT MEDICATIONS: Include K-Dur, Protonix, Synthroid, Atrovent, Cortef, Lasix, Florinef, Celexa, Pulmicort, Xanax. ALLERGIC: SILICONE AND KEFLEX. FAMILY HISTORY: Negative for premature coronary artery disease. SOCIAL HISTORY: Negative for current smoking, EtOH abuse, or drug abuse. REVIEW OF SYSTEMS: HEENT is unremarkable. CARDIAC: As described above. RESPIRATORY: As described above. GI: Negative. GENITOURINARY: Negative. ALLERGY/IMMUNOLOGY: None. SKIN: Negative. MUSCULOSKELETAL: Arthralgias, fatigue, tiredness. Rest of the system review is not relevant. EXAM: Patient is comfortable at rest. Heart rate is 120 beats per minute. Blood pressure is 128/76, respiratory rate 18. Chest exam reveals diminished air entry at the bases. There are no crackles or rhonchi. Heart exam reveals first and second heart sounds. No gallop. No murmur. Abdomen is soft. Exam of extremities did not reveal any edema. EKG shows sinus rhythm with nonspecific ST-T wave changes. ASSESSMENT: 1. Nonsustained ventricular tachycardia. 2. Metastatic non-small cell lung cancer. PLAN: I will obtain a 2D echo to document her LV function. Potassium and magnesium are normal. I will start her on beta blockers. MMODL / IJN: [id number] /
[2018-10-05 16:58] LABS: Glucose,Whole Blood 138 mg/dL (75-99)
--- NOTE | 2018-10-05 17:49 | P.PN ---
Subjective Progress Note Date: 10/05/18 This is a 67-year-old female patient of Dr. Garcia with past medical history of metastatic non-small cell lung cancer under the care of Dr. Meredith with most recent treatment with immunotherapy. 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 Patient was discharged at that time to subacute rehab. Patient was sent into the hospital by oncology for evaluation of low blood pressure and weakness. Patient came into [facility] emergency center. Patient was found to be afebrile, initial blood pressure 95/41, heart rate 100, pulse ox 96% on room air. EKG was a sinus rhythm with no acute ST changes. Electrolyte abnormalities included sodium 127, potassium 3.0, coronary 96, CO2 18. BUN was 37 and creatinine 1.81. Lactic acid was 6.6, AST 125, ALT 62, alkaline phosphatase 208. TSH 6.020. INR 2.1. Troponin negative. Influenza testing negative. Chest x-ray showed chronic emphysematous change and cardiomegaly with lateral left upper lobe neoplasm all redemonstrated. Persistent small left pleural effusion and left basilar atelectasis and/or infiltrate improved from prior. Improved aeration right lung base noted no new focal infiltrates. Patient was given IV Solu-Medrol, nebulizer treatments, started on IV Zosyn and vancomycin, consult requested with oncology and patient admitted to the cardiac stepdown unit. Lasix will currently be placed on hold as well as Bactrim. [place] catheter to be removed. 10/01: This morning, patient has minimal response to sternal rub. According to nursing staff, patient was up earlier for her bath and thought to be okay. She was thought to be sleepy since then the patient is much different from her baseline. She has been afebrile. Heart rate in the 90s, blood pressure 104/62, pulse ox 96% on 3 L. 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 Noted that her lab work was significantly improved from yesterday. Patient was provided Narcan 0.4 mg IV with improvement of her mental status and patient able to speak to us but remains groggy. Stat ABGs, lactic acid, ammonia level, troponin. Stat EKG was a sinus rhythm with no acute changes. 10/02: Patient is responsive today and lethargic but answers and follows commands as appropriate. Ammonia level, troponin and ABGs were essentially normal. Repeat lab work this morning shows a potassium was 3.2, creatinine 0.74, cortisol level 1. Patient missed several doses of potassium yesterday. Patient is currently on oral hydrocortisone which will be discontinued and patient started on IV Solu-Cortef 100 mg 3 times daily. Patient has been afebrile, heart rate 96-109, blood pressure 111/61, pulse ox 97% on 3 L nasal cannula. Patient's discharge plan has been to return home with her but she is currently a total assist. We will plan to reevaluate tomorrow and discuss with patient's . Patient has been at [facility] in the past. 10/03: Last evening, patient's mental status deteriorated and MRI of the brain has been ordered which will be done today. This morning however, patient is much more alert and getting closer to her baseline. She is able to answer quest ions appropriately and follow directions. Patient is noted to have severe weakness bilaterally. No focal neuro deficits are noted. Patient did eat and drink well this morning for breakfast. We did start IV Solu-Cortef yesterday afternoon. She has been afebrile, heart rate 100, blood pressure 118/63, pulse ox 99% on 3 L nasal cannula. Anticipate patient will be here over the weekend. Patient's , Eduardo, has been contacted at his home number and updated on patient's current condition and plan of care. 10/04: Patient is resting comfortably in bed with acute distress. Patient is able to answer questions appropriately and follow commands. Patient continues to have bilateral weakness. There is no focal neural deficits noted. He is not complaining of shortness of breath or chest pain at this time. Patient remains afebrile, pulse in the 100s, blood pressure 138/94, pulse ox 96% on 2 L via nasal cannula. Patient has been tolerating her diet without any difficulties. WBC 6.9, Hemoccult and 10.8, platelets 240, potassium 4.3, BUN 25, creatinine 0.82, AST 44, ALT 54, alkaline phosphatase 165. Vanco trough 28.4 10/05 patient sitting in bed is able to answer questions appropriately does complain of tiredness and weakness. She does appears better than yesterday. Denies any chest pain cough shortness of breath dizziness or loss of consciousness. Hydrocortisone was switched to Solu-Medrol since patient was wheezing yesterday which has improved since yesterday. Vitals otherwise stable with a pulse rate of 94 respiratory rate 16 blood pressure 138/74. Patient had a brief run of nonsustained V. tach. Echo ordered cardiology consulted for further management. Potassium and magnesium are normal metoprolol initiated 25 mg by mouth daily. Chest x-ray suggesting feels interstitial and alveolar infiltrate. Lasix IV 40 mg daily initiated echocardiogram is pending Review Of Systems: Constitutional: No fever, no chills, no night sweats. No weight change. Reports weakness and fatigue . No daytime sleepiness. EENT: No headache. No blurred vision or double vision, no loss of vision. No loss of Hearing, no ringing in the ears, no dizziness. No nasal drainage or congestion. No epistaxis. No sore throat. Lungs: No shortness of breath, cough, no sputum production. No wheezing. Cardiovascular: No chest pain, no lower extremity edema. No palpitations. No p aroxysmal nocturnal dyspnea. No orthopnea. No lightheadedness or dizziness. No syncopal episodes. Abdominal: no abdominal discomfort. No nausea, vomiting. no diarrhea. No constipation. No bloody or tarry stools. improved loss of appetite. Genitourinary: No dysuria, increased frequency, urgency. No urinary retention. Musculoskeletal: No myalgias. Reports muscle weakness, reports gait dysf unction, no frequent falls. No back pain. No neck pain. Integumentary: Reports wounds, no lesions. No rash or pruritus. No unusual bruising. No change in hair or nails. Neurologic: No aphasia. No facial droop. No change in mentation. No head injury. No headache. No paralysis. No paresthesia. Psychiatric: No depression. No anxiety. No mood swings. Endocrine: No abnormal blood sugars. No weight change. No excessive sweating or thirst. Objective - Vital Signs Vital signs: Vital Signs Temp 97.8 F 10/05/18 15:56 Pulse 94 10/05/18 15:56 Resp 16 10/05/18 15:56 BP 138/74 10/05/18 15:56 Pulse Ox 95 10/05/18 15:56 Intake & Output 10/04/18 10/05/18 10/05/18 18:59 06:59 18:59 Intake Total 794 120 Output Total 100 425 Balance 694 -425 120 Weight 103.5 kg Intake: Oral 794 120 Output: Urine 100 425 Uretheral ([place]) 50 300 Other: Voiding Method Indwelling Catheter Indwelling Catheter Diaper Incontinent # Voids 0 # Bowel Movements 0 - Exam General Appearance: Alert, cooperative, no distress,appears tired appears stated age. Neck HEENT: Supple, no lymphadenopathy, no thyroid enlargement, no carotid bruits. Lungs: Bilateral wheezes dereased, no crackles no rhonchi, no deformity. Chest Wall: Chest wall normal expansion with deep inspiration no tenderness and no deformity was found on exam, no costochondral pain or discomfort. Heart: Regular rate and rhythm, S1, S2 normal, no murmur, rub or gallop. Back: Symmetric, no curvature, ROM normal, no CVA tenderness. Abdomen: Soft, non-tender, no rebound or rigidity, no hepatosplenomegaly. Extremities: Extremities normal, atraumatic, no cyanosis or edema. Skin noted on right lower extremity. No significant erythema Pulses: 2+ and symmetric. Skin: Stage III pressure ulcer coccyx, Skin color, texture, tugor normal, no rashes or lesions. Neurologic: Alert oriented 2, able to follow directions, answers are appropriate - Labs CBC & Chem 7: 10/05/18 06:47 10/05/18 06:47 Labs: Abnormal Lab Results - Last 24 Hours (Table) 10/04/18 10/05/18 10/05/18 Range/Units 20:58 06:09 06:47 RBC (3.80-5.40) m/uL Hgb (11.4-16.0) gm/dL MCV (80.0-100.0) fL MCHC (31.0-37.0) g/dL RDW (11.5-15.5) % Neutrophils # (1.3-7.7) k/uL Chloride 120 H (98-107) mmol/L Carbon Dioxide 19 L (22-30) mmol/L BUN 29 H (7-17) mg/dL Glucose 149 H (74-99) mg/dL POC Glucose (mg/dL) 214 H 148 H (75-99) mg/dL 10/05/18 10/05/18 10/05/18 Range/Units 06:47 11:38 16:56 RBC 3.37 L (3.80-5.40) m/uL Hgb 10.6 L (11.4-16.0) gm/dL MCV 103.7 H (80.0-100.0) fL MCHC 30.3 L (31.0-37.0) g/dL RDW 16.5 H (11.5-15.5) % Neutrophils # 7.8 H (1.3-7.7) k/uL Chloride (98-107) mmol/L Carbon Dioxide (22-30) mmol/L BUN (7-17) mg/dL Glucose (74-99) mg/dL POC Glucose (mg/dL) 124 H 138 H (75-99) mg/dL Microbiology - Last 24 Hours (Table) 09/29/18 Unknown Blood Culture - Preliminary Blood No Growth after 120 hours Assessment and Plan Plan: 1. Generalized weakness and hypotension secondary to dehydration. Hypertension resolved. Chest x-ray suggestive of worsening pulmonary infiltrate bilaterally 2. Acute kidney injury secondary to dehydration. resolved, recheck electrolytes and kidney function. 3. Metastatic non-small cell lung cancer under the care of Dr. Meredith. We'll change hydrocortisone to Solu-Medrol 60 mg IV every 6 hours. 4. Chronic lower extremity cellulitis with scabbing. No signs of infection. Discontinue vancomycin. 5. Sacral decubitus ulcer stage III, present on admission. Continue local wound care. Continue Zosyn. Discontinue vancomycin 6. Coagulopathy. INR 2.1. Oncology consult reviewed. 7. Electrolyte abnormalities including hyponatremia, hypokalemia, hypochloremia with metabolic acidosis. Continue IV fluids. 8. Lactic acidosis. Continue IV fluid resuscitation. Continue Zosyn. Discontinue vancomycin. Vancomycin trough 28.4 9. Possible gram-negative pneumonia, present on admission. Continue Zosyn. Discontinue vancomycin. Procalcitonin slightly elevated. Repeat chest x-ray in the morning. 10. Hypothyroidism. Continue levothyroxine. 11. COPD, exacerbation started on Solu-Medrol 60 IV every 6 broom and wheezing. Continue DuoNeb treatments, Pulmicort. 12. Recurrent depression. Continue Celexa 40 mg in the morning. 13. Chronic pain syndrome. Discontinue [place]. Toradol for pain control 14. 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 Oncology consult reviewed. Switched from hydrocortisone to Solu-Medrol stress dosing 15. GI prophylaxis. Protonix. 16. DVT prophylaxis. Lovenox subcu. 17. Acute toxic encephalopathy secondary to possible medication effect, possible adrenal insufficiency. Patient responded to Narcan. Xanax and [place] discontinued. Toradol started for pain control. MRI of the brain impression normal MRI brain 18 nonsustained V. tach echo ordered patient initiated on low-dose of metoprolol 25 mg daily chest x-ray suggestive of interstitial infiltrate concerning for pulmonary edema. Lasix 40 mg IV daily initiated Discharge plan: Most likely return home but patient may require subacute rehab if mental status does not improve.
[2018-10-05] MEDS: FUROSEMIDE 10 MG/ML 4 ML VIAL IV SCH (20:41)
[2018-10-05] MEDS: CYCLOBENZAPRINE 10 MG TAB PO SCH (20:42)
[2018-10-05 20:49] LABS: Glucose,Whole Blood 166 mg/dL (75-99)
[2018-10-06] MEDS: methylPREDNISolone SOD SUCCI 125 MG/2 ML VIAL IV SCH ×4 (00:19→17:24)
[2018-10-06] MEDS: PIPERACILLIN-TAZOBACTAM 3.375 GM in SODIUM CHLORIDE 0.9% 100 ML IVPB SCH ×3 (03:42→20:30)
[2018-10-06 06:11] LABS: Glucose,Whole Blood 146 mg/dL (75-99)
[2018-10-06 06:36] LABS: Anisocytosis Slight; Basophils % (A) 0 %; Eosinophils % (A) 1 %; HCT 31.7 % (34.0-46.0); HGB 10.2 gm/dL (11.4-16.0); Hypochromasia Moderate; Lymphocytes % (A) 16 %; MCH 32.4 pg (25.0-35.0); MCV 101.2 fL (80.0-100.0); Macrocytosis Slight; Mean Platelet Volume 8.2; Monocytes # (A) 0.3 k/uL (0-1.0); Monocytes % (A) 5 %; Neutrophils # (A) 5.1 k/uL (1.3-7.7); Neutrophils % (A) 77 %; Platelet Count 250 k/uL (150-450); RBC 3.13 m/uL (3.80-5.40); RDW 16.5 % (11.5-15.5); WBC 6.6 k/uL (3.8-10.6)
[2018-10-06] MEDS: INSULIN ASPART (NovoLOG) 100 UNIT/ML VIAL SQ SCH ×4 (06:43→21:50)
[2018-10-06] MEDS: LEVOTHYROXINE 25 MCG TAB PO SCH (06:43)
[2018-10-06] MEDS: BUDESONIDE 1 MG/2 ML NEBU INHALATION SCH ×2 (08:20→20:02)
[2018-10-06] MEDS: IPRATROPIUM-ALBUTEROL 3 ML NEB INHALATION SCH ×3 (08:20→20:02)
[2018-10-06] MEDS: FUROSEMIDE 10 MG/ML 4 ML VIAL IV SCH (08:56)
[2018-10-06] MEDS: METOPROLOL TARTRATE 25 MG TAB PO SCH (08:57)
[2018-10-06] MEDS: POTASSIUM CHLORIDE ER 20 MEQ TAB.ER PO SCH ×3 (08:57→21:50)
[2018-10-06] MEDS: FLUDROCORTISONE 0.1 MG TAB PO SCH ×2 (08:57→21:50)
[2018-10-06] MEDS: ENOXAPARIN 40 MG/0.4 ML SYRINGE SQ SCH (08:57)
[2018-10-06] MEDS: CITALOPRAM HYDROBROMIDE 20 MG TAB PO SCH (08:58)
[2018-10-06] MEDS: PANTOPRAZOLE 40 MG TABLET PO SCH (08:58)
--- NOTE | 2018-10-06 10:37 | P.PN ---
Subjective Progress Note Date: 10/06/18 This is a 67-year-old female patient with history of metastatic non-small cell lung cancer who is on chemotherapy, she also has history of COPD, hypothyroidism, depression, adrenal insufficiency and chronic pain syndrome. She was admitted to the hospital with low blood pressures with associated weakness fatigue and tiredness. Cardiology consultation was initially requested because of a run of nonsustained ventricular tachycardia. I did review her rhythm strips this morning, she has had no further ectopy. Potassium and magnesium levels are within normal range. An echocardiogram with Doppler study was performed which is yet pending. Patient overall feels well today, she still continues to feel somewhat weak. Blood pressure 120/70, heart rate 90 slow 100s. Continues to be on a daily dose of IV Lasix. Objective - Vital Signs Vital signs: Vital Signs Temp 97.7 F 10/06/18 04:00 Pulse 100 10/06/18 08:20 Resp 20 10/06/18 04:00 BP 120/71 10/06/18 04:00 Pulse Ox 99 10/06/18 04:00 Intake & Output 10/05/18 10/06/18 10/06/18 18:59 06:59 18:59 Intake Total 120 250 Balance 120 250 Weight 103.4 kg Intake: Oral 120 250 Other: Voiding Method Diaper Diaper Incontinent Incontinent # Voids 0 2 # Bowel Movements 0 - Exam General Appearance: Alert, cooperative, no distress,appears tired appears stated age. Neck HEENT: Supple, no lymphadenopathy, no thyroid enlargement, no carotid bruits. Lungs: Bilateral wheezes dereased, no crackles no rhonchi, no deformity. Chest Wall: Chest wall normal expansion with deep inspiration no tenderness and no deformity was found on exam, no costochondral pain or discomfort. Heart: Regular rate and rhythm, S1, S2 normal, no murmur, rub or gallop. Back: Symmetric, no curvature, ROM normal, no CVA tenderness. Abdomen: Soft, non-tender, no rebound or rigidity, no hepatosplenomegaly. Extremities: Extremities normal, atraumatic, no cyanosis or edema. Skin noted on right lower extremity. No significant erythema Pulses: 2+ and symmetric. Skin: Stage III pressure ulcer coccyx, Skin color, texture, tugor normal, no rashes or lesions. Neurologic: Alert oriented 2, able to follow directions, answers are appropriate - Labs CBC & Chem 7: 10/06/18 06:18 10/05/18 06:47 Labs: Abnormal Lab Results - Last 24 Hours (Table) 10/05/18 10/05/18 10/05/18 Range/Units 11:38 16:56 20:28 RBC (3.80-5.40) m/uL Hgb (11.4-16.0) gm/dL Hct (34.0-46.0) % MCV (80.0-100.0) fL RDW (11.5-15.5) % POC Glucose (mg/dL) 124 H 138 H 166 H (75-99) mg/dL 10/06/18 10/06/18 Range/Units 06:10 06:18 RBC 3.13 L (3.80-5.40) m/uL Hgb 10.2 L (11.4-16.0) gm/dL Hct 31.7 L (34.0-46.0) % MCV 101.2 H (80.0-100.0) fL RDW 16.5 H (11.5-15.5) % POC Glucose (mg/dL) 146 H (75-99) mg/dL Microbiology - Last 24 Hours (Table) 09/29/18 Unknown Blood Culture - Final Blood No Growth after 144 hours Assessment and Plan Plan: Assessment and plan #1. Generalized weakness and hypotension secondary to dehydration. #2. Acute kidney injury secondary to dehydration. resolved, recheck electrolytes and kidney function. #3. Metastatic non-small cell lung cancer under the care of Dr. Meredith. #4. Chronic lower extremity cellulitis with scabbing. No signs of infection. #5. Sacral decubitus ulcer stage III, present on admission. #6. Coagulopathy. #7. Electrolyte abnormalities including hyponatremia, hypokalemia, hypochloremia with metabolic acidosis. #8. Lactic acidosis. #9. Possible gram-negative pneumonia #10. Hypothyroidism. #11. COPD, exacerbation #12. Recurrent depression. #13. Chronic pain syndrome. #14. Acute toxic encephalopathy secondary to possible medication effect, possible adrenal insufficiency. Patient responded to Narcan. Xanax and [place] discontinued. Toradol started for pain control. MRI of the brain impression normal MRI brain #15 nonsustained V. tach Plan Patient has had no further episodes of documented nonsustained ventricular tachycardia, we will review the echocardiogram with Doppler study and continue current dose of beta yoseph. DNP note has been reviewed, I agree with a documented findings and plan of care. Patient was seen and examined.
[2018-10-06 11:57] LABS: Glucose,Whole Blood 219 mg/dL (75-99)
--- NOTE | 2018-10-06 12:38 | ECHOF ---
Referral Reason:[facility] MEASUREMENTS -------- HEIGHT: 162.6 cm WEIGHT: 103.0 kg BP: 120/74 RVIDd: 3.1 cm (< 3.3) IVSd: 1.1 cm (0.6 - 1.1) LVIDd: 4.7 cm (3.9 - 5.3) LVPWd: 0.9 cm (0.6 - 1.1) IVSs: 1.4 cm LVIDs: 4.4 cm LVPWs: 0.9 cm LA Diam: 4.9 cm (2.7 - 3.8) LAESV Index (A-L): 48.55 ml/m Ao Diam: 2.7 cm (2.0 - 3.7) AV Cusp: 1.4 cm (1.5 - 2.6) LA Diam: 5.1 cm (2.7 - 3.8) MV EXCURSION: 21.020 mm (> 18.000) MV EF SLOPE: 76 mm/s (70 - 150) EPSS: 0.6 cm MV E Sarkis: 1.26 m/s MV DecT: 136 ms MV A Sarkis: 1.04 m/s MV E/A Ratio: 1.21 RAP: 5.00 mmHg RVSP: 32.64 mmHg FINDINGS -------- Sinus rhythm. This was a technically good study. LV size, wall thickness and systolic function are normal, with an EF greater than 55%. The left adithya tricular size is normal. The right ventricle is normal in size. The left atrium is markedly dilated. LA is severely dilated >40 ml/m2 The right atrial size is normal. Interatrial and interventricular septum intact. There is mild aortic valve sclerosis. There is no evidence of aortic regurgitation. The mitral valve leaflets are mildly thickened. Mild mitral annular calcification present. Modera te mitral regurgitation is present. Mild tricuspid regurgitation present. There is no evidence of pulmonary hypertension. The right v entricular systolic pressure, as measured by Doppler, is 32.64mmHg. Trace/mild (physiologic) pulmonic regurgitation. The aortic root size is normal. Normal inferior vena cava with normal inspiratory collapse consistent with estimated right atrial pre ssure of 5 mmHg. There is no pericardial effusion. CONCLUSIONS -------- 1. LV size, wall thickness and systolic function are normal, with an EF greater than 55%. 2. The left ventricular size is normal. 3. The right ventricle is normal in size. 4. The left atrium is markedly dilated. 5. LA is severely dilated >40 ml/m2 6. The right atrial size is normal. 7. Interatrial and interventricular septum intact. 8. There is mild aortic valve sclerosis. 9. The mitral valve leaflets are mildly thickened. 10. Mild mitral annular calcification present. 11. Moderate mitral regurgitation is present. 12. Mild tricuspid regurgitation present. 13. There is no evidence of pulmonary hypertension. 14. The right ventricular systolic pressure, as measured by Doppler, is 32.64mmHg. 15. Trace/mild (physiologic) pulmonic regurgitation. 16. The aortic root size is normal. 17. Normal inferior vena cava with normal inspiratory collapse consistent with estimated right atrial pressure of 5 mmHg. 18. There is no pericardial effusion. LEGAL ADVISER: Liliya Pitts RDCS
[2018-10-06 13:11] LABS: Albumin 2.5 g/dL (3.5-5.0); Calcium 8.2 mg/dL (8.4-10.2); Total Bilirubin 0.7 mg/dL (0.2-1.3); Total Protein 5.2 g/dL (6.3-8.2)
[2018-10-06 13:55] VITALS: BMI 39.1
[2018-10-06 17:23] LABS: Glucose,Whole Blood 120 mg/dL (75-99)
--- NOTE | 2018-10-06 18:13 | P.PN ---
Subjective Progress Note Date: 10/06/18 Principal diagnosis: Metastasis take non-small cell see of the lung, gram-negative pneumonia, chronic lower extremity cellulitis, sacral decubitus stage III, hyponatremia, lactic a cidosis, chronic pain syndrome, adrenal insufficiency, acute toxic encephalopathy secondary to medication side effect. And nonsustained V. tach. This is a 67-year-old female patient of Dr. Garcia with past medical history of metastatic non-small cell lung cancer under the care of Dr. Meredith with most recent treatment with immunotherapy. 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 Patient was discharged at that time to subacute rehab. Patient was sent into the hospital by oncology for evaluation of low blood pressure and weakness. Patient came into [facility] emergency center. Patient was found to be afebrile, initial blood pressure 95/41, heart rate 100, pulse ox 96% on room air. EKG was a sinus rhythm with no acute ST changes. Electrolyte abnormalities included sodium 127, potassium 3.0, coronary 96, CO2 18. BUN was 37 and creatinine 1.81. Lactic acid was 6.6, AST 125, ALT 62, alkaline phosphatase 208. TSH 6.020. INR 2.1. Troponin negative. Influenza testing negative. Chest x-ray showed chronic emphysematous change and cardiomegaly with lateral left upper lobe neoplasm all redemonstrated. Persistent small left pleural effusion and left basilar atelectasis and/or infiltrate improved from prior. Improved aeration right lung base noted no new focal infiltrates. Patient was given IV Solu-Medrol, nebulizer treatments, started on IV Zosyn and vancomycin, consult requested with oncology and patient admitted to the cardiac stepdown unit. Lasix will currently be placed on hold as well as Bactrim. [place] catheter to be removed. 10/01: This morning, patient has minimal response to sternal rub. According to nursing staff, patient was up earlier for her bath and thought to be okay. She was thought to be sleepy since then the patient is much different from her baseline. She has been afebrile. Heart rate in the 90s, blood pressure 104/62, pulse ox 96% on 3 L. Patient did receive her home dose of [place] and Xanax last evening/health information technologist. Noted that her lab work was significantly improved from yesterday. Patient was provided Narcan 0.4 mg IV with improvement of her mental status and patient able to speak to us but remains groggy. Stat ABGs, lactic acid, ammonia level, troponin. Stat EKG was a sinus rhythm with no acute changes. 10/02: Patient is responsive today and lethargic but answers and follows commands as appropriate. Ammonia level, troponin and ABGs were essentially normal. Repeat lab work this morning shows a potassium was 3.2, creatinine 0.74, cortisol level 1. Patient missed several doses of potassium yesterday. Patient is currently on oral hydrocortisone which will be discontinued and patient started on IV Solu-Cortef 100 mg 3 times daily. Patient has been afebrile, heart rate 96-109, blood pressure 111/61, pulse ox 97% on 3 L nasal cannula. Patient's discharge plan has been to return home with her but she is currently a total assist. We will plan to reevaluate tomorrow and discuss with patient's . Patient has been at [facility] in the past. 10/03: Last evening, patient's mental status deteriorated and MRI of the brain has been ordered which will be done today. This morning however, patient is much more alert and getting closer to her baseline. She is able to answer questions appropriately and follow directions. Patient is noted to have severe weakness bilaterally. No focal neuro deficits are noted. Patient did eat and drink well this morning for breakfast. We did start IV Solu-Cortef yesterday afternoon. She has been afebrile, heart rate 100, blood pressure 118/63, pulse ox 99% on 3 L nasal cannula. Anticipate patient will be here over the weekend. Patient's , Eduardo, has been contacted at his home number and updated on patient's current condition and plan of care. 10/04: Patient is resting comfortably in bed with acute distress. Patient is able to answer questions appropriately and follow commands. Patient continues to have bilateral weakness. There is no focal neural deficits noted. He is not complaining of shortness of breath or chest pain at this time. Patient remains afebrile, pulse in the 100s, blood pressure 138/94, pulse ox 96% on 2 L via nasal cannula. Patient has been tolerating her diet without any difficulties. WBC 6.9, Hemoccult and 10.8, platelets 240, potassium 4.3, BUN 25, creatinine 0.82, AST 44, ALT 54, alkaline phosphatase 165. Vanco trough 28.4 10/05 patient sitting in bed is able to answer questions appropriately does complain of tiredness and weakness. She does appears better than yesterday. Denies any chest pain cough shortness of breath dizziness or loss of consciousness. Hydrocortisone was switched to Solu-Medrol since patient was wheezing yesterday which has improved since yesterday. Vitals otherwise stable with a pulse rate of 94 respiratory rate 16 blood pressure 138/74. Patient had a brief run of nonsustained V. tach. Echo ordered cardiology consulted for further management. Potassium and magnesium are normal metoprolol initiated 25 mg by mouth daily. Chest x-ray suggesting feels interstitial and alveolar infiltrate. Lasix IV 40 mg daily initiated echocardiogram is pending. 10/06: Patient is feeling slightly better continue to be congested continue to have significant hypoxia require O2 along with updraft treatment. Still on IV antibiotic for gram-negative pneumonia. Mobility still significantly decrease will increased mobility and involve social work program coordinator patient as of now remain on chemotherapy if she is a candidate to go to rehab she need to be off chemotherapy for the term she's got IV and rehab otherwise if chemotherapy is not getting up be stopped even temporary patient cannot go to rehab will continue physical therapy at home with home care if that's the case. Mentally patient is doing slightly but better she still very weak and tired and I still believe needed health specially with PTOT. Objective - Vital Signs Vital signs: Vital Signs Temp 97.7 F 10/06/18 04:00 Pulse 100 10/06/18 08:20 Resp 20 10/06/18 04:00 BP 120/71 10/06/18 04:00 Pulse Ox 99 10/06/18 04:00 Intake & Output 10/05/18 10/06/18 10/06/18 18:59 06:59 18:59 Intake Total 120 250 Balance 120 250 Weight 103.4 kg Intake: Oral 120 250 Other: Voiding Method Diaper Diaper Incontinent Incontinent # Voids 0 2 # Bowel Movements 0 - Exam Review Of Systems: Constitutional: No fever, no chills, no night sweats. No weight change. Repor ts weakness and fatigue . No daytime sleepiness. EENT: No headache. No blurred vision or double vision, no loss of vision. No loss of Hearing, no ringing in the ears, no dizziness. No nasal drainage or congestion. No epistaxis. No sore throat. Lungs: No shortness of breath, cough, no sputum production. No wheezing. Cardiovascular: No chest pain, no lower extremity edema. No palpitations. No paroxysmal nocturnal dyspnea. No orthopnea. No lightheadedness or dizziness. No syncopal episodes. Abdominal: no abdominal discomfort. No nausea, vomiting. no diarrhea. No constipation. No bloody or tarry stools. improved loss of appetite. Genitourinary: No dysuria, increased frequency, urgency. No urinary retention. Musculoskeletal: No myalgias. Reports muscle weakness, reports gait dysfunction, no frequent falls. No back pain. No neck pain. Integumentary: Reports wounds, no lesions. No rash or pruritus. No unusual bruising. No change in hair or nails. Neurologic: No aphasia. No facial droop. No change in mentation. No head injury. No headache. No paralysis. No paresthesia. Psychiatric: No depression. No anxiety. No mood swings. Endocrine: No abnormal blood sugars. No weight loss. Physical examination: General Appearance: Alert, cooperative, mildly confused mildly overweight in slight distress Neck HEENT: Supple, no lymphadenopathy, no thyroid enlargement, no carotid bruits. Lungs: Decreased breath some bilateral fine rhonchi positive mild crackles and symmetric spread wheezes. Chest Wall: Decrease expansion with deep inspiration no tenderness and no deformity was found on exam, no costochondral pain or discomfort. Heart: Regular rate and rhythm, S1, S2 normal, no murmur, rub or gallop. Positive mild tachycardia Back: Symmetric, no curvature, ROM normal, no CVA tenderness. Mild sacral stage III decubitus. Abdomen: Soft, non-tender, bowel sounds active all four quadrants, no masses, no organomegaly. Slight lower abdominal discomfort. Extremities: Chronic edema with mild vascular cellulitis from the knee down bilaterally specially toward the lower part of the leg. Pulses: 2+ and symmetric. Skin: Skin color, texture, tugor normal, no rashes or lesions. Neurologic: Alert sliding confused moving all her 4 extremity as well as weakness positive normal balance and gait. - Labs CBC & Chem 7: 10/06/18 06:18 10/06/18 06:18 Labs: Abnormal Lab Results - Last 24 Hours (Table) 10/05/18 10/05/18 10/05/18 Range/Units 11:38 16:56 20:28 RBC (3.80-5.40) m/uL Hgb (11.4-16.0) gm/dL Hct (34.0-46.0) % MCV (80.0-100.0) fL RDW (11.5-15.5) % POC Glucose (mg/dL) 124 H 138 H 166 H (75-99) mg/dL 10/06/18 10/06/18 Range/Units 06:10 06:18 RBC 3.13 L (3.80-5.40) m/uL Hgb 10.2 L (11.4-16.0) gm/dL Hct 31.7 L (34.0-46.0) % MCV 101.2 H (80.0-100.0) fL RDW 16.5 H (11.5-15.5) % POC Glucose (mg/dL) 146 H (75-99) mg/dL Microbiology - Last 24 Hours (Table) 09/29/18 Unknown Blood Culture - Final Blood No Growth after 144 hours Assessment and Plan Plan: 1 metastasis take non-small cell CA of the lung with metastasis has been on chemotherapy by Dr. Meredith lost session of chemotherapy was few weeks ago. 2 acute kidney injury with severe dehydration: Has been much better continue hydration repeat BUN/creatinine. 3 gram-negative pneumonia and possible aspiration: Has been on Zosyn and vancomycin was stopped patient was still be on antibiotic for total of 7-10 days at discharge possible need further help with infectious disease. 4 COPD with mild excessive patient: Remain on Solu-Medrol along with DuoNeb and Pulmicort. Still seen pulmonary. 5 Generalized weakness and hypotension secondary to severe dehydration and adrenal insufficiency has improved slightly bit so far. 6 mild coagulopathy: INR has been much better so far. 7 chronic pain syndrome: Has been on Toradol off hydrocodone. 8 adrenal insufficiency secondary to autoimmune effect of her cancer immunotherapy: Has been seen oncology was switch from hydrocortisone's to Solu- Medrol. 9 acute toxic encephalopathy: Combination of metabolic, adrenal insufficiency and reaction to medication, much better and improved significantly. 10 nonsustained V. tach: Still seen cardiology was started on metoprolol 25 mg daily along with furosemide for CHF. CODE STATUS: Full code. Discharge planning: Will involve social work program coordinator along with physical therapy and occupational therapy and the patient improved either will be going to rehab in a [facility] or home with help.
[2018-10-06 20:55] LABS: Glucose,Whole Blood 254 mg/dL (75-99)
--- NOTE | 2018-10-06 21:34 | P.PN ---
Subjective Progress Note Date: 10/06/18 Principal diagnosis: Tachycardia weakness Hydrocortisone switched to solu-medrol, I have asked endocrinology to see patient last week and hoping they can this week to continue close monitoring of adrenal insufficiency from immune therapy. Would like to defer best treatment for this to endocrinology. Will also hold all future immune therapy. Continues with hypoxia lkely related to pneumonia, debility, decreased performance. With her severity of debility and infection as well as, adrenal insufficiency as a side effect of immune therapy treatment will be on hold to allow her to fully recovery the recommended way in rehab facility at discharge, re-evaluation after discharge from rehabiliation ECF will then deem next treatment choice options per Dr. Fuentes. Objective - Vital Signs Vital signs: Vital Signs Temp 97.6 F 10/06/18 16:00 Pulse 92 10/06/18 20:00 Resp 16 10/06/18 16:00 BP 119/69 10/06/18 16:00 Pulse Ox 96 10/06/18 19:32 Intake & Output 10/06/18 10/06/18 10/07/18 06:59 18:59 06:59 Intake Total 250 1198 Output Total 1000 Balance 250 198 Weight 103.4 kg 103.4 kg Intake: IV 20 Invasive Line 4 20 Oral 250 1178 Output: Urine 1000 Other: Voiding Method Diaper Diaper Incontinent Incontinent # Voids 2 3 # Bowel Movements 1 - Exam Gen: Alert still sleepy Head: NCNT NEck: Supple Lungs: DIminished bibasilar, moderate increased effort updraft Heart: Tachy S1s2 Abdomen: S, NT Ext: Edema mild bilat - Labs CBC & Chem 7: 10/06/18 06:18 10/06/18 06:18 Labs: Abnormal Lab Results - Last 24 Hours (Table) 10/05/18 10/06/18 10/06/18 Range/Units 20:28 06:10 06:18 RBC 3.13 L (3.80-5.40) m/uL Hgb 10.2 L (11.4-16.0) gm/dL Hct 31.7 L (34.0-46.0) % MCV 101.2 H (80.0-100.0) fL RDW 16.5 H (11.5-15.5) % Chloride (98-107) mmol/L BUN (7-17) mg/dL Glucose (74-99) mg/dL POC Glucose (mg/dL) 166 H 146 H (75-99) mg/dL Calcium (8.4-10.2) mg/dL ALT (9-52) U/L Total Protein (6.3-8.2) g/dL Albumin (3.5-5.0) g/dL 10/06/18 10/06/18 10/06/18 Range/Units 06:18 11:43 16:49 RBC (3.80-5.40) m/uL Hgb (11.4-16.0) gm/dL Hct (34.0-46.0) % MCV (80.0-100.0) fL RDW (11.5-15.5) % Chloride 115 H (98-107) mmol/L BUN 29 H (7-17) mg/dL Glucose 145 H (74-99) mg/dL POC Glucose (mg/dL) 219 H 120 H (75-99) mg/dL Calcium 8.2 L (8.4-10.2) mg/dL ALT 60 H (9-52) U/L Total Protein 5.2 L (6.3-8.2) g/dL Albumin 2.5 L (3.5-5.0) g/dL Microbiology - Last 24 Hours (Table) 09/29/18 Unknown Blood Culture - Final Blood No Growth after 144 hours Assessment and Plan Plan: Metastatic Lung Cancer: On Treatment with immune therapy - Restarted and last treatment September 05 2018 - 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 Rea - Repeat MRI Brain was scheduled as outpatient, family concerned with increased shakeyness and weakness. Will repeat while inpatient Recent Admission for Adrenal Insufficiency Likely due to Immune therapy - Reviewed cortisol levels and vistals, - Consult for Endocrinology, recs appreciated Plan: - Continue aggressive supportive care per Primary team - Will Hold Ongoing systemic cancer treatment (chemo and/o immune therapy) until patient performance status and full recovery from infection/pneumonia - Will plan to re-evaluate after discharge from [facility] [place] - Endocrinology to please provide recs for appropriate Adrenal support Thank you for allowing us to participate in the care of this patient, we will follow along Physician attestation: I have completed the full history and physicial of this patient and agree with above dictation by Abi Conklin NP. Dictated as a scribe.
[2018-10-06] MEDS: CYCLOBENZAPRINE 10 MG TAB PO SCH (21:50)
[2018-10-07] MEDS: methylPREDNISolone SOD SUCCI 125 MG/2 ML VIAL IV SCH ×5 (00:40→22:17)
[2018-10-07] MEDS: PIPERACILLIN-TAZOBACTAM 3.375 GM in SODIUM CHLORIDE 0.9% 100 ML IVPB SCH (04:34)
[2018-10-07 06:03] LABS: Glucose,Whole Blood 130 mg/dL (75-99)
[2018-10-07 06:11] LABS: Anisocytosis Slight; Basophils % (A) 0 %; Eosinophils # (A) 0.1 k/uL (0-0.7); Eosinophils % (A) 1 %; HCT 32.4 % (34.0-46.0); HGB 10.1 gm/dL (11.4-16.0); Hypochromasia Marked; Lymphocytes # (A) 0.9 k/uL (1.0-4.8); Lymphocytes % (A) 11 %; MCH 31.6 pg (25.0-35.0); MCV 101.9 fL (80.0-100.0); Macrocytosis Slight; Mean Platelet Volume 7.6; Monocytes # (A) 0.3 k/uL (0-1.0); Monocytes % (A) 4 %; Neutrophils # (A) 6.9 k/uL (1.3-7.7); Neutrophils % (A) 84 %; Platelet Count 241 k/uL (150-450); RBC 3.18 m/uL (3.80-5.40); RDW 16.2 % (11.5-15.5); WBC 8.2 k/uL (3.8-10.6)
[2018-10-07] MEDS: IPRATROPIUM-ALBUTEROL 3 ML NEB INHALATION SCH ×3 (07:25→19:20)
[2018-10-07] MEDS: BUDESONIDE 1 MG/2 ML NEBU INHALATION SCH ×2 (07:25→19:20)
[2018-10-07] MEDS: INSULIN ASPART (NovoLOG) 100 UNIT/ML VIAL SQ SCH ×4 (07:27→21:29)
[2018-10-07] MEDS: LEVOTHYROXINE 25 MCG TAB PO SCH (07:41)
[2018-10-07] MEDS: FUROSEMIDE 10 MG/ML 4 ML VIAL IV SCH (08:39)
[2018-10-07] MEDS: ENOXAPARIN 40 MG/0.4 ML SYRINGE SQ SCH (08:39)
[2018-10-07] MEDS: CITALOPRAM HYDROBROMIDE 20 MG TAB PO SCH (08:39)
[2018-10-07] MEDS: FLUDROCORTISONE 0.1 MG TAB PO SCH ×2 (08:39→20:27)
[2018-10-07] MEDS: POTASSIUM CHLORIDE ER 20 MEQ TAB.ER PO SCH ×3 (08:39→20:26)
[2018-10-07] MEDS: METOPROLOL TARTRATE 25 MG TAB PO SCH (08:39)
[2018-10-07] MEDS: PANTOPRAZOLE 40 MG TABLET PO SCH (08:39)
--- NOTE | 2018-10-07 11:10 | P.PN ---
Subjective Progress Note Date: 10/07/18 This is a 67-year-old female patient with history of metastatic non-small cell lung cancer who is on chemotherapy, she also has history of COPD, hypothyroidism, depression, adrenal insufficiency and chronic pain syndrome. She was admitted to the hospital with low blood pressures with associated weakness fatigue and tiredness. Cardiology consultation was initially requested because of a run of nonsustained ventricular tachycardia. I did review her rhythm strips this morning, she has had no further ectopy. Potassium and magnesium levels are within normal range. An echocardiogram with Doppler study was performed which is yet pending. Patient overall feels well today, she still continues to feel somewhat weak. Blood pressure 120/70, heart rate 90 slow 100s. Continues to be on a daily dose of IV Lasix. 10/07/2018 Patient was seen and examined this morning, breathing is overall stable, feeling weak this morning. Echocardiogram with Doppler study revealed an ejection fraction of 55%, moderate mitral regurgitation noted. Blood pressure 130/70 with a heart rate in the 90s, 100% on 3 L of oxygen. White blood cell count 8.2, hemoglobin 10.1, platelet count 241. Objective - Vital Signs Vital signs: Vital Signs Temp 97.8 F 10/07/18 08:00 Pulse 100 10/07/18 08:00 Resp 18 10/07/18 08:00 BP 131/73 10/07/18 08:00 Pulse Ox 100 10/07/18 08:00 Intake & Output 10/06/18 10/07/18 10/07/18 18:59 06:59 18:59 Intake Total 1198 110 200 Output Total 1000 100 Balance 198 10 200 Weight 103.4 kg 97.9 kg Intake: IV 20 10 Invasive Line 4 20 10 Oral 1178 100 200 Output: Urine 1000 100 Other: Voiding Method Diaper Diaper Diaper Incontinent Incontinent Incontinent # Voids 3 # Bowel Movements 1 - Exam General Appearance: Alert, cooperative, no distress,appears tired appears stated age. Neck HEENT: Supple, no lymphadenopathy, no thyroid enlargement, no carotid bruits. Lungs: Bilateral wheezes dereased, no crackles no rhonchi, no deformity. Chest Wall: Chest wall normal expansion with deep inspiration no tenderness and no deformity was found on exam, no costochondral pain or discomfort. Heart: Regular rate and rhythm, S1, S2 normal, no murmur, rub or gallop. Back: Symmetric, no curvature, ROM normal, no CVA tenderness. Abdomen: Soft, non-tender, no rebound or rigidity, no hepatosplenomegaly. Extremities: Extremities normal, atraumatic, no cyanosis or edema. Skin noted on right lower extremity. No significant erythema Pulses: 2+ and symmetric. Skin: Stage III pressure ulcer coccyx, Skin color, texture, tugor normal, no rashes or lesions. Neurologic: Alert oriented 2, able to follow directions, answers are appropriate - Labs CBC & Chem 7: 10/07/18 05:49 10/06/18 06:18 Labs: Abnormal Lab Results - Last 24 Hours (Table) 10/06/18 10/06/18 10/06/18 Range/Units 06:18 11:43 16:49 RBC (3.80-5.40) m/uL Hgb (11.4-16.0) gm/dL Hct (34.0-46.0) % MCV (80.0-100.0) fL RDW (11.5-15.5) % Lymphocytes # (1.0-4.8) k/uL Chloride 115 H (98-107) mmol/L BUN 29 H (7-17) mg/dL Glucose 145 H (74-99) mg/dL POC Glucose (mg/dL) 219 H 120 H (75-99) mg/dL Calcium 8.2 L (8.4-10.2) mg/dL ALT 60 H (9-52) U/L Total Protein 5.2 L (6.3-8.2) g/dL Albumin 2.5 L (3.5-5.0) g/dL 10/06/18 10/07/18 10/07/18 Range/Units 20:48 05:49 06:01 RBC 3.18 L (3.80-5.40) m/uL Hgb 10.1 L (11.4-16.0) gm/dL Hct 32.4 L (34.0-46.0) % MCV 101.9 H (80.0-100.0) fL RDW 16.2 H (11.5-15.5) % Lymphocytes # 0.9 L (1.0-4.8) k/uL Chloride (98-107) mmol/L BUN (7-17) mg/dL Glucose (74-99) mg/dL POC Glucose (mg/dL) 254 H 130 H (75-99) mg/dL Calcium (8.4-10.2) mg/dL ALT (9-52) U/L Total Protein (6.3-8.2) g/dL Albumin (3.5-5.0) g/dL Assessment and Plan Plan: Assessment and plan #1. Generalized weakness and hypotension secondary to dehydration. #2. Acute kidney injury secondary to dehydration. resolved, recheck electrolytes and kidney function. #3. Metastatic non-small cell lung cancer under the care of Dr. Meredith. #4. Chronic lower extremity cellulitis with scabbing. No signs of infection. #5. Sacral decubitus ulcer stage III, present on admission. #6. Coagulopathy. #7. Electrolyte abnormalities including hyponatremia, hypokalemia, hypochloremia with metabolic acidosis. #8. Lactic acidosis. #9. Possible gram-negative pneumonia #10. Hypothyroidism. #11. COPD, exacerbation #12. Recurrent depression. #13. Chronic pain syndrome. #14. Acute toxic encephalopathy secondary to possible medication effect, possible adrenal insufficiency. Patient responded to Narcan. Xanax and [place] discontinued. Toradol started for pain control. MRI of the brain impression normal MRI brain #15 nonsustained V. tach Plan Patient has had no further episodes of documented nonsustained ventricular tachycardia, echocardiogram with Doppler study revealed an ejection fraction of 55% with moderate mitral regurgitation. We will discontinue the IV Lasix and casino change attendant to oral diuretics. Continue the rest of the patient's medications. DNP note has been reviewed, I agree with a documented findings and plan of care. Patient was seen and examined.
[2018-10-07 11:33] LABS: Glucose,Whole Blood 222 mg/dL (75-99)
--- NOTE | 2018-10-07 14:43 | P.PN ---
Subjective Progress Note Date: 10/07/18 This is a 67-year-old female patient of Dr. Garcia with past medical history of metastatic non-small cell lung cancer under the care of Dr. Meredith with most recent treatment with immunotherapy. 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 Patient was discharged at that time to subacute rehab. Patient was sent into the hospital by oncology for evaluation of low blood pressure and weakness. Patient came into [facility] emergency center. Patient was found to be afebrile, initial blood pressure 95/41, heart rate 100, pulse ox 96% on room air. EKG was a sinus rhythm with no acute ST changes. Electrolyte abnormalities included sodium 127, potassium 3.0, coronary 96, CO2 18. BUN was 37 and creatinine 1.81. Lactic acid was 6.6, AST 125, ALT 62, alkaline phosphatase 208. TSH 6.020. INR 2.1. Troponin negative. Influenza testing negative. Chest x-ray showed chronic emphysematous change and cardiomegaly with lateral left upper lobe neoplasm all redemonstrated. Persistent small left pleural effusion and left basilar atelectasis and/or infiltrate improved from prior. Improved aeration right lung base noted no new focal infiltrates. Patient was given IV Solu-Medrol, nebulizer treatments, started on IV Zosyn and vancomycin, consult requested with oncology and patient admitted to the cardiac stepdown unit. Lasix will currently be placed on hold as well as Bactrim. [place] catheter to be removed. 10/01: This morning, patient has minimal response to sternal rub. According to nursing staff, patient was up earlier for her bath and thought to be okay. She was thought to be sleepy since then the patient is much different from her baseline. She has been afebrile. Heart rate in the 90s, blood pressure 104/62, pulse ox 96% on 3 L. Patient did receive her home dose of [place] and Xanax last evening/grain drier. Noted that her lab work was significantly improved from yesterday. Patient was provided Narcan 0.4 mg IV with improvement of her mental status and patient able to speak to us but remains groggy. Stat ABGs, lactic acid, ammonia level, troponin. Stat EKG was a sinus rhythm with no acute changes. 10/02: Patient is responsive today and lethargic but answers and follows commands as appropriate. Ammonia level, troponin and ABGs were essentially normal. Repeat lab work this morning shows a potassium was 3.2, creatinine 0.74, cortisol level 1. Patient missed several doses of potassium yesterday. Patient is currently on oral hydrocortisone which will be discontinued and patient started on IV Solu-Cortef 100 mg 3 times daily. Patient has been afebrile, heart rate 96-109, blood pressure 111/61, pulse ox 97% on 3 L nasal cannula. Patient's discharge plan has been to return home with her but she is currently a total assist. We will plan to reevaluate tomorrow and discuss with patient's . Patient has been at [facility] in the past. 10/03: Last evening, patient's mental status deteriorated and MRI of the brain has been ordered which will be done today. This morning however, patient is much more alert and getting closer to her baseline. She is able to answer quest ions appropriately and follow directions. Patient is noted to have severe weakness bilaterally. No focal neuro deficits are noted. Patient did eat and drink well this morning for breakfast. We did start IV Solu-Cortef yesterday afternoon. She has been afebrile, heart rate 100, blood pressure 118/63, pulse ox 99% on 3 L nasal cannula. Anticipate patient will be here over the weekend. Patient's , Eduardo, has been contacted at his home number and updated on patient's current condition and plan of care. 10/04: Patient is resting comfortably in bed with acute distress. Patient is able to answer questions appropriately and follow commands. Patient continues to have bilateral weakness. There is no focal neural deficits noted. He is not complaining of shortness of breath or chest pain at this time. Patient remains afebrile, pulse in the 100s, blood pressure 138/94, pulse ox 96% on 2 L via nasal cannula. Patient has been tolerating her diet without any difficulties. WBC 6.9, Hemoccult and 10.8, platelets 240, potassium 4.3, BUN 25, creatinine 0.82, AST 44, ALT 54, alkaline phosphatase 165. Vanco trough 28.4 10/05 patient sitting in bed is able to answer questions appropriately does complain of tiredness and weakness. She does appears better than yesterday. Denies any chest pain cough shortness of breath dizziness or loss of consciousness. Hydrocortisone was switched to Solu-Medrol since patient was wheezing yesterday which has improved since yesterday. Vitals otherwise stable with a pulse rate of 94 respiratory rate 16 blood pressure 138/74. Patient had a brief run of nonsustained V. tach. Echo ordered cardiology consulted for further management. Potassium and magnesium are normal metoprolol initiated 25 mg by mouth daily. Chest x-ray suggesting feels interstitial and alveolar infiltrate. Lasix IV 40 mg daily initiated echocardiogram is pending. 10/06: Patient is feeling slightly better continue to be congested continue to have significant hypoxia require O2 along with updraft treatment. Still on IV antibiotic for gram-negative pneumonia. 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 Mentally patient is doing slightly but better she still very weak and tired and I still believe needed health specially with PTOT. 10/07: patient's mental status is much improved and patient is back to her baseline. Discussed in detail the patient needs to participate in subacute rehab as she will not be able to manage at home and will require repeat admission to the hospital. Her is known not to be able to provide cares that she needs at home. Patient is found sitting up in the recliner and is alert. She has completed 8 days of antibiotics. [facility] Discussed with social work to make arrangements for subacute rehab for tomorrow. Patient does complain of cough. she has been afebrile, blood pressure 134/60, pulse ox 100% on 2 L nasal cannula. Oncology has placed immunotherapy on hold and also recommend the patient go to subacute rehab. echocardiogram reveals EF of 55%, moderate mitral regurgitation, mild tricuspid regurgitation, no pulmonary hypertension Review Of Systems: Constitutional: No fever, no chills, no night sweats. No weight change. Reports weakness and fatigue . No daytime sleepiness. EENT: No headache. No blurred vision or double vision, no loss of vision. No loss of Hearing, no ringing in the ears, no dizziness. No nasal drainage or congestion. No epistaxis. No sore throat. Lungs: No shortness of breath, Reports cough, no sputum production. No wheezing. Cardiovascular: No chest pain, no lower extremity edema. No palpitations. No paroxysmal nocturnal dyspnea. No orthopnea. No lightheadedness or dizziness. No syncopal episodes. Abdominal: no abdominal discomfort. No nausea, vomiting. no diarrhea. No constipation. No bloody or tarry stools. improved loss of appetite. Genitourinary: No dysuria, increased frequency, urgency. No urinary retention. Musculoskeletal: No myalgias. Reports muscle weakness, reports gait dysfunction, no frequent falls. No back pain. No neck pain. Integumentary: Reports wounds, no lesions. No rash or pruritus. No unusual bruising. No change in hair or nails. Neurologic: No aphasia. No facial droop. No change in mentation. No head injury. No headache. No paralysis. No paresthesia. Psychiatric: No depression. No anxiety. No mood swings. Endocrine: No abnormal blood sugars. No weight loss. Objective - Vital Signs Vital signs: Vital Signs Temp 97.8 F 10/07/18 08:00 Pulse 93 10/07/18 13:14 Resp 16 10/07/18 11:50 BP 134/60 10/07/18 11:50 Pulse Ox 100 10/07/18 11:50 Intake & Output 10/06/18 10/07/18 10/07/18 18:59 06:59 18:59 Intake Total 1198 110 422 Output Total 1000 100 Balance 198 10 422 Weight 103.4 kg 97.9 kg Intake: IV 20 10 Invasive Line 4 20 10 Oral 1178 100 422 Output: Urine 1000 100 Other: Voiding Method Diaper Diaper Diaper Incontinent Incontinent Incontinent # Voids 3 # Bowel Movements 1 - Exam General Appearance: Alert, cooperative, mildly overweight in no distress Neck HEENT: Supple, no lymphadenopathy, no thyroid enlargement, no carotid bruits. Lungs: Decreased breath some bilateral fine rhonchi positive mild crackles and symmetric spread wheezes. Chest Wall: Decrease expansion with deep inspiration no tenderness and no deformity was found on exam, no costochondral pain or discomfort. Heart: Regular rate and rhythm, S1, S2 normal, no murmur, rub or gallop. Positive mild tachycardia Back: Symmetric, no curvature, ROM normal, no CVA tenderness. Mild sacral stage III decubitus. Abdomen: Soft, non-tender, bowel sounds active all four quadrants, no masses, no organomegaly. Slight lower abdominal discomfort. Extremities: Chronic edema with mild vascular cellulitis from the knee down bilaterally specially toward the lower part of the leg. Pulses: 2+ and symmetric. Skin: Skin color, texture, tugor normal, no rashes or lesions. Neurologic: Alert sliding confused moving all her 4 extremity as well as weakness positive normal balance and gait. - Labs CBC & Chem 7: 10/07/18 05:49 10/06/18 06:18 Labs: Abnormal Lab Results - Last 24 Hours (Table) 10/06/18 10/06/18 10/07/18 Range/Units 16:49 20:48 05:49 RBC 3.18 L (3.80-5.40) m/uL Hgb 10.1 L (11.4-16.0) gm/dL Hct 32.4 L (34.0-46.0) % MCV 101.9 H (80.0-100.0) fL RDW 16.2 H (11.5-15.5) % Lymphocytes # 0.9 L (1.0-4.8) k/uL POC Glucose (mg/dL) 120 H 254 H (75-99) mg/dL 10/07/18 10/07/18 Range/Units 06:01 11:31 RBC (3.80-5.40) m/uL Hgb (11.4-16.0) gm/dL Hct (34.0-46.0) % MCV (80.0-100.0) fL RDW (11.5-15.5) % Lymphocytes # (1.0-4.8) k/uL POC Glucose (mg/dL) 130 H 222 H (75-99) mg/dL Assessment and Plan Plan: 1. Generalized weakness and hypotension secondary to dehydration. Continue IV fluids decreased to 60 mL per hour. 2. Acute kidney injury secondary to dehydration. Continue IV fluids, recheck electrolytes and kidney function. 3. Metastatic non-small cell lung cancer under the care of Dr. Meredith. Oncology consult. 4. Chronic lower extremity cellulitis with scabbing. No signs of infection. Continue vancomycin. 5. Sacral decubitus ulcer stage II, present on admission. Continue local wound care. Continue vancomycin and Zosyn. 6. Coagulopathy. INR 2.1. Consult with oncology. 7. Electrolyte abnormalities including hyponatremia, hypokalemia, hypochloremia with metabolic acidosis. Continue IV fluids. 8. Lactic acidosis. Continue IV fluid resuscitation. Continue Zosyn and vancomycin. 9. Possible gram-negative pneumonia, present on admission. Patient started on Zosyn and vancomycin. 10. Hypothyroidism. Continue levothyroxine. 11. COPD, stable. Continue DuoNeb treatments, Pulmicort. 12. Recurrent depression. Continue Celexa 40 mg in the morning. 13. Chronic pain syndrome. Continue [place], Flexeril. 14. 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 Oncology consult appreciated. Cortef changed to IV Solu-Cortef 100 mg 3 times daily. 15. GI prophylaxis. Protonix. 16. DVT prophylaxis. Lovenox subcu. 17. Acute toxic encephalopathy secondary to possible medication effect, possible adrenal insufficiency. Patient responded to Narcan. Xanax and [place] discontinued. Toradol started for pain control. MRI of the brain ordered. 18. Nonsustained ventricular tachycardia. Patient has been started on metoprolol 25 mg daily and Lasix. 19. Acute on chronic diastolic heart failure. Currently on oral Lasix. Discharge plan: subacute rehab tomorrow Impression and plan of care have been directed as dictated by the signing physician. Dianelys Barrios nurse practitioner acting as scribe for signing physician.
[2018-10-07 16:49] LABS: Glucose,Whole Blood 220 mg/dL (75-99)
[2018-10-07] MEDS: CYCLOBENZAPRINE 10 MG TAB PO SCH (20:27)
[2018-10-07 21:25] LABS: Glucose,Whole Blood 180 mg/dL (75-99)
[2018-10-08 06:39] LABS: Glucose,Whole Blood 156 mg/dL (75-99)
[2018-10-08] MEDS: methylPREDNISolone SOD SUCCI 125 MG/2 ML VIAL IV SCH ×2 (06:44→12:07)
[2018-10-08] MEDS: LEVOTHYROXINE 25 MCG TAB PO SCH (06:44)
[2018-10-08] MEDS: INSULIN ASPART (NovoLOG) 100 UNIT/ML VIAL SQ SCH ×2 (06:44→12:06)
[2018-10-08 07:51] VITALS: TEMP 97.4
[2018-10-08] MEDS: CITALOPRAM HYDROBROMIDE 20 MG TAB PO SCH (08:14)
[2018-10-08] MEDS: FLUDROCORTISONE 0.1 MG TAB PO SCH (08:14)
[2018-10-08] MEDS: PANTOPRAZOLE 40 MG TABLET PO SCH (08:15)
[2018-10-08] MEDS: METOPROLOL TARTRATE 25 MG TAB PO SCH (08:15)
[2018-10-08] MEDS: POTASSIUM CHLORIDE ER 20 MEQ TAB.ER PO SCH ×2 (08:15→15:14)
[2018-10-08] MEDS: ENOXAPARIN 40 MG/0.4 ML SYRINGE SQ SCH (08:15)
--- NOTE | 2018-10-08 08:30 | P.DS ---
Providers Date of admission: 09/29/18 18:18 Expected date of discharge: 10/08/18 Attending physician: Brittany Hoskins Consults: 09/29/18 18:23 Consult Physician Routine Consulting Provider: Kun Matos Consult Reason/Comments: known Do you want consulting provider notified?: Yes 10/02/18 00:49 Consult Physician Routine Consulting Provider: Christine Winchester Consult Reason/Comments: Adrenal insufficiency immune therapy PKTY Do you want consulting provider notified?: Yes, Notify in am 10/04/18 19:17 Consult Physician Routine Consulting Provider: Tony Mendez Consult Reason/Comments: run of vtach Do you want consulting provider notified?: Yes, Notify in am Primary care physician: Demetris Garcia [facility] Course: This is a 67-year-old female patient of Dr. Garcia with past medical history of metastatic non-small cell lung cancer under the care of Dr. Meredith with most recent treatment with immunotherapy. 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 Patient was discharged at that time to subacute rehab. Patient was sent into the hospital by oncology for evaluation of low blood pressure and weakness. Patient came into [facility] emergency center. Patient was found to be afebrile, initial blood pressure 95/41, heart rate 100, pulse ox 96% on room air. EKG was a sinus rhythm with no acute ST changes. Electrolyte abnormalities included sodium 127, potassium 3.0, coronary 96, CO2 18. BUN was 37 and creatinine 1.81. Lactic acid was 6.6, AST 125, ALT 62, alkaline phosphatase 208. TSH 6.020. INR 2.1. Troponin negative. Influenza testing negative. Chest x-ray showed chronic emphysematous change and cardiomegaly with lateral left upper lobe neoplasm all redemonstrated. Persistent small left pleural effusion and left basilar atelectasis and/or infiltrate improved from prior. Improved aeration right lung base noted no new focal infiltrates. Patient was given IV Solu-Medrol, nebulizer treatments, started on IV Zosyn and vancomycin, consult requested with oncology and patient admitted to the cardiac stepdown unit. Lasix will currently be placed on hold as well as Bactrim. [place] catheter to be removed. 10/01: This morning, patient has minimal response to sternal rub. According to nursing staff, patient was up earlier for her bath and thought to be okay. She was thought to be sleepy since then the patient is much different from her baseline. She has been afebrile. Heart rate in the 90s, blood pressure 104/62, pulse ox 96% on 3 L. Patient did receive her home dose of [place] and Xanax last evening/tire fixer. Noted that her lab work was significantly improved from yesterday. Patient was provided Narcan 0.4 mg IV with improvement of her mental status and patient able to speak to us but remains groggy. Stat ABGs, lactic acid, ammonia level, troponin. Stat EKG was a sinus rhythm with no acute changes. 10/02: Patient is responsive today and lethargic but answers and follows commands as appropriate. Ammonia level, troponin and ABGs were essentially normal. Repeat lab work this morning shows a potassium was 3.2, creatinine 0.74, cortisol level 1. Patient missed several doses of potassium yesterday. Patient is currently on oral hydrocortisone which will be discontinued and patient started on IV Solu-Cortef 100 mg 3 times daily. Patient has been afebrile, heart rate 96-109, blood pressure 111/61, pulse ox 97% on 3 L nasal cannula. Patient's discharge plan has been to return home with her but she is currently a total assist. We will plan to reevaluate tomorrow and discuss with patient's . Patient has been at [facility] in the past. 10/03: Last evening, patient's mental status deteriorated and MRI of the brain has been ordered which will be done today. This morning however, patient is much more alert and getting closer to her baseline. She is able to answer questions appropriately and follow directions. Patient is noted to have severe weakness bilaterally. No focal neuro deficits are noted. Patient did eat and drink well this morning for breakfast. We did start IV Solu-Cortef yesterday afternoon. She has been afebrile, heart rate 100, blood pressure 118/63, pulse ox 99% on 3 L nasal cannula. Anticipate patient will be here over the weekend. Patient's , Eduardo, has been contacted at his home number and updated on patient's current condition and plan of care. 10/04: Patient is resting comfortably in bed with acute distress. Patient is able to answer questions appropriately and follow commands. Patient continues to have bilateral weakness. There is no focal neural deficits noted. He is not complaining of shortness of breath or chest pain at this time. Patient remains afebrile, pulse in the 100s, blood pressure 138/94, pulse ox 96% on 2 L via nasal cannula. Patient has been tolerating her diet without any difficulties. WBC 6.9, Hemoccult and 10.8, platelets 240, potassium 4.3, BUN 25, creatinine 0.82, AST 44, ALT 54, alkaline phosphatase 165. Vanco trough 28.4 10/05 patient sitting in bed is able to answer questions appropriately does complain of tiredness and weakness. She does appears better than yesterday. Denies any chest pain cough shortness of breath dizziness or loss of consciousness. Hydrocortisone was switched to Solu-Medrol since patient was wheezing yesterday which has improved since yesterday. Vitals otherwise stable with a pulse rate of 94 respiratory rate 16 blood pressure 138/74. Patient had a brief run of nonsustained V. tach. Echo ordered cardiology consulted for further management. Potassium and magnesium are normal metoprolol initiated 25 mg by mouth daily. Chest x-ray suggesting feels interstitial and alveolar infiltrate. Lasix IV 40 mg daily initiated echocardiogram is pending. 10/06: Patient is feeling slightly better continue to be congested continue to have significant hypoxia require O2 along with updraft treatment. Still on IV antibiotic for gram-negative pneumonia. 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 Mentally patient is doing slightly but better she still very weak and tired and I still believe needed health specially with PTOT. 10/07: patient's mental status is much improved and patient is back to her baseline. Discussed in detail the patient needs to participate in subacute rehab as she will not be able to manage at home and will require repeat admission to the hospital. Her is known not to be able to provide cares that she needs at home. Patient is found sitting up in the recliner and is alert. She has completed 8 days of antibiotics. Plan will be transferred to [facility] floor today. Discussed with social work to make arrangements for subacute rehab for tomorrow. Patient does complain of cough. she has been afebrile, blood pressure 134/60, pulse ox 100% on 2 L nasal cannula. Oncology has placed immunotherapy on hold and also recommend the patient go to subacute rehab. echocardiogram reveals EF of 55%, moderate mitral regurgitation, mild tricuspid regurgitation, no pulmonary hypertension 10/08: Patient has not with social work and is agreeable to go to either [facility] or [facility]. Patient remains afebrile, heart rate in the 90s to 103, blood pressure 138/85, pulse ox 90% to 93% on room air. sample case porter is sinus rhythm. Patient has been cleared by cardiology for discharge. Patient states she is having diarrhea and according to her nurse she had 1 loose stool last evening and one loose stool today. We will plan to monitor. Patient did have an enema on the . Patient will be discharge to [facility] today in stable condition. Discharge diagnoses: 1. Generalized weakness and hypotension secondary to dehydration. 2. Acute kidney injury secondary to dehydration. 3. Metastatic non-small cell lung cancer under the care of Dr. Meredith. 4. Chronic lower extremity cellulitis with scabbing. 5. Sacral decubitus ulcer stage II, present on admission. 6. Coagulopathy. 7. Electrolyte abnormalities including hyponatremia, hypokalemia, hypochloremia with metabolic acidosis. 8. Lactic acidosis. 9. Possible gram-negative pneumonia, present on admission. 10. Hypothyroidism. 11. COPD, stable. 12. Recurrent depression. 13. Chronic pain syndrome. 14. 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 15. Acute toxic encephalopathy secondary to possible medication effect, possible adrenal insufficiency. 16. Nonsustained ventricular tachycardia. 17. Acute on chronic diastolic heart failure. Discharge plan: [facility] or [facility] for subacute rehab today Impression and plan of care have been directed as dictated by the signing physician. Dianelys Barrios nurse practitioner acting as scribe for signing physic kiki. Patient Condition at Discharge: Good Plan - Discharge Summary New Discharge Prescriptions: New Hydrocortisone Suppository [Anusol-Hc] 25 mg RECTAL BID #60 supp Ipratropium-Albuterol Nebulize [Duoneb 0.5 mg-3 mg/3 ml Soln] 3 ml INHALATION RT-TID PRN ampul.neb PRN Reason: Shortness Of Breath Or Wheezing Furosemide [Lasix] 40 mg PO DAILY tab Metoprolol Tartrate [Lopressor] 25 mg PO DAILY tab Continue Citalopram Hydrobromide [CeleXA] 40 mg PO QAM Albuterol Nebulized [Ventolin Nebulized] 2.5 mg INHALATION RT-QID PRN PRN Reason: Shortness Of Breath Cyclobenzaprine HCl 10 mg PO HS Budesonide [Pulmicort] 1 mg INHALATION RT-BID nebu Hydrocortisone [Cortef] 30 mg PO DAILY tab Hydrocortisone [Cortef] 20 mg PO 1600 tab Pantoprazole [Protonix] 40 mg PO BID tablet. Potassium Chloride ER [K-Dur 20] 20 meq PO TID tab.er.prt Levothyroxine Sodium [Synthroid] 25 mcg PO DAILY Fludrocortisone [Florinef] 0.1 mg PO BID Discontinued Umeclidinium Brm/Vilanterol Tr [Anoro Ellipta 62.5-25 Mcg INH] 1 puff INHALATION RT-DAILY Furosemide [Lasix] 40 mg PO DAILY tab Furosemide [Lasix] 20 mg PO 1600 tab Ipratropium Nebulized [Atrovent Nebulized 0.2 MG/ML] 0.5 mg INHALATION RT-QID nebu HYDROcodone/APAP 10-325MG [[place] 10-325] 1 tab PO Q4H PRN #18 tab PRN Reason: Pain Sulfamethox-Tmp 800-160Mg [Bactrim DS 800-160 mg] 1 tab PO BID ALPRAZolam [Xanax] 2 mg PO TID Discharge Medication List Albuterol Nebulized [Ventolin Nebulized] 2.5 mg INHALATION RT-QID PRN 05/03/15 [History] Citalopram Hydrobromide [CeleXA] 40 mg PO QAM 05/03/15 [History] Cyclobenzaprine HCl 10 mg PO HS 07/17/18 [History] Budesonide [Pulmicort] 1 mg INHALATION RT-BID nebu 07/28/18 [Rx] Hydrocortisone [Cortef] 20 mg PO 1600 tab 07/28/18 [Rx] Hydrocortisone [Cortef] 30 mg PO DAILY tab 07/28/18 [Rx] Pantoprazole [Protonix] 40 mg PO BID tablet. 07/28/18 [Rx] Potassium Chloride ER [K-Dur 20] 20 meq PO TID tab.er.prt 07/28/18 [Rx] Fludrocortisone [Florinef] 0.1 mg PO BID 09/29/18 [History] Levothyroxine Sodium [Synthroid] 25 mcg PO DAILY 09/29/18 [History] Furosemide [Lasix] 40 mg PO DAILY tab 10/08/18 [Rx] Hydrocortisone Suppository [Anusol-Hc] 25 mg RECTAL BID #60 supp 10/08/18 [Rx] Ipratropium-Albuterol Nebulize [Duoneb 0.5 mg-3 mg/3 ml Soln] 3 ml INHALATION RT-TID PRN ampul.neb 10/08/18 [Rx] Metoprolol Tartrate [Lopressor] 25 mg PO DAILY tab 10/08/18 [Rx] Follow up Appointment(s)/Referral(s): Demetris Garcia DO [Primary Care Provider] - 1 Week (Spoke to bike mechanic. Office will call with appointment time) [facility] [NON-STAFF] - Toy Meredith MD [STAFF PHYSICIAN] - 10/16/18 8:30 am () Patient Instructions/Handouts: Dehydration (DC), Hypokalemia (DC), Sepsis (GEN) Discharge Disposition: TRANSFER TO SNF/ECF
[2018-10-08] MEDS: IPRATROPIUM-ALBUTEROL 3 ML NEB INHALATION SCH ×2 (08:33→13:22)
[2018-10-08] MEDS: BUDESONIDE 1 MG/2 ML NEBU INHALATION SCH (08:33)
[2018-10-08] MEDS ORDERED: FUROSEMIDE 40 MG TAB PO SCH (09:00)
[2018-10-08 11:14] VITALS: BP 144/76; RESP 14
[2018-10-08 11:36] LABS: Glucose,Whole Blood 138 mg/dL (75-99)
--- NOTE | 2018-10-08 11:37 | P.PN ---
Subjective Progress Note Date: 10/08/18 This is a 67-year-old female patient with history of metastatic non-small cell lung cancer who is on chemotherapy, she also has history of COPD, hypothyroidism, depression, adrenal insufficiency and chronic pain syndrome. She was admitted to the hospital with low blood pressures with associated weakness fatigue and tiredness. Cardiology consultation was initially requested because of a run of nonsustained ventricular tachycardia. I did review her rhythm strips this morning, she has had no further ectopy. Potassium and magnesium levels are within normal range. An echocardiogram with Doppler study was performed which is yet pending. Patient overall feels well today, she still continues to feel somewhat weak. Blood pressure 120/70, heart rate 90 slow 100s. Continues to be on a daily dose of IV Lasix. 10/07/2018 Patient was seen and examined this morning, breathing is overall stable, feeling weak this morning. Echocardiogram with Doppler study revealed an ejection fraction of 55%, moderate mitral regurgitation noted. Blood pressure 130/70 with a heart rate in the 90s, 100% on 3 L of oxygen. White blood cell count 8.2, hemoglobin 10.1, platelet count 241. 10/08/2018 Patient was seen and examined this morning, overall feels well. No further ectopy noted on the monitor. Blood pressure 144/70 with a heart rate in the 70s, 93% on room air. Objective - Vital Signs Vital signs: Vital Signs Temp 97.4 F L 10/08/18 07:47 Pulse 78 10/08/18 11:14 Resp 14 10/08/18 11:14 BP 144/76 10/08/18 11:13 Pulse Ox 93 L 10/08/18 11:13 Intake & Output 10/07/18 10/08/18 10/08/18 18:59 06:59 18:59 Intake Total 644 240 240 Output Total 900 Balance -256 240 240 Weight 97.8 kg Intake: Oral 644 240 240 Output: Urine 900 Other: Voiding Method Diaper Diaper Diaper Incontinent Incontinent Incontinent # Voids 1 # Bowel Movements 1 - Exam General Appearance: Alert, cooperative, no distress,appears tired appears stated age. Neck HEENT: Supple, no lymphadenopathy, no thyroid enlargement, no carotid bruits. Lungs: Bilateral wheezes dereased, no crackles no rhonchi, no deformity. Chest Wall: Chest wall normal expansion with deep inspiration no tenderness and no deformity was found on exam, no costochondral pain or discomfort. Heart: Regular rate and rhythm, S1, S2 normal, no murmur, rub or gallop. Back: Symmetric, no curvature, ROM normal, no CVA tenderness. Abdomen: Soft, non-tender, no rebound or rigidity, no hepatosplenomegaly. Extremities: Extremities normal, atraumatic, no cyanosis or edema. Skin noted on right lower extremity. No significant erythema Pulses: 2+ and symmetric. Skin: Stage III pressure ulcer coccyx, Skin color, texture, tugor normal, no rashes or lesions. Neurologic: Alert oriented 2, able to follow directions, answers are appropriate - Labs CBC & Chem 7: 10/07/18 05:49 10/06/18 06:18 Labs: Abnormal Lab Results - Last 24 Hours (Table) 10/07/18 10/07/18 10/08/18 Range/Units 16:47 21:24 06:37 POC Glucose (mg/dL) 220 H 180 H 156 H (75-99) mg/dL Assessment and Plan Plan: Assessment and plan #1. Generalized weakness and hypotension secondary to dehydration. #2. Acute kidney injury secondary to dehydration. resolved, recheck electroly melanie and kidney function. #3. Metastatic non-small cell lung cancer under the care of Dr. Meredith. #4. Chronic lower extremity cellulitis with scabbing. No signs of infection. #5. Sacral decubitus ulcer stage III, present on admission. #6. Coagulopathy. #7. Electrolyte abnormalities including hyponatremia, hypokalemia, hypochloremia with metabolic acidosis. #8. Lactic acidosis. #9. Possible gram-negative pneumonia #10. Hypothyroidism. #11. COPD, exacerbation #12. Recurrent depression. #13. Chronic pain syndrome. #14. Acute toxic encephalopathy secondary to possible medication effect, possible adrenal insufficiency. Patient responded to Narcan. Xanax and [place] discontinued. Toradol started for pain control. MRI of the brain impression normal MRI brain #15 nonsustained V. tach Plan Patient has had no further episodes of documented nonsustained ventricular tachycardia, he may be able to be discharged home today from cardiology's perspective. He can follow-up with her primary care doctor as an outpatient. DNP note has been reviewed, I agree with a documented findings and plan of care. Patient was seen and examined.
[2018-10-08 13:29] VITALS: PULSE 92
[2018-10-08] MEDS ORDERED: LOPERAMIDE 2 MG CAP PO STA (14:34)
[2018-10-08] MEDS ORDERED: LOPERAMIDE 2 MG CAP PO PRN (14:34)
--- NOTE | 2018-10-08 17:01 | P.PN ---
Subjective Progress Note Date: 10/08/18 Principal diagnosis: Metastatic non-small cell lung cancer In follow-up today patient seems to be doing well, she states that she has been ambulating with physical therapy on that she is somewhat upset about having to go to rehab (physical therapy evaluating patient, their recommendations will be reviewed). Patient states that she is able to ambulate with a walker, she does have to change positions slowly, no recent syncope or falls, she has had some constipation, and with that being treated she has some perirectal irritation but denies rectal bleeding, abdominal pain, cramping, vomiting. Patient had an MRI of the brain that was negative for metastatic disease. Objective - Vital Signs Vital signs: Vital Signs Temp 97.4 F L 10/08/18 07:47 Pulse 92 10/08/18 13:28 Resp 14 10/08/18 11:14 BP 144/76 10/08/18 11:13 Pulse Ox 93 L 10/08/18 11:13 Intake & Output 10/07/18 10/08/18 10/08/18 18:59 06:59 18:59 Intake Total 644 240 480 Output Total 900 Balance -256 240 480 Weight 97.8 kg Intake: Oral 644 240 480 Output: Urine 900 Other: Voiding Method Diaper Diaper Diaper Incontinent Incontinent Incontinent # Voids 1 # Bowel Movements 1 - Constitutional General appearance: Present: cooperative, no acute distress, obese - EENT Eyes: Present: anicteric sclerae, EOMI ENT: Present: hearing grossly normal - Respiratory Respiratory: bilateral: CTA - Cardiovascular Rhythm: regular Heart sounds: normal: S1, S2 Abnormal Heart Sounds: Absent: systolic murmur, diastolic murmur, rub, S3 Gallop, S4 Gallop, click, other - Gastrointestinal General gastrointestinal: Present: normal bowel sounds, soft. Absent: absent bowel sounds, decreased bowel sounds, distended, hepatomegaly, hyperactive bowel sounds, organomegaly, rigid, scaphoid, splenomegaly, tenderness, umbilical hernia, ventral hernia - Integumentary Integumentary: Present: pale - Neurologic Neurologic: Present: CNII-XII intact - Musculoskeletal Musculoskeletal: Present: generalized weakness, strength equal bilaterally - Psychiatric Psychiatric: Present: A&O x's 3, appropriate affect, intact judgment & insight - Labs CBC & Chem 7: 10/07/18 05:49 10/06/18 06:18 Labs: Abnormal Lab Results - Last 24 Hours (Table) 10/07/18 10/07/18 10/08/18 Range/Units 16:47 21:24 06:37 POC Glucose (mg/dL) 220 H 180 H 156 H (75-99) mg/dL 10/08/18 Range/Units 11:32 POC Glucose (mg/dL) 138 H (75-99) mg/dL - Imaging and Cardiology MRI - head: report reviewed Assessment and Plan (1) Non-small cell lung cancer (NSCLC) Narrative/Plan: Patient has received nivolumab PD1 inhibitor, 3 cycles. Typically immunotherapy requires similar between 6 and 8 treatments before reevaluation of disease due to the slower tumor response time to therapy. Patient will follow- up with Dr. Meredith in the next week or so to reevaluate her prior to any additional treatment. MRI of the brain report reviewed, reviewed with patient, no evidence of malignancy Status: Chronic Priority: High Code(s): C34.90 - MALIGNANT NEOPLASM OF UNSP PART OF UNSP BRONCHUS OR LUNG SNOMED Code(s): 129421566 (2) Adrenal insufficiency due to cancer therapy Narrative/Plan: Patient is to continue on medications as prescribed for adrenal insufficiency due to immunotherapy treatment. Status: Chronic Priority: Medium Code(s): E27.40 - UNSPECIFIED ADRENOC ORTICAL INSUFFICIENCY SNOMED Code(s): 427560397 Plan: Patient is being evaluated by physical therapy. If patient is deemed appropriate to be discharged home and then she will be. If physical therapy feels that patient could benefit from some rehabilitation then that would be the recommendation. All treatment for malignancy would be on hold if patient is needing to participate in rehabilitation. She would not resume any treatment until after discharge from rehabilitation. Discussed with the patient and she did verbalize understanding
== END 2018-10-08 16:36 | DRG 682 ==
LOC: EC 15:48 → 3SCARD 18:18
PROVIDERS: ADMIT Internal Medicine; ATTEND Internal Medicine
DX: N17.9 Acute kidney failure, unspecified (principal); J15.6 Pneumonia due to other Gram-negative bacteria; G92 Toxic encephalopathy; I50.33 Acute on chronic diastolic (congestive) heart failure; L89.153 Pressure ulcer of sacral region, stage 3; I47.2 Ventricular tachycardia; E87.2 Acidosis; D68.9 Coagulation defect, unspecified; E87.1 Hypo-osmolality and hyponatremia; J44.0 Chronic obstructive pulmonary disease with (acute) lower respiratory infection; F33.9 Major depressive disorder, recurrent, unspecified; E27.40 Unspecified adrenocortical insufficiency; L03.116 Cellulitis of left lower limb; L03.115 Cellulitis of right lower limb; C34.12 Malignant neoplasm of upper lobe, left bronchus or lung; I95.9 Hypotension, unspecified; I08.1 Rheumatic disorders of both mitral and tricuspid valves; E87.6 Hypokalemia; E86.0 Dehydration; R32 Unspecified urinary incontinence; F41.9 Anxiety disorder, unspecified; E03.9 Hypothyroidism, unspecified; G89.4 Chronic pain syndrome; R09.02 Hypoxemia; E66.9 Obesity, unspecified; Z68.37 Body mass index [BMI] 37.0-37.9, adult; Z71.3 Dietary counseling and surveillance; Z79.890 Hormone replacement therapy; Z79.899 Other long term (current) drug therapy; Z91.048 Other nonmedicinal substance allergy status; Z92.3 Personal history of irradiation; Z90.710 Acquired absence of both cervix and uterus; Z85.118 Personal history of other malignant neoplasm of bronchus and lung; Z87.440 Personal history of urinary (tract) infections; Z90.49 Acquired absence of other specified parts of digestive tract; Z87.891 Personal history of nicotine dependence; Z88.1 Allergy status to other antibiotic agents
CPT/HCPCS: 36415; 36600; 51702; 70551; 71045; 71046; 80048; 80053; 80202; 81001; 82140; 82533; 82805; 83605; 83735; 84100; 84132; 84145; 84443; 84484; 85025; 85027; 85610; 85730; 87040; 87086; 87502; 93005; 93306; 94640; 94760; 96361; 96365; 96366; 96367; 96368; 96375; 99285

== ENCOUNTER 2018-11-13 12:48 | Emergency (ER) | payer MEDICARE, OTHER ==
--- NOTE | 2018-11-13 14:26 | ED ---
General Adult HPI - General Chief complaint: Recheck/Abnormal Lab/Rx Stated complaint: low potassium-sent by Time Seen by Provider: 11/13/18 14:09 Source: patient, old records reviewed (Potassium 2.6) Mode of arrival: wheelchair Limitations: no limitations - History of Present Illness Initial comments: Patient is a pleasant 67-year-old female presenting to the emergency Department with reported low potassium. Patient does have history of fluid retention and is on Lasix. Patient had her potassium checked by her primary care physician and was found to be low. Patient is unclear how low. Patient was advised come to emergency department. Patient complains of generalized fatigue however this is chronic for her. Patient also complains of edema which is also fairly chronic for her. Patient denies any dyspnea. Patient states wheezing is ch ronic and refuses breathing treatment. - Related Data Home Medications Medication Instructions Recorded Confirmed Albuterol Nebulized [Ventolin 2.5 mg INHALATION RT-QID PRN 05/03/15 11/13/18 Nebulized] Citalopram Hydrobromide [CeleXA] 40 mg PO QAM 05/03/15 11/13/18 Cyclobenzaprine HCl 10 mg PO HS 07/17/18 11/13/18 Fludrocortisone [Florinef] 0.1 mg PO BID 09/29/18 11/13/18 Levothyroxine Sodium [Synthroid] 25 mcg PO DAILY 09/29/18 11/13/18 ALPRAZolam [Xanax] 0.25 mg PO Q8H PRN 11/13/18 11/13/18 HYDROcodone/APAP 5-325MG [[place] 1 tab PO Q6H PRN 11/13/18 11/13/18 5-325] Hydrocortisone [Cortef] 50 mg PO DAILY@1600 11/13/18 11/13/18 Magnesium Oxide [Magox 400] 400 mg PO W/SUPPER 11/13/18 11/13/18 Spironolactone [Aldactone] 25 mg PO DAILY@1400 11/13/18 11/13/18 Previous Rx's Medication Instructions Recorded Budesonide [Pulmicort] 1 mg INHALATION RT-BID nebu 07/28/18 Pantoprazole [Protonix] 40 mg PO BID tablet. 07/28/18 Potassium Chloride ER [K-Dur 20] 20 meq PO TID tab.er.prt 07/28/18 Furosemide [Lasix] 40 mg PO DAILY tab 10/08/18 Ipratropium-Albuterol Nebulize 3 ml INHALATION RT-TID PRN 10/08/18 [Duoneb 0.5 mg-3 mg/3 ml Soln] ampul.neb Metoprolol Tartrate [Lopressor] 25 mg PO DAILY tab 10/08/18 Allergies Allergy/AdvReac Type Severity Reaction Status Date / Time cephalexin monohydrate Allergy Severe Anaphylaxis Verified 11/13/18 15:02 [From Keflex] adhesive Allergy Rash/Hives Verified 11/13/18 15:02 silicone Allergy Rash/Hives Verified 11/13/18 15:02 Review of Systems ROS Statement: Those systems with pertinent positive or pertinent negative responses have been documented in the HPI. ROS Other: All systems not noted in ROS Statement are negative. Constitutional: Denies: fever Eyes: Denies: eye pain ENT: Denies: ear pain Respiratory: Denies: dyspnea Cardiovascular: Reports: edema. Denies: chest pain Endocrine: Reports: fatigue Gastrointestinal: Denies: abdominal pain Genitourinary: Denies: dysuria Musculoskeletal: Denies: back pain Skin: Denies: rash Past Medical History Past Medical History: COPD Additional Past Medical History / Comment(s): URINARY INCONTINENCE, WEARS DEPENDS DAILY, lung CA, post radiation. Fracture left wrist. brain nodules- radiation bed sores History of Any Multi-Drug Resistant Organisms: None Reported Past Surgical History: Cholecystectomy, Hysterectomy, Orthopedic Surgery Additional Past Surgical History / Comment(s): KARSON KNEE CAP REPLACEMENT, bronchoscopy Past Anesthesia/Blood Transfusion Reactions: No Reported Reaction Past Psychological History: Anxiety Smoking Status: Former smoker - Past Family History Mother Family Medical History: Unable to Obtain Additional Family Medical History / Comment(s): . General Exam Limitations: no limitations General appearance: alert, in no apparent distress Head exam: Present: atraumatic Eye exam: Present: normal appearance ENT exam: Present: normal oropharynx Neck exam: Present: normal inspection Respiratory exam: Present: wheezes. Absent: respiratory distress Cardiovascular Exam: Present: regular rate, normal rhythm GI/Abdominal exam: Present: soft. Absent: tenderness Extremities exam: Present: pedal edema (+3 bilaterally). Absent: calf tende rness Neurological exam: Present: alert Psychiatric exam: Present: normal affect, normal mood Skin exam: Present: normal color Course Vital Signs 11/13/18 11/13/18 11/13/18 14:02 15:00 15:30 Temperature 97.2 F L Pulse Rate 69 63 60 Respiratory 18 18 18 Rate Blood Pressure 135/88 127/65 124/58 O2 Sat by Pulse 97 100 100 Oximetry EKG Findings - EKG Comments: EKG Findings:: Normal sinus rhythm 61. LA 136. QRS 84. QT 46. QTc 49. Normal axis. Low QRS voltage. No acute ST change. Medical Decision Making - Medical Decision Making Patient request discharge. Patient is updated on results and need for close follow-up. - Lab Data Result diagrams: 11/13/18 14:50 11/13/18 14:50 Lab Results 11/13/18 11/13/18 11/13/18 Range/Units 14:50 14:50 14:50 WBC 8.3 (3.8-10.6) k/uL RBC 3.31 L (3.80-5.40) m/uL Hgb 10.5 L (11.4-16.0) gm/dL Hct 31.7 L (34.0-46.0) % MCV 95.6 (80.0-100.0) fL MCH 31.7 (25.0-35.0) pg MCHC 33.1 (31.0-37.0) g/dL RDW 15.5 (11.5-15.5) % Plt Count 190 (150-450) k/uL Neutrophils % 61 % Lymphocytes % 25 % Monocytes % 9 % Eosinophils % 2 % Basophils % 1 % Neutrophils # 5.0 (1.3-7.7) k/uL Lymphocytes # 2.0 (1.0-4.8) k/uL Monocytes # 0.7 (0-1.0) k/uL Eosinophils # 0.2 (0-0.7) k/uL Basophils # 0.0 (0-0.2) k/uL Sodium 139 (137-145) mmol/L Potassium 3.1 L (3.5-5.1) mmol/L Chloride 101 (98-107) mmol/L Carbon Dioxide 36 H (22-30) mmol/L Anion Gap 2 mmol/L BUN 20 H (7-17) mg/dL Creatinine 0.61 (0.52-1.04) mg/dL Est GFR (CKD-EPI)AfAm >90 (>60 ml/min/1.73 sqM) Est GFR (CKD-EPI)NonAf >90 (>60 ml/min/1.73 sqM) Glucose 78 (74-99) mg/dL Calcium 8.1 L (8.4-10.2) mg/dL Total Bilirubin 0.5 (0.2-1.3) mg/dL AST 33 (14-36) U/L ALT 25 (9-52) U/L Alkaline Phosphatase 93 (38-126) U/L NT-Pro-B Natriuret Pep 2700 pg/mL Total Protein 5.2 L (6.3-8.2) g/dL Albumin 2.6 L (3.5-5.0) g/dL Urine Color Urine Appearance (Clear) Urine pH (5.0-8.0) Ur Specific [place] (1.001-1.035) Urine Protein (Negative) Urine Glucose (UA) (Negative) Urine Ketones (Negative) Urine Blood (Negative) Urine Nitrite (Negative) Urine Bilirubin (Negative) Urine Urobilinogen (<2.0) mg/dL Ur Leukocyte Esterase (Negative) Urine RBC (0-5) /hpf Urine WBC (0-5) /hpf Ur Squamous Epith Cells (0-4) /hpf Hyaline Casts (0-2) /lpf Urine Mucus (None) /hpf 11/13/18 Range/Units 14:50 WBC (3.8-10.6) k/uL RBC (3.80-5.40) m/uL Hgb (11.4-16.0) gm/dL Hct (34.0-46.0) % MCV (80.0-100.0) fL MCH (25.0-35.0) pg MCHC (31.0-37.0) g/dL RDW (11.5-15.5) % Plt Count (150-450) k/uL Neutrophils % % Lymphocytes % % Monocytes % % Eosinophils % % Basophils % % Neutrophils # (1.3-7.7) k/uL Lymphocytes # (1.0-4.8) k/uL Monocytes # (0-1.0) k/uL Eosinophils # (0-0.7) k/uL Basophils # (0-0.2) k/uL Sodium (137-145) mmol/L Potassium (3.5-5.1) mmol/L Chloride (98-107) mmol/L Carbon Dioxide (22-30) mmol/L Anion Gap mmol/L BUN (7-17) mg/dL Creatinine (0.52-1.04) mg/dL Est GFR (CKD-EPI)AfAm (>60 ml/min/1.73 sqM) Est GFR (CKD-EPI)NonAf (>60 ml/min/1.73 sqM) Glucose (74-99) mg/dL Calcium (8.4-10.2) mg/dL Total Bilirubin (0.2-1.3) mg/dL AST (14-36) U/L ALT (9-52) U/L Alkaline Phosphatase (38-126) U/L NT-Pro-B Natriuret Pep pg/mL Total Protein (6.3-8.2) g/dL Albumin (3.5-5.0) g/dL Urine Color Light Yellow Urine Appearance Clear (Clear) Urine pH 6.5 (5.0-8.0) Ur Specific [place] 1.011 (1.001-1.035) Urine Protein Negative (Negative) Urine Glucose (UA) Negative (Negative) Urine Ketones Negative (Negative) Urine Blood Negative (Negative) Urine Nitrite Negative (Negative) Urine Bilirubin Negative (Negative) Urine Urobilinogen <2.0 (<2.0) mg/dL Ur Leukocyte Esterase Moderate H (Negative) Urine RBC 2 (0-5) /hpf Urine WBC 2 (0-5) /hpf Ur Squamous Epith Cells <1 (0-4) /hpf Hyaline Casts 1 (0-2) /lpf Urine Mucus Rare H (None) /hpf - Radiology Data Radiology results: image reviewed (Chest x-ray does show left apical pleural thickening that could represent patient's reported prior cancer. Atelectasis.) Disposition Clinical Impression: Hypokalemia Disposition: HOME SELF-CARE Condition: Stable Instructions (If sedation given, give patient instructions): Hypokalemia (ED) Additional Instructions: Please follow-up with primary care physician in the next day or 2 for recheck. You will need to have your potassium level checked within the next couple of days. Please take an additional dose of potassium tonight and tomorrow. Return for difficulty breathing, leg swelling, palpitations, fatigue, worsening symptoms or other concerns. Is patient prescribed a controlled substance at d/c from ED?: No Referrals: Demetris Garcia DO [Primary Care Provider] - 1-2 days Time of Disposition: 16:06
--- NOTE | 2018-11-13 14:48 | XR ---
EXAMINATION TYPE: XR chest 2V DATE OF EXAM: 11/13/2018 COMPARISON: 10/05/2018 INDICATION: Lung cancer, wheezing TECHNIQUE: Frontal and lateral views of the chest are obtained. FINDINGS: The heart size is normal. The pulmonary vasculature is normal. There is a large pleural thickening at the left upper lobe some stranding may extend towards the left suprahilar region. There is tenting along the left diaphragm can related atelectasis. IMPRESSION: 1. Left upper lobe pleural thickening could reflect the patient's reported prior cancer. 2. There is some tenting left diaphragm. Atelectasis should be considered.
[2018-11-13 15:19] LABS: Basophils % (A) 1 %; Eosinophils # (A) 0.2 k/uL (0-0.7); Eosinophils % (A) 2 %; HCT 31.7 % (34.0-46.0); HGB 10.5 gm/dL (11.4-16.0); Lymphocytes % (A) 25 %; MCH 31.7 pg (25.0-35.0); MCHC 33.1 g/dL (31.0-37.0); MCV 95.6 fL (80.0-100.0); Mean Platelet Volume 7.5; Monocytes # (A) 0.7 k/uL (0-1.0); Monocytes % (A) 9 %; Neutrophils % (A) 61 %; Platelet Count 190 k/uL (150-450); RBC 3.31 m/uL (3.80-5.40); RDW 15.5 % (11.5-15.5); WBC 8.3 k/uL (3.8-10.6)
[2018-11-13 15:21] LABS: Appearance,Urine Clear (Clear); Bilirubin,Urine Negative (Negative); Blood,Urine Negative (Negative); Color,Urine Light Yellow; Glucose,Urine (UA) Negative (Negative); Hyaline Casts,Urine 1 /lpf (0-2); Ketones,Urine Negative (Negative); Leukocyte Esterase,Urine Moderate (Negative); Mucus,Urine Rare /hpf; Nitrite,Urine Negative (Negative); PH, Urine 6.5 (5.0-8.0); Protein,Urine Negative (Negative); RBC,Urine 2 /hpf (0-5); Specific Gravity,Urine 1.011 (1.001-1.035); Squamous Epithelial Cell,Urine <1 /hpf (0-4); Urobilinogen,Urine <2.0 mg/dL (<2.0); WBC,Urine 2 /hpf (0-5)
[2018-11-13 15:34] LABS: ALT 25 U/L (9-52); AST 33 U/L (14-36); Albumin 2.6 g/dL (3.5-5.0); Alkaline Phosphatase 93 U/L (38-126); Anion Gap 2 mmol/L; Blood Urea Nitrogen 20 mg/dL (7-17); Calcium 8.1 mg/dL (8.4-10.2); Carbon Dioxide 36 mmol/L (22-30); Chloride 101 mmol/L (98-107); Glucose 78 mg/dL (74-99); Potassium 3.1 mmol/L (3.5-5.1); Sodium 139 mmol/L (137-145); Total Bilirubin 0.5 mg/dL (0.2-1.3); Total Protein 5.2 g/dL (6.3-8.2)
[2018-11-13] MEDS ORDERED: POTASSIUM CHLORIDE 2 MEQ/ML 20 ML VIAL IV STA (15:36)
[2018-11-13] MEDS ORDERED: POTASSIUM CHLORIDE ER 20 MEQ TAB.ER PO STA (15:36)
[2018-11-13] MEDS ORDERED: POTASSIUM CHLORIDE 10 MEQ in WATER FOR INJECTION 1 100ML.BAG IVPB ONE (16:30)
[2018-11-13 17:35] VITALS: BP 125/54; PULSE 68; RESP 20; TEMP 98.8
== END 2018-11-13 17:40 | disposition home or self-care (01) ==
LOC: EC 12:48
DX: E87.6 Hypokalemia (principal); J44.9 Chronic obstructive pulmonary disease, unspecified; F41.9 Anxiety disorder, unspecified; Z85.118 Personal history of other malignant neoplasm of bronchus and lung; Z87.891 Personal history of nicotine dependence; Z87.81 Personal history of (healed) traumatic fracture; Z90.49 Acquired absence of other specified parts of digestive tract; Z90.710 Acquired absence of both cervix and uterus; Z96.653 Presence of artificial knee joint, bilateral; Z79.52 Long term (current) use of systemic steroids; Z79.890 Hormone replacement therapy; Z79.899 Other long term (current) drug therapy; Z88.1 Allergy status to other antibiotic agents; Z91.048 Other nonmedicinal substance allergy status
CPT/HCPCS: 36415; 93005; 83880; 80053; 85025; 81001; 71046; 99285; 96365; J3480; 87086

== ENCOUNTER 2018-12-01 16:11 | Inpatient (IN) | payer MEDICARE, OTHER ==
--- NOTE | 2018-12-01 16:45 | ED ---
General Adult HPI - General Chief complaint: Weakness Stated complaint: Weakness Time Seen by Provider: 12/01/18 16:25 Source: patient, EMS, RN notes reviewed Mode of arrival: EMS Limitations: no limitations - History of Present Illness Initial comments: Patient is a pleasant 67-year-old female presenting to the emergency department with generalized weakness. Symptoms have progressed over the past several days. Patient is weak and has difficulty getting up and walking. Patient has not been eating well. Patient has been drinking some fluids. Patient does have known history of stage IV lung cancer and is not currently on treatment for this secondary to it making her ill in the past. Patient has not been on treatment for several months now. - Related Data Home Medications Medication Instructions Recorded Confirmed Albuterol Nebulized [Ventolin 2.5 mg INHALATION RT-QID PRN 05/03/15 12/01/18 Nebulized] Citalopram Hydrobromide [CeleXA] 40 mg PO QAM 05/03/15 12/01/18 Cyclobenzaprine HCl 10 mg PO HS 07/17/18 12/01/18 Fludrocortisone [Florinef] 0.1 mg PO BID 09/29/18 12/01/18 Levothyroxine Sodium [Synthroid] 25 mcg PO DAILY 09/29/18 12/01/18 ALPRAZolam [Xanax] 0.25 mg PO Q8H PRN 11/13/18 12/01/18 HYDROcodone/APAP 5-325MG [[place] 1 tab PO Q6H PRN 11/13/18 12/01/18 5-325] Hydrocortisone [Cortef] 50 mg PO DAILY 11/13/18 12/01/18 Magnesium Oxide [Magox 400] 400 mg PO W/SUPPER 11/13/18 12/01/18 Spironolactone [Aldactone] 25 mg PO DAILY 11/13/18 12/01/18 Previous Rx's Medication Instructions Recorded Budesonide [Pulmicort] 1 mg INHALATION RT-BID nebu 07/28/18 Pantoprazole [Protonix] 40 mg PO BID tablet. 07/28/18 Potassium Chloride ER [K-Dur 20] 20 meq PO TID tab.er.prt 07/28/18 Furosemide [Lasix] 40 mg PO DAILY tab 10/08/18 Ipratropium-Albuterol Nebulize 3 ml INHALATION RT-TID PRN 10/08/18 [Duoneb 0.5 mg-3 mg/3 ml Soln] ampul.neb Metoprolol Tartrate [Lopressor] 25 mg PO DAILY tab 10/08/18 Allergies Allergy/AdvReac Type Severity Reaction Status Date / Time cephalexin monohydrate Allergy Severe Anaphylaxis Verified 12/01/18 17:12 [From Keflex] adhesive Allergy Rash/Hives Verified 12/01/18 17:12 silicone Allergy Rash/Hives Verified 12/01/18 17:12 Review of Systems ROS Statement: Those systems with pertinent positive or pertinent negative responses have been documented in the HPI. ROS Other: All systems not noted in ROS Statement are negative. Constitutional: Reports: chills. Denies: fever Eyes: Denies: eye pain ENT: Denies: ear pain Respiratory: Denies: cough Cardiovascular: Denies: chest pain Endocrine: Reports: fatigue Gastrointestinal: Denies: abdominal pain Genitourinary: Denies: urgency Musculoskeletal: Denies: back pain Skin: Denies: rash Neurological: Denies: headache, confusion Past Medical History Past Medical History: COPD Additional Past Medical History / Comment(s): URINARY INCONTINENCE, WEARS DEPENDS DAILY, lung CA, post radiation. Fracture left wrist. brain nodules- radiation bed sores History of Any Multi-Drug Resistant Organisms: None Reported Past Surgical History: Cholecystectomy, Hysterectomy, Orthopedic Surgery Additional Past Surgical History / Comment(s): KARSON KNEE CAP REPLACEMENT, bronchoscopy Past Anesthesia/Blood Transfusion Reactions: No Reported Reaction Past Psychological History: Anxiety Smoking Status: Former smoker - Past Family History Mother Family Medical History: Unable to Obtain Additional Family Medical History / Comment(s): . General Exam Limitations: no limitations General appearance: alert, in no apparent distress Head exam: Present: atraumatic Eye exam: Present: normal appearance, PERRL, EOMI. Absent: nystagmus ENT exam: Present: mucous membranes dry Neck exam: Present: normal inspection Respiratory exam: Present: normal lung sounds bilaterally Cardiovascular Exam: Present: regular rate, normal rhythm GI/Abdominal exam: Present: soft. Absent: distended, tenderness Extremities exam: Present: other (Bilateral lower extremity erythema). Absent: calf tenderness Neurological exam: Present: alert Expanded Neurological exam: Present: protecting the airway Patient oriented to: Present: person, place, time Speech: Present: fluid speech Motor strength exam: RUE: 5, LUE: 5, RLE: 4, LLE: 4 Eye Response: (4) open spontaneously Motor Response: (6) obeys commands Verbal Response: (5) oriented Psychiatric exam: Present: normal affect, normal mood Skin exam: Present: erythema (Bilateral lower legs to below the knees. There are some abrasions and mild skin breakdown as well.) Course Vital Signs 12/01/18 12/01/18 12/01/18 16:13 16:30 17:30 Temperature 98 F Pulse Rate 97 95 97 Respiratory 18 15 23 Rate Blood Pressure 93/80 93/80 90/49 O2 Sat by Pulse 99 100 99 Oximetry 12/01/18 18:00 Temperature Pulse Rate 102 H Respiratory 26 H Rate Blood Pressure 96/47 O2 Sat by Pulse 99 Oximetry - Reevaluation(s) Reevaluation #1: 12/01/18 16:42 30 mL/kg fluid bolus ordered based on a ideal bodyweight of 85 kg for a 5 foot 4 inch female. Fluid bolus needed is 1650 mL. 12/01/18 16:43 Patient does desire to be a full code. 12/01/18 18:25 Patient does meet diagnosis for severe sepsis diagnosed at 1800. IV antibiotic's will be ordered. Blood culture and lactic acid and fluid boluses have been ordered. EKG Findings - EKG Comments: EKG Findings:: Normal sinus rhythm 97. CO 154. QRS 102. QT 444. QTC 563. Normal axis. Normal QRS. No acute ST change. Motion artifact is present Medical Decision Making - Medical Decision Making Patient reevaluated. Blood pressure has been stable over 100. Patient and family updated on results and plan. Case was discussed in detail with Dr. Carrasco, who will admit covering for Dr. Garcia. Dr. Meredith has been paged. - Lab Data Result diagrams: 12/01/18 11:47 12/01/18 17:34 Lab Results 12/01/18 12/01/18 12/01/18 Range/Units 11:47 17:34 17:34 WBC 11.0 H (3.8-10.6) k/uL RBC 3.40 L (3.80-5.40) m/uL Hgb 10.6 L (11.4-16.0) gm/dL Hct 32.8 L (34.0-46.0) % MCV 96.4 (80.0-100.0) fL MCH 31.1 (25.0-35.0) pg MCHC 32.3 (31.0-37.0) g/dL RDW 14.9 (11.5-15.5) % Plt Count 218 (150-450) k/uL Neutrophils % 74 % Lymphocytes % 12 % Monocytes % 8 % Eosinophils % 2 % Basophils % 1 % Neutrophils # 8.1 H (1.3-7.7) k/uL Lymphocytes # 1.3 (1.0-4.8) k/uL Monocytes # 0.9 (0-1.0) k/uL Eosinophils # 0.2 (0-0.7) k/uL Basophils # 0.1 (0-0.2) k/uL PT 17.7 H (9.0-12.0) sec INR 1.8 H (<1.2) APTT 37.6 H (22.0-30.0) sec Sodium 130 L (137-145) mmol/L Potassium 2.8 L (3.5-5.1) mmol/L Chloride 93 L (98-107) mmol/L Carbon Dioxide 28 (22-30) mmol/L Anion Gap 9 mmol/L BUN 36 H (7-17) mg/dL Creatinine 2.02 H (0.52-1.04) mg/dL Est GFR (CKD-EPI)AfAm 28 (>60 ml/min/1.73 sqM) Est GFR (CKD-EPI)NonAf 25 (>60 ml/min/1.73 sqM) Glucose 89 (74-99) mg/dL Plasma Lactic Acid Dave (0.7-2.0) mmol/L Calcium 7.5 L (8.4-10.2) mg/dL Total Bilirubin 1.4 H (0.2-1.3) mg/dL AST 44 H (14-36) U/L ALT 27 (9-52) U/L Alkaline Phosphatase 121 (38-126) U/L Creatine Kinase 57 (30-135) U/L Troponin I (0.000-0.034) ng/mL Total Protein 4.8 L (6.3-8.2) g/dL Albumin 2.2 L (3.5-5.0) g/dL 12/01/18 12/01/18 Range/Units 17:34 17:34 WBC (3.8-10.6) k/uL RBC (3.80-5.40) m/uL Hgb (11.4-16.0) gm/dL Hct (34.0-46.0) % MCV (80.0-100.0) fL MCH (25.0-35.0) pg MCHC (31.0-37.0) g/dL RDW (11.5-15.5) % Plt Count (150-450) k/uL Neutrophils % % Lymphocytes % % Monocytes % % Eosinophils % % Basophils % % Neutrophils # (1.3-7.7) k/uL Lymphocytes # (1.0-4.8) k/uL Monocytes # (0-1.0) k/uL Eosinophils # (0-0.7) k/uL Basophils # (0-0.2) k/uL PT (9.0-12.0) sec INR (<1.2) APTT (22.0-30.0) sec Sodium (137-145) mmol/L Potassium (3.5-5.1) mmol/L Chloride (98-107) mmol/L Carbon Dioxide (22-30) mmol/L Anion Gap mmol/L BUN (7-17) mg/dL Creatinine (0.52-1.04) mg/dL Est GFR (CKD-EPI)AfAm (>60 ml/min/1.73 sqM) Est GFR (CKD-EPI)NonAf (>60 ml/min/1.73 sqM) Glucose (74-99) mg/dL Plasma Lactic Acid Dave 2.8 H* (0.7-2.0) mmol/L Calcium (8.4-10.2) mg/dL Total Bilirubin (0.2-1.3) mg/dL AST (14-36) U/L ALT (9-52) U/L Alkaline Phosphatase (38-126) U/L Creatine Kinase (30-135) U/L Troponin I 0.020 (0.000-0.034) ng/mL Total Protein (6.3-8.2) g/dL Albumin (3.5-5.0) g/dL - Radiology Data Radiology results: image reviewed (Chest x-ray shows pleural fluid and thickening left base as well as pleural thickening left upper lobe.) Critical Care Time Critical Care Time: Yes Total Critical Care Time: 32 Disposition Clinical Impression: Cellulitis, Severe sepsis, Dehydration, Non-small cell lung cancer (NSCLC), Hypokalemia Disposition: ADMITTED IP TO THIS [facility] Condition: Serious Is patient prescribed a controlled substance at d/c from ED?: No Referrals: Demetris Garcia DO [Primary Care Provider] - 1-2 days Decision Time: 18:27
[2018-12-01] MEDS: SODIUM CHLORIDE 0.9% 500 ML 500 ML IV SCH ×4 (16:47→19:10)
[2018-12-01 17:45] LABS: Basophils # (A) 0.1 k/uL (0-0.2); Basophils % (A) 1 %; Eosinophils # (A) 0.2 k/uL (0-0.7); Eosinophils % (A) 2 %; HCT 32.8 % (34.0-46.0); HGB 10.6 gm/dL (11.4-16.0); Lymphocytes # (A) 1.3 k/uL (1.0-4.8); Lymphocytes % (A) 12 %; MCH 31.1 pg (25.0-35.0); MCHC 32.3 g/dL (31.0-37.0); MCV 96.4 fL (80.0-100.0); Mean Platelet Volume 7.7; Monocytes # (A) 0.9 k/uL (0-1.0); Monocytes % (A) 8 %; Neutrophils # (A) 8.1 k/uL (1.3-7.7); Neutrophils % (A) 74 %; Platelet Count 218 k/uL (150-450); RDW 14.9 % (11.5-15.5)
[2018-12-01 17:51] LABS: INR 1.8 (<1.2); Partial Thromboplastin Time 37.6 sec (22.0-30.0); Prothrombin Time 17.7 sec (9.0-12.0)
[2018-12-01 17:53] LABS: Albumin 2.2 g/dL (3.5-5.0); Calcium 7.5 mg/dL (8.4-10.2); Potassium 2.8 mmol/L (3.5-5.1); Total Bilirubin 1.4 mg/dL (0.2-1.3); Total Protein 4.8 g/dL (6.3-8.2)
--- NOTE | 2018-12-01 18:10 | XR ---
EXAMINATION TYPE: XR chest 2V DATE OF EXAM: 12/01/2018 COMPARISON: 11/13/2018 HISTORY: Fever and weakness TECHNIQUE: Frontal and lateral views of the chest are obtained. FINDINGS: There is 8 x 4 cm area of pleural thickening on the left upper lateral chest wall. There i s old right-sided healed rib fractures. There is no heart failure. There is slight blunting left cost ophrenic angle. There are chest leads. Thoracic aorta is atheromatous. IMPRESSION: Pleural fluid and pleural thickening at the left lung base and also left upper lobe ches t wall pleural thickening. No significant change compared to last exam. No heart failure.
[2018-12-01] MEDS ORDERED: POTASSIUM CHLORIDE ER 20 MEQ TAB.ER PO STA (18:19)
[2018-12-01] MEDS ORDERED: POTASSIUM CHLORIDE 2 MEQ/ML 20 ML VIAL IVPB STA (18:19)
[2018-12-01] MEDS ORDERED: LEVOFLOXACIN 750MG-D5W PMX 750 MG in DEXTROSE/WATER 1 150ML.BAG IVPB STA (18:27)
[2018-12-01] MEDS ORDERED: NALOXONE 0.4 MG/ML 1 ML VIAL IV PRN (18:28)
[2018-12-01] MEDS: POTASSIUM CHLORIDE 10 MEQ in WATER FOR INJECTION 1 100ML.BAG IVPB SCH ×2 (19:08→21:01)
[2018-12-01] MEDS: POTASSIUM CHLORIDE ER 20 MEQ TAB.ER PO SCH (21:45)
[2018-12-01] MEDS: CYCLOBENZAPRINE 10 MG TAB PO SCH (21:52)
[2018-12-01] MEDS: HYDROcodone/APAP 5-325MG 1 EACH TAB PO PRN (21:52)
[2018-12-01] MEDS: FLUDROCORTISONE 0.1 MG TAB PO SCH (21:52)
[2018-12-01] MEDS: PANTOPRAZOLE 40 MG TABLET PO SCH (21:52)
[2018-12-01] MEDS: 0.9% NACL WITH KCL 20 MEQ/L 1,000 ML IV SCH (21:53)
[2018-12-01 23:01] LABS: Appearance,Urine Cloudy (Clear); Bilirubin,Urine Negative (Negative); Blood,Urine Trace (Negative); Color,Urine Yellow; Glucose,Urine (UA) Negative (Negative); Hyaline Casts,Urine 26 /lpf (0-2); Ketones,Urine Negative (Negative); Leukocyte Esterase,Urine Large (Negative); Mucus,Urine Occasional /hpf; Nitrite,Urine Negative (Negative); PH, Urine 5.5 (5.0-8.0); Protein,Urine 1+ (Negative); RBC,Urine 20 /hpf (0-5); WBC,Urine >182 /hpf (0-5)
[2018-12-01] MEDS: HYDROCORTISONE 20 MG TAB PO SCH (23:13)
[2018-12-02] MEDS: LEVOTHYROXINE 25 MCG TAB PO SCH (05:35)
[2018-12-02] MEDS: HYDROcodone/APAP 5-325MG 1 EACH TAB PO PRN ×2 (05:37→21:36)
[2018-12-02] MEDS: HYDROCORTISONE 20 MG TAB PO SCH (08:19)
[2018-12-02] MEDS: POTASSIUM CHLORIDE ER 20 MEQ TAB.ER PO SCH ×3 (08:19→21:26)
[2018-12-02] MEDS: FLUDROCORTISONE 0.1 MG TAB PO SCH ×2 (08:19→21:26)
[2018-12-02] MEDS: SPIRONOLACTONE 25 MG TAB PO SCH (08:20)
[2018-12-02] MEDS: PANTOPRAZOLE 40 MG TABLET PO SCH ×2 (08:20→16:50)
[2018-12-02] MEDS: METOPROLOL TARTRATE 25 MG TAB PO SCH (08:20)
[2018-12-02] MEDS: CITALOPRAM HYDROBROMIDE 20 MG TAB PO SCH (08:20)
[2018-12-02] MEDS: 0.9% NACL WITH KCL 20 MEQ/L 1,000 ML IV SCH ×2 (08:34→22:08)
[2018-12-02] MEDS ORDERED: FUROSEMIDE 40 MG TAB PO SCH (09:00)
[2018-12-02] MEDS ORDERED: HYDROCORTISONE 20 MG TAB PO SCH (09:00)
[2018-12-02] MEDS: IPRATROPIUM-ALBUTEROL 3 ML NEB INHALATION PRN (09:25)
[2018-12-02] MEDS: BUDESONIDE 1 MG/2 ML NEBU INHALATION SCH ×2 (09:25→19:46)
[2018-12-02 11:36] LABS: Basophils % (A) 0 %; Eosinophils % (A) 0 %; HCT 33.4 % (34.0-46.0); HGB 10.4 gm/dL (11.4-16.0); Hypochromasia Slight; Lymphocytes # (A) 0.5 k/uL (1.0-4.8); Lymphocytes % (A) 7 %; MCHC 31.2 g/dL (31.0-37.0); MCV 99.3 fL (80.0-100.0); Macrocytosis Slight; Monocytes # (A) 0.2 k/uL (0-1.0); Monocytes % (A) 3 %; Neutrophils % (A) 87 %; Platelet Count 191 k/uL (150-450); RBC 3.36 m/uL (3.80-5.40); RDW 15.3 % (11.5-15.5); WBC 6.8 k/uL (3.8-10.6)
[2018-12-02 11:41] LABS: Albumin 2.2 g/dL (3.5-5.0); Calcium 7.4 mg/dL (8.4-10.2); Magnesium 2.2 mg/dL (1.6-2.3); Potassium 3.8 mmol/L (3.5-5.1); Total Protein 4.9 g/dL (6.3-8.2)
[2018-12-02] MEDS ORDERED: VANCOMYCIN IV PER PHARMACY 1 EACH MISC MISCELLANE SCH (12:15)
--- NOTE | 2018-12-02 12:30 | P.HPIM ---
History of Present Illness H&P Date: 12/02/18 This is a 67-year-old female patient of Dr. Garcia with past medical history of metastatic non-small cell lung cancer under the care of Dr. Meredith with most recent treatment with immunotherapy. 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 She subsequently had an admission in September for dehydration and acute kidney injury and acute on chronic diastolic heart failure and was discharged to [facility] and discharge for [facility] to home on October 22. Patient is unclear her current plan with oncology. She states she saw Vicky León a week ago and has another appointment set up but does not know the plan. She has home care set up in her home care nurse found her blood pressure to be 60/40. Patient has been feeling tired with chills and genera lized weakness gradually worsening. Patient also has bilateral lower extremity cellulitis. Patient came into [facility] emergency center. Patient was found to be afebrile, initial blood pressure 135/88, heart rate 69, pulse ox 97% on room air. EKG was a sinus rhythm with no acute ST changes. WBC 11.0, hemoglobin 10.6, INR 1.8, sodium 130, potassium 2.8, chloride 93, CO2 28, BUN 36 and creatinine 2.02. Lactic acid 1.6. Total bilirubin 1.4, AST 46, ALT 28, alkaline phosphatase 129. Troponin 0.020. Albumin 2.2. Urinalysis was cloudy, leukoesterase large, RBCs 20, wbc's greater than 182. Influenza testing negative. Chest x-ray showed chronic emphysematous change and cardiomegaly with lateral left upper lobe neoplasm all redemonstrated. Persistent small left pleural effusion and left basilar atelectasis and/or infiltrate improved from prior. Improved aeration right lung base noted no new focal infiltrates. Patient was given IV Solu-Medrol, nebulizer treatments, started on IV Zosyn and vancomycin, consult requested with oncology and patient admitted to the cardiac stepdown unit. Lasix will currently be placed on hold as well as Bactrim. Corrales catheter to be removed. Urine culture in progress. Chest x-ray showed pleural fluid and pleural thickening at the left lung base and also left lower lobe chest wall pleural thickening. No significant change f rom last exam. No heart failure. Review of Systems Constitutional: Reports fatigue, Reports weakness, reports malaise, reports chills, Denies fever, Denies poor appetite Eyes: denies blurred vision, denies pain Ears, nose, mouth and throat: Denies dysphagia, Denies headache, Denies sore throat Cardiovascular: Denies chest pain, Denies dyspnea on exertion, Denies shortness of breath, Denies syncope Respiratory: Denies cough, Denies cough with sputum, Denies dyspnea, Denies excessive sputum, Denies hemoptysis Gastrointestinal: Denies abdominal pain, Denies diarrhea, Denies loss of appetite, Denies nausea, Denies vomiting Genitourinary: Denies dysuria, Denies hematuria Musculoskeletal: Denies frequent falls, Denies myalgias Integumentary: Denies pruritus, Denies rash, reports wounds, reports leg edema Neurological: Denies aphasia, Denies change in mentation, Denies change in speech, Denies numbness, Denies weakness Psychiatric: Denies anxiety, Denies depression Endocrine: Denies fatigue, Denies weight change Past Medical History Past Medical History: Cancer, COPD Additional Past Medical History / Comment(s): URINARY INCONTINENCE, WEARS DEPENDS DAILY, lung CA, post radiation and chemo. Fracture left wrist. brain nodules-radiation bed sores History of Any Multi-Drug Resistant Organisms: None Reported Past Surgical History: Cholecystectomy, Hysterectomy, Orthopedic Surgery Additional Past Surgical History / Comment(s): KARSON KNEE CAP REPLACEMENT, bronchoscopy Past Anesthesia/Blood Transfusion Reactions: No Reported Reaction Past Psychological History: Anxiety Smoking Status: Current every day smoker Past Alcohol Use History: Occasional Past Drug Use History: None Reported - Past Family History Mother Family Medical History: Unable to Obtain Additional Family Medical History / Comment(s): patient was adopted . Medications and Allergies Home Medications Medication Instructions Recorded Confirmed Type Albuterol Nebulized [Ventolin 2.5 mg INHALATION RT-QID PRN 05/03/15 12/01/18 History Nebulized] Citalopram Hydrobromide [CeleXA] 40 mg PO QAM 05/03/15 12/01/18 History Cyclobenzaprine HCl 10 mg PO HS 07/17/18 12/01/18 History Budesonide [Pulmicort] 1 mg INHALATION RT-BID nebu 07/28/18 12/01/18 Rx Pantoprazole [Protonix] 40 mg PO BID tablet. 07/28/18 12/01/18 Rx Potassium Chloride ER [K-Dur 20] 20 meq PO TID tab.er.prt 07/28/18 12/01/18 Rx Fludrocortisone [Florinef] 0.1 mg PO BID 09/29/18 12/01/18 History Levothyroxine Sodium [Synthroid] 25 mcg PO DAILY 09/29/18 12/01/18 History Furosemide [Lasix] 40 mg PO DAILY tab 10/08/18 12/01/18 Rx Ipratropium-Albuterol Nebulize 3 ml INHALATION RT-TID PRN 10/08/18 12/01/18 Rx [Duoneb 0.5 mg-3 mg/3 ml Soln] ampul.neb Metoprolol Tartrate [Lopressor] 25 mg PO DAILY tab 10/08/18 12/01/18 Rx ALPRAZolam [Xanax] 0.25 mg PO Q8H PRN 11/13/18 12/01/18 History HYDROcodone/APAP 5-325MG [[place] 1 tab PO Q6H PRN 11/13/18 12/01/18 History 5-325] Hydrocortisone [Cortef] 50 mg PO DAILY 11/13/18 12/01/18 History Magnesium Oxide [Magox 400] 400 mg PO W/SUPPER 11/13/18 12/01/18 History Spironolactone [Aldactone] 25 mg PO DAILY 11/13/18 12/01/18 History Allergies Allergy/AdvReac Type Severity Reaction Status Date / Time cephalexin monohydrate Allergy Severe Anaphylaxis Verified 12/01/18 17:12 [From Keflex] adhesive Allergy Rash/Hives Verified 12/01/18 17:12 silicone Allergy Rash/Hives Verified 12/01/18 17:12 Physical Exam Vitals: Vital Signs Temp Pulse Pulse Resp BP BP Pulse Ox 12/02/18 09:37 72 12/02/18 09:26 68 12/02/18 05:28 98.1 F 90 18 97/58 93 L 12/02/18 01:12 93/43 12/02/18 00:08 96.9 F L 61 95/40 12/01/18 23:00 98.0 F 97 18 88/51 99 12/01/18 22:35 97.6 F 12/01/18 19:37 90 20 92/44 96 12/01/18 18:00 102 H 26 H 96/47 99 12/01/18 17:30 97 23 90/49 99 12/01/18 16:30 95 15 93/80 100 12/01/18 16:13 98 F 97 18 93/80 99 Intake and Output 12/01/18 12/02/18 12/02/18 22:59 06:59 14:59 Intake Total 350 600 Balance 350 600 Intake: Intake, IV Titration 350 600 Amount 0.9% NaCl with KCl 20 Meq 600 /l 1,000 ml @ 75 mls/hr IV .[id number] [facility] Rx#: [id number] Levofloxacin 750Mg-D5w 150 Pmx 750 mg In Dextrose/ Water 1 150ml.bag @ 100 mls/hr IVPB Q24H [facility] Rx#: [id number] Potassium Chloride 10 meq 200 In Water For Injection 1 100ml.bag @ 100 mls/hr IVPB Q1H [facility] Rx#: [id number] Other: Voiding Method Bedside Commode Bedside Commode Diaper Diaper Incontinent Incontinent # Voids 1 1 Weight 95.254 kg Gen: This is a 67-year-old female. She is resting in bed appears to be comfortable and in no acute distress. HEENT: Head is atraumatic, normocephalic. Pupils equal, round. Sclerae is anicteric. NECK: Supple. No JVD. No lymphadenopathy. No thyromegaly. LUNGS: Mild expiratory wheeze. No accessory muscle usage.. No intercostal retractions. HEART: Regular rate and rhythm. Systolic murmur. ABDOMEN: Soft. Bowel sounds are present. No masses. No tenderness. EXTREMITIES: 2+ pedal edema. Erythema and wounds to bilateral lower extremities. NEUROLOGICAL: Patient is awake, alert and oriented x3. Cranial nerves 2 through 12 are grossly intact. Results CBC & Chem 7: 12/02/18 10:36 12/02/18 10:36 Labs: Abnormal Lab Results - Last 24 Hours (Table) 12/01/18 12/01/18 12/01/18 Range/Units 11:47 17:34 17:34 WBC 11.0 H (3.8-10.6) k/uL RBC 3.40 L (3.80-5.40) m/uL Hgb 10.6 L (11.4-16.0) gm/dL Hct 32.8 L (34.0-46.0) % Neutrophils # 8.1 H (1.3-7.7) k/uL Lymphocytes # (1.0-4.8) k/uL PT 17.7 H (9.0-12.0) sec INR 1.8 H (<1.2) APTT 37.6 H (22.0-30.0) sec Sodium 130 L (137-145) mmol/L Potassium 2.8 L (3.5-5.1) mmol/L Chloride 93 L (98-107) mmol/L BUN 36 H (7-17) mg/dL Creatinine 2.02 H (0.52-1.04) mg/dL Glucose (74-99) mg/dL Plasma Lactic Acid Dave (0.7-2.0) mmol/L Calcium 7.5 L (8.4-10.2) mg/dL Total Bilirubin 1.4 H (0.2-1.3) mg/dL AST 44 H (14-36) U/L Alkaline Phosphatase (38-126) U/L Total Protein 4.8 L (6.3-8.2) g/dL Albumin 2.2 L (3.5-5.0) g/dL Urine Appearance (Clear) Urine Protein (Negative) Urine Blood (Negative) Ur Leukocyte Esterase (Negative) Urine RBC (0-5) /hpf Urine WBC (0-5) /hpf Urine WBC Clumps (None) /hpf Hyaline Casts (0-2) /lpf Urine Mucus (None) /hpf 12/01/18 12/01/18 12/02/18 Range/Units 17:34 22:25 10:36 WBC (3.8-10.6) k/uL RBC 3.36 L (3.80-5.40) m/uL Hgb 10.4 L (11.4-16.0) gm/dL Hct 33.4 L (34.0-46.0) % Neutrophils # (1.3-7.7) k/uL Lymphocytes # 0.5 L (1.0-4.8) k/uL PT (9.0-12.0) sec INR (<1.2) APTT (22.0-30.0) sec Sodium (137-145) mmol/L Potassium (3.5-5.1) mmol/L Chloride (98-107) mmol/L BUN (7-17) mg/dL Creatinine (0.52-1.04) mg/dL Glucose (74-99) mg/dL Plasma Lactic Acid Dave 2.8 H* (0.7-2.0) mmol/L Calcium (8.4-10.2) mg/dL Total Bilirubin (0.2-1.3) mg/dL AST (14-36) U/L Alkaline Phosphatase (38-126) U/L Total Protein (6.3-8.2) g/dL Albumin (3.5-5.0) g/dL Urine Appearance Cloudy H (Clear) Urine Protein 1+ H (Negative) Urine Blood Trace H (Negative) Ur Leukocyte Esterase Large H (Negative) Urine RBC 20 H (0-5) /hpf Urine WBC >182 H (0-5) /hpf Urine WBC Clumps Few H (None) /hpf Hyaline Casts 26 H (0-2) /lpf Urine Mucus Occasional H (None) /hpf // Range/Units 10:36 WBC (3.8-10.6) k/uL RBC (3.80-5.40) m/uL Hgb (11.4-16.0) gm/dL Hct (34.0-46.0) % Neutrophils # (1.3-7.7) k/uL Lymphocytes # (1.0-4.8) k/uL PT (9.0-12.0) sec INR (<1.2) APTT (22.0-30.0) sec Sodium 135 L (137-145) mmol/L Potassium (3.5-5.1) mmol/L Chloride (98-107) mmol/L BUN 29 H (7-17) mg/dL Creatinine 1.22 H (0.52-1.04) mg/dL Glucose 151 H (74-99) mg/dL Plasma Lactic Acid Dave (0.7-2.0) mmol/L Calcium 7.4 L (8.4-10.2) mg/dL Total Bilirubin (0.2-1.3) mg/dL AST 46 H (14-36) U/L Alkaline Phosphatase 129 H (38-126) U/L Total Protein 4.9 L (6.3-8.2) g/dL Albumin 2.2 L (3.5-5.0) g/dL Urine Appearance (Clear) Urine Protein (Negative) Urine Blood (Negative) Ur Leukocyte Esterase (Negative) Urine RBC (0-5) /hpf Urine WBC (0-5) /hpf Urine WBC Clumps (None) /hpf Hyaline Casts (0-2) /lpf Urine Mucus (None) /hpf Microbiology - Last 24 Hours (Table) 12/01/18 22:25 Urine Culture - Preliminary Urine,Voided Thrombosis Risk Factor Assmnt - DVT/VTE Prophylaxis DVT/VTE Prophylaxis: Pharmacologic Prophylaxis ordered - Choose All That Apply Any of the Below Risk Factors Present?: Yes Each Factor Represents 1 point: Abnormal pulmonary function (COPD), Obesity (BMI >25), Sepsis (< 1month) Other Risk Factors: Yes Each Risk Factor Represents 2 Points: Age 61-74 years, Malignancy Other congenital or acquired thrombophilia - If yes, enter type in comment: No Thrombosis Risk Factor Assessment Total Risk Factor Score: 7 Thrombosis Risk Factor Assessment Level: High Risk Assessment and Plan Plan: 1. Possible sepsis secondary to urinary tract infection. Continue Levaquin. Urine culture and blood culture in progress. 2. Generalized weakness and hypotension secondary to dehydration and sepsis. Continue IV fluids at 75 mL per hour. Hold Lasix for now. 3. Acute kidney injury with hypokalemia secondary to dehydration. Status post potassium replacement. Continue IV fluids, recheck electrolytes and kidney function. 4. Possible left sided pneumonia, gram-negative. Continue Levaquin 750 mg daily. Consult with Dr. Devine. 5. Sacral decubitus ulcer stage II, present on admission. Continue local wound care with Silvadene. Vancomycin added. Continue Levaquin. 6. Metastatic non-small cell lung cancer under the care of Dr. Meredith. Oncology consult. 7. Bilateral lower extremity cellulitis. Vancomycin added. Continue Optifoam. 8. Coagulopathy, chronic. INR 1.8. 9. Electrolyte abnormalities including hyponatremia, hypokalemia, hypochloremia. Continue IV fluids. 10. Hypothyroidism. Continue levothyroxine. 11. COPD, stable. Continue DuoNeb treatments, Pulmicort. 12. Recurrent depression. Continue Celexa 40 mg in the morning. 13. Chronic pain syndrome. Continue [place], Flexeril. 14. 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 Oncology consult. Continue Cortef 50 mg daily, Florinef 0.1 mg twice daily. 15. Chronic diastolic heart failure. Lasix currently on hold. Continue Aldactone. 16. Recurrent depression. Continue Celexa 40 mg daily. 17. Chronic pain syndrome. Continue Flexeril 10 mg at bedtime, [place] 1 every 6 hours as needed. 18. Severe protein calorie malnutrition. Protein supplementation. 19. DVT prophylaxis. Heparin subcu. noted INR is elevated at 1.8 and platelet count is normal. 20. GI prophylaxis. Protonix. Patient will be admitted to the hospital for a minimum of 2 night stay. Discharge plan: To be determined. Most likely subacute rehab. PT and OT. Impression and plan of care have been directed as dictated by the signing physician. Dianelys Barrios nurse practitioner acting as scribe for signing physician.
[2018-12-02] MEDS: VANCOMYCIN 1,750 MG in SODIUM CHLORIDE 0.9% 500 ML 500 ML IVPB SCH (13:56)
[2018-12-02] MEDS ORDERED: PIPERACILLIN-TAZOBACTAM 3.375 GM in SODIUM CHLORIDE 0.9% 100 ML IVPB SCH (16:00)
--- NOTE | 2018-12-02 16:17 | P.CNPUL ---
History of Present Illness Consult date: 12/02/18 Reason for consult: COPD, lung mass Chief complaint: Low blood pressure weakness fatigue History of present illness: This is a 67-year-old female with known history of non-small cell lung cancer/stage IV, metastatic. Patient was recently treated with immunotherapy by Dr. Meredith. She is also known to have history of multiple medical problems including hypothyroidism, COPD, chronic pain syndrome, and he'll insufficiency, she was last hospitalized in July for sepsis and urinary tract infection as well as cellulitis and metabolic encephalopathy. Patient was at the intermediate, she was found to have low blood pressure about 60/40, and the patient was complaining of generalized weakness fatigue malaise and chills, she was also noted to have cellulitis of both lower extremities. Hence the patient was sent to the ER. Upon presentation her blood pressure was normal. Heart rate was normal. O2 saturation was normal. WBC count was 11. She had a slightly low sodium and low potassium. BUN was 36 creatinine was 2.02, and lactic acid was 1.6. Urinalysis was suggestive of possible urinary tract infection. Influenza screen was negative. Chest x-ray showed left upper lobe mass which has been present for quite some time, and it is supposedly malignant. Patient was also noted to have small left pleural effusion and possible infiltrate in the left lower lobe and there was improved aeration of the right lung base. At any rate patient was given IV Solu-Medrol, updrafts, started on broad-spectrum a ntibiotics in the form of vancomycin and Zosyn, admitted and this consult was initiated. The effusion noted on the chest x-ray is extremely small, and will not require thoracentesis. The patient herself is a very poor historian. Most of the information was obtained from the chart Review of Systems Constitutional: Fatigue weakness malaise and weight loss. HEENT: Denies sore throat, however the patient has hoarse voice, and she may have vocal cord paralysis related to her anesthetic lung cancer and left upper lobe mass. Pulmonary: As noted in HPI. Cardiac: Denies any chest pain, no angina, no palpitations, no syncope. GI denies nausea vomiting abdominal pain melena or hematemesis Genitourinary denied dysuria frequency urgency hematuria [place] skeletal denies fall denies arthralgia or myalgia Neurologic denies headache blurred vision or dizziness. Psychiatric: Denies any symptoms of active depression Hematologic: Denies any clotting bleeding or bruising Endocrine denies any symptoms to suggest hypo-or hyperthyroidism or diabetes. Past Medical History Past Medical History: Cancer, COPD Additional Past Medical History / Comment(s): URINARY INCONTINENCE, WEARS DEPENDS DAILY, lung CA, post radiation and chemo. Fracture left wrist. brain nodules-radiation bed sores History of Any Multi-Drug Resistant Organisms: None Reported Past Surgical History: Cholecystectomy, Hysterectomy, Orthopedic Surgery Additional Past Surgical History / Comment(s): KARSON KNEE CAP REPLACEMENT, bronchoscopy Past Anesthesia/Blood Transfusion Reactions: No Reported Reaction Past Psychological History: Anxiety Smoking Status: Current every day smoker Past Alcohol Use History: Occasional Past Drug Use History: None Reported - Past Family History Mother Family Medical History: Unable to Obtain Additional Family Medical History / Comment(s): patient was adopted . Medications and Allergies Home Medications Medication Instructions Recorded Confirmed Type Albuterol Nebulized [Ventolin 2.5 mg INHALATION RT-QID PRN 05/03/15 12/01/18 History Nebulized] Citalopram Hydrobromide [CeleXA] 40 mg PO QAM 05/03/15 12/01/18 History Cyclobenzaprine HCl 10 mg PO HS 07/17/18 12/01/18 History Budesonide [Pulmicort] 1 mg INHALATION RT-BID nebu 07/28/18 12/01/18 Rx Pantoprazole [Protonix] 40 mg PO BID tablet. 07/28/18 12/01/18 Rx Potassium Chloride ER [K-Dur 20] 20 meq PO TID tab.er.prt 07/28/18 12/01/18 Rx Fludrocortisone [Florinef] 0.1 mg PO BID 09/29/18 12/01/18 History Levothyroxine Sodium [Synthroid] 25 mcg PO DAILY 09/29/18 12/01/18 History Furosemide [Lasix] 40 mg PO DAILY tab 10/08/18 12/01/18 Rx Ipratropium-Albuterol Nebulize 3 ml INHALATION RT-TID PRN 10/08/18 12/01/18 Rx [Duoneb 0.5 mg-3 mg/3 ml Soln] ampul.neb Metoprolol Tartrate [Lopressor] 25 mg PO DAILY tab 10/08/18 12/01/18 Rx ALPRAZolam [Xanax] 0.25 mg PO Q8H PRN 11/13/18 12/01/18 History HYDROcodone/APAP 5-325MG [[place] 1 tab PO Q6H PRN 11/13/18 12/01/18 History 5-325] Hydrocortisone [Cortef] 50 mg PO DAILY 11/13/18 12/01/18 History Magnesium Oxide [Magox 400] 400 mg PO W/SUPPER 11/13/18 12/01/18 History Spironolactone [Aldactone] 25 mg PO DAILY 11/13/18 12/01/18 History Allergies Allergy/AdvReac Type Severity Reaction Status Date / Time cephalexin monohydrate Allergy Severe Anaphylaxis Verified 12/01/18 17:12 [From Keflex] adhesive Allergy Rash/Hives Verified 12/01/18 17:12 silicone Allergy Rash/Hives Verified 12/01/18 17:12 Physical Exam Vitals: Vital Signs Temp Pulse Pulse Resp BP BP Pulse Ox 12/02/18 11:58 97.5 F L 74 16 95/48 97 12/02/18 09:37 72 12/02/18 09:26 68 12/02/18 05:28 98.1 F 90 18 97/58 93 L 12/02/18 01:12 93/43 12/02/18 00:08 96.9 F L 61 95/40 12/01/18 23:00 98.0 F 97 18 88/51 99 12/01/18 22:35 97.6 F 12/01/18 19:37 90 20 92/44 96 12/01/18 18:00 102 H 26 H 96/47 99 12/01/18 17:30 97 23 90/49 99 12/01/18 16:30 95 15 93/80 100 12/01/18 16:13 98 F 97 18 93/80 99 Intake and Output 12/02/18 12/02/18 12/02/18 06:59 14:59 22:59 Intake Total 600 Balance 600 Intake: Intake, IV Titration 600 Amount 0.9% NaCl with KCl 20 Meq 600 /l 1,000 ml @ 75 mls/hr IV .[id number] [facility] Rx#: [id number] Other: Voiding Method Bedside Commode Bedside Commode Diaper Diaper Incontinent Incontinent # Voids 1 1 Weight 95.254 kg Physical Exam: Revealed a 67-year-old female in no distress. Patient is noted to have hoarseness of the voice upon speaking Head: Atraumatic, normocephalic. HEENT:[Neck is supple.] [No neck masses.] [No thyromegaly.] [No JVD.] PERRLA, EOMI, no icterus. Chest: [Diminished breath sounds at the bases, wheezing on forced expiratory maneuver. No accessory muscle use, no chest wall tenderness. Symmetrical chest expansion..] Cardiac Exam: [Normal S1 and S2, no S3 gallop, no murmur.] Abdomen: [Soft, nontender, no megaly, no rebound, no guarding, normal bowel sounds.] Extremities: [2+ bipedal edema, erythema and once noted on both lower extremities, wrapped with sterile dressing. Neurological Exam: [No focal neurologic deficit.] No gross focal neurologic deficits. Psychiatric: Normal mood, affect poor mental status examination Lymphatics: No lymphadenopathy. Results - Laboratory Findings CBC and BMP: 12/02/18 10:36 12/02/18 10:36 PT/INR, D-dimer PT 17.7 sec (9.0-12.0) H 12/01/18 17:34 INR 1.8 (<1.2) H 12/01/18 17:34 Abnormal lab findings: Abnormal Labs 12/01/18 12/01/18 12/01/18 11:47 17:34 17:34 WBC 11.0 H RBC 3.40 L Hgb 10.6 L Hct 32.8 L Neutrophils # 8.1 H Lymphocytes # PT 17.7 H INR 1.8 H APTT 37.6 H Sodium 130 L Potassium 2.8 L Chloride 93 L BUN 36 H Creatinine 2.02 H Glucose Plasma Lactic Acid Dave Calcium 7.5 L Total Bilirubin 1.4 H AST 44 H Alkaline Phosphatase Total Protein 4.8 L Albumin 2.2 L Urine Appearance Urine Protein Urine Blood Ur Leukocyte Esterase Urine RBC Urine WBC Urine WBC Clumps Hyaline Casts Urine Mucus 12/01/18 12/01/18 12/02/18 17:34 22:25 10:36 WBC RBC 3.36 L Hgb 10.4 L Hct 33.4 L Neutrophils # Lymphocytes # 0.5 L PT INR APTT Sodium Potassium Chloride BUN Creatinine Glucose Plasma Lactic Acid Dave 2.8 H* Calcium Total Bilirubin AST Alkaline Phosphatase Total Protein Albumin Urine Appearance Cloudy H Urine Protein 1+ H Urine Blood Trace H Ur Leukocyte Esterase Large H Urine RBC 20 H Urine WBC >182 H Urine WBC Clumps Few H Hyaline Casts 26 H Urine Mucus Occasional H 12/02/18 10:36 WBC RBC Hgb Hct Neutrophils # Lymphocytes # PT INR APTT Sodium 135 L Potassium Chloride BUN 29 H Creatinine 1.22 H Glucose 151 H Plasma Lactic Acid Dave Calcium 7.4 L Total Bilirubin AST 46 H Alkaline Phosphatase 129 H Total Protein 4.9 L Albumin 2.2 L Urine Appearance Urine Protein Urine Blood Ur Leukocyte Esterase Urine RBC Urine WBC Urine WBC Clumps Hyaline Casts Urine Mucus - Diagnostic Findings Chest x-ray: image reviewed (As noted in HPI) Assessment and Plan Assessment: Impression: Multiple constitutional symptoms in a patient with history of metastatic lung cancer, urinary tract infection, cellulitis of lower extremities, strongly suspect some component of sepsis. Acute kidney injury, could very well be related to acute tumor necrosis or could be dehydration related. Left upper lobe mass, strongly doubt pneumonia. Sacral decubitus ulcers and cellulitis of both lower extremities. Electrolytes imbalance being addressed by admitting physician History of hypothyroidism on replacement therapy History of COPD relatively fairly well controlled at present, patient is on proper bronchodilators. Chronic pain syndrome History of adrenal insufficiency related to autoimmune therapy patient is on Cortef. And on Florinef. History of depression. Recommendation: I fully agree with the present treatment plan including hydration, antibiotics, bronchodilators, overall long-term prognosis is extremely poor, continue GI and DVT prophylaxis, consider addressing CODE STATUS, especially knowing that the patient has metastatic stage IV lung cancer Time with Patient: Greater than 30
[2018-12-02] MEDS: MAGNESIUM OXIDE 400 MG TAB PO SCH (16:50)
[2018-12-02] MEDS ORDERED: LEVOFLOXACIN 750MG-D5W PMX 750 MG in DEXTROSE/WATER 1 150ML.BAG IVPB SCH (18:00)
--- NOTE | 2018-12-02 18:24 | P.CONS ---
History of Present Illness - Reason for Consult Consult date: 12/02/18 History of non-small cell lung cancer Requesting physician: Nils Ram - Chief Complaint Falls, dizziness - History of Present Illness Mrs. Temple is a very pleasant 67-year-old female patient of Dr. 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 She has since been treated with thyroid replacement for hypothyroidism and florinef for adrenal insufficiency. Patient's daughter states that she ran out of her Florinef about one week ago. Patient then began experiencing dizziness and several falls. She is also experiencing bilateral lower extremity cellulitis. Patient denied fevers, chills, nausea, vomiting, progressive shortness of breath, cough, hemoptysis, abdominal pain, acute changes in bowel or bladder habits, bleeding, pain, she does have moderately severe bilateral lower extremity swelling. She does require assistive device to ambulate. Malignancy History: ROSA M mass on CXR in August 2014, CT revealed 2.4 cm ROSA M lesion, bronchoscopy and transbronchial biopsy by Dr. Cruz 05/19/15 revealed NSCLC, squamous cell subtype, staging PET revealed hypermetabolic uptake in ROSA M tumor with SUV of 13-17, no other areas of increased uptake in medistinum. Was not a surgical candidate, SBRT X 5 in Jul 2015, CT in September showed decrease size of tumor with SUV now in normal range. Did well until Jul 2017, she had c/o increasing R thigh pain, biopsy revealed metastatic squamous cell, PET showed no other mets, treated with radiation therapy. 11/01 PET showed increased R thigh activity and new suspicious FDG activity in both lungs. Started on gemzar 01/01, through 03/04, changed to nivolumab, s/p 9 treatments, last dose 10/03. 08/05 admitted with sepsis and weakness, found to have thyroid & adrenal insufficiency attributed to Opdivo, followed by Endocrinology, on treatment. Review of Systems 14 point review of systems is negative except as stated in HPI Past Medical History Past Medical History: Cancer, COPD Additional Past Medical History / Comment(s): URINARY INCONTINENCE, WEARS DEPENDS DAILY, lung CA, post radiation and chemo. Fracture left wrist. brain nodules-radiation bed sores History of Any Multi-Drug Resistant Organisms: None Reported Past Surgical History: Cholecystectomy, Hysterectomy, Orthopedic Surgery Additional Past Surgical History / Comment(s): KARSON KNEE CAP REPLACEMENT, bronc hoscopy Past Anesthesia/Blood Transfusion Reactions: No Reported Reaction Past Psychological History: Anxiety Smoking Status: Current every day smoker Past Alcohol Use History: Occasional Past Drug Use History: None Reported - Past Family History Mother Family Medical History: Unable to Obtain Additional Family Medical History / Comment(s): patient was adopted . Medications and Allergies Home Medications Medication Instructions Recorded Confirmed Type Albuterol Nebulized [Ventolin 2.5 mg INHALATION RT-QID PRN 05/03/15 12/01/18 History Nebulized] Citalopram Hydrobromide [CeleXA] 40 mg PO QAM 05/03/15 12/01/18 History Cyclobenzaprine HCl 10 mg PO HS 07/17/18 12/01/18 History Budesonide [Pulmicort] 1 mg INHALATION RT-BID nebu 07/28/18 12/01/18 Rx Pantoprazole [Protonix] 40 mg PO BID tablet.dr 07/28/18 12/01/18 Rx Potassium Chloride ER [K-Dur 20] 20 meq PO TID tab.er.prt 07/28/18 12/01/18 Rx Fludrocortisone [Florinef] 0.1 mg PO BID 09/29/18 12/01/18 History Levothyroxine Sodium [Synthroid] 25 mcg PO DAILY 09/29/18 12/01/18 History Furosemide [Lasix] 40 mg PO DAILY tab 10/08/18 12/01/18 Rx Ipratropium-Albuterol Nebulize 3 ml INHALATION RT-TID PRN 10/08/18 12/01/18 Rx [Duoneb 0.5 mg-3 mg/3 ml Soln] ampul.neb Metoprolol Tartrate [Lopressor] 25 mg PO DAILY tab 10/08/18 12/01/18 Rx ALPRAZolam [Xanax] 0.25 mg PO Q8H PRN 11/13/18 12/01/18 History HYDROcodone/APAP 5-325MG [[place] 1 tab PO Q6H PRN 11/13/18 12/01/18 History 5-325] Hydrocortisone [Cortef] 50 mg PO DAILY 11/13/18 12/01/18 History Magnesium Oxide [Magox 400] 400 mg PO W/SUPPER 11/13/18 12/01/18 History Spironolactone [Aldactone] 25 mg PO DAILY 11/13/18 12/01/18 History Allergies Allergy/AdvReac Type Severity Reaction Status Date / Time cephalexin monohydrate Allergy Severe Anaphylaxis Verified 12/01/18 17:12 [From Keflex] adhesive Allergy Rash/Hives Verified 12/01/18 17:12 silicone Allergy Rash/Hives Verified 12/01/18 17:12 Physical Exam Vitals: Vital Signs Temp Pulse Pulse Resp BP BP Pulse Ox 12/02/18 09:37 72 12/02/18 09:26 68 12/02/18 05:28 98.1 F 90 18 97/58 93 L 12/02/18 01:12 93/43 12/02/18 00:08 96.9 F L 61 95/40 12/01/18 23:00 98.0 F 97 18 88/51 99 12/01/18 22:35 97.6 F 12/01/18 19:37 90 20 92/44 96 12/01/18 18:00 102 H 26 H 96/47 99 12/01/18 17:30 97 23 90/49 99 12/01/18 16:30 95 15 93/80 100 12/01/18 16:13 98 F 97 18 93/80 99 Intake and Output 12/01/18 12/02/18 12/02/18 22:59 06:59 14:59 Intake Total 350 600 Balance 350 600 Intake: Intake, IV Titration 350 600 Amount 0.9% NaCl with KCl 20 Meq 600 /l 1,000 ml @ 75 mls/hr IV .[id number] [facility] Rx#: [id number] Levofloxacin 750Mg-D5w 150 Pmx 750 mg In Dextrose/ Water 1 150ml.bag @ 100 mls/hr IVPB Q24H [facility] Rx#: [id number] Potassium Chloride 10 meq 200 In Water For Injection 1 100ml.bag @ 100 mls/hr IVPB Q1H [facility] Rx#: [id number] Other: Voiding Method Bedside Commode Bedside Commode Diaper Diaper Incontinent Incontinent # Voids 1 1 Weight 95.254 kg - Constitutional General appearance: cooperative, mild distress, obese - EENT Eyes: anicteric sclerae, EOMI, poor dentition, normal appearance ENT: hearing grossly normal - Neck Neck: no lymphadenopathy - Respiratory Respiratory: bilateral: CTA, diminished - Cardiovascular Rhythm: regular Heart sounds: normal: S1, S2 Abnormal Heart Sounds: no systolic murmur, no diastolic murmur, no rub, no S3 Gallop, no S4 Gallop, no click, no other leg Peripheral Edema: bilateral: 2+, Pitting - Gastrointestinal General gastrointestinal: no absent bowel sounds, no decreased bowel sounds, no distended, no hepatomegaly, no hyperactive bowel sounds, normal bowel sounds, no organomegaly, no rigid, no scaphoid, soft, no splenomegaly, no tenderness, no umbilical hernia, no ventral hernia - Integumentary Integumentary: cellulitis - Neurologic Neurologic: CNII-XII intact - Musculoskeletal Musculoskeletal: strength equal bilaterally - Psychiatric Psychiatric: A&O x's 3, appropriate affect, intact judgment & insight Results CBC & Chem 7: 12/02/18 10:36 12/02/18 10:36 Labs: Abnormal Lab Results - Last 24 Hours (Table) 12/01/18 12/01/18 12/01/18 Range/Units 11:47 17:34 17:34 WBC 11.0 H (3.8-10.6) k/uL RBC 3.40 L (3.80-5.40) m/uL Hgb 10.6 L (11.4-16.0) gm/dL Hct 32.8 L (34.0-46.0) % Neutrophils # 8.1 H (1.3-7.7) k/uL PT 17.7 H (9.0-12.0) sec INR 1.8 H (<1.2) APTT 37.6 H (22.0-30.0) sec Sodium 130 L (137-145) mmol/L Potassium 2.8 L (3.5-5.1) mmol/L Chloride 93 L (98-107) mmol/L BUN 36 H (7-17) mg/dL Creatinine 2.02 H (0.52-1.04) mg/dL Plasma Lactic Acid Dave (0.7-2.0) mmol/L Calcium 7.5 L (8.4-10.2) mg/dL Total Bilirubin 1.4 H (0.2-1.3) mg/dL AST 44 H (14-36) U/L Total Protein 4.8 L (6.3-8.2) g/dL Albumin 2.2 L (3.5-5.0) g/dL Urine Appearance (Clear) Urine Protein (Negative) Urine Blood (Negative) Ur Leukocyte Esterase (Negative) Urine RBC (0-5) /hpf Urine WBC (0-5) /hpf Urine WBC Clumps (None) /hpf Hyaline Casts (0-2) /lpf Urine Mucus (None) /hpf 12/01/18 12/01/18 Range/Units 17:34 22:25 WBC (3.8-10.6) k/uL RBC (3.80-5.40) m/uL Hgb (11.4-16.0) gm/dL Hct (34.0-46.0) % Neutrophils # (1.3-7.7) k/uL PT (9.0-12.0) sec INR (<1.2) APTT (22.0-30.0) sec Sodium (137-145) mmol/L Potassium (3.5-5.1) mmol/L Chloride (98-107) mmol/L BUN (7-17) mg/dL Creatinine (0.52-1.04) mg/dL Plasma Lactic Acid Dave 2.8 H* (0.7-2.0) mmol/L Calcium (8.4-10.2) mg/dL Total Bilirubin (0.2-1.3) mg/dL AST (14-36) U/L Total Protein (6.3-8.2) g/dL Albumin (3.5-5.0) g/dL Urine Appearance Cloudy H (Clear) Urine Protein 1+ H (Negative) Urine Blood Trace H (Negative) Ur Leukocyte Esterase Large H (Negative) Urine RBC 20 H (0-5) /hpf Urine WBC >182 H (0-5) /hpf Urine WBC Clumps Few H (None) /hpf Hyaline Casts 26 H (0-2) /lpf Urine Mucus Occasional H (None) /hpf Microbiology - Last 24 Hours (Table) 12/01/18 22:25 Urine Culture - Preliminary Urine,Voided Chest x-ray: report reviewed Assessment and Plan (1) Impaired endocrine function Narrative/Plan: Impaired function is secondary to immunotherapy. Patient ran out of [facility] about one week ago, she has continued to take her thyroid medication. This is most likely the cause of her near syncopal/falls symptoms. Adrenal corticoid replacement therapy has been reinitiated. Current Visit: Yes Status: Acute Priority: High Code(s): E34.9 - ENDOCRINE DISORDER, UNSPECIFIED SNOMED Code(s): 933218547 (2) Non-small cell lung cancer (NSCLC) Narrative/Plan: 09/18/18 was patient's last treatment with immunotherapy. Patient was recently hospitalized and then sent to rehabilitation. She was seen in the office last week to evaluate her performance status, which had not improved, in fact, it was slightly worse. Patient looks better in the hospital at this time but, she is needing corticosteroid therapy for her adrenal insufficiency. Patient will need follow-up CT scans to assess disease status. Further plans for treatment of lung cancer are on hold at this time. Current Visit: Yes Status: Chronic Priority: High Code(s): C34.90 - MALIGNANT NEOPLASM OF UNSP PART OF UNSP BRONCHUS OR LUNG SNOMED Code(s): 575378979 (3) Cellulitis Narrative/Plan: topical, Gerard wraps and antibiotics ordered Current Visit: Yes Status: Acute Priority: Medium Code(s): L03.90 - CELLULITIS, UNSPECIFIED SNOMED Code(s): 357436728 (4) Adrenal insufficiency due to cancer therapy Current Visit: Yes Status: Chronic Priority: High Code(s): E27.40 - UNSPECIFIED ADRENOCORTICAL INSUFFICIENCY SNOMED Code(s): 539101929 Plan: attests: I have seen and examined patient, performed history and physical exam, developed impression and plan of care. Discussed with dictator, agree with note as dictated, documented as described
[2018-12-02] MEDS: CYCLOBENZAPRINE 10 MG TAB PO SCH (21:26)
[2018-12-02] MEDS: ALPRAZolam 0.25 MG TAB PO PRN (21:36)
[2018-12-03] MEDS: LEVOTHYROXINE 25 MCG TAB PO SCH (06:02)
[2018-12-03] MEDS ORDERED: HYDROCORTISONE 20 MG TAB PO SCH (09:00)
[2018-12-03] MEDS: IPRATROPIUM-ALBUTEROL 3 ML NEB INHALATION PRN ×2 (09:36→19:03)
[2018-12-03] MEDS: BUDESONIDE 1 MG/2 ML NEBU INHALATION SCH ×2 (09:36→19:03)
[2018-12-03] MEDS: FLUDROCORTISONE 0.1 MG TAB PO SCH ×2 (09:37→21:13)
[2018-12-03] MEDS: METOPROLOL TARTRATE 25 MG TAB PO SCH (09:38)
[2018-12-03] MEDS: CITALOPRAM HYDROBROMIDE 20 MG TAB PO SCH (09:39)
[2018-12-03] MEDS: POTASSIUM CHLORIDE ER 20 MEQ TAB.ER PO SCH ×3 (09:41→21:13)
[2018-12-03] MEDS: PANTOPRAZOLE 40 MG TABLET PO SCH ×2 (09:41→17:31)
[2018-12-03] MEDS: SPIRONOLACTONE 25 MG TAB PO SCH (09:42)
[2018-12-03] MEDS: HYDROCORTISONE 20 MG TAB PO SCH (10:14)
[2018-12-03] MEDS ORDERED: IOPAMIDOL-300 CONTRAST 30 ML VIAL (ORAL USE) PO PRN (10:29)
--- NOTE | 2018-12-03 11:31 | P.PN ---
Subjective Progress Note Date: 12/03/18 Principal diagnosis: Hypotension, weakness, fatigue This is a 67-year-old female with known history of non-small cell lung cancer/stage IV, metastatic. Patient was recently treated with immunotherapy by Dr. Meredith. She is also known to have history of multiple medical problems including hypothyroidism, COPD, chronic pain syndrome, and he'll insufficiency, she was last hospitalized in July for sepsis and urinary tract infection as well as cellulitis and metabolic encephalopathy. Patient was at the [facility], she was found to have low blood pressure about 60/40, and the patient was complaining of generalized weakness fatigue malaise and chills, she was also noted to have cellulitis of both lower extremities. Hence the patient was sent to the ER. Upon presentation her blood pressure was normal. Heart rate was normal. O2 saturation was normal. WBC count was 11. She had a slightly low sodium and low potassium. BUN was 36 creatinine was 2.02, and lactic acid was 1.6. Urinalysis was suggestive of possible urinary tract infection. Influenza screen was negative. Chest x-ray showed left upper lobe mass which has been present for quite some time, and it is supposedly malignant. Patient was also noted to have small left pleural effusion and possible infiltrate in the left lower lobe and there was improved aeration of the right lung base. At any rate patient was given IV Solu-Medrol, updrafts, started on broad-spectrum antibiotics in the form of vancomycin and Zosyn, admitted and this consult was initiated. The effusion noted on the chest x-ray is extremely small, and will not require thoracentesis. The patient herself is a very poor historian. Most of the information was obtained from the chart The patient is seen today 12/03/2018 in follow-up on the regular medical floor. She is currently awake and alert in no acute distress. Feeling a bit better today compared to yesterday. Current blood pressure 104/68 heart rate 80. She is afebrile. Maintaining O2 saturations in the high 90s on 2 L/m per nasal cannula. Blood culture reveals no growth. Urine culture reveals no growth. White count 6.8. Hemoglobin 10.4. Creatinine 1.22. Currently on vancomycin and Levaquin. Objective - Vital Signs Vital signs: Vital Signs Temp 97.6 F 12/03/18 05:00 Pulse 76 12/03/18 09:56 Resp 18 12/03/18 05:00 BP 104/68 12/03/18 05:00 Pulse Ox 98 12/03/18 05:00 Intake & Output 12/02/18 12/03/18 12/03/18 18:59 06:59 18:59 Intake Total 540 840 Balance 540 840 Weight 95.254 kg Intake: Intake, IV Titration 300 600 Amount 0.9% NaCl with KCl 20 Meq 300 600 /l 1,000 ml @ 75 mls/hr IV .[id number] [facility] Rx#: [id number] Oral 240 240 Other: Voiding Method Bedside Commode Bedside Commode Bedside Commode Diaper Diaper Diaper Incontinent Incontinent Incontinent # Voids 1 1 1 - Exam GENERAL EXAM: Alert, fairly comfortable in no apparent distress. On 2 L nasal cannula. HEAD: Normocephalic. EYES: Normal reaction of pupils, equal size. NOSE: Clear with pink turbinates. THROAT: Hoarseness. No erythema or exudates. NECK: No masses, no JVD. CHEST: No chest wall deformity. LUNGS: Equal air entry with faint end expiratory wheeze, diminished. CVS: S1 and S2 normal with no audible murmur, regular rhythm. ABDOMEN: No hepatosplenomegaly, normal bowel sounds, no guarding or rigidity. SPINE: No scoliosis or deformity SKIN: No rashes CENTRAL NERVOUS SYSTEM: No focal deficits, tone is normal in all 4 extremities. EXTREMITIES: There is no peripheral edema. No clubbing, no cyanosis. Peripheral pulses are intact. - Labs CBC & Chem 7: 12/02/18 10:36 12/02/18 10:36 Labs: Abnormal Lab Results - Last 24 Hours (Table) 12/02/18 12/02/18 Range/Units 10:36 10:36 RBC 3.36 L (3.80-5.40) m/uL Hgb 10.4 L (11.4-16.0) gm/dL Hct 33.4 L (34.0-46.0) % Lymphocytes # 0.5 L (1.0-4.8) k/uL Sodium 135 L (137-145) mmol/L BUN 29 H (7-17) mg/dL Creatinine 1.22 H (0.52-1.04) mg/dL Glucose 151 H (74-99) mg/dL Calcium 7.4 L (8.4-10.2) mg/dL AST 46 H (14-36) U/L Alkaline Phosphatase 129 H (38-126) U/L Total Protein 4.9 L (6.3-8.2) g/dL Albumin 2.2 L (3.5-5.0) g/dL Microbiology - Last 24 Hours (Table) 12/01/18 22:25 Urine Culture - Final Urine,Voided 12/01/18 17:34 Blood Culture - Preliminary Blood No Growth after 24 hours Assessment and Plan Assessment: Impression: Multiple constitutional symptoms in a patient with history of metastatic lung cancer, urinary tract infection, cellulitis of lower extremities, strongly suspect some component of sepsis. Acute kidney injury, could very well be related to acute tumor necrosis or could be dehydration related. Left upper lobe mass, strongly doubt pneumonia. Sacral decubitus ulcers and cellulitis of both lower extremities. Electrolytes imbalance being addressed by admitting physician History of hypothyroidism on replacement therapy History of COPD relatively fairly well controlled at present, patient is on proper bronchodilators. Chronic pain syndrome History of adrenal insufficiency related to autoimmune therapy patient is on Cortef. And on Florinef. History of depression. Recommendation: The patient was seen and evaluated by Dr. Devine. The patient is improved today as compared to yesterday. Continue with the current treatment plan. Increase her activity as tolerated. We'll continue to follow and make further recommendations based on her clinical status. I, the cosigning physician, performed a history & physical examination of the patient. Lungs sounds with faint end expiratory wheeze, diminished. Maintaining good O2 saturations in the 90s on 2 L/m per nasal cannula. I discussed the assessment and plan of care with my nurse practitioner, Margarita Nice. I attest to the above note as dictated by her.
--- NOTE | 2018-12-03 12:13 | XR ---
EXAMINATION TYPE: XR chest 2V DATE OF EXAM: 12/03/2018 COMPARISON: 12/01/2018 TECHNIQUE: PA and lateral views submitted. HISTORY: Shortness of breath FINDINGS: There is 8 x 4 cm area of pleural thickening on the left upper lateral chest wall. There is old right -sided healed rib fractures. There is no heart failure. There is slight blunting left costophrenic an gle. There are chest leads. Thoracic aorta is atheromatous. Arthropathy of the shoulders. Chronic def ormities of the rib cage. . IMPRESSION: 1. Diffuse interstitial pattern with bilateral infiltrate and pleural effusion correlate for CHF. 2. Large area of consolidation left upper lobe as measured above correlate for pneumonia versus neopl asm.
[2018-12-03] MEDS: VANCOMYCIN 1,750 MG in SODIUM CHLORIDE 0.9% 500 ML 500 ML IVPB SCH (12:40)
[2018-12-03] MEDS: NYSTATIN 100,000 UNIT/ML SUSP 500,000 UNIT/5 ML CUP PO SCH ×3 (12:43→21:13)
[2018-12-03] MEDS: HYDROcodone/APAP 5-325MG 1 EACH TAB PO PRN ×2 (13:09→21:15)
--- NOTE | 2018-12-03 13:44 | P.PN ---
Subjective Progress Note Date: 12/03/18 Principal diagnosis: Sepsis, left lower lobe pneumonia, adrenal insufficiency, acute kidney injury, bilateral legs colitis, the tested take non-small cell CA of the lung, coagulopa thy This is a 67-year-old female patient of Dr. Garcia with past medical history of metastatic non-small cell lung cancer under the care of Dr. Meredith with most recent treatment with immunotherapy. 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 She subsequently had an admission in September for dehydration and acute kidney injury and acute on chronic diastolic heart failure and was discharged to [facility] and discharge for [facility] to home on October 22. Patient is unclear her current plan with oncology. She states she saw Vicky León a week ago and has another appointment set up but does not know the plan. She has home care set up in her home care nurse found her blood pressure to be 60/40. Patient has been feeling tired with chills and generalized weakness gradually worsening. Patient also has bilateral lower extremity cellulitis. Patient came into [facility] emergency center. Patient was found to be afebrile, initial blood pressure 135/88, heart rate 69, pulse ox 97% on room air. EKG was a sinus rhythm with no acute ST changes. WBC 11.0, hemoglobin 10.6, INR 1.8, sodium 130, potassium 2.8, chloride 93, CO2 28, BUN 36 and creatinine 2.02. Lactic acid 1.6. Total bilirubin 1.4, AST 46, ALT 28, alkaline phosphatase 129. Troponin 0.020. Albumin 2.2. Urinalysis was cloudy, leukoesterase large, RBCs 20, wbc's greater than 182. Influenza testing negative. Chest x-ray showed chronic emphysematous change and cardiomegaly with lateral left upper lobe neoplasm all redemonstrated. Persistent small left pleural effusion and left basilar atelectasis and/or infiltrate improved from prior. Improved aeration right lung base noted no new focal infiltrates. Patient was given IV Solu-Medrol, nebulizer treatments, started on IV Zosyn and vancomycin, consult requested with oncology and patient admitted to the cardiac stepdown unit. Lasix will currently be placed on hold as well as Bactrim. [place] catheter to be removed. Urine culture in progress. Chest x-ray showed pleural fluid and pleural thickening at the left lung base and also left lower lobe chest wall pleural thickening. No significant change from last exam. No heart failure. 12/03: Patient cellulitis has improved some, cough and shortness of breath is slightly but better. With her immunotherapy patient had adrenal insufficiency oncology wanted to see endocrinology as an outpatient in the meanwhile continue to use hydrocortisone and fludrocortisone for supportive care. Patient pain is under better control so far. Her oxygen level and hypoxia is improved. Objective - Vital Signs Vital signs: Vital Signs Temp 97.5 F L 12/03/18 12:29 Pulse 74 12/03/18 12:29 Resp 17 12/03/18 12:29 BP 92/60 12/03/18 12:29 Pulse Ox 98 12/03/18 12:29 Intake & Output 12/02/18 12/03/18 12/03/18 18:59 06:59 18:59 Intake Total 540 1340 Balance 540 1340 Weight 95.254 kg Intake: Intake, IV Titration 300 600 Amount 0.9% NaCl with KCl 20 Meq 300 600 /l 1,000 ml @ 75 mls/hr IV .[id number] [facility] Rx#: [id number] Oral 240 740 Other: Voiding Method Bedside Commode Bedside Commode Bedside Commode Diaper Diaper Diaper Incontinent Incontinent Incontinent # Voids 1 1 1 - Exam Review of Systems Constitutional: Reports fatigue, Reports weakness, reports malaise, reports chills, Denies fever, Denies poor appetite Eyes: denies blurred vision, denies pain Ears, nose, mouth and throat: Denies dysphagia, Denies headache, Denies sore throat Cardiovascular: Denies chest pain, Denies dyspnea on exertion, Denies shortness of breath, Denies syncope Respiratory: Denies cough, Denies cough with sputum, Denies dyspnea, Denies excessive sputum, Denies hemoptysis Gastrointestinal: Denies abdominal pain, Denies diarrhea, Denies loss of appetite, Denies nausea, Denies vomiting Genitourinary: Denies dysuria, Denies hematuria Musculoskeletal: Denies frequent falls, Denies myalgias Integumentary: Denies pruritus, Denies rash, reports wounds, reports leg edema Neurological: Denies aphasia, Denies change in mentation, Denies change in speech, Denies numbness, Denies weakness Psychiatric: Denies anxiety, Denies depression Endocrine: Denies fatigue, Denies weight change Physical Exam Vitals: Gen: This is a 67-year-old female. She is resting in bed appears to be comfortable and in no acute distress. HEENT: Head is atraumatic, normocephalic. Pupils equal, round. Sclerae is anicteric. NECK: Supple. No JVD. No lymphadenopathy. No thyromegaly. LUNGS: Mild expiratory wheeze. No accessory muscle usage.. No intercostal retractions. HEART: Regular rate and rhythm. Systolic murmur. ABDOMEN: Soft. Bowel sounds are present. No masses. No tenderness. EXTREMITIES: 2+ pedal edema. Erythema and wounds to bilateral lower extremities. NEUROLOGICAL: Patient is awake, alert and oriented x3. Cranial nerves 2 through 12 are grossly intact. - Labs CBC & Chem 7: 12/02/18 10:36 12/02/18 10:36 Labs: Microbiology - Last 24 Hours (Table) 12/01/18 22:25 Urine Culture - Final Urine,Voided 12/01/18 17:34 Blood Culture - Preliminary Blood No Growth after 24 hours Assessment and Plan Plan: 1. Possible sepsis secondary to urinary tract infection. Continue Levaquin. Urine culture and blood culture in progress. 2. Generalized weakness and hypotension secondary to dehydration and sepsis and possible adrenal insufficiency. Continue IV fluids at 75 mL per hour. Hold Lasix for now. Continue to treat [place]'s disease as well. 3. Bilateral lower extremity cellulitis. Vancomycin added. Continue Optifoam. 4. Possible left sided pneumonia, gram-negative. Continue Levaquin 750 mg daily[address] Consult with Dr. Devine. 5. Sacral decubitus ulcer stage II, present on admission. Continue local wound care with Silvadene. Vancomycin added. Continue Levaquin. 6. Metastatic non-small cell lung cancer under the care of Dr. Meredith. Oncology consult. 7. Acute kidney injury with hypokalemia secondary to dehydration. Status post potassium replacement. Continue IV fluids, recheck electrolytes and kidney function. 8. Coagulopathy, chronic. INR 1.8. most likely from metastatic cancer and debility with low albumin level with her malnutrition. 9. Electrolyte abnormalities including hyponatremia, hypokalemia, hypochloremia. Continue IV fluids. 10. Hypothyroidism. Continue levothyroxine. 11. COPD, stable. Continue DuoNeb treatments, Pulmicort. 12. Recurrent depression. Continue Celexa 40 mg in the morning. 13. Chronic pain syndrome. Continue [place], Flexeril. 14. 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 Oncology consult. Continue Cortef 50 mg daily, Florinef 0.1 mg twice daily. 15. Chronic diastolic heart failure. Lasix currently on hold. Continue Aldactone. and we'll resume Lasix as soon as patient able to tolerated. 16. Severe protein calorie malnutrition. Protein supplementation. Discharge planning: Patient is stable on Saturday might be able to go home she has graduation for her grand kids this Saturday and would love to attended so we'll make every effort to see if patient can be home by then.
--- NOTE | 2018-12-03 15:18 | P.PN ---
Subjective Progress Note Date: 12/03/18 Principal diagnosis: dizziness/fall secondary to adrenal insufficiency, UTI In follow-up today patient is more tired, denies any current dizziness, syncope or falls, her voice is hoarse, throat is dry, no nausea or vomiting, shortness of breath is stable, no abdominal pain or cramping, bleeding, acute changes in bowel or bladder habits. Objective - Vital Signs Vital signs: Vital Signs Temp 97.5 F L 12/03/18 12:29 Pulse 74 12/03/18 12:29 Resp 17 12/03/18 12:29 BP 92/60 12/03/18 12:29 Pulse Ox 98 12/03/18 12:29 Intake & Output 12/02/18 12/03/18 12/03/18 18:59 06:59 18:59 Intake Total 540 1940 Balance 540 1940 Weight 95.254 kg Intake: Intake, IV Titration 300 1200 Amount 0.9% NaCl with KCl 20 Meq 300 1200 /l 1,000 ml @ 75 mls/hr IV .[id number] [facility] Rx#: [id number] Oral 240 740 Other: Voiding Method Bedside Commode Bedside Commode Bedside Commode Diaper Diaper Diaper Incontinent Incontinent Incontinent # Voids 1 1 1 - Constitutional General appearance: Present: cooperative, no acute distress, obese - EENT EENT Comment(s): dry mucous membranes, hoarse voice Eyes: Present: anicteric sclerae, EOMI - Respiratory Respiratory: bilateral: diminished, rales (few scattered) - Cardiovascular Rhythm: regular Heart sounds: normal: S1, S2 - Peripheral edema leg Peripheral Edema: bilateral: 2+ - Gastrointestinal General gastrointestinal: Present: normal bowel sounds, soft - Integumentary Integumentary Comment(s): Bilateral lower extremities are being treated for cellulitis with topicals and kerlix bandages. There is mild pitting edema in the lower extremities, the redness from her cellulitis does not extend above or below the current dressings on the bilateral calves, mild tenderness, nothing unrealistic - Neurologic Neurologic: Present: CNII-XII intact - Musculoskeletal Musculoskeletal: Present: generalized weakness, strength equal bilaterally - Psychiatric Psychiatric: Present: A&O x's 3, appropriate affect, intact judgment & insight - Labs CBC & Chem 7: 12/02/18 10:36 12/02/18 10:36 Labs: Microbiology - Last 24 Hours (Table) 12/01/18 22:25 Urine Culture - Final Urine,Voided 12/01/18 17:34 Blood Culture - Preliminary Blood No Growth after 24 hours - Imaging and Cardiology Chest x-ray: report reviewed Assessment and Plan (1) Impaired endocrine function Narrative/Plan: Impaired function is secondary to immunotherapy. Adrenal corticoid replacement therapy has been reinitiated. Ensured f/u appt with Endocrinology-appt date and time in discharge Current Visit: Yes Status: Acute Priority: High Code(s): E34.9 - ENDOCRINE DISORDER, UNSPECIFIED SNOMED Code(s): 865150795 (2) Non-small cell lung cancer (NSCLC) Narrative/Plan: 09/18/18 was patient's last treatment with immunotherapy. Patient was recently hospitalized and then sent to rehabilitation. She was seen in the office last week to evaluate her performance status, which had not improved, in fact, it was slightly worse. Patient looks better in the hospital at this time but, she is needing corticosteroid therapy for her adrenal insufficiency. Plan is to re-stage pt as soon as renal function stable. BMP ordered, CT CAP with contrast desired once Cr acceptable Current Visit: Yes Status: Chronic Priority: High Code(s): C34.90 - MALIGNANT NEOPLASM OF UNSP PART OF UNSP BRONCHUS OR LUNG SNOMED Code(s): 942161331 (3) Cellulitis Narrative/Plan: Stable. Topical treatments, Gerard wraps and antibiotics ordered Current Visit: Yes Status: Acute Priority: Medium Code(s): L03.90 - CELLULITIS, UNSPECIFIED SNOMED Code(s): 849111379 (4) Adrenal insufficiency due to cancer therapy Current Visit: Yes Status: Chronic Priority: High Code(s): E27.40 - UNSPECIFIED ADRENOCORTICAL INSUFFICIENCY SNOMED Code(s): 465577889
[2018-12-03] MEDS: 0.9% NACL WITH KCL 20 MEQ/L 1,000 ML IV SCH (16:52)
[2018-12-03] MEDS: MAGNESIUM OXIDE 400 MG TAB PO SCH (17:31)
[2018-12-03] MEDS ORDERED: LEVOFLOXACIN 750MG-D5W PMX 750 MG in DEXTROSE/WATER 1 150ML.BAG IVPB SCH (18:00)
[2018-12-03] MEDS ORDERED: LEVOFLOXACIN 750 MG TAB PO SCH (18:00)
[2018-12-03] MEDS: CYCLOBENZAPRINE 10 MG TAB PO SCH (21:13)
[2018-12-03] MEDS: ALPRAZolam 0.25 MG TAB PO PRN (21:15)
[2018-12-03] MEDS: ALBUTEROL NEBULIZED 2.5 MG/3 ML INHALATION PRN (21:20)
[2018-12-04] MEDS: LEVOTHYROXINE 25 MCG TAB PO SCH (06:00)
[2018-12-04] MEDS: 0.9% NACL WITH KCL 20 MEQ/L 1,000 ML IV SCH ×2 (06:00→15:37)
[2018-12-04] MEDS: IPRATROPIUM-ALBUTEROL 3 ML NEB INHALATION PRN ×2 (06:17→20:00)
[2018-12-04] MEDS: BUDESONIDE 1 MG/2 ML NEBU INHALATION SCH ×2 (06:19→20:00)
[2018-12-04] MEDS: HYDROCORTISONE 20 MG TAB PO SCH (07:45)
[2018-12-04] MEDS: CITALOPRAM HYDROBROMIDE 20 MG TAB PO SCH (07:45)
[2018-12-04] MEDS: SPIRONOLACTONE 25 MG TAB PO SCH (07:45)
[2018-12-04] MEDS: NYSTATIN 100,000 UNIT/ML SUSP 500,000 UNIT/5 ML CUP PO SCH ×4 (07:45→21:28)
[2018-12-04] MEDS: PANTOPRAZOLE 40 MG TABLET PO SCH ×2 (07:45→17:57)
[2018-12-04] MEDS: POTASSIUM CHLORIDE ER 20 MEQ TAB.ER PO SCH ×3 (07:45→21:27)
[2018-12-04] MEDS: FLUDROCORTISONE 0.1 MG TAB PO SCH ×2 (07:45→21:27)
[2018-12-04] MEDS: METOPROLOL TARTRATE 25 MG TAB PO SCH (07:46)
[2018-12-04 08:22] LABS: Basophils % (A) 0 %; Eosinophils # (A) 0.1 k/uL (0-0.7); Eosinophils % (A) 1 %; HCT 33.7 % (34.0-46.0); HGB 10.4 gm/dL (11.4-16.0); Hypochromasia Marked; Lymphocytes % (A) 17 %; MCHC 30.7 g/dL (31.0-37.0); MCV 100.9 fL (80.0-100.0); Macrocytosis Slight; Mean Platelet Volume 7.8; Monocytes # (A) 0.6 k/uL (0-1.0); Monocytes % (A) 10 %; Neutrophils # (A) 4.2 k/uL (1.3-7.7); Neutrophils % (A) 69 %; Platelet Count 184 k/uL (150-450); RBC 3.34 m/uL (3.80-5.40); RDW 14.8 % (11.5-15.5); WBC 6.2 k/uL (3.8-10.6)
[2018-12-04 08:32] LABS: ALT 24 U/L (9-52); AST 31 U/L (14-36); African American GFR (CKD) >90 (>60 ml/min/1.73 sqM); Albumin 2.5 g/dL (3.5-5.0); Alkaline Phosphatase 113 U/L (38-126); Anion Gap 4 mmol/L; Blood Urea Nitrogen 23 mg/dL (7-17); Calcium 8.1 mg/dL (8.4-10.2); Carbon Dioxide 27 mmol/L (22-30); Chloride 112 mmol/L (98-107); Glucose 101 mg/dL (74-99); Potassium 3.7 mmol/L (3.5-5.1); Sodium 143 mmol/L (137-145); Total Bilirubin 0.4 mg/dL (0.2-1.3); Total Protein 5.5 g/dL (6.3-8.2)
[2018-12-04] MEDS ORDERED: FUROSEMIDE 10 MG/ML 4 ML VIAL IV STA (10:04)
[2018-12-04] MEDS: VANCOMYCIN 1,750 MG in SODIUM CHLORIDE 0.9% 500 ML 500 ML IVPB SCH (11:40)
[2018-12-04] MEDS: ALBUTEROL NEBULIZED 2.5 MG/3 ML INHALATION PRN (12:01)
--- NOTE | 2018-12-04 12:01 | P.PN ---
Subjective Progress Note Date: 12/04/18 Principal diagnosis: Hypotension, weakness, fatigue This is a 67-year-old female with known history of non-small cell lung cancer/stage IV, metastatic. Patient was recently treated with immunotherapy by Dr. Meredith. She is also known to have history of multiple medical problems including hypothyroidism, COPD, chronic pain syndrome, and he'll insufficiency, she was last hospitalized in July for sepsis and urinary tract infection as well as cellulitis and metabolic encephalopathy. Patient was at the half-way, she was found to have low blood pressure about 60/40, and the patient was complaining of generalized weakness fatigue malaise and chills, she was also noted to have cellulitis of both lower extremities. Hence the patient was sent to the ER. Upon presentation her blood pressure was normal. Heart rate was normal. O2 saturation was normal. WBC count was 11. She had a slightly low sodium and low potassium. BUN was 36 creatinine was 2.02, and lactic acid was 1.6. Urinalysis was suggestive of possible urinary tract infection. Influenza screen was negative. Chest x-ray showed left upper lobe mass which has been present for quite some time, and it is supposedly malignant. Patient was also noted to have small left pleural effusion and possible infiltrate in the left lower lobe and there was improved aeration of the right lung base. At any rate patient was given IV Solu-Medrol, updrafts, started on broad-spectrum antibiotics in the form of vancomycin and Zosyn, admitted and this consult was initiated. The effusion noted on the chest x-ray is extremely small, and will not require thoracentesis. The patient herself is a very poor historian. Most of the information was obtained from the chart The patient is seen today 12/03/2018 in follow-up on the regular medical floor. She is currently awake and alert in no acute distress. Feeling a bit better today compared to yesterday. Current blood pressure 104/68 heart rate 80. She is afebrile. Maintaining O2 saturations in the high 90s on 2 L/m per nasal cannula. Blood culture reveals no growth. Urine culture reveals no growth. White count 6.8. Hemoglobin 10.4. Creatinine 1.22. Currently on vancomycin and Levaquin. The patient is seen today 12/04/2018 in follow-up on the regular medical floor. She is currently sitting up in a chair at the bedside. Awake and alert in no acute distress. Still having some dyspnea on minimal exertion. Maintaining O2 saturations in the 90s on 2 L/m per nasal cannula. Afebrile. Blood and urine cultures reveal no growth. White count 6.2. Hemoglobin 10.4. Creatinine 0.77. Remains on DuoNeb inhalations, Pulmicort inhalations, vancomycin and Levaquin. Computed tomography scan of the chest abdomen pelvis are pending. Objective - Vital Signs Vital signs: Vital Signs Temp 97.5 F L 12/04/18 04:32 Pulse 100 12/04/18 06:30 Resp 20 12/04/18 04:32 BP 120/71 12/04/18 04:32 Pulse Ox 96 12/04/18 04:32 Intake & Output 12/03/18 12/04/18 12/04/18 18:59 06:59 18:59 Intake Total 1940 600 Balance 1940 600 Intake: Intake, IV Titration 1200 600 Amount 0.9% NaCl with KCl 20 Meq 1200 600 /l 1,000 ml @ 75 mls/hr IV .[id number] [facility] Rx#: [id number] Oral 740 Other: Voiding Method Bedside Commode Bedside Commode Diaper Diaper Incontinent Incontinent # Voids 1 2 - Exam GENERAL EXAM: Alert, fairly comfortable in no apparent distress. Up in a chair at the bedside. On 2 L nasal cannula. HEAD: Normocephalic. EYES: Normal reaction of pupils, equal size. NOSE: Clear with pink turbinates. THROAT: Hoarseness. No erythema or exudates. NECK: No masses, no JVD. CHEST: No chest wall deformity. LUNGS: Equal air entry with faint end expiratory wheeze, scattered rhonchi, diminished. CVS: S1 and S2 normal with no audible murmur, regular rhythm. ABDOMEN: No hepatosplenomegaly, normal bowel sounds, no guarding or rigidity. SPINE: No scoliosis or deformity SKIN: No rashes CENTRAL NERVOUS SYSTEM: No focal deficits, tone is normal in all 4 extremities. EXTREMITIES: There is no peripheral edema. No clubbing, no cyanosis. Peripheral pulses are intact. - Labs CBC & Chem 7: 12/04/18 07:58 12/04/18 07:58 Labs: Abnormal Lab Results - Last 24 Hours (Table) 12/04/18 12/04/18 Range/Units 07:58 07:58 RBC 3.34 L (3.80-5.40) m/uL Hgb 10.4 L (11.4-16.0) gm/dL Hct 33.7 L (34.0-46.0) % MCV 100.9 H (80.0-100.0) fL MCHC 30.7 L (31.0-37.0) g/dL Chloride 112 H (98-107) mmol/L BUN 23 H (7-17) mg/dL Glucose 101 H (74-99) mg/dL Calcium 8.1 L (8.4-10.2) mg/dL Total Protein 5.5 L (6.3-8.2) g/dL Albumin 2.5 L (3.5-5.0) g/dL Microbiology - Last 24 Hours (Table) 12/01/18 17:34 Blood Culture - Preliminary Blood No Growth after 48 hours Assessment and Plan Assessment: Impression: Multiple constitutional symptoms in a patient with history of metastatic lung cancer, urinary tract infection, cellulitis of lower extremities, strongly suspect some component of sepsis. Acute kidney injury, could very well be related to acute tumor necrosis or could be dehydration related. Left upper lobe mass, strongly doubt pneumonia. Sacral decubitus ulcers and cellulitis of both lower extremities. Electrolytes imbalance being addressed by admitting physician History of hypothyroidism on replacement therapy History of COPD relatively fairly well controlled at present, patient is on proper bronchodilators. Chronic pain syndrome History of adrenal insufficiency related to autoimmune therapy patient is on Cortef. And on Florinef. History of depression. Recommendation: The patient was seen and evaluated by Dr. Devine. Computed tomography scan of the chest abdomen pelvis are pending. Not quite back to her baseline. Continue with the current treatment plan. Increase her activity as tolerated. We'll continue to follow and make further recommendations based on her clinical status. I, the cosigning physician, performed a history & physical examination of the patient. Lungs sounds with faint end expiratory wheeze, scattered rhonchi, diminished. Maintaining good O2 saturations in the 90s on 2 L/m per nasal cannula. I discussed the assessment and plan of care with my nurse practitioner, Margarita Nice. I attest to the above note as dictated by her.
[2018-12-04] MEDS ORDERED: IOPAMIDOL-300 CONTRAST 30 ML VIAL (ORAL USE) PO PRN (12:15)
[2018-12-04] MEDS: HYDROcodone/APAP 5-325MG 1 EACH TAB PO PRN ×2 (15:42→21:27)
--- NOTE | 2018-12-04 16:49 | P.PN ---
Subjective Progress Note Date: 12/04/18 Principal diagnosis: dizziness/fall secondary to adrenal insufficiency, UTI In follow-up today patient is feeling better, she is up in chair, her legs are less sore/swollen, she is ambulating in the room, no dizziness, syncope or falls, her voice continues to be hoarse, throat is dry, no nausea or vomiting, shortness of breath is stable, Objective - Vital Signs Vital signs: Vital Signs Temp 97.4 F L 12/04/18 13:00 Pulse 82 12/04/18 13:00 Resp 17 12/04/18 13:00 BP 129/59 12/04/18 13:00 Pulse Ox 95 12/04/18 13:00 Intake & Output 12/03/18 12/04/18 12/04/18 18:59 06:59 18:59 Intake Total 1940 600 Balance 1940 600 Intake: Intake, IV Titration 1200 600 Amount 0.9% NaCl with KCl 20 Meq 1200 600 /l 1,000 ml @ 75 mls/hr IV .[id number] [facility] Rx#: [id number] Oral 740 Other: Voiding Method Bedside Commode Bedside Commode Diaper Diaper Incontinent Incontinent # Voids 1 2 - Exam Well-developed, overweight, female sitting in the chair, no acute distress, alert and oriented 4, respirations are even and unlabored, bilateral lower extremities are wrapped, swelling is less, no redness, not is warm or sensitive to touch. - Labs CBC & Chem 7: 12/04/18 07:58 12/04/18 07:58 Labs: Abnormal Lab Results - Last 24 Hours (Table) 12/04/18 12/04/18 Range/Units 07:58 07:58 RBC 3.34 L (3.80-5.40) m/uL Hgb 10.4 L (11.4-16.0) gm/dL Hct 33.7 L (34.0-46.0) % MCV 100.9 H (80.0-100.0) fL MCHC 30.7 L (31.0-37.0) g/dL Chloride 112 H (98-107) mmol/L BUN 23 H (7-17) mg/dL Glucose 101 H (74-99) mg/dL Calcium 8.1 L (8.4-10.2) mg/dL Total Protein 5.5 L (6.3-8.2) g/dL Albumin 2.5 L (3.5-5.0) g/dL Microbiology - Last 24 Hours (Table) 12/01/18 17:34 Blood Culture - Preliminary Blood No Growth after 48 hours Assessment and Plan (1) Impaired endocrine function Narrative/Plan: Impaired function is secondary to immunotherapy. Adrenal corticoid replacement therapy has been reinitiated. Ensured f/u appt with Endocrinology-appt date and time in discharge Current Visit: Yes Status: Acute Priority: High Code(s): E34.9 - ENDOCRINE DISORDER, UNSPECIFIED SNOMED Code(s): 520937843 (2) Non-small cell lung cancer (NSCLC) Narrative/Plan: 09/18/18 was patient's last treatment with immunotherapy. Re-staging scans as soon as renal function stable. BMP ordered, CT CAP with contrast desired once Cr acceptable. Current Visit: Yes Status: Chronic Priority: High Code(s): C34.90 - MALIGNANT NEOPLASM OF UNSP PART OF UNSP BRONCHUS OR LUNG SNOMED Code(s): 326301683 (3) Cellulitis Narrative/Plan: Improving. Topical treatments, Gerard wraps and antibiotics ordered Current Visit: Yes Status: Acute Priority: Medium Code(s): L03.90 - CELLULITIS, UNSPECIFIED SNOMED Code(s): 989205966 (4) Adrenal insufficiency due to cancer therapy Current Visit: Yes Status: Chronic Priority: High Code(s): E27.40 - UNSPECIFIED ADRENOCORTICAL INSUFFICIENCY SNOMED Code(s): 527631075
[2018-12-04] MEDS: MAGNESIUM OXIDE 400 MG TAB PO SCH (17:57)
[2018-12-04] MEDS ORDERED: LEVOFLOXACIN 750 MG TAB PO SCH (18:00)
--- NOTE | 2018-12-04 18:33 | P.PN ---
Subjective Progress Note Date: 12/04/18 Principal diagnosis: Sepsis, left lower lobe pneumonia, adrenal insufficiency, acute kidney injury, bilateral legs colitis, the tested take non-small cell CA of the lung, coagulopa thy This is a 67-year-old female patient of Dr. Garcia with past medical history of metastatic non-small cell lung cancer under the care of Dr. Meredith with most recent treatment with immunotherapy. 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 She subsequently had an admission in September for dehydration and acute kidney injury and acute on chronic diastolic heart failure and was discharged to [facility] and discharge for [facility] to home on October 22. Patient is unclear her current plan with oncology. She states she saw Vicky León a week ago and has another appointment set up but does not know the plan. She has home care set up in her home care nurse found her blood pressure to be 60/40. Patient has been feeling tired with chills and generalized weakness gradually worsening. Patient also has bilateral lower extremity cellulitis. Patient came into [facility] emergency center. Patient was found to be afebrile, initial blood pressure 135/88, heart rate 69, pulse ox 97% on room air. EKG was a sinus rhythm with no acute ST changes. WBC 11.0, hemoglobin 10.6, INR 1.8, sodium 130, potassium 2.8, chloride 93, CO2 28, BUN 36 and creatinine 2.02. Lactic acid 1.6. Total bilirubin 1.4, AST 46, ALT 28, alkaline phosphatase 129. Troponin 0.020. Albumin 2.2. Urinalysis was cloudy, leukoesterase large, RBCs 20, wbc's greater than 182. Influenza testing negative. Chest x-ray showed chronic emphysematous change and cardiomegaly with lateral left upper lobe neoplasm all redemonstrated. Persistent small left pleural effusion and left basilar atelectasis and/or infiltrate improved from prior. Improved aeration right lung base noted no new focal infiltrates. Patient was given IV Solu-Medrol, nebulizer treatments, started on IV Zosyn and vancomycin, consult requested with oncology and patient admitted to the cardiac stepdown unit. Lasix will currently be placed on hold as well as Bactrim. Corrales catheter to be removed. Urine culture in progress. Chest x-ray showed pleural fluid and pleural thickening at the left lung base and also left lower lobe chest wall pleural thickening. No significant change from last exam. No heart failure. 12/03: Patient cellulitis has improved some, cough and shortness of breath is slightly but better. With her immunotherapy patient had adrenal insufficiency oncology wanted to see endocrinology as an outpatient in the meanwhile continue to use hydrocortisone and fludrocortisone for supportive care. Patient pain is under better control so far. Her oxygen level and hypoxia is improved. 12/04: Patient has improved significantly she is sitting up in the recliner chair today for saliva's has improved will continue antibiotic and switch to oral patient was to go home tomorrow to be able to attend a graduation democrat for her [employer] on Saturday. Objective - Vital Signs Vital signs: Vital Signs Temp 97.5 F L 12/04/18 04:32 Pulse 92 12/04/18 12:13 Resp 20 12/04/18 04:32 BP 120/71 12/04/18 04:32 Pulse Ox 96 12/04/18 04:32 Intake & Output 12/03/18 12/04/18 12/04/18 18:59 06:59 18:59 Intake Total 1940 600 Balance 1940 600 Intake: Intake, IV Titration 1200 600 Amount 0.9% NaCl with KCl 20 Meq 1200 600 /l 1,000 ml @ 75 mls/hr IV .[id number] [facility] Rx#: [id number] Oral 740 Other: Voiding Method Bedside Commode Bedside Commode Diaper Diaper Incontinent Incontinent # Voids 1 2 - Exam Review of Systems Constitutional: Reports fatigue, Reports weakness, reports malaise, reports chills, Denies fever, Denies poor appetite Eyes: denies blurred vision, denies pain Ears, nose, mouth and throat: Denies dysphagia, Denies headache, Denies sore throat Cardiovascular: Denies chest pain, Denies dyspnea on exertion, Denies shortness of breath, Denies syncope Respiratory: Denies cough, Denies cough with sputum, Denies dyspnea, Denies excessive sputum, Denies hemoptysis Gastrointestinal: Denies abdominal pain, Denies diarrhea, Denies loss of appetite, Denies nausea, Denies vomiting Genitourinary: Denies dysuria, Denies hematuria Musculoskeletal: Denies frequent falls, Denies myalgias Integumentary: Denies pruritus, Denies rash, reports wounds, reports leg edema Neurological: Denies aphasia, Denies change in mentation, Denies change in speech, Denies numbness, Denies weakness Psychiatric: Denies anxiety, Denies depression Endocrine: Denies fatigue, Denies weight change Physical Exam Vitals: Gen: This is a 67-year-old female. She is resting in bed appears to be comfortable and in no acute distress. HEENT: Head is atraumatic, normocephalic. Pupils equal, round. Sclerae is anic teric. NECK: Supple. No JVD. No lymphadenopathy. No thyromegaly. LUNGS: Mild expiratory wheeze. No accessory muscle usage.. No intercostal retractions. HEART: Regular rate and rhythm. Systolic murmur. ABDOMEN: Soft. Bowel sounds are present. No masses. No tenderness. EXTREMITIES: 2+ pedal edema. Erythema and wounds to bilateral lower extremities. NEUROLOGICAL: Patient is awake, alert and oriented x3. Cranial nerves 2 through 12 are grossly intact. - Labs CBC & Chem 7: 12/04/18 07:58 12/04/18 07:58 Labs: Abnormal Lab Results - Last 24 Hours (Table) 12/04/18 12/04/18 Range/Units 07:58 07:58 RBC 3.34 L (3.80-5.40) m/uL Hgb 10.4 L (11.4-16.0) gm/dL Hct 33.7 L (34.0-46.0) % MCV 100.9 H (80.0-100.0) fL MCHC 30.7 L (31.0-37.0) g/dL Chloride 112 H (98-107) mmol/L BUN 23 H (7-17) mg/dL Glucose 101 H (74-99) mg/dL Calcium 8.1 L (8.4-10.2) mg/dL Total Protein 5.5 L (6.3-8.2) g/dL Albumin 2.5 L (3.5-5.0) g/dL Microbiology - Last 24 Hours (Table) 12/01/18 17:34 Blood Culture - Preliminary Blood No Growth after 48 hours Assessment and Plan Plan: 1. Possible sepsis secondary to urinary tract infection. And cellulitis will continue IV antibiotics and switch patient to oral by tomorrow. 2. Generalized weakness and hypotension secondary to dehydration and sepsis and possible adrenal insufficiency. Continue IV fluids at 75 mL per hour. Hold Lasix for now. 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 3. Bilateral lower extremity cellulitis. Vancomycin added. Continue topical care and dressing will need home care when she goes home 4. Possible left sided pneumonia, gram-negative. Continue Levaquin 750 mg daily[address] Consult with Dr. Devine. 5. Sacral decubitus ulcer stage II, much better so far continue cushion and topical care as well. 6. Metastatic non-small cell lung cancer under the care of Dr. Meredith. Oncology consult. 7. Acute kidney injury with hypokalemia secondary to dehydration. Status post potassium replacement. Continue IV fluids, recheck electrolytes and kidney function. 8. Coagulopathy, chronic. INR 1.8. most likely from metastatic cancer and debility with low albumin level with her malnutrition. 9. Electrolyte abnormalities including hyponatremia, hypokalemia, hypochloremia. Continue IV fluids. 10. Hypothyroidism. Continue levothyroxine. 11. COPD, stable. Continue DuoNeb treatments, Pulmicort. 12. Recurrent depression. Continue Celexa 40 mg in the morning. 13. Chronic pain syndrome. Continue [place], Flexeril. 14. Adrenal insufficiency secondary to autoimmune effects of her cancer i mmunotherapy. Oncology consult. Continue Cortef 50 mg daily, Florinef 0.1 mg twice daily. 15. Chronic diastolic heart failure. Lasix currently on hold. Continue Aldactone. and we'll resume Lasix as soon as patient able to tolerated. 16. Severe protein calorie malnutrition. Protein supplementation. Discharge planning: Patient is stable on Saturday might be able to go home she has graduation for her grand kids this Saturday and would love to attended so we'll make every effort to see if patient can be home by then.
[2018-12-04] MEDS: ALPRAZolam 0.25 MG TAB PO PRN (21:27)
[2018-12-04] MEDS: CYCLOBENZAPRINE 10 MG TAB PO SCH (21:27)
[2018-12-05] MEDS: VANCOMYCIN 1,750 MG in SODIUM CHLORIDE 0.9% 500 ML 500 ML IVPB SCH (02:49)
[2018-12-05] MEDS: HYDROcodone/APAP 5-325MG 1 EACH TAB PO PRN ×2 (05:16→11:49)
[2018-12-05] MEDS: 0.9% NACL WITH KCL 20 MEQ/L 1,000 ML IV SCH (05:17)
[2018-12-05 08:12] LABS: Basophils % (A) 0 %; Eosinophils # (A) 0.1 k/uL (0-0.7); Eosinophils % (A) 2 %; HGB 9.9 gm/dL (11.4-16.0); Hypochromasia Marked; Lymphocytes # (A) 1.1 k/uL (1.0-4.8); Lymphocytes % (A) 18 %; MCH 30.8 pg (25.0-35.0); MCHC 30.9 g/dL (31.0-37.0); MCV 99.5 fL (80.0-100.0); Macrocytosis Slight; Mean Platelet Volume 7.8; Monocytes # (A) 0.7 k/uL (0-1.0); Monocytes % (A) 12 %; Neutrophils # (A) 3.8 k/uL (1.3-7.7); Neutrophils % (A) 64 %; Platelet Count 209 k/uL (150-450); RBC 3.21 m/uL (3.80-5.40); RDW 14.8 % (11.5-15.5)
[2018-12-05] MEDS: METOPROLOL TARTRATE 25 MG TAB PO SCH (08:14)
[2018-12-05] MEDS: SPIRONOLACTONE 25 MG TAB PO SCH (08:14)
[2018-12-05] MEDS: PANTOPRAZOLE 40 MG TABLET PO SCH (08:14)
[2018-12-05] MEDS: POTASSIUM CHLORIDE ER 20 MEQ TAB.ER PO SCH ×2 (08:15→16:31)
[2018-12-05] MEDS: CITALOPRAM HYDROBROMIDE 20 MG TAB PO SCH (08:15)
[2018-12-05] MEDS: HYDROCORTISONE 20 MG TAB PO SCH (08:15)
[2018-12-05] MEDS: NYSTATIN 100,000 UNIT/ML SUSP 500,000 UNIT/5 ML CUP PO SCH ×2 (08:16→11:49)
[2018-12-05] MEDS: BUDESONIDE 1 MG/2 ML NEBU INHALATION SCH (08:46)
[2018-12-05] MEDS: ALBUTEROL NEBULIZED 2.5 MG/3 ML INHALATION PRN (08:46)
[2018-12-05 08:53] LABS: ALT 23 U/L (9-52); AST 27 U/L (14-36); African American GFR (CKD) >90 (>60 ml/min/1.73 sqM); Albumin 2.5 g/dL (3.5-5.0); Alkaline Phosphatase 109 U/L (38-126); Anion Gap 2 mmol/L; Blood Urea Nitrogen 19 mg/dL (7-17); Calcium 8.1 mg/dL (8.4-10.2); Carbon Dioxide 27 mmol/L (22-30); Chloride 114 mmol/L (98-107); Glucose 76 mg/dL (74-99); Potassium 3.6 mmol/L (3.5-5.1); Sodium 143 mmol/L (137-145); Total Bilirubin 0.5 mg/dL (0.2-1.3); Total Protein 5.3 g/dL (6.3-8.2)
[2018-12-05] MEDS: FLUDROCORTISONE 0.1 MG TAB PO SCH (09:25)
[2018-12-05] MEDS: LEVOTHYROXINE 25 MCG TAB PO SCH (09:25)
--- NOTE | 2018-12-05 10:31 | P.PN ---
Subjective Progress Note Date: 12/05/18 Principal diagnosis: Hypotension, weakness, fatigue This is a 67-year-old female with known history of non-small cell lung cancer/stage IV, metastatic. Patient was recently treated with immunotherapy by Dr. Meredith. She is also known to have history of multiple medical problems including hypothyroidism, COPD, chronic pain syndrome, and he'll insufficiency, she was last hospitalized in July for sepsis and urinary tract infection as well as cellulitis and metabolic encephalopathy. Patient was at the half-way, she was found to have low blood pressure about 60/40, and the patient was complaining of generalized weakness fatigue malaise and chills, she was also noted to have cellulitis of both lower extremities. Hence the patient was sent to the ER. Upon presentation her blood pressure was normal. Heart rate was normal. O2 saturation was normal. WBC count was 11. She had a slightly low sodium and low potassium. BUN was 36 creatinine was 2.02, and lactic acid was 1.6. Urinalysis was suggestive of possible urinary tract infection. Influenza screen was negative. Chest x-ray showed left upper lobe mass which has been present for quite some time, and it is supposedly malignant. Patient was also noted to have small left pleural effusion and possible infiltrate in the left lower lobe and there was improved aeration of the right lung base. At any rate patient was given IV Solu-Medrol, updrafts, started on broad-spectrum antibiotics in the form of vancomycin and Zosyn, admitted and this consult was initiated. The effusion noted on the chest x-ray is extremely small, and will not require thoracentesis. The patient herself is a very poor historian. Most of the information was obtained from the chart The patient is seen today 12/03/2018 in follow-up on the regular medical floor. She is currently awake and alert in no acute distress. Feeling a bit better today compared to yesterday. Current blood pressure 104/68 heart rate 80. She is afebrile. Maintaining O2 saturations in the high 90s on 2 L/m per nasal cannula. Blood culture reveals no growth. Urine culture reveals no growth. White count 6.8. Hemoglobin 10.4. Creatinine 1.22. Currently on vancomycin and Levaquin. The patient is seen today 12/04/2018 in follow-up on the regular medical floor. She is currently sitting up in a chair at the bedside. Awake and alert in no acute distress. Still having some dyspnea on minimal exertion. Maintaining O2 saturations in the 90s on 2 L/m per nasal cannula. Afebrile. Blood and urine cultures reveal no growth. White count 6.2. Hemoglobin 10.4. Creatinine 0.77. Remains on DuoNeb inhalations, Pulmicort inhalations, vancomycin and Levaquin. Computed tomography scan of the chest abdomen pelvis are pending. The patient is seen today 12/05/2017 in follow-up on the regular medical floor. She is currently resting comfortably in bed. Awake and alert in no acute distress. Doing better today as compared to yesterday. Feeling a bit stronger. Less short of breath. Maintaining good O2 saturations in the upper 90s on 2 L/m per nasal cannula. She's been afebrile. Blood and urine cultures reveal no growth. White count 6.0. Hemoglobin 9.9. Creatinine 0.69. Objective - Vital Signs Vital signs: Vital Signs Temp 97.5 F L 12/05/18 05:00 Pulse 88 12/05/18 09:02 Resp 20 12/05/18 08:00 BP 154/80 12/05/18 05:00 Pulse Ox 97 12/05/18 05:00 Intake & Output 12/04/18 12/05/18 12/05/18 18:59 06:59 18:59 Intake Total 1340 660 Balance 1340 660 Weight 98 kg Intake: Intake, IV Titration 1100 300 Amount 0.9% NaCl with KCl 20 Meq 600 300 /l 1,000 ml @ 75 mls/hr IV .[id number] [facility] Rx#: [id number] Vancomycin 1,750 mg In 500 Sodium Chloride 0.9% 500 ml 500 ml @ 167 mls/hr IVPB Q16H [facility] Rx#: [id number] Oral 240 360 Other: Voiding Method Bedside Commode Bedside Commode Bedside Commode Diaper Diaper Diaper Incontinent Incontinent Incontinent # Voids 7 3 - Exam GENERAL EXAM: Alert, fairly comfortable in no apparent distress. On 2 L nasal cannula. HEAD: Normocephalic. EYES: Normal reaction of pupils, equal size. NOSE: Clear with pink turbinates. THROAT: Hoarseness. No erythema or exudates. NECK: No masses, no JVD. CHEST: No chest wall deformity. LUNGS: Equal air entry with faint end expiratory wheeze, scattered rhonchi, diminished. CVS: S1 and S2 normal with no audible murmur, regular rhythm. ABDOMEN: No hepatosplenomegaly, normal bowel sounds, no guarding or rigidity. SPINE: No scoliosis or deformity SKIN: No rashes CENTRAL NERVOUS SYSTEM: No focal deficits, tone is normal in all 4 extremities. EXTREMITIES: There is no peripheral edema. No clubbing, no cyanosis. Peripheral pulses are intact. - Labs CBC & Chem 7: 12/05/18 07:42 12/05/18 07:42 Labs: Abnormal Lab Results - Last 24 Hours (Table) 12/05/18 12/05/18 Range/Units 07:42 07:42 RBC 3.21 L (3.80-5.40) m/uL Hgb 9.9 L (11.4-16.0) gm/dL Hct 32.0 L (34.0-46.0) % MCHC 30.9 L (31.0-37.0) g/dL Chloride 114 H (98-107) mmol/L BUN 19 H (7-17) mg/dL Calcium 8.1 L (8.4-10.2) mg/dL Total Protein 5.3 L (6.3-8.2) g/dL Albumin 2.5 L (3.5-5.0) g/dL Microbiology - Last 24 Hours (Table) 12/01/18 17:34 Blood Culture - Preliminary Blood No Growth after 72 hours Assessment and Plan Assessment: Impression: Multiple constitutional symptoms in a patient with history of metastatic lung cancer, cellulitis of lower extremities, strongly suspect some component of sepsis. Acute kidney injury, could very well be related to acute tumor necrosis or could be dehydration related. Recovered. Left upper lobe mass, strongly doubt pneumonia. Sacral decubitus ulcers and cellulitis of both lower extremities. Electrolytes imbalance being addressed by admitting physician History of hypothyroidism on replacement therapy History of COPD relatively fairly well controlled at present, patient is on proper bronchodilators. Chronic pain syndrome History of adrenal insufficiency related to autoimmune therapy patient is on Cortef. And on Florinef. History of depression. Recommendation: The patient was seen and evaluated by Dr. Devine. She is feeling back to her baseline. Anxious to go home. She does have home oxygen and nebulizer in place. She follows with Dr. Cruz in our office. Home once cleared medically and by oncology. I, the cosigning physician, performed a history & physical examination of the patient. Lungs sounds with faint end expiratory wheeze, diminished. Maintaining good O2 saturations in the 90s on 2 L/m per nasal cannula. I discussed the assessment and plan of care with my nurse practitioner, Margarita Nice. I attest to the above note as dictated by her.
[2018-12-05] MEDS: IPRATROPIUM-ALBUTEROL 3 ML NEB INHALATION PRN (13:05)
[2018-12-05] MEDS: IOPAMIDOL-300 CONTRAST 30 ML VIAL (ORAL USE) PO PRN ×2 (13:50→15:00)
[2018-12-05 14:32] VITALS: BP 121/64; PULSE 91; RESP 17; TEMP 97.4
--- NOTE | 2018-12-05 15:29 | P.DS ---
Providers Date of admission: 12/02/18 18:04 Attending physician: Christian Carrasco Consults: 12/01/18 18:30 Consult Physician Urgent Consulting Provider: Toy Meredith Consult Reason/Comments: Oncological care Do you want consulting provider notified?: Yes 12/02/18 11:59 Consult Physician Routine Consulting Provider: Annabella Devine Consult Reason/Comments: pneumonia, lung ca Do you want consulting provider notified?: Yes [facility]: his is a 67-year-old female patient of Dr. Garcia with past medical history of metastatic non-small cell lung cancer under the care of Dr. Meredith with most recent treatment with immunotherapy. 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 She subsequently had an admission in September for dehydration and acute kidney injury and acute on chronic diastolic heart failure and was discharged to [facility] and discharge for [facility] to home on October 22. Patient is unclear her current plan with oncology. She states she saw Vicky León a week ago and has another appointment set up but does not know the plan. She has home care set up in her home care nurse found her blood pressure to be 60/40. Patient has been feeling tired with chills and generalized weakness gradually worsening. Patient also has bilateral lower extremity cellulitis. Patient came into [facility] emergency center. Patient was found to be afebrile, initial blood pressure 135/88, heart rate 69, pulse ox 97% on room air. EKG was a sinus rhythm with no acute ST changes. WBC 11.0, he moglobin 10.6, INR 1.8, sodium 130, potassium 2.8, chloride 93, CO2 28, BUN 36 and creatinine 2.02. Lactic acid 1.6. Total bilirubin 1.4, AST 46, ALT 28, alkaline phosphatase 129. Troponin 0.020. Albumin 2.2. Urinalysis was cloudy, leukoesterase large, RBCs 20, wbc's greater than 182. Influenza testing negative. Chest x-ray showed chronic emphysematous change and cardiomegaly with lateral left upper lobe neoplasm all redemonstrated. Persistent small left pleural effusion and left basilar atelectasis and/or infiltrate improved from prior. Improved aeration right lung base noted no new focal infiltrates. Patient was given IV Solu-Medrol, nebulizer treatments, started on IV Zosyn and vancomycin, consult requested with oncology and patient admitted to the cardiac stepdown unit. Lasix will currently be placed on hold as well as Bactrim. Corrales catheter to be removed. Urine culture in progress. Chest x-ray showed pleural fluid and pleural thickening at the left lung base and also left lower lobe chest wall pleural thickening. No significant change from last exam. No heart failure. 12/03: Patient cellulitis has improved some, cough and shortness of breath is slightly but better. With her immunotherapy patient had adrenal insufficiency oncology wanted to see endocrinology as an outpatient in the meanwhile continue to use hydrocortisone and fludrocortisone for supportive care. Patient pain is under better control so far. Her oxygen level and hypoxia is improved. 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 12/05 patient examined bedside still appears very fragile but is breathing well denies any chest pain or shortness of breath. Continues to require 2 L of oxygen at rest. Lower extremity swelling is improved patient instructed to keep her legs elevated and apply silver sulfadiazine to the lower extremities. Levofloxacin for 1 week. Discharge diagnosis 1. Possible sepsis secondary to urinary tract infection. And cellulitis 2. Generalized weakness and hypotension secondary to dehydration and sepsis and possible adrenal insufficiency. 3. Bilateral lower extremity cellulitis. 4. Possible left sided pneumonia, gram-negative. 5. Sacral decubitus ulcer stage II, 6. Metastatic non-small cell lung cancer under the care of Dr. Meredith. 7. Acute kidney injury with hypokalemia secondary to dehydration. 8. Coagulopathy, chronic. INR 1.8. 9. Electrolyte abnormalities including hyponatremia, hypokalemia, hypochloremia. 10. Hypothyroidism. 11. COPD, 12. Recurrent depression 13. Chronic pain syndrome. 14. 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 15. Chronic diastolic heart failure. 16. Severe protein calorie malnutrition. disposition home with home care Patient Condition at Discharge: Serious Plan - Discharge Summary Discharge Rx Participant: No New Discharge Prescriptions: New Levofloxacin [Levaquin] 750 mg PO Q24H #7 tab Nystatin 100,000 Unit/ml Susp [Mycostatin Oral Susp] 500,000 unit PO QID #28 cup SILVER sulfADIAZINE CREAM [Silvadene Cream] 1 applic TOPICAL HS #100 gm Continue Citalopram Hydrobromide [CeleXA] 40 mg PO QAM Albuterol Nebulized [Ventolin Nebulized] 2.5 mg INHALATION RT-QID PRN PRN Reason: Shortness Of Breath Cyclobenzaprine HCl 10 mg PO HS Budesonide [Pulmicort] 1 mg INHALATION RT-BID nebu Pantoprazole [Protonix] 40 mg PO BID tablet. Potassium Chloride ER [K-Dur 20] 20 meq PO TID tab.er.prt Levothyroxine Sodium [Synthroid] 25 mcg PO DAILY Fludrocortisone [Florinef] 0.1 mg PO BID Ipratropium-Albuterol Nebulize [Duoneb 0.5 mg-3 mg/3 ml Soln] 3 ml INHALATION RT-TID PRN ampul.neb PRN Reason: Shortness Of Breath Or Wheezing Furosemide [Lasix] 40 mg PO DAILY tab Metoprolol Tartrate [Lopressor] 25 mg PO DAILY tab ALPRAZolam [Xanax] 0.25 mg PO Q8H PRN PRN Reason: Anxiety HYDROcodone/APAP 5-325MG [[place] 5-325] 1 tab PO Q6H PRN PRN Reason: Pain Hydrocortisone [Cortef] 50 mg PO DAILY Magnesium Oxide [Magox 400] 400 mg PO W/SUPPER Spironolactone [Aldactone] 25 mg PO DAILY Discharge Medication List Albuterol Nebulized [Ventolin Nebulized] 2.5 mg INHALATION RT-QID PRN 05/03/15 [History] Citalopram Hydrobromide [CeleXA] 40 mg PO QAM 05/03/15 [History] Cyclobenzaprine HCl 10 mg PO HS 07/17/18 [History] Budesonide [Pulmicort] 1 mg INHALATION RT-BID nebu 07/28/18 [Rx] Pantoprazole [Protonix] 40 mg PO BID tablet. 07/28/18 [Rx] Potassium Chloride ER [K-Dur 20] 20 meq PO TID tab.er.prt 07/28/18 [Rx] Fludrocortisone [Florinef] 0.1 mg PO BID 09/29/18 [History] Levothyroxine Sodium [Synthroid] 25 mcg PO DAILY 09/29/18 [History] Furosemide [Lasix] 40 mg PO DAILY tab 10/08/18 [Rx] Ipratropium-Albuterol Nebulize [Duoneb 0.5 mg-3 mg/3 ml Soln] 3 ml INHALATION RT-TID PRN ampul.neb 10/08/18 [Rx] Metoprolol Tartrate [Lopressor] 25 mg PO DAILY tab 10/08/18 [Rx] ALPRAZolam [Xanax] 0.25 mg PO Q8H PRN 11/13/18 [History] HYDROcodone/APAP 5-325MG [[place] 5-325] 1 tab PO Q6H PRN 11/13/18 [History] Hydrocortisone [Cortef] 50 mg PO DAILY 11/13/18 [History] Magnesium Oxide [Magox 400] 400 mg PO W/SUPPER 11/13/18 [History] Spironolactone [Aldactone] 25 mg PO DAILY 11/13/18 [History] Levofloxacin [Levaquin] 750 mg PO Q24H #7 tab 12/05/18 [Rx] Nystatin 100,000 Unit/ml Susp [Mycostatin Oral Susp] 500,000 unit PO QID #28 cup 12/05/18 [Rx] SILVER sulfADIAZINE CREAM [Silvadene Cream] 1 applic TOPICAL HS #100 gm 12/05/18 [Rx] Follow up Appointment(s)/Referral(s): Demetris Garcia DO [Primary Care Provider] - 1-2 days [facility] [NON-STAFF] - As Needed Christine Winchester MD [STAFF PHYSICIAN] - 12/11/18 8:15 am (VERY IMPORTANT THAT PATIENT MAKE THIS APPOINTMENT) Toy Meredith MD [Family Provider] - 12/08/18 10:30 am Patient Instructions/Handouts: How to Stop Smoking (DC), Dehydration (DC), Cellulitis (DC), COPD (Chronic Obstructive Pulmonary Disease) (DC), Sepsis (GEN) Activity/Diet/Wound Care/Special Instructions: [facility] vs Residential home care Discharge Disposition: HOME WITH HOME HEALTH SERVICES
[2018-12-05 16:10] VITALS: BMI 37.0
--- NOTE | 2018-12-05 16:40 | CT ---
EXAMINATION TYPE: CT ChestAbdPelvis w con DATE OF EXAM: 12/05/2018 COMPARISON: Prior CT 07/23/2018, chest x-ray 12/03/2018 Nuclear medicine PET/CT 05/24/2018 HISTORY: f/u lung ca CT DLP: 1994.7 mGycm Automated exposure control for dose reduction was used. CONTRAST: CT scan of the chest, abdomen and pelvis is performed with Oral Contrast and with IV Contrast, patien t injected with 100 mL of Isovue 300. FINDINGS: There are anasarca changes. LUNGS: The lungs are showing a similar appearance, there is bilateral pleural effusion, mass is prese nt in the left upper lobe measuring approximately 6.5 x 4.8 x 5.2 cm extending to the left hilum. The re are emphysematous changes present. Interstitium appears mildly prominent. The tracheobronchial mary carmen e is patent. MEDIASTINUM: There are no greater than 1 cm hilar or mediastinal lymph nodes. No pericardial effusi on is seen. The heart is enlarged. There are coronary calcifications present. Pulmonary artery agai n noted to be prominent. Some abnormal soft tissue present in the aorticopulmonary window region of t he mediastinum is again seen. AORTA: No significant abnormality is seen. OTHER: No additional significant abnormality is seen. LIVER/GB: Liver shows low attenuation as on prior exam likely due to hepatic steatosis or hepatocellu lar disease, the liver is enlarged. Gallbladder is not seen. PANCREAS: No significant abnormality is seen. SPLEEN: No significant abnormality is seen. ADRENALS: Adrenal glands are somewhat atrophic. KIDNEYS: No significant abnormality is seen. REPRODUCTIVE ORGANS: Not seen BOWEL: Diverticular changes associated with the sigmoid colon. Retained fecal debris present through out the distribution of the colon, correlate for fecal stasis. FREE AIR: No Free Air visible. ASCITES: None seen. RETROPERITONEAL ADENOPATHY: No retroperitoneal adenopathy is seen. LYMPH NODES: No greater than 1 cm abdominal or pelvic lymph nodes are appreciated. URINARY BLADDER: No significant abnormality is seen. PELVIC ADENOPATHY: None visualized. OSSEOUS STRUCTURES: There is a spinal curvature, degenerative disc changes are present in the visual ized spine. IMPRESSION: Left upper lobe lung mass as described, abnormal mediastinal soft tissue again seen. Bila teral pleural effusions. Correlate for possible interstitial edema, pulmonary venous hypertension. Th ere is cardiomegaly. Reticulosis, correlate for fecal stasis. Additional findings above.
[2018-12-05] MEDS ORDERED: VANCOMYCIN TROUGH DUE 1 EACH MISC MISCELLANE ONE (18:00)
== END 2018-12-05 17:33 | disposition home health service (06) | DRG 871 ==
LOC: EC 16:11 → 3NMEDONC 18:28 → OBSVTOIN 12-02 18:04
PROVIDERS: ADMIT Internal Medicine Geriatric Medicine; ATTEND Internal Medicine Geriatric Medicine
DX: A41.9 Sepsis, unspecified organism (principal); E43 Unspecified severe protein-calorie malnutrition; N17.0 Acute kidney failure with tubular necrosis; J15.6 Pneumonia due to other Gram-negative bacteria; C34.90 Malignant neoplasm of unspecified part of unspecified bronchus or lung; C79.9 Secondary malignant neoplasm of unspecified site; D68.9 Coagulation defect, unspecified; E27.40 Unspecified adrenocortical insufficiency; E87.1 Hypo-osmolality and hyponatremia; F33.9 Major depressive disorder, recurrent, unspecified; I50.32 Chronic diastolic (congestive) heart failure; L03.115 Cellulitis of right lower limb; L03.116 Cellulitis of left lower limb; N39.0 Urinary tract infection, site not specified; E03.9 Hypothyroidism, unspecified; E86.0 Dehydration; E87.6 Hypokalemia; F17.200 Nicotine dependence, unspecified, uncomplicated; F41.9 Anxiety disorder, unspecified; G89.4 Chronic pain syndrome; J43.9 Emphysema, unspecified; L89.152 Pressure ulcer of sacral region, stage 2; R09.02 Hypoxemia; R32 Unspecified urinary incontinence; R65.20 Severe sepsis without septic shock; Z79.52 Long term (current) use of systemic steroids; Z79.890 Hormone replacement therapy; Z79.899 Other long term (current) drug therapy; Z90.710 Acquired absence of both cervix and uterus; Z88.1 Allergy status to other antibiotic agents; Z88.8 Allergy status to other drugs, medicaments and biological substances
CPT/HCPCS: 36415; 71046; 71260; 74177; 80053; 81001; 82530; 82550; 83605; 83735; 84484; 85025; 85610; 85730; 87040; 87086; 93005; 94640; 94760; 96365; 96368; 99291

== ENCOUNTER 2018-12-31 18:09 | Inpatient (IN) | payer MEDICARE, OTHER ==
[2018-12-31] MEDS ORDERED: SODIUM CHLORIDE 0.9% 1,000 ML IV STA (18:32)
--- NOTE | 2018-12-31 18:35 | ED ---
General Adult HPI - General Chief complaint: Shortness of Breath Stated complaint: BENJI Time Seen by Provider: 12/31/18 18:12 Source: EMS Mode of arrival: EMS Limitations: no limitations - History of Present Illness Initial comments: Dictation was produced using [employer] dictation software. please excuse any grammatical, word or spelling errors. Chief Complaint: 68-year-old female with past medical history of lung cancer, [place] PD, heart failure presents with shortness of breath and generalized weakness. History of Present Illness: Old female she was brought in by EMS. Patient allegedly lives at home with her and her grandson. Patient states she's been feeling weak for the last several days progressively. She has a home health nurse that comes and visits the house every so often. She was evaluated by the home health nurse and was brought to the emergency department via EMS. Patient was allegedly hypoxic on home health nurses evaluation. Patient denies any chest pain. She does report shortness of breath. According S patient is allegedly full code. 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 She does report or starting at this time. The ROS documented in this emergency department record has been reviewed and confirmed by me. Those systems with pertinent positive or negative responses have been documented in the HPI. All other systems are other negative and/or noncontributory. PHYSICAL EXAM: General Impression: Alert and oriented x3, dyspneic HEENT: Normocephalic atraumatic, extra-ocular movements intact, pupils equal and reactive to light bilaterally, dry mucous membranes Cardiovascular: Heart regular rate and rhythm, S1&S2 audible, no murmurs, rubs or gallops Chest: Bilateral lung rhonchi Abdomen: Bowel sounds present, abdomen soft, non-tender, non-distended, no organomegaly Musculoskeletal: Pulses present and equal in all extremities, no peripheral edema Motor: no focal deficits noted Neurological: CN II-XII grossly intact, no focal motor or sensory deficits noted Skin: Mild erythema and warmth around the bilateral lower extremity worse in the left right Psych: Normal affect and mood ED course: 68-year-old female presents with chief complaint of weakness and dyspnea. She was allegedly hypoxic upon evaluation by home health care nurse. History of lung cancer, COPD and CHF. Plan care bedside ultrasound was performed showing B lines consistent with pulmonary edema. There is also concern of pneumonia sepsis given heart rate of 110, blood pressure 94/81 and hypoxia. Laboratory evaluation obtained. CBC unremarkable. Coag panel unremarkable. Metabolic panel is unremarkable. Troponins at cleanser 47 which is elevated above patient's usual baseline. Prematurity peptide is elevated to 6500 which is above her baseline. Urinalysis suggests urinary tract infection. Chest x- ray shows increasing right lower lobe consolidation. Patient given intravenous fluids. She had repeat vital signs with improvement of blood pressure. Patient's persistent tachycardia however improvement 105. She is satting well with 3 L is cannula. At this point is concern for infectious process. Pending blood cultures and urine cultures. She is covered with 1 dose of broad-spectrum antibiotics. There is also evidence of CHF exacerbation given imaging studies and lab evaluation. Patient given Lasix. Patient was also elevated troponin wh ich likely is secondary to troponin leak. Patient not complaining or chest pain at the moment. But is having shortness of breath. Patient is started on heparin and given aspirin. Discussed patient case with Dr. Garibay who is willing to accept patients care. Cardiology consultation. EKG interpretation: Ventricular rate 73, normal sinus rhythm,. Interval 132, through 72, QTc 436. No [place] prolongation, no QTC prolongation, no ST or T-wave changes noted. EKG compared to 12/01/2018 showing no changes. Overall, this EKG is unremarkable - Related Data Home Medications Medication Instructions Recorded Confirmed Albuterol Nebulized [Ventolin 2.5 mg INHALATION RT-QID PRN 05/03/15 12/31/18 Nebulized] Citalopram Hydrobromide [CeleXA] 40 mg PO QAM 05/03/15 12/31/18 Cyclobenzaprine HCl 10 mg PO HS 07/17/18 12/31/18 Fludrocortisone [Florinef] 0.1 mg PO BID 09/29/18 12/31/18 Levothyroxine Sodium [Synthroid] 50 mcg PO DAILY 09/29/18 12/31/18 ALPRAZolam [Xanax] 0.25 mg PO Q8H PRN 11/13/18 12/31/18 HYDROcodone/APAP 5-325MG [[place] 1 tab PO Q6H PRN 11/13/18 12/31/18 5-325] Hydrocortisone [Cortef] 40 mg PO QAM 11/13/18 12/31/18 Magnesium Oxide [Magox 400] 400 mg PO HS 11/13/18 12/31/18 Spironolactone [Aldactone] 25 mg PO DAILY@1200 11/13/18 12/31/18 Hydrocortisone [Cortef] 20 mg PO DAILY@1200 12/31/18 12/31/18 Pantoprazole [Protonix] 40 mg PO HS 12/31/18 12/31/18 SILVER sulfADIAZINE CREAM 1 applic TOPICAL DAILY 12/31/18 12/31/18 [Silvadene Cream] Previous Rx's Medication Instructions Recorded Budesonide [Pulmicort] 1 mg INHALATION RT-BID nebu 07/28/18 Potassium Chloride ER [K-Dur 20] 20 meq PO TID tab.er.prt 07/28/18 Furosemide [Lasix] 40 mg PO DAILY tab 10/08/18 Ipratropium-Albuterol Nebulize 3 ml INHALATION RT-TID PRN 10/08/18 [Duoneb 0.5 mg-3 mg/3 ml Soln] ampul.neb Metoprolol Tartrate [Lopressor] 25 mg PO DAILY tab 10/08/18 Nystatin 100,000 Unit/ml Susp 500,000 unit PO QID #28 cup 12/05/18 [Mycostatin Oral Susp] Allergies Allergy/AdvReac Type Severity Reaction Status Date / Time cephalexin monohydrate Allergy Severe Anaphylaxis Verified 12/31/18 20:15 [From Keflex] adhesive Allergy Rash/Hives Verified 12/31/18 20:15 silicone Allergy Rash/Hives Verified 12/31/18 20:15 Review of Systems ROS Statement: Those systems with pertinent positive or pertinent negative responses have been documented in the HPI. ROS Other: All systems not noted in ROS Statement are negative. Past Medical History Past Medical History: Cancer, COPD Additional Past Medical History / Comment(s): URINARY INCONTINENCE, WEARS DEPENDS DAILY, lung CA, post radiation and chemo. Fracture left wrist. brain nodules-radiation bed sores History of Any Multi-Drug Resistant Organisms: None Reported Past Surgical History: Cholecystectomy, Hysterectomy, Orthopedic Surgery Additional Past Surgical History / Comment(s): KARSON KNEE CAP REPLACEMENT, bronchoscopy Past Anesthesia/Blood Transfusion Reactions: No Reported Reaction Past Psychological History: Anxiety Smoking Status: Current every day smoker Past Alcohol Use History: Occasional Past Drug Use History: None Reported - Past Family History Mother Family Medical History: Unable to Obtain Additional Family Medical History / Comment(s): patient was adopted . General Exam Limitations: no limitations Course Vital Signs 12/31/18 12/31/18 12/31/18 18:11 18:13 19:54 Temperature 99.1 F 99.4 F Pulse Rate 110 H 105 H Respiratory 24 24 19 Rate Blood Pressure 94/81 120/64 O2 Sat by Pulse 89 L 99 Oximetry 12/31/18 20:20 Temperature Pulse Rate 104 H Respiratory 17 Rate Blood Pressure 121/66 O2 Sat by Pulse 98 Oximetry Medical Decision Making - Lab Data Result diagrams: 12/31/18 19:22 12/31/18 18:25 Lab Results 12/31/18 12/31/18 12/31/18 Range/Units 18:25 18:25 19:20 WBC (3.8-10.6) k/uL RBC (3.80-5.40) m/uL Hgb (11.4-16.0) gm/dL Hct (34.0-46.0) % MCV (80.0-100.0) fL MCH (25.0-35.0) pg MCHC (31.0-37.0) g/dL RDW (11.5-15.5) % Plt Count (150-450) k/uL Neutrophils % % Lymphocytes % % Monocytes % % Eosinophils % % Basophils % % Neutrophils # (1.3-7.7) k/uL Lymphocytes # (1.0-4.8) k/uL Monocytes # (0-1.0) k/uL Eosinophils # (0-0.7) k/uL Basophils # (0-0.2) k/uL Hypochromasia Macrocytosis PT (9.0-12.0) sec INR (<1.2) APTT (22.0-30.0) sec Sodium 140 (137-145) mmol/L Potassium 3.5 (3.5-5.1) mmol/L Chloride 103 (98-107) mmol/L Carbon Dioxide 30 (22-30) mmol/L Anion Gap 7 mmol/L BUN 17 (7-17) mg/dL Creatinine 0.57 (0.52-1.04) mg/dL Est GFR (CKD-EPI)AfAm >90 (>60 ml/min/1.73 sqM) Est GFR (CKD-EPI)NonAf >90 (>60 ml/min/1.73 sqM) Glucose 79 (74-99) mg/dL Calcium 8.4 (8.4-10.2) mg/dL Magnesium 1.9 (1.6-2.3) mg/dL Total Bilirubin 1.0 (0.2-1.3) mg/dL AST 29 (14-36) U/L ALT 28 (9-52) U/L Alkaline Phosphatase 106 (38-126) U/L Creatine Kinase 22 L (30-135) U/L Troponin I 0.047 H* (0.000-0.034) ng/mL NT-Pro-B Natriuret Pep pg/mL Total Protein 5.5 L (6.3-8.2) g/dL Albumin 2.9 L (3.5-5.0) g/dL Urine Color Yellow Urine Appearance Cloudy H (Clear) Urine pH 7.0 (5.0-8.0) Ur Specific [place] 1.015 (1.001-1.035) Urine Protein Trace H (Negative) Urine Glucose (UA) Negative (Negative) Urine Ketones 1+ H (Negative) Urine Blood Small H (Negative) Urine Nitrite Negative (Negative) Urine Bilirubin Negative (Negative) Urine Urobilinogen <2.0 (<2.0) mg/dL Ur Leukocyte Esterase Large H (Negative) Urine RBC 4 (0-5) /hpf Urine WBC 61 H (0-5) /hpf Urine WBC Clumps Occasional H (None) /hpf Ur Squamous Epith Cells 4 (0-4) /hpf Urine Mucus Rare H (None) /hpf 12/31/18 12/31/18 12/31/18 Range/Units 19:22 19:22 19:22 WBC 9.3 (3.8-10.6) k/uL RBC 4.01 (3.80-5.40) m/uL Hgb 12.4 (11.4-16.0) gm/dL Hct 39.7 (34.0-46.0) % MCV 99.0 (80.0-100.0) fL MCH 30.9 (25.0-35.0) pg MCHC 31.2 (31.0-37.0) g/dL RDW 15.6 H (11.5-15.5) % Plt Count 218 (150-450) k/uL Neutrophils % 80 % Lymphocytes % 12 % Monocytes % 4 % Eosinophils % 2 % Basophils % 0 % Neutrophils # 7.5 (1.3-7.7) k/uL Lymphocytes # 1.1 (1.0-4.8) k/uL Monocytes # 0.4 (0-1.0) k/uL Eosinophils # 0.2 (0-0.7) k/uL Basophils # 0.0 (0-0.2) k/uL Hypochromasia Marked Macrocytosis Slight PT 13.6 H (9.0-12.0) sec INR 1.3 H (<1.2) APTT 26.4 (22.0-30.0) sec Sodium (137-145) mmol/L Potassium (3.5-5.1) mmol/L Chloride (98-107) mmol/L Carbon Dioxide (22-30) mmol/L Anion Gap mmol/L BUN (7-17) mg/dL Creatinine (0.52-1.04) mg/dL Est GFR (CKD-EPI)AfAm (>60 ml/min/1.73 sqM) Est GFR (CKD-EPI)NonAf (>60 ml/min/1.73 sqM) Glucose (74-99) mg/dL Calcium (8.4-10.2) mg/dL Magnesium (1.6-2.3) mg/dL Total Bilirubin (0.2-1.3) mg/dL AST (14-36) U/L ALT (9-52) U/L Alkaline Phosphatase (38-126) U/L Creatine Kinase (30-135) U/L Troponin I (0.000-0.034) ng/mL NT-Pro-B Natriuret Pep 6500 pg/mL Total Protein (6.3-8.2) g/dL Albumin (3.5-5.0) g/dL Urine Color Urine Appearance (Clear) Urine pH (5.0-8.0) Ur Specific [place] (1.001-1.035) Urine Protein (Negative) Urine Glucose (UA) (Negative) Urine Ketones (Negative) Urine Blood (Negative) Urine Nitrite (Negative) Urine Bilirubin (Negative) Urine Urobilinogen (<2.0) mg/dL Ur Leukocyte Esterase (Negative) Urine RBC (0-5) /hpf Urine WBC (0-5) /hpf Urine WBC Clumps (None) /hpf Ur Squamous Epith Cells (0-4) /hpf Urine Mucus (None) /hpf Critical Care Time Critical Care Time: Yes Total Critical Care Time: 31 Disposition Clinical Impression: Congestive heart failure Disposition: ADMITTED IP TO THIS [facility] Condition: Fair Referrals: Demetris Garcia DO [Primary Care Provider] - 1-2 days Decision Time: 20:33
[2018-12-31] MEDS ORDERED: VANCOMYCIN IV PER PHARMACY 1 EACH MISC MISCELLANE PRN (19:06)
[2018-12-31] MEDS ORDERED: PIPERACILLIN-TAZOBACTAM 3.375 GM in SODIUM CHLORIDE 0.9% 100 ML IVPB STA (19:07)
[2018-12-31] MEDS ORDERED: LEVOFLOXACIN 750MG-D5W PMX 750 MG in DEXTROSE/WATER 1 150ML.BAG IVPB STA (19:08)
--- NOTE | 2018-12-31 19:10 | XR ---
EXAMINATION TYPE: XR chest 2V DATE OF EXAM: 12/31/2018 COMPARISON: 12/03/2018 HISTORY: Short of breath TECHNIQUE: Frontal and lateral views of the chest are obtained. FINDINGS: Heart is enlarged. There is 8 x 4 cm area of consolidation in the lateral aspect left uppe r lobe. There is blunting of the costophrenic angles. There is airspace consolidation at the right jemal ng base. There is prominent vascular congestion. There are chest leads. IMPRESSION: Increasing right lower lobe consolidation compared to last exam. Congestive heart failur e. Left upper lobe masslike infiltrate slightly increased compared to last exam. Right pleural effusi on increased.
[2018-12-31 19:13] LABS: ALT 28 U/L (9-52); AST 29 U/L (14-36); African American GFR (CKD) >90 (>60 ml/min/1.73 sqM); Albumin 2.9 g/dL (3.5-5.0); Alkaline Phosphatase 106 U/L (38-126); Anion Gap 7 mmol/L; Blood Urea Nitrogen 17 mg/dL (7-17); Calcium 8.4 mg/dL (8.4-10.2); Carbon Dioxide 30 mmol/L (22-30); Chloride 103 mmol/L (98-107); Creatine Kinase 22 U/L (30-135); Glucose 79 mg/dL (74-99); Magnesium 1.9 mg/dL (1.6-2.3); Potassium 3.5 mmol/L (3.5-5.1); Sodium 140 mmol/L (137-145); Total Protein 5.5 g/dL (6.3-8.2)
[2018-12-31] MEDS ORDERED: VANCOMYCIN 1,750 MG in SODIUM CHLORIDE 0.9% 500 ML 500 ML IVPB ONE (19:30)
[2018-12-31 19:41] LABS: Appearance,Urine Cloudy (Clear); Bilirubin,Urine Negative (Negative); Blood,Urine Small (Negative); Color,Urine Yellow; Glucose,Urine (UA) Negative (Negative); Ketones,Urine 1+ (Negative); Leukocyte Esterase,Urine Large (Negative); Mucus,Urine Rare /hpf; Nitrite,Urine Negative (Negative); Protein,Urine Trace (Negative); RBC,Urine 4 /hpf (0-5); Specific Gravity,Urine 1.015 (1.001-1.035); Squamous Epithelial Cell,Urine 4 /hpf (0-4); Urobilinogen,Urine <2.0 mg/dL (<2.0)
[2018-12-31 19:51] LABS: Basophils % (A) 0 %; Eosinophils # (A) 0.2 k/uL (0-0.7); Eosinophils % (A) 2 %; HCT 39.7 % (34.0-46.0); HGB 12.4 gm/dL (11.4-16.0); Hypochromasia Marked; Lymphocytes # (A) 1.1 k/uL (1.0-4.8); Lymphocytes % (A) 12 %; MCH 30.9 pg (25.0-35.0); MCHC 31.2 g/dL (31.0-37.0); Macrocytosis Slight; Mean Platelet Volume 7.7; Monocytes # (A) 0.4 k/uL (0-1.0); Monocytes % (A) 4 %; Neutrophils # (A) 7.5 k/uL (1.3-7.7); Neutrophils % (A) 80 %; Platelet Count 218 k/uL (150-450); RBC 4.01 m/uL (3.80-5.40); RDW 15.6 % (11.5-15.5); WBC 9.3 k/uL (3.8-10.6)
[2018-12-31 19:56] LABS: INR 1.3 (<1.2); Partial Thromboplastin Time 26.4 sec (22.0-30.0); Prothrombin Time 13.6 sec (9.0-12.0)
[2018-12-31] MEDS ORDERED: FUROSEMIDE 10 MG/ML 4 ML VIAL IV STA (20:26)
[2018-12-31] MEDS ORDERED: ACETAMINOPHEN TAB 325 MG TAB PO PRN (20:26)
[2018-12-31] MEDS ORDERED: NALOXONE 0.4 MG/ML 1 ML VIAL IV PRN (20:26)
[2018-12-31] MEDS ORDERED: ONDANSETRON 4 MG/2 ML VIAL IVP PRN (20:26)
[2018-12-31] MEDS ORDERED: HEPARIN SODIUM,PORCINE 5,000 UNIT/ML 1 ML VIAL IV PRN (20:31)
[2018-12-31] MEDS ORDERED: ASPIRIN 81 MG PO STA (20:31)
[2018-12-31] MEDS ORDERED: HEPARIN SODIUM,PORCINE 5,000 UNIT/ML 1 ML VIAL IV ONE (20:31)
[2018-12-31] MEDS ORDERED: HEPARIN SOD,PORK IN 0.45% NACL 25,000 UNIT in 0.45% NACL 1 250ML.BAG IV SCH (20:45)
[2018-12-31] MEDS: HYDROcodone/APAP 5-325MG 1 EACH TAB PO PRN (21:18)
[2018-12-31] MEDS: SODIUM CHLORIDE 0.9% 1,000 ML IV SCH (21:25)
[2019-01-01 00:17] VITALS: BMI 36.0
[2019-01-01] MEDS: FLUDROCORTISONE 0.1 MG TAB PO SCH ×3 (00:31→20:40)
[2019-01-01] MEDS: LEVOTHYROXINE 25 MCG TAB PO SCH (06:47)
[2019-01-01] MEDS: PANTOPRAZOLE 40 MG TABLET PO SCH (06:48)
[2019-01-01] MEDS ORDERED: NA PHOS,M-B/NA PHOS,DI-BA 133 ML ENEMA RECTAL STA (09:52)
[2019-01-01] MEDS: VANCOMYCIN 1,500 MG in SODIUM CHLORIDE 0.9% 250 ML IVPB SCH ×2 (10:04→20:39)
[2019-01-01] MEDS ORDERED: ALPRAZolam 0.25 MG TAB PO PRN (11:05)
[2019-01-01] MEDS ORDERED: IPRATROPIUM-ALBUTEROL 3 ML NEB INHALATION PRN (11:05)
[2019-01-01] MEDS ORDERED: ALBUTEROL NEBULIZED 2.5 MG/3 ML INHALATION PRN (11:05)
[2019-01-01] MEDS ORDERED: HYDROcodone/APAP 5-325MG 1 EACH TAB PO PRN (11:05)
[2019-01-01] MEDS: CITALOPRAM HYDROBROMIDE 20 MG TAB PO SCH (12:02)
[2019-01-01] MEDS: SPIRONOLACTONE 25 MG TAB PO SCH (12:02)
[2019-01-01] MEDS: HYDROCORTISONE 20 MG TAB PO SCH (12:02)
[2019-01-01] MEDS: METOPROLOL TARTRATE 25 MG TAB PO SCH (12:02)
[2019-01-01] MEDS: POLYETHYLENE GLYCOL 3350 17 GM POWD.PACK PO SCH (12:03)
[2019-01-01] MEDS: POTASSIUM CHLORIDE ER 20 MEQ TAB.ER PO SCH ×2 (12:03→20:40)
[2019-01-01] MEDS: LACTULOSE 20 GM/30 ML CUP PO SCH (12:03)
--- NOTE | 2019-01-01 15:19 | P.HPIM ---
History of Present Illness H&P Date: 01/01/19 Chief Complaint: Difficulty breathing This is a 67-year-old female patient of Dr. Garcia with past medical history of metastatic non-small cell lung cancer under the care of Dr. Meredith with most recent treatment with immunotherapy. 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 She subsequently had an admission in September for dehydration and acute kidney injury and acute on chronic diastolic heart failure and was discharged to [facility]. She was recently hospitalized in November for possible sepsis secondary to UTI and was discharged home on oral Levaquin. Patient now complains of difficulty breathing that is progressively worsening. Her daughter states that she stopped eating and drinking as well. Patient states that nothing tastes good to her. She was evaluated by her home care nurse and was instructed to come into the hospital for evaluation. Patient denies having any chest pain. Regarding her cancer, she has appointment with Dr. Meredith tomorrow. Patient came into [facility] emergency center. Patient was found to be afebrile, initial blood pressure 94/81, heart rate 110, pulse ox 89 % on room air. EKG was a sinus rhythm with no acute ST changes. WBC 9.3, hemoglobin 12.4, INR 1.3, sodium 140, potassium 3.5, chloride 103, CO2 30, BUN 17 and creatinine 0.57. Total bilirubin 1.0, AST 29, ALT 28, alkaline phosphatase 106. Troponin 0.047. Albumin 2.9. ProBNP 6500 Urinalysis was cloudy, leukoesterase large, wbc's 61. Chest x-ray reveals increasing right lower lobe consolidation compared to last exam. Congestive heart failure. Left upper lobe masslike infiltrate slightly increased compared to last exam. Right pleural effusion increased. Patient was started on Levaquin and vancomycin, Silvadene for lower extremity cellulitis, consults added for cardiology, pulmonary medicine and oncology. Review of Systems Constitutional: Reports fatigue, Reports poor appetite, Reports weakness, Denies anorexia, Denies chills, Denies fever Ears, nose, mouth and throat: Denies dental pain, Denies dysphagia, Denies mouth pain, Denies nasal congestion, Denies nasal discharge, Denies vertigo Cardiovascular: Denies chest pain Respiratory: Reports cough, Reports cough with sputum, Reports dyspnea, Reports respiratory infections, Reports wheezing, Denies excessive sputum, Denies hemoptysis Gastrointestinal: Reports loss of appetite, Denies abdominal pain, Denies diarrhea, Denies nausea, Denies vomiting Genitourinary: Denies difficulty voiding, Denies dysuria Musculoskeletal: Reports gait dysfunction, Reports muscle weakness Integumentary: Reports color changes, Reports darkening of skin, Reports wounds, Denies pruritus, Denies rash Neurological: Denies aphasia, Denies change in mentation, Denies change in speech, Denies seizures Psychiatric: Denies anxiety, Denies depression Past Medical History Past Medical History: Cancer, Heart Failure, COPD Additional Past Medical History / Comment(s): URINARY INCONTINENCE, WEARS DEPENDS DAILY, lung CA, post radiation and chemo. Fracture left wrist. brain nodules-radiation bed sores History of Any Multi-Drug Resistant Organisms: None Reported Past Surgical History: Cholecystectomy, Hysterectomy, Orthopedic Surgery Additional Past Surgical History / Comment(s): KARSON KNEE CAP REPLACEMENT, bronchoscopy Past Anesthesia/Blood Transfusion Reactions: No Reported Reaction Past Psychological History: Anxiety Smoking Status: Current every day smoker Past Alcohol Use History: Occasional Past Drug Use History: None Reported - Past Family History Mother Family Medical History: Unable to Obtain Additional Family Medical History / Comment(s): patient was adopted . Medications and Allergies Home Medications Medication Instructions Recorded Confirmed Type Albuterol Nebulized [Ventolin 2.5 mg INHALATION RT-QID PRN 05/03/15 12/31/18 History Nebulized] Citalopram Hydrobromide [CeleXA] 40 mg PO QAM 05/03/15 12/31/18 History Cyclobenzaprine HCl 10 mg PO HS 07/17/18 12/31/18 History Budesonide [Pulmicort] 1 mg INHALATION RT-BID nebu 07/28/18 12/31/18 Rx Potassium Chloride ER [K-Dur 20] 20 meq PO TID tab.er.prt 07/28/18 12/31/18 Rx Fludrocortisone [Florinef] 0.1 mg PO BID 09/29/18 12/31/18 History Levothyroxine Sodium [Synthroid] 50 mcg PO DAILY 09/29/18 12/31/18 History Furosemide [Lasix] 40 mg PO DAILY tab 10/08/18 12/31/18 Rx Ipratropium-Albuterol Nebulize 3 ml INHALATION RT-TID PRN 10/08/18 12/31/18 Rx [Duoneb 0.5 mg-3 mg/3 ml Soln] ampul.neb Metoprolol Tartrate [Lopressor] 25 mg PO DAILY tab 10/08/18 12/31/18 Rx ALPRAZolam [Xanax] 0.25 mg PO Q8H PRN 11/13/18 12/31/18 History HYDROcodone/APAP 5-325MG [[place] 1 tab PO Q6H PRN 11/13/18 12/31/18 History 5-325] Hydrocortisone [Cortef] 40 mg PO QAM 11/13/18 12/31/18 History Magnesium Oxide [Magox 400] 400 mg PO HS 11/13/18 12/31/18 History Spironolactone [Aldactone] 25 mg PO DAILY@1200 11/13/18 12/31/18 History Nystatin 100,000 Unit/ml Susp 500,000 unit PO QID #28 cup 12/05/18 12/31/18 Rx [Mycostatin Oral Susp] Hydrocortisone [Cortef] 20 mg PO DAILY@1200 12/31/18 12/31/18 History Pantoprazole [Protonix] 40 mg PO HS 12/31/18 12/31/18 History SILVER sulfADIAZINE CREAM 1 applic TOPICAL DAILY 12/31/18 12/31/18 History [Silvadene Cream] Allergies Allergy/AdvReac Type Severity Reaction Status Date / Time cephalexin monohydrate Allergy Severe Anaphylaxis Verified 12/31/18 20:15 [From Keflex] adhesive Allergy Rash/Hives Verified 12/31/18 20:15 silicone Allergy Rash/Hives Verified 12/31/18 20:15 Physical Exam Vitals: Vital Signs Temp Pulse Pulse Resp BP BP Pulse Ox 01/01/19 11:45 98 F 103 H 16 102/72 90 L 01/01/19 08:15 16 91 L 01/01/19 08:00 97.9 F 105 H 16 147/77 86 L 01/01/19 04:00 97.4 F L 103 H 20 161/85 92 L 01/01/19 00:00 97.7 F 109 H 22 159/94 96 12/31/18 21:41 87 L 07/17/19 20:20 104 H 17 121/66 98 12/31/18 19:54 99.4 F 105 H 19 120/64 99 12/31/18 18:13 24 12/31/18 18:11 99.1 F 110 H 24 94/81 89 L Intake and Output 12/31/18 01/01/19 01/01/19 22:59 06:59 14:59 Intake Total 410 Output Total 800 200 Balance -800 210 Intake: IV 410 Sodium Chloride 0.9% 1, 160 000 ml @ 20 mls/hr IV . Q24H TAL Rx#:[id number] Vancomycin 1,500 mg In 250 Sodium Chloride 0.9% 250 ml @ 125 mls/hr IVPB Q12H TAL Rx#:[id number] Output: Urine 800 200 Other: Voiding Method Diaper Diaper Incontinent Incontinent # Voids 0 # Bowel Movements 1 Weight 92.079 kg 66 kg 90.4 kg Gen: This is a 67-year-old female. She is resting in bed appears to be comfortable and in no acute distress. Daughter is at bedside. HEENT: Head is atraumatic, normocephalic. Pupils equal, round. Sclerae is anicteric. NECK: Supple. No JVD. No lymphadenopathy. No thyromegaly. LUNGS: Mild expiratory wheeze, scattered rhonchi. No accessory muscle usage. No intercostal retractions. HEART: Regular rate and rhythm. Systolic murmur. ABDOMEN: Soft. Bowel sounds are present. No masses. No tenderness. EXTREMITIES: 2+ pedal edema. Erythema and wounds to bilateral lower extremities. NEUROLOGICAL: Patient is awake, alert and oriented x3. Cranial nerves 2 through 12 are grossly intact. Results CBC & Chem 7: 12/31/18 19:22 12/31/18 18:25 Labs: Abnormal Lab Results - Last 24 Hours (Table) 12/31/18 12/31/18 12/31/18 Range/Units 18:25 18:25 19:20 RDW (11.5-15.5) % PT (9.0-12.0) sec INR (<1.2) APTT (22.0-30.0) sec Creatine Kinase 22 L (30-135) U/L Troponin I 0.047 H* (0.000-0.034) ng/mL Total Protein 5.5 L (6.3-8.2) g/dL Albumin 2.9 L (3.5-5.0) g/dL Urine Appearance Cloudy H (Clear) Urine Protein Trace H (Negative) Urine Ketones 1+ H (Negative) Urine Blood Small H (Negative) Ur Leukocyte Esterase Large H (Negative) Urine WBC 61 H (0-5) /hpf Urine WBC Clumps Occasional H (None) /hpf Urine Mucus Rare H (None) /hpf 12/31/18 12/31/18 01/01/19 Range/Units 19:22 19:22 03:44 RDW 15.6 H (11.5-15.5) % PT 13.6 H (9.0-12.0) sec INR 1.3 H (<1.2) APTT 67.9 H (22.0-30.0) sec Creatine Kinase (30-135) U/L Troponin I (0.000-0.034) ng/mL Total Protein (6.3-8.2) g/dL Albumin (3.5-5.0) g/dL Urine Appearance (Clear) Urine Protein (Negative) Urine Ketones (Negative) Urine Blood (Negative) Ur Leukocyte Esterase (Negative) Urine WBC (0-5) /hpf Urine WBC Clumps (None) /hpf Urine Mucus (None) /hpf Microbiology - Last 24 Hours (Table) 12/31/18 19:20 Urine Culture - Preliminary Urine,Voided Thrombosis Risk Factor Assmnt - DVT/VTE Prophylaxis DVT/VTE Prophylaxis: Pharmacologic Prophylaxis ordered - Choose All That Apply Each Factor Represents 1 point: Obesity (BMI >25) Each Risk Factor Represents 2 Points: Age 61-74 years Thrombosis Risk Factor Assessment Total Risk Factor Score: 3 Thrombosis Risk Factor Assessment Level: Moderate Risk Assessment and Plan Plan: 1. Acute hypoxic respiratory failure secondary to right lower lobe pneumonia, probable gram-negative pneumonia, acute on chronic diastolic heart failure, lung cancer. Consult with pulmonary medicine and cardiology. Continue Levaquin 750 mg daily, Lasix 40 mg daily, heparin drip discontinued. Continue DuoNeb treatments 4 times daily as needed, Pulmicort 1 mg twice daily, Perforomist. Continue Aldactone 25 mg daily and Lopressor 25 mg daily. 2. Acute urinary tract infection. Continue antibiotics. Urine culture in progress. 3. Constipation with impaction. Lactulose 10 g daily, MiraLAX daily, fleets enema as needed. 4. Bilateral lower extremity cellulitis, present on admission. Continue local wound care with Silvadene. 5. Escoriation buttock, present on admission.. Cream. 6. Metastatic non-small cell lung cancer under the care of Dr. Meredith. Oncology consult. 7. Hyperlipidemia. Continue pravastatin. 8. Coagulopathy, chronic. INR 1.3. 9. Recurrent depression. Continue Celexa 40 mg daily. 10. Hypothyroidism. Continue levothyroxine. 11. COPD, stable. Continue DuoNeb treatments, Pulmicort. 12. Recurrent depression. Continue Celexa 40 mg in the morning. 13. Chronic pain syndrome. Continue Latta, Flexeril. 14. 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 Oncology consult. Continue Cortef 20 mg daily and at noon, Florinef 0.1 mg twice daily. 15. Severe protein calorie malnutrition with loss of appetite. Protein supplementation. Consult dietitian. 16. DVT prophylaxis. Heparin subcu. noted INR is elevated at 1.8 and platelet count is normal. 27. GI prophylaxis. Protonix. Patient will be admitted to the hospital for a minimum of 2 night stay. Discharge plan: To be determined. Most likely subacute rehab. PT and OT. Impression and plan of care have been directed as dictated by the signing physician. Dianelys Barrios nurse practitioner acting as scribe for signing physician.
--- NOTE | 2019-01-01 17:07 | P.CRDCN ---
History of Present Illness History of present illness: This is Marisel Murray PA-C dictating a consult on this patient The patient was interviewed and examined by me as well as by Dr. Hooker Case discussed with Dr. Hooker and he agrees with the plan of care IMPRESSION / ASSESSMENT: Shortness of breath likely secondary to lung cancer versus pneumonia and combination with pleural effusion Lung cancer Acute on chronic mild diastolic heart failure, BNP 6500 Slightly elevated troponin, likely type II, denies chest pain COPD PLAN: Stop heparin Continue diuresis with oral Lasix Continue metoprolol HPI Patient is a 68-year-old female with a past medical history of lung cancer, CHF, and COPD who presents with progressive shortness of breath and weakness. Her home health nurse sent her in for evaluation after she was found to be hypoxic. She has had worsening shortness of breath and orthopnea. Has to sleep in a recliner. Denies chest pain. She has also been nauseated and vomiting. According to the emergency room note bedside ultrasound showed the lines consistent with pulmonary edema. Chest x-ray showed right lower lobe consolidation and increased pleural effusion, left upper lobe mass like infiltrate. She is on Lasix. Her shortness of breath has improved somewhat. Denies any chest pain. ROS: No fevers, chills positive for cough positive for nausea, vomiting, no diarrhea, no hematuria, dysuria, no musculoskeletal complaints, no strokes or seizures, no skin lesions. EXAMINATION: Patient is afebrile, pulse 105, respirations 16, blood pressure 147/77, oxygen saturation 91% on 4 L nasal cannula Patient seen and examined in bed, doesn't appear to be in any acute distress lungs are diminished bilaterally Heart is regular, no murmurs appreciated 1+ pitting edema bilaterally REVIEW OF LABS, ECG & MEDICAL DATA Chest x-ray showed increasing right lower lobe consolidation, left upper lobe masslike infiltrate, right pleural effusion increased compared to last exam WBC 9.3, Hemoglobin 12.4, Potassium 3.5, BUNs 17, creatinine 0.57, troponin 0.047 BNP 6500 Echocardiogram from September showed normal LV size and function, EF greater than 55% Past Medical History Past Medical History: Cancer, Heart Failure, COPD Additional Past Medical History / Comment(s): URINARY INCONTINENCE, WEARS DEPENDS DAILY, lung CA, post radiation and chemo. Fracture left wrist. brain nodules-radiation bed sores History of Any Multi-Drug Resistant Organisms: None Reported Past Surgical History: Cholecystectomy, Hysterectomy, Orthopedic Surgery Additional Past Surgical History / Comment(s): KARSON KNEE CAP REPLACEMENT, bronchoscopy Past Anesthesia/Blood Transfusion Reactions: No Reported Reaction Past Psychological History: Anxiety Smoking Status: Current every day smoker Past Alcohol Use History: Occasional Past Drug Use History: None Reported - Past Family History Mother Family Medical History: Unable to Obtain Additional Family Medical History / Comment(s): patient was adopted . Medications and Allergies Home Medications Medication Instructions Recorded Confirmed Type Albuterol Nebulized [Ventolin 2.5 mg INHALATION RT-QID PRN 05/03/15 12/31/18 History Nebulized] Citalopram Hydrobromide [CeleXA] 40 mg PO QAM 05/03/15 12/31/18 History Cyclobenzaprine HCl 10 mg PO HS 07/17/18 12/31/18 History Budesonide [Pulmicort] 1 mg INHALATION RT-BID nebu 07/28/18 12/31/18 Rx Potassium Chloride ER [K-Dur 20] 20 meq PO TID tab.er.prt 07/28/18 12/31/18 Rx Fludrocortisone [Florinef] 0.1 mg PO BID 09/29/18 12/31/18 History Levothyroxine Sodium [Synthroid] 50 mcg PO DAILY 09/29/18 12/31/18 History Furosemide [Lasix] 40 mg PO DAILY tab 10/08/18 12/31/18 Rx Ipratropium-Albuterol Nebulize 3 ml INHALATION RT-TID PRN 10/08/18 12/31/18 Rx [Duoneb 0.5 mg-3 mg/3 ml Soln] ampul.neb Metoprolol Tartrate [Lopressor] 25 mg PO DAILY tab 10/08/18 12/31/18 Rx ALPRAZolam [Xanax] 0.25 mg PO Q8H PRN 11/13/18 12/31/18 History HYDROcodone/APAP 5-325MG [[place] 1 tab PO Q6H PRN 11/13/18 12/31/18 History 5-325] Hydrocortisone [Cortef] 40 mg PO QAM 11/13/18 12/31/18 History Magnesium Oxide [Magox 400] 400 mg PO HS 11/13/18 12/31/18 History Spironolactone [Aldactone] 25 mg PO DAILY@1200 11/13/18 12/31/18 History Nystatin 100,000 Unit/ml Susp 500,000 unit PO QID #28 cup 12/05/18 12/31/18 Rx [Mycostatin Oral Susp] Hydrocortisone [Cortef] 20 mg PO DAILY@1200 12/31/18 12/31/18 History Pantoprazole [Protonix] 40 mg PO HS 12/31/18 12/31/18 History SILVER sulfADIAZINE CREAM 1 applic TOPICAL DAILY 12/31/18 12/31/18 History [Silvadene Cream] Allergies Allergy/AdvReac Type Severity Reaction Status Date / Time cephalexin monohydrate Allergy Severe Anaphylaxis Verified 12/31/18 20:15 [From Keflex] adhesive Allergy Rash/Hives Verified 12/31/18 20:15 silicone Allergy Rash/Hives Verified 12/31/18 20:15 Physical Exam Vitals: Vital Signs Temp Pulse Pulse Resp BP BP Pulse Ox 01/01/19 08:15 16 91 L 01/01/19 08:00 97.9 F 105 H 16 147/77 86 L 01/01/19 04:00 97.4 F L 103 H 20 161/85 92 L 01/01/19 00:00 97.7 F 109 H 22 159/94 96 12/31/18 21:41 87 L 12/31/18 20:20 104 H 17 121/66 98 12/31/18 19:54 99.4 F 105 H 19 120/64 99 12/31/18 18:13 24 12/31/18 18:11 99.1 F 110 H 24 94/81 89 L Intake and Output 12/31/18 01/01/19 01/01/19 22:59 06:59 14:59 Output Total 800 Balance -800 Output: Urine 800 Other: Voiding Method Diaper Incontinent # Voids 0 Weight 92.079 kg 66 kg 90.4 kg Results 12/31/18 19:22 12/31/18 18:25 Cardiac Enzymes 12/31/18 12/31/18 Range/Units 18:25 18:25 AST 29 (14-36) U/L Troponin I 0.047 H* (0.000-0.034) ng/mL Coagulation 12/31/18 01/01/19 Range/Units 19:22 03:44 PT 13.6 H (9.0-12.0) sec APTT 26.4 67.9 H (22.0-30.0) sec CBC 12/31/18 Range/Units 19:22 WBC 9.3 (3.8-10.6) k/uL RBC 4.01 (3.80-5.40) m/uL Hgb 12.4 (11.4-16.0) gm/dL Hct 39.7 (34.0-46.0) % Plt Count 218 (150-450) k/uL Comprehensive Metabolic Panel 12/31/18 Range/Units 18:25 Sodium 140 (137-145) mmol/L Potassium 3.5 (3.5-5.1) mmol/L Chloride 103 (98-107) mmol/L Carbon Dioxide 30 (22-30) mmol/L BUN 17 (7-17) mg/dL Creatinine 0.57 (0.52-1.04) mg/dL Glucose 79 (74-99) mg/dL Calcium 8.4 (8.4-10.2) mg/dL AST 29 (14-36) U/L ALT 28 (9-52) U/L Alkaline Phosphatase 106 (38-126) U/L Total Protein 5.5 L (6.3-8.2) g/dL Albumin 2.9 L (3.5-5.0) g/dL Current Medications Generic Name Dose Route Start Last Admin Trade Name Freq PRN Reason Stop Dose Admin Acetaminophen 650 mg 12/31/18 20:26 Tylenol Tab PO Q6HR PRN Mild Pain or Fever > 100.5 Hydrocodone Bitart/Acetaminophen 1 each 12/31/18 20:26 12/31/18 21:18 [place] 5-325 PO 1 each Q4HR PRN Administration Moderate Pain Fludrocortisone Acetate 0.1 mg 12/31/18 21:00 01/01/19 09:21 Florinef PO 0.1 mg BID TAL Administration Heparin Sodium (Porcine) 0 unit 12/31/18 20:31 Heparin IV PER PROTOCOL PRN Low PTT Protocol Vancomycin HCl 1,500 mg/ 250 mls @ 125 mls/hr 01/01/19 09:00 01/01/19 10:04 Sodium Chloride IVPB 125 mls/hr Q12H TAL Administration Sodium Chloride 1,000 mls @ 20 mls/hr 12/31/18 20:30 12/31/18 21:25 Saline 0.9% IV 20 mls/hr .Q24H TAL Administration Heparin Sodium/Sodium Chloride 250 mls @ 10 mls/hr 12/31/18 20:45 12/31/18 21:31 25,000 unit/ Sodium Chloride IV 10.86 units/kg/hr .Q24H TAL 10 mls/hr Administration Protocol 10.86 UNITS/KG/HR Levothyroxine Sodium 50 mcg 01/01/19 06:30 01/01/19 06:47 Synthroid PO 50 mcg DAILY@0630 TAL Administration Naloxone HCl 0.2 mg 12/31/18 20:26 Narcan IV Q2M PRN Opioid Reversal Ondansetron HCl 4 mg 12/31/18 20:26 Zofran IVP Q8HR PRN Nausea And Vomiting Pantoprazole Sodium 40 mg 01/01/19 07:30 01/01/19 06:48 Protonix PO 40 mg [id number] TAL Administration Intake and Output 12/31/18 01/01/19 01/01/19 22:59 06:59 14:59 Output Total 800 Balance -800 Output: Urine 800 Other: Voiding Method Diaper Incontinent # Voids 0 Weight 92.079 kg 66 kg 90.4 kg Patient Weight 01/02/19 06:59 Weight 90.4 kg 12/31/18 19:22 12/31/18 18:25
[2019-01-01] MEDS ORDERED: LEVOFLOXACIN 750MG-D5W PMX 750 MG in DEXTROSE/WATER 1 150ML.BAG IVPB SCH (20:00)
[2019-01-01] MEDS: FORMOTEROL FUMARATE 20 MCG/2 ML NEBU INHALATION SCH (20:05)
[2019-01-01] MEDS: IPRATROPIUM-ALBUTEROL 3 ML NEB INHALATION PRN (20:05)
[2019-01-01] MEDS: BUDESONIDE 1 MG/2 ML NEBU INHALATION SCH (20:05)
[2019-01-01] MEDS: HYDROcodone/APAP 5-325MG 1 EACH TAB PO PRN (20:40)
[2019-01-01] MEDS ORDERED: MAGNESIUM OXIDE 400 MG TAB PO SCH (21:00)
[2019-01-01] MEDS ORDERED: CYCLOBENZAPRINE 10 MG TAB PO SCH (21:00)
[2019-01-01] MEDS ORDERED: PANTOPRAZOLE 40 MG TABLET PO SCH (21:00)
[2019-01-01] MEDS ORDERED: PRAVASTATIN SODIUM 20 MG TAB PO SCH (21:00)
--- NOTE | 2019-01-01 21:13 | CONS ---
CONSULTATION PULMONARY/CRITICAL CARE CONSULTATION: DATE OF SERVICE: 01/01/2019 This is a 68-year-old female who was seen in the emergency room for shortness of breath. She came into the ER yesterday. It looks like she arrives shortly after about 6 p.m. She was brought in by EMS. The patient came in complaining of generalized weakness and profound shortness of breath. The patient has a well-known history of advanced lung cancer. She has metastatic disease. I believe her lung cancer is squamous cell carcinoma. She has undergone both radiation therapy to the lung and to the brain for the lung cancer as well as treatment with chemotherapy and then targeted immune therapy. Her oncologist is Dr. Meredith and her radiation therapist is Dr. Rea. The patient comes in complaining of shortness of breath. She apparently was hypoxemic at home, according to the home health nurse's evaluation. She was coughing and congested. She was bringing up phlegm. She did not have any chest pain. There was no fever or chills. No GI or complaints. The patient currently is DNR. She initially was FULL CODE. The patient is lying flat in bed. Nasal oxygen in place at 4 L. Basic IV is running. She appears in no distress, although she does have a bit of mild conversational dyspnea. There is no audible wheezing or use of accessory muscles. We were asked to see the patient for the shortness of breath. Chest x-ray shows either an infiltrate, mass or fluid in the right lower lobe, a mass or infiltrate in the left upper lobe, which is I believe where her primary cancer is, and a small left- sided pleural effusion. There is also evidence of cardiomegaly. HOME MEDICATIONS: Her home medications included: 1. Albuterol updrafts. 2. Celexa. 3. Cyclobenzaprine, which is Flexeril. 4. Florinef, used for patients with adrenal insufficiency or orthostatic hypotension. 5. Synthroid. 6. Xanax. 7. Thorofare. 8. Mag-Ox. 9. Aldactone. 10.Silvadene cream. 11.Protonix. 12.Pulmicort updrafts. 13.K-Dur. 14.Lasix. 15.DuoNeb. 16.Metoprolol. 17.Nystatin. ALLERGIES: ALLERGIES INCLUDE: 1. KEFLEX. 2. ADHESIVE TAPE. 3. SILICONE. MEDICAL HISTORY: Medical history includes: 1. COPD. 2. Metastatic lung cancer, squamous cell type. 3. Urinary incontinence. 4. Left wrist fracture. 5. Hypothyroidism. 6. Anxiety. 7. Depression. 8. GERD, among other things. SURGICAL HISTORY: Surgical history includes: 1. Orthopedic surgeries on her knees. 2. Bronchoscopy. 3. Hysterectomy. 4. Cholecystectomy. SOCIAL HISTORY: Positive for ongoing tobacco use. She has been smoking for many years. She does drink occasionally. Denies any illicit drug use. FAMILY HISTORY: Family history is unable to be determined, as she was adopted, so she does not really know her maternal or paternal parents' history. REVIEW OF SYSTEMS: CONSTITUTIONAL: Weakness, decreased appetite. NEUROLOGIC: Headache. HEENT: Negative. CARDIOVASCULAR: Negative. PULMONARY: Shortness of breath, chest tightness, wheezing, cough, chest congestion and phlegm production. GI: Negative. : Negative. RHEUMATOLOGIC: Negative. IMMUNOLOGIC: Negative. ENDOCRINOLOGIC: Negative. DERMATOLOGIC: Negative. PHYSICAL EXAMINATION: VITAL SIGNS: Current vital signs are reviewed. Temperature is 98, heart rate 103, respiratory rate 16, blood pressure 102/72, mean 82, 4-liter saturation 90%. GENERAL: Appears in no acute distress. Mild conversational dyspnea. HEENT EXAMINATION: Grossly unremarkable. Mucous membranes are moist. Nasal oxygen noted. NECK: Supple. Full range of motion. No adenopathy or thyromegaly. Neck veins are flat. CARDIOVASCULAR EXAMINATION: Distant heart sounds. Heart rate about 100. S1, S2 normal. No distinct murmur noted. LUNGS: Coarse rhonchi and wheezes. Breath sounds are diminished. There is prolongation on forced maneuver. Adventitious lung sounds are more prominent on forced maneuver. ABDOMEN: Obese. Bowel sounds are heard. EXTREMITIES: Intact. No cyanosis, clubbing or significant edema. SKIN: Without rash. NEUROLOGIC: Neurologic examination is brief but nonfocal. LABS: Reviewed. White count 9.3, hemoglobin 12.4, hematocrit 39.7, platelet count 218,000. PT 13.6, INR 1.3. PTT is 26.4. Sodium, potassium, chloride, CO2 all normal. Anion gap is 7. BUN and creatinine were 17 and 0.57. N-terminal proBNP 6500. Troponin 0.047. Total protein 5.5, albumin 2.9. Urine looks infected. LE is largely positive. There is trace protein in the urine. Urine is cloudy in color. Four RBCs, 61 WBCs, occasional WBC clumps. IMAGING: Chest x-ray is reviewed. Could not rule out a component of CHF as well as the other findings I noted, including a right lower lobe consolidation, infiltrate or fluid, left upper lobe masslike infiltrate, and small left-sided pleural effusion. Her medications are reviewed. I will review them very carefully and make sure we make adjustments where appropriate. ASSESSMENT: 1. Shortness of breath, likely a combination of things, including congestive heart failure/fluid overload, possible pneumonia, chronic obstructive pulmonary disease exacerbation, and advancing lung cancer. 2. Metastatic [id number]-mypo lung cancer. 3. Previous history of chemotherapy and targeted immune therapy for her [id number] lung cancer as well as primary radiation to the lung lesion. 4. History of chronic obstructive pulmonary disease from ongoing tobacco use. 5. Ongoing tobacco use with nicotine addiction. 6. History of anxiety and depression. 7. Hypothyroidism. 8. Chronic pain syndrome. 9. Adrenal insufficiency. 10.Gastroesophageal reflux disease. 11.Urinary incontinence. PLAN: The patient's medications are reviewed. Overall prognosis is poor. She apparently came in as a FULL CODE. She is now NO CODE. That is appropriate. I would be very conservative with her care. Her overall prognosis is poor. No additional recommendations are made. Medications are reviewed and adjusted accordingly. MMCAMILLAL / EVANGELISTN: [id number] / MTDD
[2019-01-02] MEDS: SODIUM CHLORIDE 0.9% 1,000 ML IV SCH (02:38)
[2019-01-02] MEDS: LEVOTHYROXINE 25 MCG TAB PO SCH (06:40)
[2019-01-02] MEDS: PANTOPRAZOLE 40 MG TABLET PO SCH (06:40)
[2019-01-02] MEDS: HYDROcodone/APAP 5-325MG 1 EACH TAB PO PRN (06:45)
[2019-01-02 08:30] VITALS: TEMP 97.8
[2019-01-02] MEDS: BUDESONIDE 1 MG/2 ML NEBU INHALATION SCH (08:55)
[2019-01-02] MEDS: IPRATROPIUM-ALBUTEROL 3 ML NEB INHALATION PRN ×2 (08:55→13:07)
[2019-01-02] MEDS: FORMOTEROL FUMARATE 20 MCG/2 ML NEBU INHALATION SCH (08:55)
[2019-01-02] MEDS ORDERED: HYDROCORTISONE 20 MG TAB PO SCH (09:00)
[2019-01-02] MEDS ORDERED: ENOXAPARIN 40 MG/0.4 ML SYRINGE SQ SCH (09:00)
[2019-01-02] MEDS ORDERED: FUROSEMIDE 40 MG TAB PO SCH (09:00)
[2019-01-02] MEDS: METOPROLOL TARTRATE 25 MG TAB PO SCH (09:44)
[2019-01-02] MEDS: FLUDROCORTISONE 0.1 MG TAB PO SCH (09:44)
[2019-01-02] MEDS: CITALOPRAM HYDROBROMIDE 20 MG TAB PO SCH (09:44)
[2019-01-02] MEDS: SPIRONOLACTONE 25 MG TAB PO SCH (09:44)
[2019-01-02] MEDS: LACTULOSE 20 GM/30 ML CUP PO SCH (09:45)
[2019-01-02] MEDS: VANCOMYCIN 1,500 MG in SODIUM CHLORIDE 0.9% 250 ML IVPB SCH (09:49)
[2019-01-02] MEDS: POTASSIUM CHLORIDE ER 20 MEQ TAB.ER PO SCH (09:49)
[2019-01-02] MEDS: POLYETHYLENE GLYCOL 3350 17 GM POWD.PACK PO SCH (09:49)
[2019-01-02 10:13] LABS: African American GFR (CKD) >90 (>60 ml/min/1.73 sqM); Anion Gap 4 mmol/L; Blood Urea Nitrogen 20 mg/dL (7-17); Calcium 8.4 mg/dL (8.4-10.2); Carbon Dioxide 34 mmol/L (22-30); Chloride 102 mmol/L (98-107); Glucose 149 mg/dL (74-99); Potassium 3.2 mmol/L (3.5-5.1); Sodium 140 mmol/L (137-145)
--- NOTE | 2019-01-02 11:27 | PN ---
PROGRESS NOTE DATE OF SERVICE: 01/02/2019 This is a 68-year-old female who I saw yesterday. She came in with complaints of difficulty breathing. We thought her shortness of breath was a combination of different factors including some mild fluid overload/CHF, possible pneumonia, COPD exacerbation, and advancing lung cancer. She does carry with her a diagnosis of metastatic/advanced non-small cell lung cancer. She has had chemo and targeted immune therapy as well as radiation directed to the primary cancer as well as radiation to a brain lesion. The patient initially came as a FULL CODE, but then quickly changed herself to a NO CODE. Today in the hospital she states she is feeling a bit better. Her breathing is improved. She asked whether not she could go home. She does mention to me that she would prefer to go home and not come back to the hospital. I query as to whether not a palliative care consult and/or hospice consultation would be appropriate. I believe it would be. I did talk to one of the business case analyst about that. The patient would prefer to be at home if possible. She does have a history of ongoing tobacco use with nicotine addiction, COPD, anxiety/depression, hypothyroidism, chronic pain syndrome, adrenal insufficiency, GERD and urinary incontinence. Current vital signs are reviewed. Temperature is 97.8, heart rate 90, respiratory rate 18, blood pressure 128/75 mean 92, 4 L saturation 98%. Appears in no acute distress. HEENT: Examination is grossly unremarkable. Mucous membranes moist. No oral lesions. NECK: Supple. Full range of motion. No adenopathy or thyromegaly. Neck veins are flat. CARDIOVASCULAR: Examination reveals a regular rhythm and rate. S1, S2 normal. No S3, S4, or murmur. Heart sounds are distant. LUNGS: Reveal mostly clear breath sounds. A few scattered rhonchi. Mild expiratory wheezes. Breath sounds are diminished. She really does not take real deep breaths. ABDOMEN: Soft. Bowel sounds are heard. EXTREMITIES: Intact. Minimal edema. SKIN: Without rash. NEUROLOGIC: Examination is brief but nonfocal. LAB DATA: Reviewed. Sodium 140, potassium 3.2, chloride 102. CO2 is 34. BUN and creatinine were 20 and 0.53. The urine appears to show possible urinary tract infection. I mentioned this yesterday. Her N-terminal proBNP was 6500. Troponin was 0.047. Microbiologic studies are thus far negative. X-rays are negative. ASSESSMENT: 1. Shortness of breath, multifactorial, in part related to underlying congestive heart failure/fluid overload, possible underlying pneumonia, chronic obstructive pulmonary disease exacerbation, and advancing lung cancer. 2. Metastatic non-small cell lung cancer, status post treatment including systemic chemotherapy, targeted immunotherapy, and radiation therapy to the lung lesion and brain. 3. History of chronic obstructive pulmonary disease. 4. History of ongoing tobacco use nicotine addiction. 5. History of anxiety/depression. 6. Hypothyroidism. 7. Chronic pain syndrome. 8. Adrenal insufficiency. 9. Gastroesophageal reflux disease. 10.Urinary incontinence. PLAN: I think a palliative care/hospice consult would be very appropriate. This patient wants to go home and does not want to come back to the hospital. I think this is appropriate given her poor prognosis. Additional recommendations and suggestions are forthcoming. No changes currently. I believe she will have a limited response to usual COPD medications. Additional recommendations and suggestions are forthcoming. Prognosis is poor. MMCAMILLAL / IJN: [id number] /
[2019-01-02 11:50] VITALS: BP 94/56; RESP 20
[2019-01-02] MEDS ORDERED: POTASSIUM CHLORIDE ER 20 MEQ TAB.ER PO STA (12:44)
[2019-01-02] MEDS: HYDROCORTISONE 20 MG TAB PO SCH (12:46)
[2019-01-02 13:17] VITALS: PULSE 96
--- NOTE | 2019-01-02 15:18 | P.CONS ---
History of Present Illness - Reason for Consult Consult date: 01/02/19 lung cancer Requesting physician: Christian Carrasco - Chief Complaint Weakness - History of Present Illness Ms. crystal is a patient well known to primary oncologist Dr. Fuentes for treatment of her Metastatic Non-small Cell Lung Cancer, most recently on treatment with immune therapy Opdivo. Recently admitted for adrenal insufficiency in June 2018. During that admission she presented with decreased appetie, and increased weakness and fatigue. She also complained of intractable nausea and vomiting, inability to ambulate, and unable to keep food or liquids down. She presented to [facility] for further evaluation. On presentation she was hypotensive, IV Hydration, Symptom control, septic work-up with rausch cultures, and admission to ICU. She did recently start synthroid, likely related to immune reaction, a cortisol level was completed on 07/04 and was 0.7. I have ordered a baseline Cortisol, ACTH, TSH level. She was discharged under the surveillance of endocrinology and continued on hydrocortisone. She was doing well and she follow-up with Dr. Fuentes and treatment was restarted. Although she worsened again and was re-admitted in mid-November. She was scheduled to follow-up with Dr. Fuentes today in the office for plan as her immune therapy has been on hold secondary to recurrent hospitalizations and persistent immune related effects. She now presents to emergency center. On presentation blood pressure 94/81, heart rate 110, pulse ox 89 % on room air. EKG was a sinus rhythm with no acute ST changes. WBC 9.3, hemoglobin 12.4, INR 1.3, sodium 140, potassium 3.5, chloride 103, CO2 30, BUN 17 and creatinine 0.57. Total bilirubin 1.0, AST 29, ALT 28, alkaline phosphatase 106. Troponin 0.047. Albumin 2.9. ProBNP 6500 Urinalysis was cloudy, leukoesterase large, wbc's 61. Chest x-ray revealed increasing right lower lobe consolidation compared to last exam. Congestive heart failure. Left upper lobe masslike infiltrate slightly increased compared to last exam. Right pleural effusion increased. Patient was started on Levaquin and vancomycin, Silvadene for lower extremity cellulitis (present at last admission), Medical oncology has been asked to see her with her known cancer diagnosis Review of Systems A 14 point review of systems assessed and completed and all negative except HPI Past Medical History Past Medical History: Cancer, Heart Failure, COPD Additional Past Medical History / Comment(s): URINARY INCONTINENCE, WEARS DEPENDS DAILY, lung CA, post radiation and chemo. Fracture left wrist. brain nodules-radiation bed sores History of Any Multi-Drug Resistant Organisms: None Reported Past Surgical History: Cholecystectomy, Hysterectomy, Orthopedic Surgery Additional Past Surgical History / Comment(s): KARSON KNEE CAP REPLACEMENT, bronchoscopy Past Anesthesia/Blood Transfusion Reactions: No Reported Reaction Past Psychological History: Anxiety Smoking Status: Current every day smoker Past Alcohol Use History: Occasional Past Drug Use History: None Reported - Past Family History Mother Family Medical History: Unable to Obtain Additional Family Medical History / Comment(s): patient was adopted . Medications and Allergies Home Medications Medication Instructions Recorded Confirmed Type Albuterol Nebulized [Ventolin 2.5 mg INHALATION RT-QID PRN 05/03/15 12/31/18 H istory Nebulized] Citalopram Hydrobromide [CeleXA] 40 mg PO QAM 05/03/15 12/31/18 History Cyclobenzaprine HCl 10 mg PO HS 07/17/18 12/31/18 History Budesonide [Pulmicort] 1 mg INHALATION RT-BID nebu 07/28/18 12/31/18 Rx Potassium Chloride ER [K-Dur 20] 20 meq PO TID tab.er.prt 07/28/18 12/31/18 Rx Fludrocortisone [Florinef] 0.1 mg PO BID 09/29/18 12/31/18 History Levothyroxine Sodium [Synthroid] 50 mcg PO DAILY 09/29/18 12/31/18 History Furosemide [Lasix] 40 mg PO DAILY tab 10/08/18 12/31/18 Rx Ipratropium-Albuterol Nebulize 3 ml INHALATION RT-TID PRN 10/08/18 12/31/18 Rx [Duoneb 0.5 mg-3 mg/3 ml Soln] ampul.neb Metoprolol Tartrate [Lopressor] 25 mg PO DAILY tab 10/08/18 12/31/18 Rx ALPRAZolam [Xanax] 0.25 mg PO Q8H PRN 11/13/18 12/31/18 History HYDROcodone/APAP 5-325MG [[place] 1 tab PO Q6H PRN 11/13/18 12/31/18 History 5-325] Hydrocortisone [Cortef] 40 mg PO QAM 11/13/18 12/31/18 History Magnesium Oxide [Magox 400] 400 mg PO HS 11/13/18 12/31/18 History Spironolactone [Aldactone] 25 mg PO DAILY@1200 11/13/18 12/31/18 History Nystatin 100,000 Unit/ml Susp 500,000 unit PO QID #28 cup 12/05/18 12/31/18 Rx [Mycostatin Oral Susp] Hydrocortisone [Cortef] 20 mg PO DAILY@1200 12/31/18 12/31/18 History Pantoprazole [Protonix] 40 mg PO HS 12/31/18 12/31/18 History SILVER sulfADIAZINE CREAM 1 applic TOPICAL DAILY 12/31/18 12/31/18 History [Silvadene Cream] Lactulose [Cephulac] 10 gm PO DAILY #450 ml 01/02/19 Rx Levofloxacin [Levaquin] 750 mg PO Q24H #5 tab 01/02/19 Rx Polyethylene Glycol 3350 [Miralax] 17 gm PO DAILY #30 powd.pack 01/02/19 Rx Allergies Allergy/AdvReac Type Severity Reaction Status Date / Time cephalexin monohydrate Allergy Severe Anaphylaxis Verified 12/31/18 20:15 [From Keflex] adhesive Allergy Rash/Hives Verified 12/31/18 20:15 silicone Allergy Rash/Hives Verified 12/31/18 20:15 Physical Exam Vitals: Vital Signs Temp Pulse Pulse Resp BP Pulse Ox 01/02/19 13:17 96 01/02/19 13:09 92 01/02/19 11:49 97.8 F 69 20 94/56 95 01/02/19 09:18 94 01/02/19 09:07 92 01/02/19 09:06 92 01/02/19 08:56 92 01/02/19 08:00 97.8 F 91 18 128/75 98 01/02/19 03:00 98.4 F 93 20 131/78 96 01/01/19 23:40 98.5 F 95 20 116/69 94 L 01/01/19 20:35 98.5 F 91 18 111/59 92 L 01/01/19 20:29 91 01/01/19 20:21 93 07/18/19 20:10 91 95 01/01/19 15:39 98.3 F 92 16 134/80 98 Intake and Output 01/02/19 01/02/19 01/02/19 06:59 14:59 22:59 Intake Total 390 850 Balance 390 850 Intake: IV 390 250 Sodium Chloride 0.9% 1, 140 000 ml @ 20 mls/hr IV . Q24H [facility]AL Rx#:[id number] Vancomycin 1,500 mg In 250 250 Sodium Chloride 0.9% 250 ml @ 125 mls/hr IVPB Q12H TAL Rx#:[id number] Oral 600 Other: Voiding Method Diaper Incontinent # Voids 1 Weight 91.6 kg Gen: Alert still sleepy Head: NCNT NEck: Supple Lungs: DIminished bibasilar, no increased effort Heart: irgg tachy Abdomen: S, NT Ext: Edema bilat, evidence cellulitis Results CBC & Chem 7: 12/31/18 19:22 01/02/19 09:27 Labs: Abnormal Lab Results - Last 24 Hours (Table) 01/02/19 Range/Units 09:27 Potassium 3.2 L (3.5-5.1) mmol/L Carbon Dioxide 34 H (22-30) mmol/L BUN 20 H (7-17) mg/dL Glucose 149 H (74-99) mg/dL Microbiology - Last 24 Hours (Table) 12/31/18 19:20 Urine Culture - Final Urine,Voided 12/31/18 15:20 Blood Culture - Preliminary Blood No Growth after 24 hours Assessment and Plan Plan: Metastatic Lung Cancer: On Treatment with immune therapy - Restarted and last treatment September 05 2018 - 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 Rea - Repeat MRI Brain was scheduled as outpatient, family concerned with increased shakeyness and weakn ess. Will repeat while inpatient Recent Admission for Adrenal Insufficiency Likely due to Immune therapy - Continued on hydrocortisone/forinef Plan: - Hospice has been consulted, overall prognosis is poor as patient is currently not candidate for treatment and appears to have progressive disease. Thank you for allowing us to participate in the care of this patient, we will follow along
--- NOTE | 2019-01-02 15:56 | P.DS ---
Providers Date of admission: 12/31/18 20:26 Expected date of discharge: 01/02/19 Attending physician: Christian Carrasco Consults: 12/31/18 20:27 Consult Physician Routine Consulting Provider: Ewa Reynolds Consult Reason/Comments: chf exacerbation Do you want consulting provider notified?: Yes 01/01/19 11:10 Consult Physician Routine Consulting Provider: Toy Meredith Consult Reason/Comments: appointment tomorrow, lung ca Do you want consulting provider notified?: Yes Consult Physician Routine Consulting Provider: Abebe Hodge Consult Reason/Comments: pneumonia Do you want consulting provider notified?: Yes Primary care physician: [facility] Course: This is a 67-year-old female patient of Dr. Garcia with past medical history of metastatic non-small cell lung cancer under the care of Dr. Meredith with most recent treatment with immunotherapy. 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 She subsequently had an admission in September for dehydration and acute kidney injury and acute on chronic diastolic heart failure and was discharged to [facility]. She was recently hospitalized in November for possible sepsis secondary to UTI and was discharged home on oral Levaquin. Patient now complains of difficulty breathing that is progressively worsening. Her daughter states that she stopped eating and drinking as well. Patient states that nothing tastes good to her. She was evaluated by her home care nurse and was instructed to come into the hospital for evaluation. Patient denies having any chest pain. Regarding her cancer, she has appointment with Dr. Meredith tomorrow. Patient came into [facility] emergency center. Patient was found to be afebrile, initial blood pressure 94/81, heart rate 110, pulse ox 89 % on room air. EKG was a sinus rhythm with no acute ST changes. WBC 9.3, hemoglobin 12.4, INR 1.3, sodium 140, potassium 3.5, chloride 103, CO2 30, BUN 17 and creatinine 0.57. Total bilirubin 1.0, AST 29, ALT 28, alkaline phosphatase 106. Troponin 0.047. Albumin 2.9. ProBNP 6500 Urinalysis was cloudy, leukoesterase large, wbc's 61. Chest x-ray reveals increasing right lower lobe consolidation compared to last exam. Congestive heart failure. Left upper lobe masslike infiltrate slightly increased compared to last exam. Right pleural effusion increased. Patient was started on Levaquin and vancomycin, Silvadene for lower extremity cellulitis, consults added for cardiology, pulmonary medicine and oncology. 01/02: Patient met with Dr. Hodge this morning and it was determined the patient would transition to hospice care. Hospice will be meeting the patient at her home. Patient states nausea is better today. Medications have been addressed for home. Patient will be discharged home today in stable condition Discharge diagnoses: 1. Acute hypoxic respiratory failure secondary to right lower lobe pneumonia, probable gram-negative pneumonia, acute on chronic diastolic heart failure, acute COPD exacerbation and underlying lung cancer. 2. Acute urinary tract infection. 3. Constipation with impaction. 4. Bilateral lower extremity cellulitis, present on admission. 5. Escoriation buttock, present on admission. 6. Metastatic non-small cell lung cancer 7. Hyperlipidemia. 8. Coagulopathy, chronic. 9. Recurrent depression. 10. Hypothyroidism. 11. COPD 12. Recurrent depression. 13. Chronic pain syndrome. 14. 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 15. Severe protein calorie malnutrition with loss of appetite. Discharge plan: Home with hospice. Impression and plan of care have been directed as dictated by the signing physician. Dianelys Barrios nurse practitioner acting as scribe for signing physician. Patient Condition at Discharge: Stable Plan - Discharge Summary New Discharge Prescriptions: New Lactulose [Cephulac] 10 gm PO DAILY #450 ml Levofloxacin [Levaquin] 750 mg PO Q24H #5 tab Polyethylene Glycol 3350 [Miralax] 17 gm PO DAILY #30 powd.pack Continue Citalopram Hydrobromide [CeleXA] 40 mg PO QAM Albuterol Nebulized [Ventolin Nebulized] 2.5 mg INHALATION RT-QID PRN PRN Reason: Shortness Of Breath Cyclobenzaprine HCl 10 mg PO HS Budesonide [Pulmicort] 1 mg INHALATION RT-BID nebu Potassium Chloride ER [K-Dur 20] 20 meq PO TID tab.er.prt Levothyroxine Sodium [Synthroid] 50 mcg PO DAILY Fludrocortisone [Florinef] 0.1 mg PO BID Ipratropium-Albuterol Nebulize [Duoneb 0.5 mg-3 mg/3 ml Soln] 3 ml INHALATION RT-TID PRN ampul.neb PRN Reason: Shortness Of Breath Or Wheezing Furosemide [Lasix] 40 mg PO DAILY tab Metoprolol Tartrate [Lopressor] 25 mg PO DAILY tab ALPRAZolam [Xanax] 0.25 mg PO Q8H PRN PRN Reason: Anxiety HYDROcodone/APAP 5-325MG [[place] 5-325] 1 tab PO Q6H PRN PRN Reason: Pain Hydrocortisone [Cortef] 40 mg PO QAM Magnesium Oxide [Magox 400] 400 mg PO HS Spironolactone [Aldactone] 25 mg PO DAILY@1200 Nystatin 100,000 Unit/ml Susp [Mycostatin Oral Susp] 500,000 unit PO QID #28 cup Hydrocortisone [Cortef] 20 mg PO DAILY@1200 SILVER sulfADIAZINE CREAM [Silvadene Cream] 1 applic TOPICAL DAILY Pantoprazole [Protonix] 40 mg PO HS Discharge Medication List Albuterol Nebulized [Ventolin Nebulized] 2.5 mg INHALATION RT-QID PRN 05/03/15 [History] Citalopram Hydrobromide [CeleXA] 40 mg PO QAM 05/03/15 [History] Cyclobenzaprine HCl 10 mg PO HS 07/17/18 [History] Budesonide [Pulmicort] 1 mg INHALATION RT-BID nebu 07/28/18 [Rx] Potassium Chloride ER [K-Dur 20] 20 meq PO TID tab.er.prt 07/28/18 [Rx] Fludrocortisone [Florinef] 0.1 mg PO BID 09/29/18 [History] Levothyroxine Sodium [Synthroid] 50 mcg PO DAILY 09/29/18 [History] Furosemide [Lasix] 40 mg PO DAILY tab 10/08/18 [Rx] Ipratropium-Albuterol Nebulize [Duoneb 0.5 mg-3 mg/3 ml Soln] 3 ml INHALATION RT-TID PRN ampul.neb 10/08/18 [Rx] Metoprolol Tartrate [Lopressor] 25 mg PO DAILY tab 10/08/18 [Rx] ALPRAZolam [Xanax] 0.25 mg PO Q8H PRN 11/13/18 [History] HYDROcodone/APAP 5-325MG [[place] 5-325] 1 tab PO Q6H PRN 11/13/18 [History] Hydrocortisone [Cortef] 40 mg PO QAM 11/13/18 [History] Magnesium Oxide [Magox 400] 400 mg PO HS 11/13/18 [History] Spironolactone [Aldactone] 25 mg PO DAILY@1200 11/13/18 [History] Nystatin 100,000 Unit/ml Susp [Mycostatin Oral Susp] 500,000 unit PO QID #28 cup 12/05/18 [Rx] Hydrocortisone [Cortef] 20 mg PO DAILY@1200 12/31/18 [History] Pantoprazole [Protonix] 40 mg PO HS 12/31/18 [History] SILVER sulfADIAZINE CREAM [Silvadene Cream] 1 applic TOPICAL DAILY 12/31/18 [History] Lactulose [Cephulac] 10 gm PO DAILY #450 ml 01/02/19 [Rx] Levofloxacin [Levaquin] 750 mg PO Q24H #5 tab 01/02/19 [Rx] Polyethylene Glycol 3350 [Miralax] 17 gm PO DAILY #30 powd.pack 01/02/19 [Rx] Follow up Appointment(s)/Referral(s): Demetris Garcia DO [Primary Care Provider] - As Needed Patient Instructions/Handouts: How to Stop Smoking (DC) Activity/Diet/Wound Care/Special Instructions: [facility] Discharge Disposition: HOME WITH HOSPICE
--- NOTE | 2019-01-02 17:51 | CDI ---
Documentation Clarification Form Date: 01/02/2019 5:29:54 PM From: Ana María Bliss RN, CCDS Admit Date: 12/31/2018 8:26:00 PM Patient Name: Tia Temple Visit Number: [id number] Discharge Date: 01/02/2019 4:02:00 PM ATTENTION: The Clinical Documentation Specialists (CDI) and [facility] Coding Staff appreciate your assistance in clarifying documentation. Please respond to the clarification below the line at the bottom and electronically sign. The CDI & [facility] Coding staff will review the response and follow-up if needed. Please note: Queries are made part of the Legal Health Record. If you have any questions, please contact the author of this message via ITS. Dr. Barron Hooker The patient presented with shortness of breath. 01/01/19 Cardiology consult has documented, "slightly elevated troponin, likely type II, denies chest pain." History/Risk Factors: Lung cancer, COPD, Heart Failure, Current every day smoker Clinical Indicators: 68-year-old who present with progressive shortness of breath and weakness. She had worsening orthopnea. She had nausea and vomiting. Denies chest pain Chest x-ray showed right lower lobe consolidation and increased pleural effusion, left upper lobe mass like infiltrate. She had slightly elevated troponin. and was found to be hypoxic. Lab findings: Troponin 0.047, BNP 6500 Vital Signs:147/77 105 16 91 % on 4/L NC ECHO in September showed normal LV size and function, EF greater than 55 % Treatment: Continue diuresis with oral Lasix Continue metoprolol In your professional opinion, can you please further clarify "likely type II"? Type 2 CO (due to demand ischemia or secondary to ischemic imbalance) Other, please specify Unable to determine (Last Revision: September 2017) demand ischemia MTDD
[2019-01-02] MEDS ORDERED: LEVOFLOXACIN 750 MG TAB PO SCH (19:00)
[2019-01-03] MEDS ORDERED: VANCOMYCIN TROUGH DUE 1 EACH MISC MISCELLANE ONE (08:00)
== END 2019-01-02 16:02 | disposition hospice, home (50) | DRG 177 ==
LOC: EC 18:09 → 3SCARD 20:26
PROVIDERS: ADMIT Internal Medicine Geriatric Medicine; ATTEND Internal Medicine Geriatric Medicine
DX: J15.6 Pneumonia due to other Gram-negative bacteria (principal); E43 Unspecified severe protein-calorie malnutrition; I50.33 Acute on chronic diastolic (congestive) heart failure; J96.01 Acute respiratory failure with hypoxia; C34.90 Malignant neoplasm of unspecified part of unspecified bronchus or lung; C79.31 Secondary malignant neoplasm of brain; D68.9 Coagulation defect, unspecified; E27.40 Unspecified adrenocortical insufficiency; F33.9 Major depressive disorder, recurrent, unspecified; J44.0 Chronic obstructive pulmonary disease with (acute) lower respiratory infection; J44.1 Chronic obstructive pulmonary disease with (acute) exacerbation; L03.115 Cellulitis of right lower limb; L03.116 Cellulitis of left lower limb; N39.0 Urinary tract infection, site not specified; I24.8 Other forms of acute ischemic heart disease; E03.9 Hypothyroidism, unspecified; E78.5 Hyperlipidemia, unspecified; F17.200 Nicotine dependence, unspecified, uncomplicated; F41.9 Anxiety disorder, unspecified; G89.4 Chronic pain syndrome; K21.9 Gastro-esophageal reflux disease without esophagitis; K59.00 Constipation, unspecified; R32 Unspecified urinary incontinence; S30.810A Abrasion of lower back and pelvis, initial encounter; Z51.5 Encounter for palliative care; Z66 Do not resuscitate; Z90.710 Acquired absence of both cervix and uterus; Z79.890 Hormone replacement therapy; Z79.899 Other long term (current) drug therapy; Z79.52 Long term (current) use of systemic steroids; Z88.1 Allergy status to other antibiotic agents; Z91.048 Other nonmedicinal substance allergy status
CPT/HCPCS: 36415; 71046; 80048; 80053; 81001; 82550; 83735; 83880; 84484; 85025; 85610; 85730; 87040; 87086; 93005; 94640; 96361; 96365; 96366; 96367; 96368; 96375; 96376; 99291

== ENCOUNTER → 2019-07-04 | Outpatient (CLI) | payer MEDICARE, OTHER ==
--- NOTE | 2019-07-06 12:26 | PE ---
Nuclear medicine PET/CT HISTORY: Lung carcinoma, subsequent Patient received 11.2 mCi F-18 FDG intravenously in delayed scanning was performed from the skull bas e to the mid thighs. Localization and attenuation correction CT scan was performed. Correlation to CT scan 12/05/2018, prior nuclear medicine PET/CT 05/24/2018 Neck and chest: No evident cervical adenopathy. The supraclavicular location shows nonenlarged nodes with associated hypermetabolic uptake, SUV 4.4, 4.3. The left upper lobe lung mass shows mild hyperme tabolic uptake, SUV 2.6. Posterior costophrenic angle on the right shows some mild nodularity possibl y atelectatic change, no associated hypermetabolic uptake. Retrocrural node is not enlarged posterior ly on the right but shows an SUV 3.2 ABDOMEN: There has been development of extensive adenopathy present within the retroperitoneum 7.2 th e right, 5.9-7 on the left, portal region with SUV 14.2 and mesenteric fat with associated hypermetab olic uptake SUV 6.6. Extensive diverticular change again noted in the sigmoid colon. Osseous structures are stable. IMPRESSION: Interval development of abdominal adenopathy, additional areas of abnormal hypermetabolic uptake.
== END | disposition home or self-care (01) ==
LOC: RADPETMAIN 10:51
PROVIDERS: ATTEND Radiology Radiation Oncology
DX: R59.0 Localized enlarged lymph nodes (principal); C34.90 Malignant neoplasm of unspecified part of unspecified bronchus or lung; C79.31 Secondary malignant neoplasm of brain; C79.51 Secondary malignant neoplasm of bone; C49.21 Malignant neoplasm of connective and soft tissue of right lower limb, including hip; C34.12 Malignant neoplasm of upper lobe, left bronchus or lung; F17.210 Nicotine dependence, cigarettes, uncomplicated
CPT/HCPCS: 78815; A9552